=== PATIENT | female | born 1925 | race Caucasian/White ===

== ENCOUNTER 2016-03-27 06:57 | Inpatient (IN) ==
[2016-03-27] MEDS ORDERED: Aspirin 81 MG TAB.CHEW PO ONE (07:12)
[2016-03-27] MEDS ORDERED: 0.9 % Sodium Chloride 500 ML IVC ONE ×2 (07:21→08:27)
[2016-03-27] MEDS ORDERED: Nitroglycerin 0.4 MG TAB.SUBL SL PRN (07:21)
--- NOTE | 2016-03-27 07:23 | Emergency Department Note ---
Disposition Clinical Impression: History of IN (myocardial infarction), Atrial fibrillation with RVR, Acute prerenal azotemia Chest pain Qualifiers: Chest pain type: chest pain due to myocardial ischemia Qualified Code(s): I20.9 - Angina pectoris, unspecified Anemia Qualifiers: Anemia type: unspecified type Qualified Code(s): D64.9 - Anemia, unspecified Disposition: Admitted As Inpatient Condition: Serious Time of Disposition: 08:04 Chest Pain HPI - General Chief Complaint: ED Chest Pain Stated Complaint: chest pain Time Seen by Provider: 03/27/16 07:09 Source: patient Limitations: no limitations Vital Signs Reviewed: Yes Nursing Notes Reviewed: Yes - History of Present Illness HPI Narrative: 89-year-old female complains of chest pain 3 hours ago so an onset. Patient has a history of IN is 1 secondary to blood pressure medications and required one stent. She had previous history of having pain like this sometime last year secondary to an arrhythmia. EMS stated patient was given 0.4 mg of sublingual nitroglycerin and pain was reduced from 8-4. Patient states that her pain is midsternal closer throat and feels like heartburn. Patient is on apixaban (Eliquis) or anticoagulation secondary to A. fib. Patient has a spinal stimulator implanted in her back Past surgical history orthopedic surgery on feet Social history patient is a pack-a-day smoker denies alcohol use and denies illicit drug use Severity scale (1-10): 0 - Related Data Home Medications Medication Instructions Recorded Confirmed Acetaminophen [Tylenol] 975 mg PO BID 10/10/15 02/27/16 Calcium Carbonate [Tums] 500 mg PO BID PRN 10/10/15 02/27/16 Cholecalciferol (D-3) [Vitamin D] 2,000 unit PO DAILY 10/10/15 02/27/16 Ethacrynic Acid [Edecrin] 50 mg PO BID 10/10/15 02/27/16 Gabapentin [Neurontin] 600 mg PO TID 10/10/15 02/27/16 GuaiFENesin Liq [Robitussin Liq] 200 mg PO Q6HR PRN 10/10/15 02/27/16 Ipratropium/Albuterol Neb [Duoneb] 3 ml IH Q4HR PRN 10/10/15 02/27/16 Lidocaine 1 each TP DAILY MDD Remove after 10/10/15 02/27/16 12 hrs. Loperamide HCl [Imodium A-D] 2 mg PO Q6H PRN 10/10/15 02/27/16 Losartan Potassium [Cozaar] 100 mg PO BID 10/10/15 02/27/16 Morphine Sulfate 15 mg PO BID 10/10/15 02/27/16 Mv-Mn/FA/Vit K1/Lycop/Lut/Zeax 1 each PO DAILY 10/10/15 02/27/16 [Ocuvite Eye + Multi Tablet] Naphazoline HCl 1 drop OP DAILY PRN 10/10/15 02/27/16 Omeprazole [PriLOSEC] 40 mg PO QAM 10/10/15 02/27/16 Oxycodone HCl 10 mg PO Q6H 10/10/15 02/27/16 Polyethylene Glycol 3350 [MiraLAX] 17 gm PO DAILY PRN 10/10/15 02/27/16 Polyvinyl Alcohol [Artificial 1 drop OP QID PRN 10/10/15 02/27/16 Tears] Tizanidine HCl 2 mg PO DAILY 10/10/15 02/27/16 Meclizine HCl [Verticalm] 25 mg PO BID PRN 02/27/16 02/27/16 Metoprolol XL (24 HR) Succ [Toprol 75 mg PO BID 02/27/16 02/27/16 XL] Phenylephrine HCl [Brandie-Med] 1 each RC DAILY PRN 02/27/16 02/27/16 Sennosides/Docusate Sodium 1 each PO BID 02/27/16 02/27/16 [Senna-Docusate Sodium Tablet] Apixaban [Eliquis] 2.5 mg PO BID 03/27/16 03/27/16 Aspirin [Lo-Dose Aspirin EC] 81 mg PO DAILY 03/27/16 03/27/16 Propylene Glycol/Peg 400 [Systane 1 drop BOTH EYES QID 03/27/16 03/27/16 0.3-0.4% Eye Drops] Witch Katrina [Preparation H] 1 pad TP QID PRN 03/27/16 03/27/16 Previous Rx's Medication Instructions Recorded Isosorbide MONOnitrate (24 HR) 60 mg PO DAILY #30 tab.er.24h 10/13/15 [Imdur] Simvastatin [Zocor] 40 mg PO HS #30 tablet 10/13/15 Allergies Allergy/AdvReac Type Severity Reaction Status Date / Time bacitracin Allergy Unknown See Verified 03/27/16 09:58 [From Neosporin Comments ([id number])] celecoxib Allergy Unknown See Verified 03/27/16 09:51 Comments codeine Allergy Unknown See Verified 03/27/16 09:51 Comments Donepezil Allergy Unknown See Verified 03/27/16 09:59 Comments fenofibrate [From Tricor] Allergy Unknown See Verified 03/27/16 09:51 Comments Hydralazine Allergy Unknown See Verified 03/27/16 09:51 Comments naproxen Allergy Unknown See Verified 03/27/16 09:51 Comments Neomycin Allergy Unknown See Verified 03/27/16 09:58 [From Neosporin Comments ([id number])] NSAIDS (Non-Steroidal Allergy Unknown See Verified 03/27/16 09:51 Anti-Inflamma Comments Opioids - Morphine Analogues Allergy Unknown See Verified 03/27/16 09:51 Comments polymyxin B Allergy Unknown See Verified 03/27/16 09:58 [From Neosporin Comments ([id number])] rofecoxib Allergy Unknown See Verified 03/27/16 09:51 Comments Sulfa (Sulfonamide Allergy Unknown See Verified 03/27/16 09:51 Antibiotics) Comments Tetanus Vaccines and Toxoid Allergy Unknown See Verified 03/27/16 09:51 [Tetanus Vaccines & Toxoid] Comments lisinopril AdvReac Cough Verified 03/27/16 10:00 nicotine AdvReac Vomiting Verified 03/27/16 10:00 All systems ED: reviewed and negative except as stated. Constitutional: Denies: fever, chills, weakness Eyes: Denies: eye pain, eye discharge ENT ED: Reports: congestion. Denies: ear pain, throat pain Cardiovascular: Reports: chest pain. Denies: palpitations, syncope Respiratory: Denies: cough, dyspnea, wheezes Gastrointestinal: Denies: abdominal pain, nausea, vomiting Genitourinary: Denies: urgency, dysuria Musculoskeletal: Denies: back pain, neck pain Integumentary: Denies: rash, abrasion Neurological: Denies: headache, weakness, numbness Psychiatric: Denies: anxiety, depression Endocrine: Denies: fatigue, heat or cold intolerance Hematological/Lymphatic: Denies: easy bleeding, easy bruising Allergic/Immunologic: Denies: facial swelling, urticaria Chest Pain PMH - Past Medical History Medical history: Reports: arthritis, atrial fibrillation, cancer, COPD, coronary artery disease, diabetes, GERD, hyperlipidemia, hypertension, peripheral artery disease, valvular heart disease, other Surgical history: Reports: other Psychiatric history: Reports: no psych history [employer] history: Reports: no [employer] history - Social History Smoking Status: Current every day smoker Alcohol use: Reports: none Drug use: Reports: none Physical Exam Vital Signs Temperature 98.8 F 03/27/16 06:59 Pulse Rate 97 03/27/16 06:59 Respiratory Rate 18 03/27/16 06:59 Blood Pressure 152/81 03/27/16 06:59 O2 Sat by Pulse Oximetry 93 L 03/27/16 06:59 Temperature 98.8 F 03/27/16 06:59 Pulse Rate 97 03/27/16 06:59 Respiratory Rate 18 03/27/16 06:59 Blood Pressure 152/81 03/27/16 06:59 O2 Sat by Pulse Oximetry 92 L 03/27/16 07:18 Oxygen Delivery Oxygen Delivery Nasal Cannula -General Appearance: Patient is a 89-year-old female who is alert and oriented 3 and in no acute distress. Patient appears comfortable at this time -Neurological exam: Cranial nerves II-12 intact, no focal deficits observed, - Head Head exam: atraumatic, normocephalic, normal inspection - Eye Eye exam: Present: normal appearance, PERRL, EOMI, negative for scleral icterus negative for conjunctival pallor - ENT ENT exam: normal exam, normal oropharynx, mucous membranes moist - Neck Neck exam: Present: normal inspection, full ROM, trachea midline, negative JVD - Chest Chest inspection: Present: Patient has bilateral equal rise and fall of chest wall. Non-tender to palpation. - Respiratory Respiratory exam: Clear to auscultation bilaterally without wheezes rales or rhonchi Cardiovascular Cardiovascular exam: Irregular rate and rhythm upon auscultation. No murmurs rubs or gallops - Abdominal Exam Abdominal exam: Present: soft, nondistended, Non-Tender light and deep palpation in all quadrants. Bowel sounds normoactive throughout all 4 quadrants. Negative for hyper or hyperresonance. - Extremities Exam Extremities exam: Present: normal inspection, full ROM. Pulses equal bilateral in radial and pedal - Back Exam Back exam: Present: normal inspection, full ROM. Absent: tenderness, CVA tenderness (R), CVA tenderness (L) - Psychiatric Psychiatric exam: Present: normal affect, normal mood - Skin Skin exam: Present: warm, dry, intact, normal color - General Limitations: no limitations General appearance: alert, in no apparent distress Course Course Narrative: Patient seen and examined. Chest x-ray, labs, troponin, nitroglycerin and aspirin ordered - Reevaluation(s) Reevaluation #1: Patient is currently resting comfortably. Patient is asleep. Patient currently has 0-10 pain. Patient has not had any nitroglycerin here. The patient begins have pain again will administer nitroglycerin Time: 07:37 Reevaluation #2: Patient recheck, vital signs pulse 82, respirations 14, blood pressure 162/55, O2 sat 99%. 2 L nasal cannula. Patient is sleeping comfortably. Time: 08:13 Reevaluation #3: Patient rechecked evaluate is doing fine. Patient's back in normal sinus rhythm after patient received 500 mL bolus normal saline. She will receive 1 more 500 mL bolus normal saline. I discussed admission with the patient and patient agrees and understands. Patient is been accepted for admission. Time: 08:30 - Consultations Consultation #1: Dr. Vargas has accepted for admission Time: 08:20 Vital Signs Temperature 98.8 F 03/27/16 06:59 Pulse Rate 97 03/27/16 06:59 Respiratory Rate 18 03/27/16 06:59 Blood Pressure 152/81 03/27/16 06:59 O2 Sat by Pulse Oximetry 93 L 03/27/16 06:59 Temperature 98.3 F 03/27/16 15:07 Pulse Rate 90 03/27/16 15:07 Respiratory Rate 16 03/27/16 15:07 Blood Pressure 160/77 03/27/16 15:07 O2 Sat by Pulse Oximetry 92 L 03/27/16 15:07 Oxygen Delivery Oxygen Delivery Nasal Cannula Chest Pain - MDM Narrative Medical decision making narrative: Ms. Barfield is an 89-year-old female with a history of previous IN and A. fib on Apixaban presents with sudden onset of atypical chest pain 3 hours ago with resolution secondary to nitroglycerin 0.4 mg. Patient's condition is concerning for ACS/UA, or possibly aortic dissection, PE, PTX, pneumonia, esophageal perforation, GERD. Chest x-ray is clear abnormalities to include widening mediastinum, pneumonia, pneumothorax. Patient's pulses are equal bilaterally radial and pedal. She has a hard score of 8. Troponin negative at 0.01. Patient has previous echo taken 10/10/2015 which shows an EF of 65-70% and saw Dr. Lyons at that time. Patient has WBC of 14.5, mildly hyponatremic at 133, and presents with a BUN of 29 and a creatinine of 0.99 for Prerenal azotemia. Patient's been administered 325 aspirin, 500 mL bolus of normal saline IV. Patient's pain currently 0 out of 10 secondary to 0.4 mg sublingual nitroglycerin 1. Recommend patient be admitted for further cardiac workup. Dr. Vargas has accepted the patient for admittance. Patient's pain is still 0 out of 10. Patient heart rhythm is back in normal sinus. Patient will receive one more 500 mL bolus of normal saline. - Medical Records Medical records reviewed: Yes I reviewed the patient's medical records. Reviewed patient's records from the [facility] - Lab Data Lab results reviewed: Yes I reviewed the patient's lab results. Lab results narrative: Short CBC 03/27/16 Range/Units 07:33 WBC 14.5 H (4.3-11.1) K/mcL Hgb 10.0 L (11.5-15.4) g/dL Hct 32.0 L (35.3-44.9) % Plt Count 262 (140-400) K/mcL Neutrophils # 9.6 H (1.6-8.9) K/mcL BMP 03/27/16 Range/Units 07:33 Sodium 133 L (136-145) mEq/L Potassium 4.1 (3.5-4.5) mEq/L Chloride 99 (98-109) mEq/L Carbon Dioxide 22 (19-29) mEq/L BUN 29 H (7-20) mg/dL Creatinine 0.99 (0.57-1.11) mg/dL Glucose 147 H (70-99) mg/dL Calcium 9.0 (8.6-10.8) mg/dL Cardiac Enzymes 03/27/16 Range/Units 07:33 Troponin I 0.01 (0-0.03) ng/mL Result diagrams: 03/27/16 07:33 03/27/16 07:33 Lab Results 03/27/16 03/27/16 03/27/16 Range/Units 07:33 07:33 07:33 WBC 14.5 H (4.3-11.1) K/mcL RBC 4.28 (3.82-4.97) M/mcL Hgb 10.0 L (11.5-15.4) g/dL Hct 32.0 L (35.3-44.9) % MCV 74.8 L (83.0-100.0) fL MCH 23.4 L (28.0-33.3) pg MCHC 31.3 L (31.6-35.5) g/dL RDW 17.0 H (11.5-14.5) % Plt Count 262 (140-400) K/mcL MPV 9.4 (9.4-12.4) fL Immature Gran % 0.5 (0-4) % Seg Neutrophils % 66.2 % Lymphocytes % 22.0 % Monocytes % 9.4 % Eosinophils % 1.7 % Basophils % 0.2 % Neutrophils # 9.6 H (1.6-8.9) K/mcL Lymphocytes # 3.2 (0.6-4.6) K/mcL Monocytes # 1.4 H (0.0-1.3) K/mcL Eosinophils # 0.3 (0.0-0.6) K/mcL Basophils # 0.0 (0.0-0.2) K/mcL Immature Plt Fraction 2.5 (1.1-6.1) % PT 15.7 H (9.4-12.1) Seconds INR 1.4 APTT 34.8 (26.0-36.0) Seconds Sodium 133 L (136-145) mEq/L Potassium 4.1 (3.5-4.5) mEq/L Chloride 99 (98-109) mEq/L Carbon Dioxide 22 (19-29) mEq/L BUN 29 H (7-20) mg/dL Creatinine 0.99 (0.57-1.11) mg/dL Est GFR ( Amer) > 60 (> 60) Est GFR (Non-Af Amer) 53 L (> 60) BUN/Creatinine Ratio 29 H (6-26) Glucose 147 H (70-99) mg/dL Calculated Osmolality 285 (280-300) Calcium 9.0 (8.6-10.8) mg/dL Troponin I (0-0.03) ng/mL Urine Color (Yellow) Urine Clarity (Clear) Urine pH (5.0-8.0) pH Units Ur Specific Wilmot (1.010-1.025) Urine Protein (Neg-Trace) mg/dL Urine Glucose (UA) (Normal) mg/dL Urine Ketones (Negative) mg/dL Urine Blood (Negative) Urine Nitrite (Negative) Urine Bilirubin (Negative) Urine Urobilinogen (Normal) mg/dL Ur Leukocyte Esterase (Negative) Urine Microscopic RBC (0-3) per hpf Urine Microscopic WBC (0-3) per hpf Ur Squamous Epith Cells (None-Few) per lpf Urine Bacteria (None-Few) per hpf Hyaline Casts (None-Few) per lpf 03/27/16 03/27/16 03/27/16 Range/Units 07:33 13:00 13:50 WBC (4.3-11.1) K/mcL RBC (3.82-4.97) M/mcL Hgb (11.5-15.4) g/dL Hct (35.3-44.9) % MCV (83.0-100.0) fL MCH (28.0-33.3) pg MCHC (31.6-35.5) g/dL RDW (11.5-14.5) % Plt Count (140-400) K/mcL MPV (9.4-12.4) fL Immature Gran % (0-4) % Seg Neutrophils % % Lymphocytes % % Monocytes % % Eosinophils % % Basophils % % Neutrophils # (1.6-8.9) K/mcL Lymphocytes # (0.6-4.6) K/mcL Monocytes # (0.0-1.3) K/mcL Eosinophils # (0.0-0.6) K/mcL Basophils # (0.0-0.2) K/mcL Immature Plt Fraction (1.1-6.1) % PT (9.4-12.1) Seconds INR APTT (26.0-36.0) Seconds Sodium (136-145) mEq/L Potassium (3.5-4.5) mEq/L Chloride (98-109) mEq/L Carbon Dioxide (19-29) mEq/L BUN (7-20) mg/dL Creatinine (0.57-1.11) mg/dL Est GFR ( Amer) (> 60) Est GFR (Non-Af Amer) (> 60) BUN/Creatinine Ratio (6-26) Glucose (70-99) mg/dL Calculated Osmolality (280-300) Calcium (8.6-10.8) mg/dL Troponin I 0.01 0.11 H* (0-0.03) ng/mL Urine Color Yellow (Yellow) Urine Clarity Clear (Clear) Urine pH 6.5 (5.0-8.0) pH Units Ur Specific Wilmot 1.009 L (1.010-1.025) Urine Protein Negative (Neg-Trace) mg/dL Urine Glucose (UA) Normal (Normal) mg/dL Urine Ketones Negative (Negative) mg/dL Urine Blood Negative (Negative) Urine Nitrite Negative (Negative) Urine Bilirubin Negative (Negative) Urine Urobilinogen Normal (Normal) mg/dL Ur Leukocyte Esterase Small H (Negative) Urine Microscopic RBC 0-3 (0-3) per hpf Urine Microscopic WBC 5-15 H (0-3) per hpf Ur Squamous Epith Cells Moderate H (None-Few) per lpf Urine Bacteria None Seen (None-Few) per hpf Hyaline Casts None Seen (None-Few) per lpf - Radiology Data Radiology results reviewed: Yes I reviewed the patient's radiology results. Chest X-Ray 03/27/16 07:12 IMPRESSION: No acute process. D/ / 03/27/2016 07:34:06 Ar Yeboah MD / Barbra Castaneda Interpreting Provider: Ar Yeboah MD - EKG Data EKG attestation: Yes I reviewed and interpreted this EKG. EKG results narrative: EKG taken at 03/27/2016 at 0707 hrs. EKG shows an irregular regular rhythm with no signs of P waves. Looks like A. fib at a rate of 109. A. fib RVR. Patient has ST depressions in V1 and V2 V3 V4 V5 and V6. Previous EKG shows A. fib at a rate of 86 bpm taken 12/11/2015. EKG taken 1410 2017 and 0728 hours of posterior leads of V6 and 8 and 9, shows no ST abnormalities depressions or elevations. Heart Score - Score History: Highly Suspicious EKG: Significant ST-Depression Age: Greater than 65 Risk Factors: Equal/Greater than 3 risk factor or history of atherosclerotic disease Troponin: Less than normal limit HEART Score Total: 8 Attestation Statement - Attestation Attestation: I examined this patient and my medical decision-making was reviewed with the [employer] OPERATOR/PA/Advanced Practice Nurse/Resident Physician. I agree with the documented findings, disposition and treatment plan as described except to the extent set forth below. Patient presents to the emergency department chest pain. Patient describes it as pressure substernal was radiating up into her neck. Denies radiation to the arms or back. She is not short of breath. Pain improved with nitroglycerin per medics. On exam she is awake and alert. She is mildly tachycardic in the low 100s. Heart irregularly irregular. Lungs clear. Plan. The patient's cardiac workup shows a normal troponin. Her EKG has anterolateral ST depressions. We did do a posterior EKG that does not show any elevations in the posterior leads. Concerning for ischemia. She is admitted to medicine at this time for further workup. She is pain-free after another nitroglycerin. Aspirin given.
[2016-03-27 07:40] LABS: Basophils % 0.2 %; Eosinophils # 0.3 K/mcL (0.0-0.6); Eosinophils % 1.7 %; Immature Granulocytes % 0.5 % (0-4); Immature Platelets 2.5 % (1.1-6.1); Lymphocytes # 3.2 K/mcL (0.6-4.6); Mean Corpuscular HGB Conc 31.3 g/dL (31.6-35.5); Mean Corpuscular Hemoglobin 23.4 pg (28.0-33.3); Mean Corpuscular Volume 74.8 fL (83.0-100.0); Mean Platelet Volume 9.4 fL (9.4-12.4); Monocytes # 1.4 K/mcL (0.0-1.3); Monocytes % 9.4 %; Neutrophils # 9.6 K/mcL (1.6-8.9); Platelet Count 262 K/mcL (140-400); Red Blood Count 4.28 M/mcL (3.82-4.97); Segmented Neutrophils % 66.2 %
[2016-03-27 07:44] LABS: INR 1.4; Prothrombin Time 15.7 Seconds (9.4-12.1)
[2016-03-27 07:46] LABS: Activated Partial Thrombo Time 34.8 Seconds (26.0-36.0)
[2016-03-27 07:52] LABS: BUN/Creatinine Ratio 29 (6-26); Blood Urea Nitrogen 29 mg/dL (7-20); Carbon Dioxide 22 mEq/L (19-29); Chloride 99 mEq/L (98-109); Glucose 147 mg/dL (70-99); Osmolality,Calculated 285 (280-300); Potassium 4.1 mEq/L (3.5-4.5); Sodium 133 mEq/L (136-145); eGFR For African Americans > 60 (> 60); eGFR For Non-African Americans 53 (> 60)
[2016-03-27] MEDS ORDERED: Naloxone 0.4 MG/ML INJ IVP PRN (08:26)
[2016-03-27] MEDS ORDERED: Acetaminophen 325 MG TABLET PO PRN (08:26)
[2016-03-27] MEDS ORDERED: Ondansetron 4 MG/2 ML VIAL IVP PRN (08:26)
[2016-03-27] MEDS ORDERED: D5% in Water 1,000 ML IV PRN (08:30)
[2016-03-27] MEDS ORDERED: *HR* Dextrose 50 % in Water (Syg) 50 ML SYRINGE IVP PRN (08:30)
[2016-03-27] MEDS ORDERED: Dextrose Gel 15 GM PO PRN ×2 (08:30)
[2016-03-27] MEDS: Aspirin Enteric Coated 81 MG Tablet PO SCH (10:11)
[2016-03-27] MEDS ORDERED: Ipratropium/Albuterol Neb 3 ML IH PRN (10:36)
[2016-03-27] MEDS ORDERED: PHENYLEPHRINE HCL RC PRN (10:36)
[2016-03-27] MEDS ORDERED: Artificial Tears SOLN 15 ML BOTTLE OP PRN (10:36)
[2016-03-27] MEDS ORDERED: Sennosides/Docusate Sodium TABLET PO PRN (10:36)
--- NOTE | 2016-03-27 10:56 | Internal Med History&Physical ---
Date of Encounter: 03/27/16 Time of Encounter: 09:25 Assessment and Plan (1) Chest pain Current visit: Yes Status: Acute Atypical chest pain Patient with multiple risk factors as stated in HPI EKG reviewed : Paced, <1mm depression in lateral leads, same as in EKG of 09/2015 CXR unremarkable Initial troponin negative Patient currently CP free, on double antiplatelet agents: ASA and Apixaban Continue ASA, add Lipitor Trend trops Low suspicion for ACS Qualifiers: Chest pain type: unspecified Qualified Code(s): R07.9 - Chest pain, unspecified (2) Acute prerenal azotemia Current visit: Yes Status: Acute s/p IVF boluses Rpt Chem a.m Send UA Encourage liberal fluid intake (3) Anemia Current visit: Yes Status: Chronic Qualifiers: Anemia type: unspecified type Qualified Code(s): D64.9 - Anemia, unspecified (4) Hypertension Current visit: Yes Status: Chronic Qualifiers: Hypertension type: essential hypertension Qualified Code(s): I10 - Essential (primary) hypertension (5) PVD (peripheral vascular disease) Current visit: Yes Status: Chronic (6) Paroxysmal atrial fibrillation Current visit: Yes Status: Chronic Rate controlled Continue home meds (7) Tobacco abuse counseling Current visit: No Status: Acute (8) CAD (coronary artery disease) Current visit: Yes Status: Chronic Resume home nitro, ASA, Statin, BB, ARB Others as in CP above Qualifiers: Coronary Disease-Associated Artery/Lesion type: [place] artery [place] vs. transplanted heart: [place] heart Associated angina: angina presence unspecified Qualified Code(s): I25.10 - Atherosclerotic heart disease of [place] coronary artery without angina pectoris (9) COPD (chronic obstructive pulmonary disease) Current visit: Yes Status: Chronic Qualifiers: COPD type: unspecified COPD Qualified Code(s): J44.9 - Chronic obstructive pulmonary disease, unspecified (10) Chronic diastolic CHF (congestive heart failure) Current visit: Yes Status: Chronic NO congestion/fluid overload, resume home meds (11) GERD (gastroesophageal reflux disease) Current visit: Yes Status: Chronic Resume meds Qualifiers: Esophagitis presence: without esophagitis Qualified Code(s): K21.9 - Gastro -esophageal reflux disease without esophagitis Internal Medicine - H&P: HPI Chief complaint: Chest pain Admitted From: Intrahospital Transfer Plans for Post Hospital Care: Transfer Other (Transfer back to [place]) History of present illness: Ms. Barfield is a 89 year old female Pleasant elderly lady seen at bedside She is a resident of the [place] who presented with chest pain of 3 hrs duration prior to presentation. Patient reported she was in her usual state of health till early hours of the morning when she developed burning like chest pain that radiated to her throat. She states "it feels like indigestion and I did not want to take the tums" Chest pain was relieved by one SL NTG She denies associated nausea, vomiting, diaphoresis, dizziness, palpitations, no preceding history of trauma, no cough, no shortness of breath She has a PMH of Atrial fibrillation with PCM on Apixaban, COPD, CAD , PVD, DM, GERD, HLD, HTN, Daily smoker Due to above multiple risk factors, she will be placed on observation to r/o ACS Past Med Surg Social Fam HX - Past Medical History Medical history: arthritis, atrial fibrillation, cancer, COPD, coronary artery disease, diabetes, GERD, hyperlipidemia, hypertension, myocardial infarction, peripheral artery disease, valvular heart disease Psychiatric history: no psych history - Past Surgical History Surgical History: angioplasty/stent, ureteral stent - Social History Smoking Status: Current every day smoker Smokeless Tobacco Status: No Alcohol use: none Drug use: none - Family History Father Adopted: No Family Member Ethnicity: Non- Twin of Family Member: Yes, Fraternal Living Status: Hx Family Cardiac Disorders: Yes Hx Family Respiratory Disorders: Yes Internal Medicine - H&P: Meds Acetaminophen [Tylenol] 975 mg PO BID PRN 10/10/15 [History] Calcium Carbonate [Tums] 500 mg PO BID PRN 10/10/15 [History] Cholecalciferol (D-3) [Vitamin D] 2,000 unit PO DAILY 10/10/15 [History] Ethacrynic Acid [Edecrin] 50 mg PO BID 10/10/15 [History] Gabapentin [Neurontin] 600 mg PO TID 10/10/15 [History] GuaiFENesin Liq [Robitussin Liq] 200 mg PO Q6HR PRN 10/10/15 [History] Ipratropium/Albuterol Neb [Duoneb] 3 ml IH Q4HR PRN 10/10/15 [History] Lidocaine 1 patch TP Q12H 10/10/15 [History] Loperamide HCl [Imodium A-D] 2 mg PO Q6H PRN 10/10/15 [History] Losartan Potassium [Cozaar] 50 mg PO BID 10/10/15 [History] Morphine Sulfate 15 mg PO BID 10/10/15 [History] Mv-Mn/FA/Vit K1/Lycop/Lut/Zeax [Ocuvite Eye + Multi Tablet] 1 tab PO BID [History] Naphazoline HCl 1 drop OP DAILY PRN 10/10/15 [History] Omeprazole [PriLOSEC] 40 mg PO QAM 10/10/15 [History] Oxycodone HCl 10 mg PO Q6H PRN 10/10/15 [History] Polyethylene Glycol 3350 [MiraLAX] 17 gm PO DAILY PRN 10/10/15 [History] Polyvinyl Alcohol [Artificial Tears] 1 drop OP QID PRN 10/10/15 [History] Tizanidine HCl 2 mg PO DAILY 10/10/15 [History] Isosorbide MONOnitrate (24 HR) [Imdur] 60 mg PO DAILY #30 tab.er.24h 10/13/15 [ Rx] Simvastatin [Zocor] 40 mg PO HS #30 tablet 10/13/15 [Rx] Meclizine HCl [Verticalm] 25 mg PO BID PRN 02/27/16 [History] Metoprolol XL (24 HR) Succ [Toprol XL] 75 mg PO BID 02/27/16 [History] Phenylephrine HCl [Brandie-Med] 1 supp RC DAILY PRN 02/27/16 [History] Sennosides/Docusate Sodium [Senna-Docusate Sodium Tablet] 1 tab PO BID PRN 02/26 [History] Apixaban [Eliquis] 2.5 mg PO BID 03/27/16 [History] Aspirin [Lo-Dose Aspirin EC] 81 mg PO DAILY 03/27/16 [History] Propylene Glycol/Peg 400 [Systane 0.3-0.4% Eye Drops] 1 drop BOTH EYES QID 03/27 [History] Witch Katrina [Preparation H] 1 pad TP QID PRN 03/27/16 [History] Allergies bacitracin [From Neosporin ([id number])] Allergy (Unknown, Verified 03/27/16 09:58) See Comments PATIENT UNSURE- REACTION NOT LISTED ON [facility] celecoxib Allergy (Unknown, Verified 03/27/16 09:51) See Comments pt cannot remember codeine Allergy (Unknown, Verified 03/27/16 09:51) See Comments pt does not remember Donepezil Allergy (Unknown, Verified 03/27/16 09:59) See Comments PATIENT UNSURE- REACTION NOT LISTED ON [facility] fenofibrate [From Tricor] Allergy (Unknown, Verified 03/27/16 09:51) See Comments pt does not remember Hydralazine Allergy (Unknown, Verified 03/27/16 09:51) See Comments PATIENT UNSURE- REACTION NOT LISTED ON [facility] naproxen Allergy (Unknown, Verified 03/27/16 09:51) See Comments PATIENT UNSURE- REACTION NOT LISTED ON [facility] Neomycin [From Neosporin ([id number])] Allergy (Unknown, Verified 03/27/16 09 :58) See Comments PATIENT UNSURE- REACTION NOT LISTED ON [facility] NSAIDS (Non-Steroidal Anti-Inflamma Allergy (Unknown, Verified 03/27/16 09:51) See Comments PATIENT UNSURE- REACTION NOT LISTED ON [facility] Opioids - Morphine Analogues Allergy (Unknown, Verified 03/27/16 09:51) See Comments PATIENT UNSURE- REACTION NOT LISTED ON [facility] polymyxin B [From Neosporin ([id number])] Allergy (Unknown, Verified 09:58) See Comments PATIENT UNSURE- REACTION NOT LISTED ON [facility] rofecoxib Allergy (Unknown, Verified 03/27/16 09:51) See Comments PATIENT UNSURE- REACTION NOT LISTED ON [facility] Sulfa (Sulfonamide Antibiotics) Allergy (Unknown, Verified 03/27/16 09:51) See Comments PATIENT UNSURE- REACTION NOT LISTED ON [facility] Tetanus Vaccines and Toxoid [Tetanus Vaccines & Toxoid] Allergy (Unknown, Verified 03/27/16 09:51) See Comments PATIENT UNSURE- REACTION NOT LISTED ON [facility] lisinopril Adverse Reaction (Verified 03/27/16 10:00) Cough nicotine Adverse Reaction (Verified 03/27/16 10:00) Vomiting All Systems PM: A 10-system review of systems was performed and is negative for pertinent findings except as documented above in the HPI. - Constitutional Constitutional: no chills, no fever(s), no night sweats - EENT Eyes: no change in vision, no discharge, no pain, no photophobia Ears: no ear discharge, no ear pain, no tinnitus Nose, mouth and throat: no dysphagia, no nasal discharge, no neck pain, no sore throat - Cardiovascular Cardiovascular ROS IM: as per HPI - Respiratory Respiratory: as per HPI - Gastrointestinal Gastrointestinal: as per HPI - Genitourinary Genitourinary: no change in urinary stream, no dysuria, no flank pain, no hematuria - Musculoskeletal Musculoskeletal ROS IM: no numbness, no tingling - Integumentary Integumentary IM: no rash, no unusual bruising - Neurological Neurological ROS: no confusion, no convulsions, no focal weakness, no numbness, no tingling, no tremor(s) - Hematologic/Lymphatic Hematologic/Lymphatic: no easy bruising - Constitutional Vitals: Temp Pulse Resp BP Pulse Ox 97.8 F 86 14 175/61 97 03/27/16 10:05 03/27/16 10:05 03/27/16 10:05 03/27/16 10:05 03/27/16 08:34 General appearance: Present: cachectic, A&O X 3, pleasant, no acute distress - Head Head exam: Present: atraumatic, normocephalic - Eye Eye exam: Present: PERRL, conjuntiva pink, sclera anicteric Pupils: Present: PERRL - Neck Neck exam general surgery: Present: supple, trachea midline. Absent: lymphadenopathy - Respiratory Respiratory exam: Present: CTAB. Absent: accessory muscle use, rales, rhonchi, wheezes - Cardiovascular Cardiovascular exam: Present: irregular rhythm, +S1, +S2. Absent: diastolic murmur, gallop, rubs, systolic murmur - GI/Abdominal GI/Abdominal exam: Present: normal bowel sounds, soft, tenderness, no peritoneal signs. Absent: distended Additional comments: Abdomen was distended in suprapubic region with suprapubic tenderness - Extremities Exam Extremities exam: Present: warm. Absent: calf tenderness, cyanotic, pedal edema Additional comments: Signs of chronic venous congestion, no edema Left foot with halus valgus - Neurological Exam Neurological exam: Present: CN II-XII intact, oriented X3, no focal deficits. Absent: pronater drift, facial droop, speech deficit - Skin Skin exam: Present: dry Internal Med - H&P Results - Labs CBC & Chem 7: 03/27/16 07:33 03/27/16 07:33
[2016-03-27] MEDS ORDERED: Isosorbide MONOnitrate (24 HR) 60 MG TAB.ER.24H PO ONE (11:15)
[2016-03-27] MEDS ORDERED: Metoprolol XL (24 HR) Succ 50 MG TAB.ER.24H PO ONE (11:15)
[2016-03-27] MEDS: GuaiFENesin Liq 200 MG/10 ML UDC PO PRN (12:40)
[2016-03-27] MEDS: Multivit/Ca/Min/Fe/FA 1 TAB TABLET PO SCH (12:40)
[2016-03-27] MEDS: Insulin LISPRO 300 UNITS/3 ML VIAL SQ SCH ×5 (12:40→22:10)
[2016-03-27] MEDS: *HR* Morphine 2 MG/ML SYRINGE IVP PRN (12:40)
[2016-03-27] MEDS: Artificial Tears SOLN 15 ML BOTTLE BOTH EYES SCH ×3 (12:48→22:10)
[2016-03-27 14:22] LABS: Bilirubin,Urine Negative (Negative); Blood,Urine Negative (Negative); Clarity,Urine Clear (Clear); Color,Urine Yellow (Yellow); Glucose,Urine (UA) Normal (Normal); Ketones,Urine Negative (Negative); Leukocyte Esterase,Urine Small (Negative); Nitrite,Urine Negative (Negative); PH,Urine 6.5 pH Units (5.0-8.0); Protein,Urine Negative (Neg-Trace); Specific Gravity,Urine 1.009 (1.010-1.025); Urobilinogen,Urine Normal (Normal)
[2016-03-27 14:24] LABS: Bacteria,Urine None Seen per hpf (None-Few); Hyaline Casts,Urine None Seen per lpf (None-Few); RBC,Urine 0-3 per hpf (0-3); Squamous Epithelial Cell,Urine Moderate per lpf (None-Few)
[2016-03-27] MEDS ORDERED: *HR* Heparin 5,000 UNIT/ML VIAL IVP ONE (15:02)
[2016-03-27] MEDS ORDERED: *HR* Heparin 5,000 UNIT/ML VIAL IVP PRN (15:02)
--- NOTE | 2016-03-27 15:17 | Event Note ---
Date of Encounter: 03/27/16 Time of Encounter: 15:16 Patient admitted for chest pain r/o ACS EKG with lateral ST depressions, and rpt EKG with paced rhythm Initial troponin negative Repeat troponin 0.11 Started on heparin drip Cardiology consult placed NPO from [place] for possible cath
[2016-03-27] MEDS: Gabapentin 300 MG CAPSULE PO SCH ×2 (16:48→20:03)
[2016-03-27] MEDS: Heparin 25,000 UNIT/500 ML D5W 25,000 UNIT/500 ML MLS IVC SCH (16:48)
[2016-03-27 16:59] LABS: Hematocrit 29.1 % (35.3-44.9); Hemoglobin 9.1 g/dL (11.5-15.4); Mean Corpuscular HGB Conc 31.3 g/dL (31.6-35.5); Mean Corpuscular Hemoglobin 23.3 pg (28.0-33.3); Mean Corpuscular Volume 74.6 fL (83.0-100.0); Mean Platelet Volume 9.6 fL (9.4-12.4); Platelet Count 265 K/mcL (140-400); Red Cell Distribution Width 16.9 % (11.5-14.5)
[2016-03-27 17:06] LABS: INR 1.3; Prothrombin Time 14.5 Seconds (9.4-12.1)
[2016-03-27 17:09] LABS: Activated Partial Thrombo Time 33.1 Seconds (26.0-36.0)
[2016-03-27] MEDS: Metoprolol XL (24 HR) Succ 50 MG TAB.ER.24H PO SCH (20:03)
[2016-03-27] MEDS ORDERED: APIXABAN 2.5 MG TABLET PO SCH (21:00)
[2016-03-27] MEDS: Insulin DETEMIR 100 UNIT/ML X5UNITS SQ SCH (22:11)
[2016-03-28] MEDS: Insulin LISPRO 300 UNITS/3 ML VIAL SQ SCH ×7 (07:38→22:10)
[2016-03-28 07:41] LABS: Basophils % 0.3 %; Eosinophils # 0.1 K/mcL (0.0-0.6); Hematocrit 30.8 % (35.3-44.9); Hemoglobin 9.7 g/dL (11.5-15.4); Immature Granulocytes % 0.4 % (0-4); Lymphocytes # 2.7 K/mcL (0.6-4.6); Lymphocytes % 22.8 %; Mean Corpuscular HGB Conc 31.5 g/dL (31.6-35.5); Mean Corpuscular Hemoglobin 23.6 pg (28.0-33.3); Mean Corpuscular Volume 74.9 fL (83.0-100.0); Mean Platelet Volume 9.8 fL (9.4-12.4); Monocytes # 1.2 K/mcL (0.0-1.3); Monocytes % 9.7 %; Neutrophils # 7.8 K/mcL (1.6-8.9); Platelet Count 266 K/mcL (140-400); Red Blood Count 4.11 M/mcL (3.82-4.97); Red Cell Distribution Width 17.1 % (11.5-14.5); Segmented Neutrophils % 65.8 %
[2016-03-28 08:04] LABS: BUN/Creatinine Ratio 21 (6-26); Blood Urea Nitrogen 16 mg/dL (7-20); Calcium 9.3 mg/dL (8.6-10.8); Carbon Dioxide 23 mEq/L (19-29); Chloride 102 mEq/L (98-109); Cholesterol 112 mg/dL (< 200); Glucose 147 mg/dL (70-99); HDL Cholesterol 28 mg/dL (40-59); LDL Cholesterol,Calculated 55 mg/dL (0-99); Osmolality,Calculated 286 (280-300); Potassium 4.1 mEq/L (3.5-4.5); Sodium 136 mEq/L (136-145); Triglycerides 147 mg/dL (< 150); eGFR For African Americans > 60 (> 60); eGFR For Non-African Americans > 60 (> 60)
[2016-03-28] MEDS: GuaiFENesin Liq 200 MG/10 ML UDC PO PRN (08:15)
[2016-03-28] MEDS: tiZANidine 4 MG TABLET PO SCH (08:15)
[2016-03-28] MEDS: Multivit/Ca/Min/Fe/FA 1 TAB TABLET PO SCH (08:15)
[2016-03-28] MEDS: Aspirin Enteric Coated 81 MG Tablet PO SCH (08:15)
[2016-03-28] MEDS: Gabapentin 300 MG CAPSULE PO SCH ×3 (08:15→19:56)
[2016-03-28] MEDS: Cholecalciferol (D-3) 1,000 UNIT TABLET PO SCH (08:16)
[2016-03-28] MEDS: Isosorbide MONOnitrate (24 HR) 60 MG TAB.ER.24H PO SCH (08:16)
[2016-03-28] MEDS: Metoprolol XL (24 HR) Succ 50 MG TAB.ER.24H PO SCH ×2 (08:16→19:57)
[2016-03-28] MEDS: *HR* Morphine 2 MG/ML SYRINGE IVP PRN ×2 (08:16→22:04)
[2016-03-28] MEDS: *HR* Heparin 5,000 UNIT/ML VIAL IVP PRN ×2 (08:27→14:43)
[2016-03-28] MEDS: Artificial Tears SOLN 15 ML BOTTLE BOTH EYES SCH ×4 (08:30→19:58)
--- NOTE | 2016-03-28 09:10 | Cardiology Consult Note ---
Date of Encounter: 03/28/16 Time of Encounter: 09:00 Assessment and Plan (1) Elevated troponin Current Visit: Yes Status: Acute Troponin elevated at 0.11, 0.09. Likely demand ischemia in the setting of mild atrial fibrillation with RVR and leukocytosis. Presented with atypical chest pain. Pain with cough. Check TTE to evaluate LV function. Last TTE on 10/10/2015 showed an EF of 65-70%, there was moderate left ventricle hypertrophy, mild to moderate mitral regurgitation, moderate pulmonic regurgitation, mild pulmonary hypertension (2) Chest pain Current Visit: Yes Status: Acute Describes atypical chest pain occurring with cough. Mild troponin elevation seen in the setting of leukocytosis in atrial fibrillation with RVR. Likely demand ischemia. TTE pending. Qualifiers: Chest pain type: unspecified Qualified Code(s): R07.9 - Chest pain, unspecified (3) Atrial fibrillation with RVR Current Visit: Yes Status: Acute Mild atrial fibrillation with RVR. History of atrial fibrillation on eliquis for prison anticoagulation. Currently on heparin gtt for ACS protocal. Eliquis on hold. 24 hour telemetry review shows normal sinus rhythm with average heart rate at 86 bpm. Continue Toprol-XL 75 mg daily. (4) CAD (coronary artery disease) Current Visit: Yes Status: Chronic History of CAD and IA in 2008. Left heart catheter at that time showed [employer]PAR[employer] of the left circumflex artery with collaterals.50% stenosis pLAD, 40%, mLAD. Resume home nitro, ASA, Statin, BB, ARB Currently pain free. Qualifiers: Coronary Disease-Associated Artery/Lesion type: [place] artery [place] vs. transplanted heart: [place] heart Associated angina: angina presence unspecified Qualified Code(s): I25.10 - Atherosclerotic heart disease of [place] coronary artery without angina pectoris (5) COPD (chronic obstructive pulmonary disease) Current Visit: Yes Status: Acute Chronic COPD. Moist cough x1 one week. Hospitalist following. Qualifiers: COPD type: unspecified COPD Qualified Code(s): J44.9 - Chronic obstructive pulmonary disease, unspecified (6) Hypertension Current Visit: Yes Status: Chronic Blood pressures up to 189/99 this morning. Increase Cozaar 100 mg daily. Qualifiers: Hypertension type: essential hypertension Qualified Code(s): I10 - Essential (primary) hypertension Discussion w patient/family: The assessment and plan as outlined above was discussed with the patient and/or family members who expressed understanding and agreement. All questions were answered. Thank you for involving us in the care of your patient. Please call with any questions. History of Present Illness Consult date: 03/28/16 Requesting physician: Lamine Vargas Consult reason: ELevated troponin Chief complaint: Left chest pain with cough for one week. History of present illness: Ms. Barfield is a 89 year old female with a history of CAD status post IA in 2008 , atrial fibrillation on eliquis, COPD, hypertension, hyperlipidemia, and diabetes type 2 who presented from the [facility] with chest pain and cough for one week. She describes pain under her left breast that is sharp and occurs only with cough. She admits to occasional shortness of breath. Denies edema, weight gain, orthopnea or PND. Denies palpitations. Her troponin was found to be mildly elevated up to 0.11 EKG showed atrial fibrillation with mild RVR and borderline ST changes. White blood cell elevated to 14.5. Cardiology was consulted for elevated troponin. Past Med Surg Social Fam HX - Past Medical History Medical history: arthritis, atrial fibrillation, cancer, COPD, coronary artery disease, diabetes, GERD, hyperlipidemia, hypertension, peripheral artery disease , valvular heart disease, other Psychiatric history: no psych history - Past Surgical History Surgical History: other - Social History Smoking Status: Current every day smoker Smokeless Tobacco Status: No Alcohol use: none Drug use: none - Family History Father Adopted: No Family Member Ethnicity: Non- Twin of Family Member: Yes, Fraternal Living Status: Hx Family Cardiac Disorders: Yes Hx Family Respiratory Disorders: Yes Medications and Allergies Acetaminophen [Tylenol] 975 mg PO BID PRN 10/10/15 [History] Calcium Carbonate [Tums] 500 mg PO BID PRN 10/10/15 [History] Cholecalciferol (D-3) [Vitamin D] 2,000 unit PO DAILY 10/10/15 [History] Ethacrynic Acid [Edecrin] 50 mg PO BID 10/10/15 [History] Gabapentin [Neurontin] 600 mg PO TID 10/10/15 [History] GuaiFENesin Liq [Robitussin Liq] 200 mg PO Q6HR PRN 10/10/15 [History] Ipratropium/Albuterol Neb [Duoneb] 3 ml IH Q4HR PRN 10/10/15 [History] Lidocaine 1 patch TP Q12H 10/10/15 [History] Loperamide HCl [Imodium A-D] 2 mg PO Q6H PRN 10/10/15 [History] Losartan Potassium [Cozaar] 50 mg PO BID 10/10/15 [History] Morphine Sulfate 15 mg PO BID 10/10/15 [History] Mv-Mn/FA/Vit K1/Lycop/Lut/Zeax [Ocuvite Eye + Multi Tablet] 1 tab PO BID [History] Naphazoline HCl 1 drop OP DAILY PRN 10/10/15 [History] Omeprazole [PriLOSEC] 40 mg PO QAM 10/10/15 [History] Oxycodone HCl 10 mg PO Q6H PRN 10/10/15 [History] Polyethylene Glycol 3350 [MiraLAX] 17 gm PO DAILY PRN 10/10/15 [History] Polyvinyl Alcohol [Artificial Tears] 1 drop OP QID PRN 10/10/15 [History] Tizanidine HCl 2 mg PO DAILY 10/10/15 [History] Isosorbide MONOnitrate (24 HR) [Imdur] 60 mg PO DAILY #30 tab.er.24h 10/13/15 [ Rx] Simvastatin [Zocor] 40 mg PO HS #30 tablet 10/13/15 [Rx] Meclizine HCl [Verticalm] 25 mg PO BID PRN 02/27/16 [History] Metoprolol XL (24 HR) Succ [Toprol XL] 75 mg PO BID 02/27/16 [History] Phenylephrine HCl [Brandie-Med] 1 supp RC DAILY PRN 02/27/16 [History] Sennosides/Docusate Sodium [Senna-Docusate Sodium Tablet] 1 tab PO BID PRN 02/26 [History] Apixaban [Eliquis] 2.5 mg PO BID 03/27/16 [History] Aspirin [Lo-Dose Aspirin EC] 81 mg PO DAILY 03/27/16 [History] Propylene Glycol/Peg 400 [Systane 0.3-0.4% Eye Drops] 1 drop BOTH EYES QID 03/27 [History] Witch Katrina [Preparation H] 1 pad TP QID PRN 03/27/16 [History] Allergies bacitracin [From Neosporin ([id number])] Allergy (Unknown, Verified 03/27/16 09:58) See Comments PATIENT UNSURE- REACTION NOT LISTED [facility] celecoxib Allergy (Unknown, Verified 03/27/16 09:51) See Comments pt cannot remember codeine Allergy (Unknown, Verified 03/27/16 09:51) See Comments pt does not remember Donepezil Allergy (Unknown, Verified 03/27/16 09:59) See Comments PATIENT UNSURE- REACTION NOT LISTED ON [facility] fenofibrate [From Tricor] Allergy (Unknown, Verified 03/27/16 09:51) See Comments pt does not remember Hydralazine Allergy (Unknown, Verified 03/27/16 09:51) See Comments PATIENT UNSURE- REACTION NOT LISTED ON [facility] naproxen Allergy (Unknown, Verified 03/27/16 09:51) See Comments PATIENT UNSURE- REACTION NOT LISTED ON [facility] Neomycin [From Neosporin ([id number])] Allergy (Unknown, Verified 03/27/16 09 :58) See Comments PATIENT UNSURE- REACTION NOT LISTED ON [facility] NSAIDS (Non-Steroidal Anti-Inflamma Allergy (Unknown, Verified 03/27/16 09:51) See Comments PATIENT UNSURE- REACTION NOT LISTED ON [facility] Opioids - Morphine Analogues Allergy (Unknown, Verified 03/27/16 09:51) See Comments PATIENT UNSURE- REACTION NOT LISTED ON [facility] polymyxin B [From Neosporin ([id number])] Allergy (Unknown, Verified 09:58) See Comments PATIENT UNSURE- REACTION NOT LISTED ON [facility] rofecoxib Allergy (Unknown, Verified 03/27/16 09:51) See Comments PATIENT UNSURE- REACTION NOT LISTED ON [facility] Sulfa (Sulfonamide Antibiotics) Allergy (Unknown, Verified 03/27/16 09:51) See Comments PATIENT UNSURE- REACTION NOT LISTED ON [facility] Tetanus Vaccines and Toxoid [Tetanus Vaccines & Toxoid] Allergy (Unknown, Verified 03/27/16 09:51) See Comments PATIENT UNSURE- REACTION NOT LISTED ON [facility] lisinopril Adverse Reaction (Verified 03/27/16 10:00) Cough nicotine Adverse Reaction (Verified 03/27/16 10:00) Vomiting All Systems Review: A 10-system review of systems was performed and is negative for pertinent findings except as documented above in the HPI. Physical Examination Vital Signs, Last 4 Hours Temp Pulse Resp BP Pulse Ox 03/28/16 06:40 98.1 F 91 16 199/89 91 L General: Conversant, No Apparent Distress HEENT: Atraumatic, Normocephaly, Mucus Membranes Moist Neck: No JVD, Normal carotid pulses Cardiac: Other (Irregularly irregular) Lungs: Normal Breath Sounds, No Wheeze, Rales, Rhonchi, Other (Moist cough with rhonchi during cough noted.) Neuro: Alert and responsive, No focal deficits noted Abdomen: Soft, Non-Tender Skin: No rashes noted on visualized skin Musculoskeletal: No Chest Wall Tenderness Extremities: No Clubbing, No Cyanosis, No Edema, Normal Pulses Results 03/28/16 06:53 03/28/16 06:53 Lab Results 03/27/16 03/27/16 03/27/16 13:50 16:29 16:29 WBC 12.3 H Hgb 9.1 L Hct 29.1 L Plt Count 265 INR 1.3 APTT 33.1 Sodium Potassium Chloride Carbon Dioxide BUN Creatinine Glucose Calcium Troponin I 0.11 H* 03/27/16 03/27/16 03/28/16 21:37 23:14 06:53 WBC 11.8 H Hgb 9.7 L Hct 30.8 L Plt Count 266 INR APTT 39.0 H Sodium Potassium Chloride Carbon Dioxide BUN Creatinine Glucose Calcium Troponin I 0.09 H* 03/28/16 03/28/16 06:53 06:53 WBC Hgb Hct Plt Count INR APTT 54.8 H Sodium 136 Potassium 4.1 Chloride 102 Carbon Dioxide 23 BUN 16 D Creatinine 0.77 Glucose 147 H Calcium 9.3 Troponin I - Imaging and Cardiology Echo: report reviewed (10/10/2015 EF 65-70%, moderate left ventricle hypertrophy , moderate mitral regurgitation, hypertension, moderate pulmonic regurgitation, moderately enlarged left atrium.) Cardiac cath: report reviewed ( percent mid LAD stenosis, 50% proximal LAD stenosis. [employer]PAR[employer] of the left circumflex artery with right to left collaterals. The RCA was not described except for collaterals.) - EKG Interpretation EKG results cardiology: personally reviewed (Atrial fibrillation, heart rate 98 bpm, ST changes in the anterior lateral leads with borderline ST depression.) Consult Discharge Plan - Plan [facility]errals: [facility] Care Provider[facility] -
[2016-03-28 09:20] LABS: Hemoglobin A1C 6.6 %
--- NOTE | 2016-03-28 14:47 | Electrocardiograph Report ---
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
--- NOTE | 2016-03-28 14:48 | Electrocardiograph Report ---
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
[2016-03-28] MEDS: Heparin 25,000 UNIT/500 ML D5W 25,000 UNIT/500 ML MLS IVC SCH (16:45)
[2016-03-28] MEDS ORDERED: PrednisoLONE Oral Soln 15 MG/5 ML UDC PO ONE (16:45)
[2016-03-28] MEDS ORDERED: levoFLOXacin 500 MG TABLET PO ONE (16:45)
[2016-03-28] MEDS ORDERED: predniSONE 20 MG TABLET PO ONE (17:03)
--- NOTE | 2016-03-28 17:15 | Internal Med Progress Note ---
Date of Encounter: 03/28/16 Time of Encounter: 17:14 - Assessment and plan (1) COPD (chronic obstructive pulmonary disease) Current Visit: Yes Status: Acute Assessment and plan: Treat with levofloxacin and low dose prednisone and bronchodilators Qualifiers: COPD type: COPD with acute exacerbation Qualified Code(s): J44.1 - Chronic obstructive pulmonary disease with (acute) exacerbation (2) Chest pain Current Visit: Yes Status: Acute Assessment and plan: Peak troponin of 0.11. Patient was seen by picker machine operator Dr Dyson and recommended echocardiogram. Echocardiogram is pending at the time my evaluation. I discussed with Dr Dyson and he has not access to the echo report. Per cardiology consult, if the echo report is normal, can be discharged with cardiology f/u in 2-3 weeks. Qualifiers: Chest pain type: unspecified Qualified Code(s): R07.9 - Chest pain, unspecified (3) Elevated troponin Current Visit: Yes Status: Acute Assessment and plan: No chest pain ghassan. Peak troponin of 0.11. Patient was seen by picker machine operator Dr Dyson and recommended echocardiogram. Echocardiogram is pending at the time my evaluation. I discussed with Dr Dyson and he has not access to the echo report. Per cardiology consult, if the echo report is normal, can be discharged with cardiology f/u in 2-3 weeks (4) CAD (coronary artery disease) Current Visit: Yes Status: Chronic Assessment and plan: COntinue aspirin, metoprolol, statin. Qualifiers: Coronary Disease-Associated Artery/Lesion type: [place] artery [place] vs. transplanted heart: [place] heart Associated angina: angina presence unspecified Qualified Code(s): I25.10 - Atherosclerotic heart disease of [place] coronary artery without angina pectoris (5) Chronic diastolic CHF (congestive heart failure) Current Visit: Yes Status: Chronic Assessment and plan: Continue home medications (6) Anemia Current Visit: Yes Status: Chronic Assessment and plan: Microcytic anemia. Will check iron studies, vitamin B12, folate and fecal occult blood Qualifiers: Anemia type: unspecified type Qualified Code(s): D64.9 - Anemia, unspecified - Subjective Interval history: Pt is seen and examined at the bedside and chart reviewed. Pt reports cough with gandara sputum. No hemoptysis. Denies chest pain. Reports shortness of breath on exertion and sometimes lying down, mainly related to cough. Denies nausea, vomiting, fever, chills. - Constitutional Vitals: Temp Pulse Resp BP Pulse Ox 98.1 F 75 16 173/75 90 L 03/28/16 15:27 03/28/16 15:27 03/28/16 15:27 03/28/16 15:27 03/28/16 15:27 Exam: General: Not in acute distress at the time of my evaluation Lungs: Occasional wheeze Cardiac: Regular rate and rhythm. No significant murmurs Abdomen: Soft, non tender. Bowel sounds present Neurological: Alert and oriented. No gross localizing deficits Psych: Not aggressive or agitated Extremities: mild leg edema Skin: No generalized rash Internal Medicine: Result - Labs CBC & Chem 7: 03/28/16 06:53 03/28/16 06:53 Labs: Short CBC 03/28/16 Range/Units 06:53 WBC 11.8 H (4.3-11.1) K/mcL Hgb 9.7 L (11.5-15.4) g/dL Hct 30.8 L (35.3-44.9) % Plt Count 266 (140-400) K/mcL Neutrophils # 7.8 (1.6-8.9) K/mcL BMP 03/28/16 06:53 Sodium 136 Potassium 4.1 Chloride 102 Carbon Dioxide 23 BUN 16 D Creatinine 0.77 Glucose 147 H Calcium 9.3 Cardiac Enzymes 03/27/16 Range/Units 21:37 Troponin I 0.09 H* (0-0.03) ng/mL - ABG Interpretation ABG results: PT/INR, D-dimer PT 14.5 Seconds (9.4-12.1) H 03/27/16 16:29 Consult Discharge Plan - Plan [facility] [[facility] Care Provider[facility] -
--- NOTE | 2016-03-28 17:31 | ECHO - Doppler Report ---
Limited Echocardiogram Name: Catie Barfield Date of Study: 03/28/2016 Date: 1925 Ht: 63.0 in Medical Record#: [id number] Age: 89 Wt: 109.0 lb Gender: Female BSA: 1.49 Order #: [id number] Location: [facility] Room #: [facility] Reading Physician: Blaine Lyons MD, [facility] Clinical Audiologist: Kamala Cedeño RDCS Ordering Physician: Demetrio Adamson CNP Primary Physician: [facility] Indications: Elevated troponin Impressions: LVEF 65-70%. Normal right ventricular structure and function. Left Ventricular Wall Motion: Rest Echo Findings The apex, apical inferior, mid inferior, basal inferior, apical anterior, mid anterior, basal anterior, apical septal, mid inferior septal, basal inferior septal, apical lateral, mid anterior lateral, basal anterior lateral, mid anterior septal, mid inferior lateral, basal anterior septal and basal inferior lateral fitzpatrick were hyperkinetic. Findings: ECG Findings * Normal sinus rhythm. Study Quality * Technically adequate exam. Left Ventricle * Mild concentric left ventricular hypertrophy. * LVEF 65-70%. Mitral Valve * Mild mitral annular calcification Right Ventricle * Normal right ventricular structure and function. Left Atrium * Mildly dilated left atrium. IVC * Normal IVC dimensions and inspiratory collapse. History Hypertension Diabetes Hypercholesteremia History of Smoking Years 73 Packs 0.5 7-29-16 a Previous Echo was performed. Measurements: BP: 123/ 53 2D Normal Values RVIDd: 2.70 cm <2.7 cm IVSd: 1.50 cm 0.6 - 1.0 cm LVIDd: 3.50 cm 3.7 - 5.6 cm LVPWd: 1.20 cm 0.6 - 1.1 cm LVIDs: 2.10 cm 1.5 - 3.6 cm AO: 2.40 cm < 4.0 cm LA: 4.30 cm 2.0 - 4.0cm %FS: 40.00 cm >25 % LVOT Diam: 1.90 cm LA volume: 23 Updated by Blaine Lyons MD, [facility] on 03/28/2016 5:21:00 PM electronically signed on 03/28/2016 5:27:24 PM with status of Final Wall Motion Tamez: 1=Normal, 2=Hypokinesis, 3=Akinesis, 4=Dyskinesis, 5=Aneurysmal, 6=Hyperkinetic, X=Not Visualized (Blank)=Missing
[2016-03-28] MEDS: *HR* OxyCODONE Immed Rel 5 MG TABLET PO PRN (19:56)
[2016-03-28 20:43] LABS: Activated Partial Thrombo Time 114.3 Seconds (26.0-36.0)
[2016-03-28 21:02] LABS: Heparin anti-factor XA UFH 0.81 IU/mL (0.30-0.70)
[2016-03-28] MEDS: Insulin DETEMIR 100 UNIT/ML X5UNITS SQ SCH (22:08)
[2016-03-29] MEDS: Heparin 25,000 UNIT/500 ML D5W 25,000 UNIT/500 ML MLS IVC SCH (01:03)
[2016-03-29] MEDS: GuaiFENesin Liq 200 MG/10 ML UDC PO PRN ×4 (01:03→21:47)
[2016-03-29 04:37] LABS: Hematocrit 28.9 % (35.3-44.9); Hemoglobin 9.1 g/dL (11.5-15.4); Mean Corpuscular HGB Conc 31.5 g/dL (31.6-35.5); Mean Corpuscular Hemoglobin 23.5 pg (28.0-33.3); Mean Corpuscular Volume 74.7 fL (83.0-100.0); Mean Platelet Volume 9.7 fL (9.4-12.4); Platelet Count 255 K/mcL (140-400); Red Blood Count 3.87 M/mcL (3.82-4.97); Red Cell Distribution Width 16.9 % (11.5-14.5)
[2016-03-29 04:52] LABS: % Iron Saturation 7 % (15-50); BUN/Creatinine Ratio 19 (6-26); Blood Urea Nitrogen 16 mg/dL (7-20); Calcium 9.1 mg/dL (8.6-10.8); Carbon Dioxide 24 mEq/L (19-29); Chloride 100 mEq/L (98-109); Glucose 137 mg/dL (70-99); Iron 22 mcg/dL (50-170); Osmolality,Calculated 283 (280-300); Potassium 4.5 mEq/L (3.5-4.5); Sodium 135 mEq/L (136-145); Transferrin 241 mg/dL (180-382); eGFR For African Americans > 60 (> 60); eGFR For Non-African Americans > 60 (> 60)
[2016-03-29 05:38] LABS: Folate 14.2 ng/mL (7.0-31.4)
[2016-03-29] MEDS: Insulin LISPRO 300 UNITS/3 ML VIAL SQ SCH ×7 (07:42→21:52)
[2016-03-29] MEDS: Aspirin Enteric Coated 81 MG Tablet PO SCH (08:29)
[2016-03-29] MEDS: levoFLOXacin 500 MG TABLET PO SCH (08:30)
[2016-03-29] MEDS: Metoprolol XL (24 HR) Succ 50 MG TAB.ER.24H PO SCH ×2 (08:30→21:36)
[2016-03-29] MEDS: Cholecalciferol (D-3) 1,000 UNIT TABLET PO SCH (08:30)
[2016-03-29] MEDS: Gabapentin 300 MG CAPSULE PO SCH ×3 (08:30→21:36)
[2016-03-29] MEDS: Multivit/Ca/Min/Fe/FA 1 TAB TABLET PO SCH (08:30)
[2016-03-29] MEDS: Isosorbide MONOnitrate (24 HR) 60 MG TAB.ER.24H PO SCH (08:31)
[2016-03-29] MEDS: Artificial Tears SOLN 15 ML BOTTLE BOTH EYES SCH ×4 (08:31→21:37)
[2016-03-29] MEDS: *HR* Morphine 2 MG/ML SYRINGE IVP PRN ×2 (08:36→21:46)
[2016-03-29] MEDS: tiZANidine 4 MG TABLET PO SCH (08:37)
[2016-03-29] MEDS ORDERED: predniSONE 20 MG TABLET PO SCH (09:00)
--- NOTE | 2016-03-29 09:49 | Cardiology Progress Note ---
Date of Encounter: 03/29/16 Time of Encounter: 09:46 Assessment and Plan (1) Elevated troponin Current Visit: Yes Status: Acute Troponin elevated at 0.11, 0.09. Likely demand ischemia in the setting of mild atrial fibrillation with RVR. Presented with atypical chest pain. Pain with cough. Now chest pain free. Echo resulted shows EF unchanged from prior--65-70%. Continue ASA, Statin, BB. Cardiology is signing off. Reconsult PRN. (2) Atrial fibrillation with RVR Current Visit: Yes Status: Acute Mild atrial fibrillation with RVR noted on presentation. History of atrial fibrillation on eliquis for jail anticoagulation. 24 hour telemetry review shows normal sinus rhythm with average heart rate at 75 bpm. Continue Toprol-XL 75 mg BID. (3) CAD (coronary artery disease) Current Visit: Yes Status: Chronic History of CAD and [place] in 2008. Left heart catheterization at that time showed BAIT PACKER of the left circumflex artery with collaterals.50% stenosis pLAD, 40%, mLAD. Continue home nitro, ASA, Statin, BB, ARB Currently pain free. Qualifiers: Coronary Disease-Associated Artery/Lesion type: [place] artery [place] vs. transplanted heart: [place] heart Associated angina: angina presence unspecified Qualified Code(s): I25.10 - Atherosclerotic heart disease of [place] coronary artery without angina pectoris (4) Hypertension Current Visit: Yes Status: Chronic Cozaar was increased yesterday to 50mg BID. Hypertensive this AM prior to medication administration. Adjust antihypertensives as necessary. Qualifiers: Hypertension type: essential hypertension Qualified Code(s): I10 - Essential (primary) hypertension Discussion w patient/family: The assessment and plan as outlined above was discussed with the patient and/or family members who expressed understanding and agreement. All questions were answered. Thank you for involving us in the care of your patient. Please call with any questions. I will discuss all the above with Dr. Lee and make changes as necessary. Subjective Principal diagnosis: Elevated troponin Interval history: Pt denies any chest pain overnight. Denies dyspnea, only complaint is a cough. Echo resulted--EF 65-70%. 12 horu tele AVG HR 75, SR. Objective Vital Signs, Last 4 Hours Temp Pulse Resp BP Pulse Ox 03/29/16 07:11 98.2 F 80 16 179/80 86 L Vital Signs Temp Pulse Resp BP Pulse Ox 03/29/16 07:11 98.2 F 80 16 179/80 86 L 03/29/16 03:38 97.9 F 74 17 136/65 93 L 03/29/16 00:30 98.2 F 76 16 101/32 91 L 03/28/16 20:30 91 L 03/28/16 19:27 98.3 F 86 18 182/76 93 L 03/28/16 15:27 98.1 F 75 16 173/75 90 L 03/28/16 11:08 98.0 F 76 15 123/53 92 L Intake and Output 03/28/16 03/29/16 03/29/16 23:59 07:59 15:59 Intake Total 118 / 118 68 / 68 380 / 380 Balance 118 / 118 68 / 68 380 / 380 Intake: IV Fluids 118 / 118 68 / 68 Heparin 25,000 UNIT/500 118 / 118 68 / 68 ML D5W 25,000 unit In 500 ml @ 12 UNIT/KG/HR 12. 584 mls/hr IVC .Q24H MISAEL Rx#:[id number] Oral 380 / 380 Other: Meal Lunch Percent of Meal Consumed 85% Blood Glucose* 172 114 General: Conversant, No Apparent Distress HEENT: Atraumatic, Normocephaly, Mucus Membranes Moist Neck: No JVD, Normal carotid pulses Cardiac: Reg Rate and Rhythm, Normal S1 and S2, No Murmur Lungs: Other (mild wheezes noted) Neuro: Alert and responsive, No focal deficits noted Abdomen: Soft, Non-Tender Skin: No rashes noted on visualized skin Musculoskeletal: No Chest Wall Tenderness Extremities: No Clubbing, No Cyanosis, No Edema, Normal Pulses Results 03/29/16 04:13 03/29/16 04:13 Lab Results 03/28/16 03/28/16 03/29/16 14:10 20:12 04:13 WBC 11.5 H Hgb 9.1 L Hct 28.9 L Plt Count 255 APTT 47.8 H 114.3 H* D Sodium Potassium Chloride Carbon Dioxide BUN Creatinine Glucose Calcium 03/29/16 03/29/16 04:13 04:13 WBC Hgb Hct Plt Count APTT 85.9 H Sodium 135 L Potassium 4.5 Chloride 100 Carbon Dioxide 24 BUN 16 Creatinine 0.83 Glucose 137 H Calcium 9.1 Short CBC 03/29/16 Range/Units 04:13 WBC 11.5 H (4.3-11.1) K/mcL Hgb 9.1 L (11.5-15.4) g/dL Hct 28.9 L (35.3-44.9) % Plt Count 255 (140-400) K/mcL BMP 03/29/16 Range/Units 04:13 Sodium 135 L (136-145) mEq/L Potassium 4.5 (3.5-4.5) mEq/L Chloride 100 (98-109) mEq/L Carbon Dioxide 24 (19-29) mEq/L BUN 16 (7-20) mg/dL Creatinine 0.83 (0.57-1.11) mg/dL Glucose 137 H (70-99) mg/dL Calcium 9.1 (8.6-10.8) mg/dL Active Medications Acetaminophen (Tylenol) 650 mg PO Q6HR PRN PRN Reason: Mild Pain (1-3) Stop: 09/26/16 08:27 Albuterol/Ipratropium (Duoneb) 3 ml IH Q4HR PRN; Protocol PRN Reason: Wheezing Stop: 09/26/16 10:37 Artificial Tears (Akwa Tears) 1 drop BOTH EYES QID MISAEL Stop: 09/26/16 13:01 Last Admin: 03/29/16 08:31 Dose: Not Given Artificial Tears (Akwa Tears) 1 drop OP QID PRN; Protocol PRN Reason: Dry Eyes Stop: 09/26/16 10:37 Aspirin (Aspirin Ec) 81 mg PO DAILY MISAEL Stop: 09/26/16 09:01 Last Admin: 03/29/16 08:29 Dose: 81 mg Atorvastatin Calcium (Lipitor) 40 mg PO HS MISAEL Stop: 09/26/16 21:01 Last Admin: 03/28/16 19:56 Dose: 40 mg Calcium Carbonate (Tums) 500 mg PO BID PRN; Protocol PRN Reason: Indigestion Stop: 09/26/16 10:37 Dextrose/Water (Dextrose 50% (Syg)) 25 ml IVP AD PRN PRN Reason: Hypoglycemia Stop: 09/26/16 08:31 Gabapentin (Neurontin) 600 mg PO TID MISAEL Stop: 09/26/16 15:01 Last Admin: 03/29/16 08:30 Dose: 600 mg Glucagon (Glucagen) 1 mg IM ONCE PRN PRN Reason: Hypoglycemia Stop: 09/26/16 08:31 Glucose (Gluctose) 15 gm PO ONCE PRN PRN Reason: Hypoglycemia Stop: 09/26/16 08:31 Glucose (Gluctose) 30 gm PO ONCE PRN PRN Reason: Hypoglycemia Stop: 09/26/16 08:31 Guaifenesin (Robitussin Liq) 200 mg PO Q6HR PRN PRN Reason: Cough Stop: 09/26/16 10:37 Last Admin: 03/29/16 08:31 Dose: 200 mg Guaifenesin (Mucinex) 600 mg PO BID PRN PRN Reason: Congestion Stop: 09/27/16 16:48 Dextrose (Dextrose 5%) 1,000 mls @ 100 mls/hr IV CONT PRN PRN Reason: HYPOGLYCEMIA Stop: 09/26/16 08:31 Insulin Detemir (Levemir) 8 unit 0.15 unit/kg (8 unit) SQ [facility] Stop: 09/26/16 21:01 Last Admin: 03/28/16 22:08 Dose: 8 unit Insulin Human Lispro (Humalog) 2 units 0.05 units/kg (2 units) SQ TIDWM [facility] Stop: 09/26/16 12:01 Last Admin: 03/29/16 08:31 Dose: Not Given Insulin Human Lispro (Humalog) 0 units SQ HS [facility] PRN Reason: Protocol Stop: 09/26/16 21:01 Last Admin: 03/28/16 22:10 Dose: Not Given Insulin Human Lispro (Humalog) 0 units SQ TIDAC [facility] PRN Reason: Protocol Stop: 09/26/16 11:31 Last Admin: 03/29/16 07:42 Dose: Not Given Isosorbide Mononitrate (Imdur) 60 mg PO DAILY [facility] Stop: 09/27/16 09:01 Last Admin: 03/29/16 08:31 Dose: 60 mg Levofloxacin (Levaquin) 500 mg PO Q24H MISAEL PRN Reason: Protocol Stop: 09/28/16 09:01 Last Admin: 03/29/16 08:30 Dose: 500 mg Losartan Potassium (Cozaar) 50 mg PO BID [facility] Stop: 09/26/16 21:01 Last Admin: 03/29/16 08:30 Dose: 50 mg Metoprolol Succinate (Toprol Xl) 75 mg PO BID [facility] Stop: 09/26/16 21:01 Last Admin: 03/29/16 08:30 Dose: 75 mg Morphine Sulfate (Morphine Sulfate) 2 mg IVP Q4HR PRN PRN Reason: Severe Pain (7-10) Stop: 09/26/16 08:27 Last Admin: 03/29/16 08:36 Dose: 2 mg Multivitamins/Calcium (Thera M Plus) 1 tab PO DAILY [facility] Stop: 09/26/16 11:01 Last Admin: 03/29/16 08:30 Dose: 1 tab Naloxone HCl (Narcan) 0.4 mg IVP Q2MIN PRN PRN Reason: Opioid Reversal Stop: 09/26/16 08:27 Nitroglycerin (Nitroglycerin) 0.4 mg SL Q5MIN PRN PRN Reason: Chest Pain Stop: 09/26/16 07:22 Omeprazole (Prilosec) 40 mg PO QAM MISAEL PRN Reason: Protocol Stop: 09/27/16 09:01 Last Admin: 03/29/16 08:30 Dose: 40 mg Ondansetron HCl (Zofran) 4 mg IVP Q8HR PRN PRN Reason: Nausea And Vomiting Stop: 09/26/16 08:27 Last Admin: 03/28/16 08:27 Dose: 4 mg Oxycodone HCl (Roxicodone) 10 mg PO Q6H PRN PRN Reason: Breakthrough Pain Last Admin: 03/28/16 19:56 Dose: 10 mg Pharmacy Profile Note (Patient Taking Own Medication) 1 each PO BID [facility] Stop: 09/26/16 21:01 Last Admin: 03/29/16 08:31 Dose: Not Given Pharmacy Profile Note (Patient Taking Own Medication) 1 each RC DAILY PRN PRN Reason: Hemorrhoids Polyethylene Glycol (Miralax) 17 gm PO DAILY PRN PRN Reason: Constipation Stop: 09/26/16 10:37 Prednisone (Prednisone) 20 mg PO DAILY [facility] Stop: 09/28/16 09:01 Last Admin: 03/29/16 08:31 Dose: 20 mg Senna/Docusate Sodium (Senna Plus) 1 each PO BID PRN; Protocol PRN Reason: Constipation Stop: 09/26/16 10:37 Tizanidine HCl (Zanaflex) 2 mg PO DAILY MISAEL Stop: 09/27/16 09:01 Last Admin: 03/29/16 08:37 Dose: 2 mg Vitamin D (Vitamin D) 2,000 unit PO DAILY MISAEL Stop: 09/27/16 09:01 Last Admin: 03/29/16 08:30 Dose: 2,000 unit - Imaging and Cardiology Echo: report reviewed (EF 65-70%.) - EKG Interpretation EKG results cardiology: other (12 hour tele AVG HR 75, SR no significant pauses or arrhythmias.) Consult Discharge Plan - Plan [facility]errals: [facility] [Primary Care Provider] -
[2016-03-29] MEDS: APIXABAN 5 MG TABLET PO SCH ×2 (12:38→21:37)
[2016-03-29] MEDS: *HR* OxyCODONE Immed Rel 5 MG TABLET PO PRN ×2 (15:50→23:27)
--- NOTE | 2016-03-29 15:52 | Internal Med Progress Note ---
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 - Simple chronic bronchitis (2) Afib Current Visit: Yes Status: Chronic Assessment and plan: rate better control on eliquis for AC Qualifiers: Atrial fibrillation type: chronic Qualified Code(s): I48.2 - Chronic atrial fibrillation (3) Sciatica Current Visit: Yes Status: Acute Assessment and plan: start IV steroids , toradol for pain control Qualifiers: Qualified Code(s): M54.30 - Sciatica, unspecified side (4) Debility Current Visit: Yes Status: Chronic Assessment and plan: schedule to go to the [facility] for rehab - Time Spent With Patient Greater than 35 minutes - Subjective Interval history: pt still feels SOB on minimal exertion, denies fever . also c/o pain in right buttocks that radiates to lower leg - Constitutional Vitals: Temp Pulse Resp BP Pulse Ox 97.1 F L 72 16 150/65 92 L 03/29/16 11:10 03/29/16 11:10 03/29/16 11:10 03/29/16 11:10 03/29/16 11:10 General appearance: Present: cachectic, A&O X 3, pleasant, no acute distress - Respiratory Respiratory exam: Present: wheezes - Cardiovascular Cardiovascular exam: Present: irregular rhythm - GI/Abdominal GI/Abdominal exam: Present: soft, no peritoneal signs - Extremities Exam Extremities exam: Present: warm Additional comments: + right straight leg test - Neurological Exam Neurological exam: Present: CN II-XII intact Internal Medicine: Result - Labs CBC & Chem 7: 03/29/16 04:13 03/29/16 04:13 Labs: Short CBC 03/29/16 Range/Units 04:13 WBC 11.5 H (4.3-11.1) K/mcL Hgb 9.1 L (11.5-15.4) g/dL Hct 28.9 L (35.3-44.9) % Plt Count 255 (140-400) K/mcL BMP 03/29/16 04:13 Sodium 135 L Potassium 4.5 Chloride 100 Carbon Dioxide 24 BUN 16 Creatinine 0.83 Glucose 137 H Calcium 9.1 - ABG Interpretation ABG results: PT/INR, D-dimer PT 14.5 Seconds (9.4-12.1) H 03/27/16 16:29 Consult Discharge Plan - Plan [facility]errals: [facility] [Primary Care Provider] -
[2016-03-29] MEDS: MethylPREDNISolone 40 MG/ML VIAL IVP SCH ×2 (16:45→23:27)
[2016-03-29] MEDS: Fluticasone Propionate Nasal 50 MCG/SPRAY BOTTLE NS SCH (21:40)
[2016-03-29] MEDS: Insulin DETEMIR 100 UNIT/ML X5UNITS SQ SCH (21:47)
[2016-03-30] MEDS: Insulin LISPRO 300 UNITS/3 ML VIAL SQ SCH ×7 (09:00→20:53)
[2016-03-30] MEDS: levoFLOXacin 500 MG TABLET PO SCH (09:01)
[2016-03-30] MEDS: Metoprolol XL (24 HR) Succ 50 MG TAB.ER.24H PO SCH ×2 (09:01→20:48)
[2016-03-30] MEDS: MethylPREDNISolone 40 MG/ML VIAL IVP SCH ×3 (09:01→23:59)
[2016-03-30] MEDS: Multivit/Ca/Min/Fe/FA 1 TAB TABLET PO SCH (09:01)
[2016-03-30] MEDS: GuaiFENesin Liq 200 MG/10 ML UDC PO PRN ×2 (09:01→19:00)
[2016-03-30] MEDS: APIXABAN 5 MG TABLET PO SCH ×2 (09:02→20:46)
[2016-03-30] MEDS: *HR* OxyCODONE Immed Rel 5 MG TABLET PO PRN ×3 (09:02→20:46)
[2016-03-30] MEDS: tiZANidine 4 MG TABLET PO SCH (09:02)
[2016-03-30] MEDS: Gabapentin 300 MG CAPSULE PO SCH ×3 (09:02→20:47)
[2016-03-30] MEDS: Cholecalciferol (D-3) 1,000 UNIT TABLET PO SCH (09:02)
[2016-03-30] MEDS: Isosorbide MONOnitrate (24 HR) 60 MG TAB.ER.24H PO SCH (09:02)
[2016-03-30] MEDS: Loratadine 10 MG TABLET PO SCH (09:02)
[2016-03-30] MEDS: Fluticasone Propionate Nasal 50 MCG/SPRAY BOTTLE NS SCH ×2 (09:03→20:48)
[2016-03-30] MEDS: Aspirin Enteric Coated 81 MG Tablet PO SCH (09:03)
[2016-03-30] MEDS: Artificial Tears SOLN 15 ML BOTTLE BOTH EYES SCH ×4 (09:03→20:48)
--- NOTE | 2016-03-30 10:31 | Discharge Summary ---
<Patrice Magallanes - Last Filed: 03/30/16 12:36> Date of Encounter: 03/30/16 Time of Encounter: 10:27 - Discharge Diagnosis (1) Chest pain Priority: Primary Status: Acute Qualifiers: Chest pain type: unspecified Qualified Code(s): R07.9 - Chest pain, unspecified (2) COPD (chronic obstructive pulmonary disease) Priority: Secondary Status: Acute Qualifiers: COPD type: COPD with acute exacerbation Qualified Code(s): J44.1 - Chronic obstructive pulmonary disease with (acute) exacerbation (3) Elevated troponin Priority: Secondary Status: Acute (4) Afib Priority: Secondary Status: Chronic Qualifiers: Atrial fibrillation type: chronic Qualified Code(s): I48.2 - Chronic atrial fibrillation (5) Chronic dissection of thoracic aorta Priority: Secondary Status: Acute (6) GERD (gastroesophageal reflux disease) Priority: Secondary Status: Chronic Qualifiers: Esophagitis presence: without esophagitis Qualified Code(s): K21.9 - Gastro -esophageal reflux disease without esophagitis (7) Hypertension Priority: Secondary Status: Chronic Qualifiers: Hypertension type: essential hypertension Qualified Code(s): I10 - Essential (primary) hypertension (8) DM type 2 (diabetes mellitus, type 2) Priority: Secondary Status: Acute - Discharge Medications Prescriptions: Amlodipine [Norvasc] 5 mg PO DAILY 5 Days Metformin [Glucophage] 500 mg PO BIDWM 5 Days Oxycodone HCl 10 mg PO Q6H PRN 5 Days PRN Reason: Breakthrough Pain Home Medications: Acetaminophen [Tylenol] 975 mg PO BID PRN 10/10/15 [History] Calcium Carbonate [Tums] 500 mg PO BID PRN 10/10/15 [History] Cholecalciferol (D-3) [Vitamin D] 2,000 unit PO DAILY 10/10/15 [History] Ethacrynic Acid [Edecrin] 50 mg PO BID 10/10/15 [History] Gabapentin [Neurontin] 600 mg PO TID 10/10/15 [History] GuaiFENesin Liq [Robitussin Liq] 200 mg PO Q6HR PRN 10/10/15 [History] Ipratropium/Albuterol Neb [Duoneb] 3 ml IH Q4HR PRN 10/10/15 [History] Lidocaine 1 patch TP Q12H 10/10/15 [History] Loperamide HCl [Imodium A-D] 2 mg PO Q6H PRN 10/10/15 [History] Losartan Potassium [Cozaar] 50 mg PO BID 10/10/15 [History] Mv-Mn/FA/Vit K1/Lycop/Lut/Zeax [Ocuvite Eye + Multi Tablet] 1 tab PO BID [History] Naphazoline HCl 1 drop OP DAILY PRN 10/10/15 [History] Omeprazole [PriLOSEC] 40 mg PO QAM 10/10/15 [History] Polyethylene Glycol 3350 [MiraLAX] 17 gm PO DAILY PRN 10/10/15 [History] Polyvinyl Alcohol [Artificial Tears] 1 drop OP QID PRN 10/10/15 [History] Tizanidine HCl 2 mg PO DAILY 10/10/15 [History] Isosorbide MONOnitrate (24 HR) [Imdur] 60 mg PO DAILY #30 tab.er.24h 10/13/15 [ Rx] Simvastatin [Zocor] 40 mg PO HS #30 tablet 10/13/15 [Rx] Meclizine HCl [Verticalm] 25 mg PO BID PRN 02/27/16 [History] Metoprolol XL (24 HR) Succ [Toprol Xl] 75 mg PO BID 02/27/16 [History] Phenylephrine HCl [Brandie-Med] 1 supp RC DAILY PRN 02/27/16 [History] Sennosides/Docusate Sodium [Senna-Docusate Sodium Tablet] 1 tab PO BID PRN 02/26 [History] Apixaban [Eliquis] 2.5 mg PO BID 03/27/16 [History] Aspirin [Lo-Dose Aspirin EC] 81 mg PO DAILY 03/27/16 [History] Propylene Glycol/Peg 400 [Systane 0.3-0.4% Eye Drops] 1 drop BOTH EYES QID 03/27 [History] Witch Katrina [Preparation H] 1 pad TP QID PRN 03/27/16 [History] Amlodipine [Norvasc] 5 mg PO DAILY 5 Days 03/30/16 [Rx] Metformin [Glucophage] 500 mg PO BIDWM 5 Days 03/30/16 [Rx] Oxycodone HCl 10 mg PO Q6H PRN 5 Days 03/30/16 [Rx] Allergies/Adverse Reactions: Allergies bacitracin [From Neosporin ([id number])] Allergy (Unknown, Verified 03/27/16 09:58) See Comments PATIENT UNSURE- REACTION NOT LISTED ON [facility] celecoxib Allergy (Unknown, Verified 03/27/16 09:51) See Comments pt cannot remember codeine Allergy (Unknown, Verified 03/27/16 09:51) See Comments pt does not remember Donepezil Allergy (Unknown, Verified 03/27/16 09:59) See Comments PATIENT UNSURE- REACTION NOT LISTED ON [facility] fenofibrate [From Tricor] Allergy (Unknown, Verified 03/27/16 09:51) See Comments pt does not remember Hydralazine Allergy (Unknown, Verified 03/27/16 09:51) See Comments PATIENT UNSURE- REACTION NOT LISTED ON [facility] naproxen Allergy (Unknown, Verified 03/27/16 09:51) See Comments PATIENT UNSURE- REACTION NOT LISTED ON [facility] Neomycin [From Neosporin ([id number])] Allergy (Unknown, Verified 03/27/16 09 :58) See Comments PATIENT UNSURE- REACTION NOT LISTED ON [facility] NSAIDS (Non-Steroidal Anti-Inflamma Allergy (Unknown, Verified 03/27/16 09:51) See Comments PATIENT UNSURE- REACTION NOT LISTED ON [facility] Opioids - Morphine Analogues Allergy (Unknown, Verified 03/27/16 09:51) See Comments PATIENT UNSURE- REACTION NOT LISTED ON [facility] polymyxin B [From Neosporin ([id number])] Allergy (Unknown, Verified 09:58) See Comments PATIENT UNSURE- REACTION NOT LISTED ON [facility] rofecoxib Allergy (Unknown, Verified 03/27/16 09:51) See Comments PATIENT UNSURE- REACTION NOT LISTED ON [facility] Sulfa (Sulfonamide Antibiotics) Allergy (Unknown, Verified 03/27/16 09:51) See Comments PATIENT UNSURE- REACTION NOT LISTED ON [facility] Tetanus Vaccines and Toxoid [Tetanus Vaccines & Toxoid] Allergy (Unknown, Verified 03/27/16 09:51) See Comments PATIENT UNSURE- REACTION NOT LISTED ON [facility] lisinopril Adverse Reaction (Verified 03/27/16 10:00) Cough nicotine Adverse Reaction (Verified 03/27/16 10:00) Vomiting Procedures/tests Complete & Pending: Procedures Performed prior 72 hours Category Date Time Status CT chest wo con [CT] Routine Cat Scan 03/29/16 15:47 Completed EV limited echocardiogram Routine Y 03/28/16 09:33 Completed Date of admission: 03/27/16 08:57 Primary care physician: PCP [place] Consults: 03/27/16 15:03 Consult to Cardiology [CONS] Routine Comment: Consulting Provider: Cardiology Becca Reason for Consult: NSTEMI Call Completed: No 03/29/16 11:43 Consult to Light Rail Train Operator [CONS] Routine Reason for SW Consult: d/c back to [facility] assisted [facility] Discharging clinician: Patrice Magallanes Anticipated date of discharge: 03/30/16 - Patient Status Disposition: Transfer LTC Condition: Fair Functional capacity at discharge: uses cane/walker (fall precaution) Overall status at discharge: patient is progressing back to baseline - Discharge Instructions Instructions: Oxycodone, Rapid Release (By mouth), Amlodipine (By mouth), Metformin (By mouth) Follow [facility] With: [facility] [[facility] Provider[facility] - (F/u with pt's PCP in [place] for hypertension, medication has been adjusted while inpatient, recheck BP in [place], abnormal CT chest finding of right upper pulm micronodule, chronic dissection of aorta) - Diet and Activity Activity: resume usual activities as tolerated Diet: diabetic diet Hospital course: Ms. Barfield is a 89 year old female - Time Spent with Patient Total time spent providing and/or coordinating discharge services: - Constitutional Vitals: Temp Pulse Resp BP Pulse Ox 97.9 F 76 15 183/85 93 L 03/30/16 07:25 03/30/16 07:25 03/30/16 07:25 03/30/16 07:25 03/30/16 07:25 General appearance: Present: cachectic, A&O X 3, pleasant, no acute distress - Head Head exam: Present: atraumatic, normocephalic - Eye Eye exam: Present: PERRL, conjuntiva pink, sclera anicteric Pupils: Present: PERRL - Neck Neck exam general surgery: Present: supple, trachea midline. Absent: lymphadenopathy - Respiratory Respiratory exam: Present: CTAB. Absent: accessory muscle use, rales, rhonchi, wheezes - Cardiovascular Cardiovascular exam: Present: irregular rhythm, RRR, +S1, +S2. Absent: diastolic murmur, gallop, rubs, systolic murmur - GI/Abdominal GI/Abdominal exam: Present: normal bowel sounds, soft, no peritoneal signs. Absent: distended, tenderness - Extremities Exam Extremities exam: Present: warm, radial pulses palpable and symetrical. Absent : calf tenderness, cyanotic, pedal edema - Neurological Exam Neurological exam: Present: CN II-XII intact, oriented X3, no focal deficits. Absent: pronater drift, facial droop, speech deficit - Skin Skin exam: Present: dry, intact <GarciaRaghu A - Last Filed: 03/30/16 12:56> Date of Encounter: 03/30/16 - Discharge Diagnosis (1) COPD (chronic obstructive pulmonary disease) Priority: Primary Status: Acute Qualifiers: COPD type: COPD with acute exacerbation Qualified Code(s): J44.1 - Chronic obstructive pulmonary disease with (acute) exacerbation (2) Chest pain Status: Acute Qualifiers: Chest pain type: precordial chest pain Qualified Code(s): R07.2 - Precordial pain (3) Chronic dissection of thoracic aorta Status: Chronic (4) DM type 2 (diabetes mellitus, type 2) Status: Chronic Qualifiers: Diabetes mellitus complication status: with circulatory complication Diabetes mellitus complication detail: with other circulatory complications Diabetes mellitus terminologist insulin use: with terminologist use Qualified Code(s) : E11.59 - Type 2 diabetes mellitus with other circulatory complications; Z79.4 - residential (current) use of insulin (5) Afib Status: Chronic Qualifiers: Atrial fibrillation type: chronic Qualified Code(s): I48.2 - Chronic atrial fibrillation Procedures/tests Complete & Pending: Procedures Performed prior 72 hours Category Date Time Status CT chest wo con [CT] Routine Cat Scan 03/29/16 15:47 Completed EV limited echocardiogram Routine Y 03/28/16 09:33 Completed Date of admission: 03/27/16 08:57 Primary care physician: PCP [place] Consults: 03/27/16 15:03 Consult to Cardiology [CONS] Routine Comment: Consulting Provider: Cardiology Becca Reason for Consult: NSTEMI Call Completed: No 03/29/16 11:43 Consult to Light Rail Train Operator [CONS] Routine Reason for SW Consult: d/c back to [facility] assisted [facility] Hospital course: Ms. Barfield is a 89 year old female - Time Spent with Patient Total time spent providing and/or coordinating discharge services: 38min - Constitutional Vitals: Temp Pulse Resp BP Pulse Ox 97.8 F 69 15 180/74 95 03/30/16 12:07 03/30/16 12:07 03/30/16 12:07 03/30/16 12:07 03/30/16 12:07 - Attending Attestation /I examined this patient and my medical decision-making was reviewed with the Resident Physician on 03/30/16. I agree with the documented findings, disposition and/ treatment plan as described except to the extent set forth below. Ms Barfield feels good at this time. Her breathing is at baseline. No chest pain currently. Exam Alert. Comfortable Heart irreg Lungs diminished No edema Plan D/C today.
--- NOTE | 2016-03-30 12:59 | Physician Discharge Referral ---
[facility]Care Referral Info Provider in Charge after Transfer: PCP Institutional Level of Care: Intermediate - MR - Diagnosis (1) COPD (chronic obstructive pulmonary disease) Status: Acute (2) Chest pain Status: Acute (3) Chronic dissection of thoracic aorta Status: Chronic (4) DM type 2 (diabetes mellitus, type 2) Status: Chronic (5) Afib Status: Chronic - Transfer Medications Prescriptions: Amlodipine [Norvasc] 5 mg PO DAILY 5 Days Metformin [Glucophage] 500 mg PO BIDWM 5 Days Oxycodone HCl 10 mg PO Q6H PRN 5 Days PRN Reason: Breakthrough Pain Home Medications: Acetaminophen [Tylenol] 975 mg PO BID PRN 10/10/15 [History] Calcium Carbonate [Tums] 500 mg PO BID PRN 10/10/15 [History] Cholecalciferol (D-3) [Vitamin D] 2,000 unit PO DAILY 10/10/15 [History] Ethacrynic Acid [Edecrin] 50 mg PO BID 10/10/15 [History] Gabapentin [Neurontin] 600 mg PO TID 10/10/15 [History] GuaiFENesin Liq [Robitussin Liq] 200 mg PO Q6HR PRN 10/10/15 [History] Ipratropium/Albuterol Neb [Duoneb] 3 ml IH Q4HR PRN 10/10/15 [History] Lidocaine 1 patch TP Q12H 10/10/15 [History] Loperamide HCl [Imodium A-D] 2 mg PO Q6H PRN 10/10/15 [History] Losartan Potassium [Cozaar] 50 mg PO BID 10/10/15 [History] Mv-Mn/FA/Vit K1/Lycop/Lut/Zeax [Ocuvite Eye + Multi Tablet] 1 tab PO BID [History] Naphazoline HCl 1 drop OP DAILY PRN 10/10/15 [History] Omeprazole [PriLOSEC] 40 mg PO QAM 10/10/15 [History] Polyethylene Glycol 3350 [MiraLAX] 17 gm PO DAILY PRN 10/10/15 [History] Polyvinyl Alcohol [Artificial Tears] 1 drop OP QID PRN 10/10/15 [History] Tizanidine HCl 2 mg PO DAILY 10/10/15 [History] Isosorbide MONOnitrate (24 HR) [Imdur] 60 mg PO DAILY #30 tab.er.24h 10/13/15 [ Rx] Simvastatin [Zocor] 40 mg PO HS #30 tablet 10/13/15 [Rx] Meclizine HCl [Verticalm] 25 mg PO BID PRN 02/27/16 [History] Metoprolol XL (24 HR) Succ [Toprol Xl] 75 mg PO BID 02/27/16 [History] Phenylephrine HCl [Brandie-Med] 1 supp RC DAILY PRN 02/27/16 [History] Sennosides/Docusate Sodium [Senna-Docusate Sodium Tablet] 1 tab PO BID PRN 02/26 [History] Apixaban [Eliquis] 2.5 mg PO BID 03/27/16 [History] Aspirin [Lo-Dose Aspirin EC] 81 mg PO DAILY 03/27/16 [History] Propylene Glycol/Peg 400 [Systane 0.3-0.4% Eye Drops] 1 drop BOTH EYES QID 03/27 [History] Kia Abrahamel [Preparation H] 1 pad TP QID PRN 03/27/16 [History] Amlodipine [Norvasc] 5 mg PO DAILY 5 Days 03/30/16 [Rx] Metformin [Glucophage] 500 mg PO BIDWM 5 Days 03/30/16 [Rx] Oxycodone HCl 10 mg PO Q6H PRN 5 Days 03/30/16 [Rx] Allergies/Adverse Reactions: Allergies bacitracin [From Neosporin ([id number])] Allergy (Unknown, Verified 03/27/16 09:58) See Comments PATIENT UNSURE- REACTION NOT LISTED ON [facility] celecoxib Allergy (Unknown, Verified 03/27/16 09:51) See Comments pt cannot remember codeine Allergy (Unknown, Verified 03/27/16 09:51) See Comments pt does not remember Donepezil Allergy (Unknown, Verified 03/27/16 09:59) See Comments PATIENT UNSURE- REACTION NOT LISTED ON [facility] fenofibrate [From Tricor] Allergy (Unknown, Verified 03/27/16 09:51) See Comments pt does not remember Hydralazine Allergy (Unknown, Verified 03/27/16 09:51) See Comments PATIENT UNSURE- REACTION NOT LISTED ON [facility] naproxen Allergy (Unknown, Verified 03/27/16 09:51) See Comments PATIENT UNSURE- REACTION NOT LISTED ON [facility] Neomycin [From Neosporin ([id number])] Allergy (Unknown, Verified 03/27/16 09 :58) See Comments PATIENT UNSURE- REACTION NOT LISTED ON [facility] NSAIDS (Non-Steroidal Anti-Inflamma Allergy (Unknown, Verified 03/27/16 09:51) See Comments PATIENT UNSURE- REACTION NOT LISTED ON [facility] L[facility] Opioids - Morphine Analogues Allergy (Unknown, Verified 03/27/16 09:51) See Comments PATIENT UNSURE- REACTION NOT LISTED ON [facility] polymyxin B [From Neosporin ([id number])] Allergy (Unknown, Verified 09:58) See Comments PATIENT UNSURE- REACTION NOT LISTED ON [facility] rofecoxib Allergy (Unknown, Verified 03/27/16 09:51) See Comments PATIENT UNSURE- REACTION NOT LISTED ON [facility] Sulfa (Sulfonamide Antibiotics) Allergy (Unknown, Verified 03/27/16 09:51) See Comments PATIENT UNSURE- REACTION NOT LISTED ON [facility] Tetanus Vaccines and Toxoid [Tetanus Vaccines & Toxoid] Allergy (Unknown, Verified 03/27/16 09:51) See Comments PATIENT UNSURE- REACTION NOT LISTED ON [facility] lisinopril Adverse Reaction (Verified 03/27/16 10:00) Cough nicotine Adverse Reaction (Verified 03/27/16 10:00) Vomiting - Respiratory Orders Oxygen / L per min (Maintain saturation greater than 90%) Smoking Cessation: Smoking cessation has been advised. For more information, call the [place] Tobacco Quit Line at 1-484-XPEI-NOW. - Ancillary Orders May use pressure relief devices daily prn, May go on FLORES w/family/respon green party w /meds at nurse discretion PRN, May consult with Dentist, Mail List Librarian, Stuffed Casing Tier PRN - Advance Directives Code Status: Full Code - History and Physical History/Physical reviewed & approved w/add comments: Updated - less respiratory distress - Mobility Orders Ambulate - Rehabiliation Orders Rehab Potential: Good - Treatments Skin tear care topically daily PRN per policy, May check for fecal impaction rectally daily PRN, Fleet enema rectally every other day PRN cleansing purposes - Diet Orders No Concentrated Sweets CERTIFICATION: I certify that the transfer of the above named patient to an Extended Care Facility is necessary for the continuing treatment of the diagnosis listed. The above information is true and accurate reflection of patient's current condition. Confidential - Redisclosure prohibited without a patient's written consent.
[2016-03-30] MEDS ORDERED: amLODIPine 5 MG TABLET PO SCH (14:45)
[2016-03-30] MEDS: Insulin DETEMIR 100 UNIT/ML X5UNITS SQ SCH (20:57)
[2016-03-31] MEDS ORDERED: amLODIPine 5 MG TABLET PO STA (04:48)
--- NOTE | 2016-03-31 08:31 | Internal Med Progress Note ---
<Patrice Magallanes - Last Filed: 03/31/16 11:19> Date of Encounter: 03/31/16 Time of Encounter: 08:31 - Assessment and plan (1) Chest pain Status: Acute Assessment and plan: Likely 2/2 GERD, slightly elevated trop but plateaued, echo was normal, cardio signed off, no chest pain this AM, con't PPI. Plan [facility]. Qualifiers: Chest pain type: unspecified Qualified Code(s): R07.9 - Chest pain, unspecified; R07.8 - Other chest pain (2) Afib Status: Chronic Assessment and plan: HR controlled, con't BB and eliquis. Qualifiers: Atrial fibrillation type: chronic Qualified Code(s): I48.2 - Chronic atrial fibrillation (3) Chronic dissection of thoracic aorta Status: Chronic Assessment and plan: Incidental finding from CT chest, con't to manage her HTN. (4) GERD (gastroesophageal reflux disease) Status: Chronic Assessment and plan: Con't PPI. Qualifiers: Esophagitis presence: without esophagitis Qualified Code(s): K21.9 - Gastro -esophageal reflux disease without esophagitis (5) Hypertension Status: Chronic Assessment and plan: Chronic issue for her, now on BB and cozaar, added norvasc yesterday, closely f/ u in [facility], check BP daily, adjust med accordingly by her PCP in [place]. Qualifiers: Hypertension type: essential hypertension Qualified Code(s): I10 - Essential (primary) hypertension (6) DM type 2 (diabetes mellitus, type 2) Status: Chronic Assessment and plan: Con't basal and SSI. Qualifiers: Diabetes mellitus complication status: with circulatory complication Diabetes mellitus complication detail: with other circulatory complications Diabetes mellitus assisted insulin use: with terminal manager use Qualified Code(s) : E11.59 - Type 2 diabetes mellitus with other circulatory complications; Z79.4 - halfway (current) use of insulin - Subjective Interval history: Pt seen and examined, no chest pain or complaints this AM. - Constitutional Vitals: Temp Pulse Resp BP Pulse Ox 98.3 F 70 16 187/75 94 L 03/31/16 07:47 03/31/16 07:47 03/31/16 07:47 03/31/16 07:47 03/31/16 07:47 General appearance: Present: cachectic, A&O X 3, pleasant, no acute distress - Head Head exam: Present: atraumatic, normocephalic - Eye Eye exam: Present: PERRL, conjuntiva pink, sclera anicteric Pupils: Present: PERRL - Neck Neck exam general surgery: Present: supple, trachea midline. Absent: lymphadenopathy - Respiratory Respiratory exam: Present: CTAB. Absent: accessory muscle use, rales, rhonchi, wheezes - Cardiovascular Cardiovascular exam: Present: RRR, +S1, +S2. Absent: diastolic murmur, gallop, rubs, systolic murmur - GI/Abdominal GI/Abdominal exam: Present: normal bowel sounds, soft, no peritoneal signs. Absent: distended, tenderness - Extremities Exam Extremities exam: Present: warm, radial pulses palpable and symetrical. Absent : calf tenderness, cyanotic, pedal edema - Neurological Exam Neurological exam: Present: CN II-XII intact, oriented X3, no focal deficits. Absent: pronater drift, facial droop, speech deficit - Skin Skin exam: Present: dry, intact Internal Medicine: Result - Labs CBC & Chem 7: 03/29/16 04:13 03/29/16 04:13 - ABG Interpretation ABG results: PT/INR, D-dimer PT 14.5 Seconds (9.4-12.1) H 03/27/16 16:29 Consult Discharge Plan - Plan Instructions: Oxycodone, Rapid Release (By mouth), Amlodipine (By mouth), Metformin (By mouth), Heart Failure (DC), Chest Pain (DC), Chronic Obstructive Pulmonary Disease (DC) [facility]errals: [facility] [Primary Care Provider] - (F/u with pt's PCP in [place] for hypertension, medication has been adjusted while inpatient, recheck BP in [place], abnormal CT chest finding of right upper pulm micronodule, chronic dissection of aorta) Prescriptions: Amlodipine [Norvasc] 5 mg PO DAILY 5 Days Metformin [Glucophage] 500 mg PO BIDWM 5 Days Oxycodone HCl 10 mg PO Q6H PRN 5 Days PRN Reason: Breakthrough Pain <Raghu Zelaya - Last Filed: 03/31/16 14:19> Date of Encounter: 03/31/16 - Assessment and plan (1) COPD (chronic obstructive pulmonary disease) Status: Acute Qualifiers: COPD type: COPD with acute exacerbation Qualified Code(s): J44.1 - Chronic obstructive pulmonary disease with (acute) exacerbation (2) Chest pain Status: Acute Qualifiers: Chest pain type: other chest pain Qualified Code(s): R07.89 - Other chest pain; R07.8 - Other chest pain (3) Chronic dissection of thoracic aorta Status: Chronic (4) DM type 2 (diabetes mellitus, type 2) Status: Chronic Qualifiers: Diabetes mellitus complication status: with circulatory complication Diabetes mellitus complication detail: with other circulatory complications Diabetes mellitus assisted insulin use: with assisted use Qualified Code(s) : E11.59 - Type 2 diabetes mellitus with other circulatory complications; Z79.4 - terminal gauger supervisor (current) use of insulin (5) Afib Status: Chronic Qualifiers: Atrial fibrillation type: chronic Qualified Code(s): I48.2 - Chronic atrial fibrillation (6) CKD (chronic kidney disease), stage III Status: Acute - Constitutional Vitals: Temp Pulse Resp BP Pulse Ox 97.5 F L 64 15 117/63 94 L 03/31/16 11:40 03/31/16 11:40 03/31/16 11:40 03/31/16 11:40 03/31/16 11:40 Internal Medicine: Result - Labs CBC & Chem 7: 03/29/16 04:13 03/29/16 04:13 - ABG Interpretation ABG results: PT/INR, D-dimer PT 14.5 Seconds (9.4-12.1) H 03/27/16 16:29 - Attending Attestation I examined this patient and my medical decision-making was reviewed with the Resident Physician on 03/31/16. I agree with the documented findings, disposition and treatment plan as described except to the extent set forth below. Ms. Barfield's [facility]. Plan for d/c today. Exam Alert. Comfortable Lungs clear Abd soft Plan D/C to [facility] today.
[2016-03-31] MEDS ORDERED: amLODIPine 5 MG TABLET PO SCH ×2 (09:00→21:00)
[2016-03-31] MEDS: tiZANidine 4 MG TABLET PO SCH (09:07)
[2016-03-31] MEDS: Loratadine 10 MG TABLET PO SCH (09:08)
[2016-03-31] MEDS: Isosorbide MONOnitrate (24 HR) 60 MG TAB.ER.24H PO SCH (09:08)
[2016-03-31] MEDS: *HR* OxyCODONE Immed Rel 5 MG TABLET PO PRN (09:08)
[2016-03-31] MEDS: levoFLOXacin 500 MG TABLET PO SCH (09:09)
[2016-03-31] MEDS: Cholecalciferol (D-3) 1,000 UNIT TABLET PO SCH (09:09)
[2016-03-31] MEDS: Gabapentin 300 MG CAPSULE PO SCH (09:09)
[2016-03-31] MEDS: Metoprolol XL (24 HR) Succ 50 MG TAB.ER.24H PO SCH (09:09)
[2016-03-31] MEDS: Aspirin Enteric Coated 81 MG Tablet PO SCH (09:09)
[2016-03-31] MEDS: Multivit/Ca/Min/Fe/FA 1 TAB TABLET PO SCH (09:10)
[2016-03-31] MEDS: Fluticasone Propionate Nasal 50 MCG/SPRAY BOTTLE NS SCH (09:10)
[2016-03-31] MEDS: GuaiFENesin Liq 200 MG/10 ML UDC PO PRN (09:10)
[2016-03-31] MEDS: Artificial Tears SOLN 15 ML BOTTLE BOTH EYES SCH (09:11)
[2016-03-31] MEDS: Insulin LISPRO 300 UNITS/3 ML VIAL SQ SCH ×2 (09:11)
[2016-03-31] MEDS: APIXABAN 5 MG TABLET PO SCH (09:14)
[2016-03-31 11:44] VITALS: BP 117/63
== END 2016-03-31 11:56 | DRG 190 ==
LOC: EMEROO 06:57 → 3BNU 08:57 → SUATTDRO 08:57 → 3BNU 09:36
PROVIDERS: ADMIT Internal Medicine; ATTEND Internal Medicine

== ENCOUNTER 2016-04-04 05:47 | Inpatient (IN) ==
[2016-04-04 06:10] LABS: INR 1.7; Prothrombin Time 18.4 Seconds (9.4-12.1)
[2016-04-04 06:13] LABS: Activated Partial Thrombo Time 34.1 Seconds (26.0-36.0)
[2016-04-04 06:15] LABS: Potassium 3.9 mEq/L (3.5-4.5)
[2016-04-04] MEDS ORDERED: 0.9 % Sodium Chloride 1,000 ML ONE (06:21)
[2016-04-04 06:22] LABS: Basophils % 0.2 %; Eosinophils # 0.2 K/mcL (0.0-0.6); Eosinophils % 1.1 %; Hematocrit 31.7 % (35.3-44.9); Hemoglobin 10.2 g/dL (11.5-15.4); Immature Granulocytes % 1.4 % (0-4); Lymphocytes # 4.7 K/mcL (0.6-4.6); Lymphocytes % 27.5 %; Mean Corpuscular HGB Conc 32.2 g/dL (31.6-35.5); Mean Corpuscular Hemoglobin 23.7 pg (28.0-33.3); Mean Corpuscular Volume 73.5 fL (83.0-100.0); Mean Platelet Volume 9.5 fL (9.4-12.4); Monocytes # 1.5 K/mcL (0.0-1.3); Neutrophils # 10.3 K/mcL (1.6-8.9); Platelet Count 287 K/mcL (140-400); Red Blood Count 4.31 M/mcL (3.82-4.97); Red Cell Distribution Width 17.3 % (11.5-14.5); Segmented Neutrophils % 60.8 %
[2016-04-04] MEDS ORDERED: 0.9 % Sodium Chloride 250 ML IVC ONE (06:31)
--- NOTE | 2016-04-04 06:39 | Emergency Department Note ---
Disposition Clinical Impression: Atrial fibrillation with RVR Chest pain Qualifiers: Chest pain type: precordial pain Qualified Code(s): R07.2 - Precordial pain Disposition: Admitted As Inpatient Condition: Serious [facility]: [facility]Primary Care Provider[facility] - Forms: ED Satisfaction Letter Chest Pain HPI - General Chief Complaint: ED Chest Pain Stated Complaint: CP Time Seen by Provider: 04/04/16 05:47 Source: EMS Limitations: no limitations Vital Signs Reviewed: Yes Nursing Notes Reviewed: Yes - History of Present Illness HPI Narrative: Patient is an 89-year-old female who was transferred from the local [facility] for chest pain. Patient relates that she awoke from sleep about 4:30 AM this morning with severe mid substernal chest pain. Some shortness of breath. EKG at the [facility] showed atrial fibrillation with RVR. Patient has a history of atrial fibrillation and is on Eliquis. She was just in the hospital here recently for the atrial fibrillation. Patient received nitroglycerin at the [facility] but it dropped her blood pressure. She was given fluid and blood pressure improved. Here the patient continues to complain of chest pain however by the time we got her settled and she states the pain is all in the right lateral chest and is much improved. She rates her pain a 2 out of 10 at present. She denies shortness of breath. Pt complaint: chest pain Onset (ago): hour(s) (1) Duration: constant Onset: during rest Pain Location: substernal Severity: severe Severity scale (1-10): 2 Quality: tightness, heaviness Pain Radiation: none Improves with: nothing Worsens with: nothing Associated symptoms: Reports: nausea, diaphoresis, dyspnea, palpitations, cough. Denies: vomiting, syncope, fever, leg swelling Treatments prior to arrival chest pain: aspirin, nitroglycerin, oxygen - Related Data Home Medications Medication Instructions Recorded Confirmed Acetaminophen [Tylenol] 975 mg PO BID PRN 10/10/15 03/27/16 Calcium Carbonate [Tums] 500 mg PO BID PRN 10/10/15 03/27/16 Cholecalciferol (D-3) [Vitamin D] 2,000 unit PO DAILY 10/10/15 03/27/16 Ethacrynic Acid [Edecrin] 50 mg PO BID 10/10/15 03/27/16 Gabapentin [Neurontin] 600 mg PO TID 10/10/15 03/27/16 GuaiFENesin Liq [Robitussin Liq] 200 mg PO Q6HR PRN 10/10/15 03/27/16 Ipratropium/Albuterol Neb [Duoneb] 3 ml IH Q4HR PRN 10/10/15 03/27/16 Lidocaine 1 patch TP Q12H 10/10/15 03/27/16 Loperamide HCl [Imodium A-D] 2 mg PO Q6H PRN 10/10/15 03/27/16 Losartan Potassium [Cozaar] 50 mg PO BID 10/10/15 03/27/16 Mv-Mn/FA/Vit K1/Lycop/Lut/Zeax 1 tab PO BID 10/10/15 03/27/16 [Ocuvite Eye + Multi Tablet] Naphazoline HCl 1 drop OP DAILY PRN 10/10/15 03/27/16 Omeprazole [PriLOSEC] 40 mg PO QAM 10/10/15 03/27/16 Polyethylene Glycol 3350 [MiraLAX] 17 gm PO DAILY PRN 10/10/15 03/27/16 Polyvinyl Alcohol [Artificial 1 drop OP QID PRN 10/10/15 03/27/16 Tears] Tizanidine HCl 2 mg PO DAILY 10/10/15 03/27/16 Meclizine HCl [Verticalm] 25 mg PO BID PRN 02/27/16 03/27/16 Metoprolol XL (24 HR) Succ [Toprol 75 mg PO BID 02/27/16 03/27/16 Xl] Phenylephrine HCl [Brandie-Med] 1 supp RC DAILY PRN 02/27/16 03/27/16 Sennosides/Docusate Sodium 1 tab PO BID PRN 02/27/16 03/27/16 [Senna-Docusate Sodium Tablet] Apixaban [Eliquis] 2.5 mg PO BID 03/27/16 03/27/16 Aspirin [Lo-Dose Aspirin EC] 81 mg PO DAILY 03/27/16 03/27/16 Propylene Glycol/Peg 400 [Systane 1 drop BOTH EYES QID 03/27/16 03/27/16 0.3-0.4% Eye Drops] Kia [place]don [Preparation H] 1 pad TP QID PRN 03/27/16 03/27/16 Previous Rx's Medication Instructions Recorded Isosorbide MONOnitrate (24 HR) 60 mg PO DAILY #30 tab.er.24h 10/13/15 [Imdur] Simvastatin [Zocor] 40 mg PO HS #30 tablet 10/13/15 Amlodipine [Norvasc] 5 mg PO DAILY 5 Days 03/30/16 Metformin [Glucophage] 500 mg PO BIDWM 5 Days 03/30/16 Oxycodone HCl 10 mg PO Q6H PRN 5 Days 03/30/16 Allergies Allergy/AdvReac Type Severity Reaction Status Date / Time bacitracin Allergy Unknown See Verified 03/27/16 09:58 [From Neosporin Comments ([id number])] celecoxib Allergy Unknown See Verified 03/27/16 09:51 Comments codeine Allergy Unknown See Verified 03/27/16 09:51 Comments Donepezil Allergy Unknown See Verified 04/04/16 05:54 Comments fenofibrate [From Tricor] Allergy Unknown See Verified 04/04/16 05:54 Comments Hydralazine Allergy Unknown See Verified 04/04/16 05:54 Comments naproxen Allergy Unknown See Verified 04/04/16 05:54 Comments Neomycin Allergy Unknown See Verified 04/04/16 05:54 [From Neosporin Comments ([id number])] NSAIDS (Non-Steroidal Allergy Unknown See Verified 04/04/16 05:54 Anti-Inflamma Comments Opioids - Morphine Analogues Allergy Unknown See Verified 04/04/16 05:54 Comments polymyxin B Allergy Unknown See Verified 04/04/16 05:54 [From Neosporin Comments ([id number])] rofecoxib Allergy Unknown See Verified 04/04/16 05:54 Comments Sulfa (Sulfonamide Allergy Unknown See Verified 04/04/16 05:54 Antibiotics) Comments Tetanus Vaccines and Toxoid Allergy Unknown See Verified 03/27/16 09:51 [Tetanus Vaccines & Toxoid] Comments lisinopril AdvReac Cough Verified 03/27/16 10:00 nicotine AdvReac Vomiting Verified 03/27/16 10:00 All systems ED: reviewed and negative except as stated. Constitutional: Denies: fever Cardiovascular: Reports: chest pain, palpitations Respiratory: Reports: cough, dyspnea Gastrointestinal: Reports: nausea. 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 Absent: tenderness - Chest Chest inspection: Present: normal inspection, symmetric chest wall rise. Absent : tenderness - Respiratory Respiratory exam: Present: wheezes. Absent: normal lung sounds bilaterally ( Patient has some dry bibasilar crackles. A few faint scattered expiratory wheezes.) - Cardiovascular Cardiovascular exam: Present: tachycardia, irregular rhythm - Abdominal Exam Abdominal exam: Present: soft, Non-Tender, normal bowel sounds - Extremities Exam Extremities exam: Present: normal inspection. Absent: tenderness, pedal edema - Back Exam Back exam: Present: normal inspection. Absent: CVA tenderness (R), CVA tenderness (L) - Neurological Exam Neurological exam: Present: alert, oriented X3. Absent: motor sensory deficit - Psychiatric Psychiatric exam: Present: anxious - Skin Skin exam: Present: warm, dry, intact. Absent: cyanosis, diaphoresis Course Course Narrative: 89-year-old female transferred from the [facility] with atrial fibrillation RVR and chest pain. Atrial flutter with RVR and on anticoagulants. - Consultations Consultation #1: Discussed case with the [employer] department supervisor, Dr. Lee. He recommended exam as well as patient's blood pressure was stable. Time: 06:30 Consultation #2: Discussed with the hospitalist, Dr. Goncalves, and he accepted admission of the patient. Time: 07:30 Vital Signs Temperature 98.1 F 04/04/16 05:49 Pulse Rate 124 01/22/17 05:49 Respiratory Rate 20 04/04/16 05:49 Blood Pressure 120/63 04/04/16 05:49 O2 Sat by Pulse Oximetry 96 04/04/16 05:49 Temperature 98.1 F 04/04/16 05:49 Pulse Rate 112 04/04/16 07:04 Respiratory Rate 18 04/04/16 07:04 Blood Pressure 105/83 04/04/16 07:04 O2 Sat by Pulse Oximetry 96 04/04/16 07:04 Oxygen Delivery Oxygen Delivery Nasal Cannula Chest Pain - MDM Narrative Medical decision making narrative: 89-year-old female transferred from the [facility] with atrial fibrillation RVR and chest pain. Atrial flutter with RVR and on anticoagulants. - Medical Records Medical records reviewed: Yes I reviewed the patient's medical records. - Lab Data Lab results reviewed: Yes I reviewed the patient's lab results. Result diagrams: 04/04/16 05:55 04/04/16 05:55 Lab Results 04/04/16 04/04/16 04/04/16 Range/Units 05:55 05:55 05:55 WBC 16.9 H (4.3-11.1) K/mcL RBC 4.31 (3.82-4.97) M/mcL Hgb 10.2 L (11.5-15.4) g/dL Hct 31.7 L (35.3-44.9) % MCV 73.5 L (83.0-100.0) fL MCH 23.7 L (28.0-33.3) pg MCHC 32.2 (31.6-35.5) g/dL RDW 17.3 H (11.5-14.5) % Plt Count 287 (140-400) K/mcL MPV 9.5 (9.4-12.4) fL Immature Gran % 1.4 (0-4) % Seg Neutrophils % 60.8 % Lymphocytes % 27.5 % Monocytes % 9.0 % Eosinophils % 1.1 % Basophils % 0.2 % Neutrophils # 10.3 H (1.6-8.9) K/mcL Lymphocytes # 4.7 H (0.6-4.6) K/mcL Monocytes # 1.5 H (0.0-1.3) K/mcL Eosinophils # 0.2 (0.0-0.6) K/mcL Basophils # 0.0 (0.0-0.2) K/mcL PT 18.4 H (9.4-12.1) Seconds INR 1.7 APTT 34.1 (26.0-36.0) Seconds Sodium 131 L (136-145) mEq/L Potassium 3.9 (3.5-4.5) mEq/L Chloride 93 L (98-109) mEq/L Carbon Dioxide 25 (19-29) mEq/L BUN 46 H (7-20) mg/dL Creatinine 1.13 H (0.57-1.11) mg/dL Est GFR ( Amer) 55 L (> 60) Est GFR (Non-Af Amer) 45 L (> 60) BUN/Creatinine Ratio 41 H (6-26) Glucose 144 H (70-99) mg/dL Calculated Osmolality 286 (280-300) Calcium 9.0 (8.6-10.8) mg/dL Troponin I (0-0.03) ng/mL 04/04/16 Range/Units 05:55 WBC (4.3-11.1) K/mcL RBC (3.82-4.97) M/mcL Hgb (11.5-15.4) g/dL Hct (35.3-44.9) % MCV (83.0-100.0) fL MCH (28.0-33.3) pg MCHC (31.6-35.5) g/dL RDW (11.5-14.5) % Plt Count (140-400) K/mcL MPV (9.4-12.4) fL Immature Gran % (0-4) % Seg Neutrophils % % Lymphocytes % % Monocytes % % Eosinophils % % Basophils % % Neutrophils # (1.6-8.9) K/mcL Lymphocytes # (0.6-4.6) K/mcL Monocytes # (0.0-1.3) K/mcL Eosinophils # (0.0-0.6) K/mcL Basophils # (0.0-0.2) K/mcL PT (9.4-12.1) Seconds INR APTT (26.0-36.0) Seconds Sodium (136-145) mEq/L Potassium (3.5-4.5) mEq/L Chloride (98-109) mEq/L Carbon Dioxide (19-29) mEq/L BUN (7-20) mg/dL Creatinine (0.57-1.11) mg/dL Est GFR ( Amer) (> 60) Est GFR (Non-Af Amer) (> 60) BUN/Creatinine Ratio (6-26) Glucose (70-99) mg/dL Calculated Osmolality (280-300) Calcium (8.6-10.8) mg/dL Troponin I 0.03 (0-0.03) ng/mL - Radiology Data Radiology results reviewed: Yes I reviewed the patient's radiology results. Chest X-Ray 04/04/16 05:55 IMPRESSION: Mild pulmonary edema. D/ / Jackson Saldaña MD / Jackson Saldaña MD Interpreting Provider: Jackson Saldaña MD - EKG Data EKG results narrative: Atrial fibrillation with RVR, heart rate 128. There is moderate anterior lateral ST segment depression which may be rate related. Critical Care Time Critical Care Time: Yes Total Critical Care Time: 45 Attestation: Critical care performed: Time is exclusive of separately billable procedures. Time includes: direct patient care, patient reassessment, coordination of patient care, interpretation of data (laboratory data, radiology data, and respiratory data), review of patient's medical records, medical consultation and documentation of patient care. Procedures included in critical care time: Procedures excluded from critical care time:
[2016-04-04] MEDS ORDERED: 0.9 % Sodium Chloride 500 ML IVC ONE (10:15)
--- NOTE | 2016-04-04 12:28 | Internal Med History&Physical ---
<Patrice Magallanes - Last Filed: 04/04/16 13:39> Date of Encounter: 04/04/16 Time of Encounter: 12:24 Assessment and Plan (1) Atrial fibrillation with RVR Current visit: Yes Status: Acute Low BP with cardizem drip, HR is now bet 110 to 120, even after given NS IV bolus, BP remains low, will switch to IV digoxin low dose due to renal function , if still tachycardiac, might have to transfer pt to step down unit for amio drip, echo from one week ago reviewed, EF of 65 to 70%, normal right ventricular structure and function, will check tsh in AM. She is on eliquis for anticoagulation therapy. (2) Chest pain Current visit: Yes Status: Acute Likely 2/2 to chronic aortic dissection that was found in the previous CT, CTA of abd/chest obtained today, spoke to radiologist, did not think there is an acute dissection but chronic one, now pain is gone, con't to closely monitor BP and control it well. Qualifiers: Chest pain type: precordial pain Qualified Code(s): R07.2 - Precordial pain (3) Chronic dissection of thoracic aorta Current visit: No Status: Chronic Compare to CT of chest a week ago to CTA of abd/chest today, other than chronic aortic dissection, there was no acute dissection, will con't control her BP well , pt is not a surgical candidate to do any procedures. (4) CAD (coronary artery disease) Current visit: No Status: Chronic Con't ASA, statin, hold BB, ARB, and Norvasc for low BP. Qualifiers: Coronary Disease-Associated Artery/Lesion type: [place] artery [place] vs. transplanted heart: [place] heart Associated angina: angina presence unspecified Qualified Code(s): I25.10 - Atherosclerotic heart disease of [place] coronary artery without angina pectoris (5) DM type 2 (diabetes mellitus, type 2) Current visit: No Status: Chronic Hold PO home med and place her on SSI. 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 Internal Medicine - H&P: HPI Chief complaint: Chest pain Admitted From: Emergency Dept Plans for Post Hospital Care: Transfer Program Director/Air Personality Care History of present illness: Ms. Barfield is a 89 year old female with hx of CAD, a-fib, COPD, HTN, HLD and DM II who lives in [facility] care unit for many years, this AM she woke up with acute sudden chest pain in the middle of chest, nothing like this pain in the past, in the ER she received IV morphine and it made her pain away. She was discharged from this hospital a week ago but this time she was admitted for a- fib rvr, initially started on cardizem IV drip but her BP has been low since admission. In the previous admission, she was found to have chronic aortic dissection and this time, CTA of abd/chest was done and it showed the same chronic dissection. When I saw in the room, chest pain was gone. Past Med Surg Social Fam HX - Past Medical History Medical history: arthritis, atrial fibrillation, cancer, COPD, coronary artery disease, diabetes, GERD, hyperlipidemia, hypertension, peripheral artery disease , valvular heart disease, other Psychiatric history: no psych history - Past Surgical History Surgical History: other - Social History Smoking Status: Current every day smoker Packs per day: 1/2 Smokeless Tobacco Status: No Alcohol use: none Drug use: none - Family History Father Adopted: No Family Member Ethnicity: Non- Twin of Family Member: Yes, Fraternal Living Status: Hx Family Cardiac Disorders: Yes Hx Family Respiratory Disorders: Yes Internal Medicine - H&P: Meds Acetaminophen [Tylenol] 975 mg PO BID PRN 10/10/15 [History] Calcium Carbonate [Tums] 500 mg PO BID PRN 10/10/15 [History] Cholecalciferol (D-3) [Vitamin D] 2,000 unit PO DAILY 10/10/15 [History] Ethacrynic Acid [Edecrin] 50 mg PO BID 10/10/15 [History] Gabapentin [Neurontin] 600 mg PO TID 10/10/15 [History] GuaiFENesin Liq [Robitussin Liq] 200 mg PO Q6HR PRN 10/10/15 [History] Ipratropium/Albuterol Neb [Duoneb] 3 ml IH Q4HR PRN 10/10/15 [History] Lidocaine 2 patch TP Q12H 10/10/15 [History] Loperamide HCl [Imodium A-D] 2 mg PO Q6H PRN 10/10/15 [History] Losartan Potassium [Cozaar] 50 mg PO BID 10/10/15 [History] Mv-Mn/FA/Vit K1/Lycop/Lut/Zeax [Ocuvite Eye + Multi Tablet] 1 tab PO BID [History] Naphazoline HCl 1 drop OP DAILY PRN 10/10/15 [History] Omeprazole [PriLOSEC] 40 mg PO QAM 10/10/15 [History] Polyethylene Glycol 3350 [MiraLAX] 17 gm PO DAILY PRN 10/10/15 [History] Polyvinyl Alcohol [Artificial Tears] 1 drop OP QID PRN 10/10/15 [History] Tizanidine HCl 2 mg PO DAILY 10/10/15 [History] Isosorbide MONOnitrate (24 HR) [Imdur] 60 mg PO DAILY #30 tab.er.24h 10/13/15 [ Rx] Simvastatin [Zocor] 40 mg PO HS #30 tablet 10/13/15 [Rx] Meclizine HCl [Verticalm] 25 mg PO BID PRN 02/27/16 [History] Metoprolol XL (24 HR) Succ [Toprol Xl] 75 mg PO BID 02/27/16 [History] Sennosides/Docusate Sodium [Senna-Docusate Sodium Tablet] 1 tab PO BID PRN 02/26 [History] Apixaban [Eliquis] 2.5 mg PO BID 03/27/16 [History] Aspirin [Lo-Dose Aspirin EC] 81 mg PO DAILY 03/27/16 [History] Propylene Glycol/Peg 400 [Systane 0.3-0.4% Eye Drops] 1 drop BOTH EYES QID 03/27 [History] Witch [place]rina [Preparation H] 1 pad TP QID PRN 03/27/16 [History] Metformin [Glucophage] 500 mg PO BIDWM 5 Days 03/30/16 [Rx] Oxycodone HCl 10 mg PO Q6H PRN 5 Days 03/30/16 [Rx] Morphine Immed Rel [Morphine Sulfate] 15 mg PO BID 04/04/16 [History] Allergies bacitracin [From Neosporin ([id number])] Allergy (Unknown, Verified 03/27/16 09:58) See Comments PATIENT UNSURE- REACTION NOT LISTED ON [facility] LIST celecoxib Allergy (Unknown, Verified 03/27/16 09:51) See Comments pt cannot remember codeine Allergy (Unknown, Verified 03/27/16 09:51) See Comments pt does not remember Donepezil Allergy (Unknown, Verified 04/04/16 05:54) See Comments PATIENT UNSURE- REACTION NOT LISTED ON [facility] MED LIST fenofibrate [From Tricor] Allergy (Unknown, Verified 04/04/16 05:54) See Comments pt does not remember Hydralazine Allergy (Unknown, Verified 04/04/16 05:54) See Comments PATIENT UNSURE- REACTION NOT LISTED ON [facility] MED LIST naproxen Allergy (Unknown, Verified 04/04/16 05:54) See Comments PATIENT UNSURE- REACTION NOT LISTED ON [facility] MED LIST Neomycin [From Neosporin ([id number])] Allergy (Unknown, Verified 04/04/16 05 :54) See Comments PATIENT UNSURE- REACTION NOT LISTED ON [facility] MED LIST NSAIDS (Non-Steroidal Anti-Inflamma Allergy (Unknown, Verified 04/04/16 05:54) See Comments PATIENT UNSURE- REACTION NOT LISTED ON [facility] MED LIST Opioids - Morphine Analogues Allergy (Unknown, Verified 04/04/16 05:54) See Comments PATIENT UNSURE- REACTION NOT LISTED ON [facility] MED LIST polymyxin B [From Neosporin ([id number])] Allergy (Unknown, Verified 05:54) See Comments PATIENT UNSURE- REACTION NOT LISTED ON [facility] MED LIST rofecoxib Allergy (Unknown, Verified 04/04/16 05:54) See Comments PATIENT UNSURE- REACTION NOT LISTED ON [facility] MED LIST Sulfa (Sulfonamide Antibiotics) Allergy (Unknown, Verified 04/04/16 05:54) See Comments PATIENT UNSURE- REACTION NOT LISTED ON [facility] MED LIST Tetanus Vaccines and Toxoid [Tetanus Vaccines & Toxoid] Allergy (Unknown, Verified 03/27/16 09:51) See Comments PATIENT UNSURE- REACTION NOT LISTED ON [facility] MED LIST lisinopril Adverse Reaction (Verified 03/27/16 10:00) Cough nicotine Adverse Reaction (Verified 03/27/16 10:00) Vomiting All Systems PM: A 10-system review of systems was performed and is negative for pertinent findings except as documented above in the HPI. Review of systems: Pt admits chest pain but denies العلي, fever/chill, SOB, productive cough, nausea/ emesis, abd pain, diarrhea or dysuria. - Constitutional Vitals: Temp Pulse Resp BP Pulse Ox 97.9 F 120 15 124/69 97 04/04/16 11:32 04/04/16 11:32 04/04/16 11:32 04/04/16 11:32 04/04/16 11:32 General appearance: Present: cooperative, A&O X 3, no acute distress, answers questions appropriately - Head Head exam: Present: atraumatic, normocephalic - Eye Eye exam: Present: PERRL, conjuntiva pink, sclera anicteric Pupils: Present: PERRL - Neck Neck exam general surgery: Present: supple, trachea midline. Absent: lymphadenopathy - Respiratory Respiratory exam: Present: CTAB. Absent: accessory muscle use, rales, rhonchi, wheezes - Cardiovascular Cardiovascular exam: Present: irregular rhythm, +S1, +S2, tachycardia. Absent: diastolic murmur, gallop, rubs, systolic murmur - GI/Abdominal GI/Abdominal exam: Present: normal bowel sounds, soft, no peritoneal signs. Absent: distended, tenderness - Extremities Exam Extremities exam: Present: warm, radial pulses palpable and symetrical. Absent : calf tenderness, cyanotic, pedal edema - Neurological Exam Neurological exam: Present: CN II-XII intact, oriented X3, no focal deficits. Absent: pronater drift, facial droop, speech deficit - Skin Skin exam: Present: dry, intact Internal Med - H&P Results - Labs CBC & Chem 7: 04/04/16 05:55 04/04/16 05:55 <Raghu Zelaya A - Last Filed: 04/04/16 18:44> Date of Encounter: 04/04/16 Assessment and Plan (1) Chest pain Current visit: Yes Status: Acute Qualifiers: Chest pain type: precordial pain Qualified Code(s): R07.2 - Precordial pain (2) Afib Current visit: Yes Status: Chronic Qualifiers: Atrial fibrillation type: paroxysmal Qualified Code(s): I48.0 - Paroxysmal atrial fibrillation (3) CKD (chronic kidney disease), stage III Current visit: No Status: Chronic (4) CAD (coronary artery disease) Current visit: No Status: Chronic Qualifiers: Coronary Disease-Associated Artery/Lesion type: [place] artery [place] vs. transplanted heart: [place] heart Associated angina: angina presence unspecified Qualified Code(s): I25.10 - Atherosclerotic heart disease of [place] coronary artery without angina pectoris (5) Chronic diastolic CHF (congestive heart failure) Current visit: Yes Status: Chronic (6) COPD (chronic obstructive pulmonary disease) Current visit: No Status: Acute Qualifiers: COPD type: emphysema Emphysema type: centrilobular Qualified Code(s): J43.2 - Centrilobular emphysema Internal Medicine - H&P: HPI History of present illness: Ms. Barfield is a 89 year old female All Systems PM: A 10-system review of systems was performed and is negative for pertinent findings except as documented above in the HPI. - Constitutional Vitals: Temp Pulse Resp BP Pulse Ox 97.7 F 92 18 166/66 94 L 04/04/16 16:29 04/04/16 16:29 04/04/16 16:29 04/04/16 16:29 04/04/16 16:29 Internal Med - H&P Results - Labs CBC & Chem 7: 04/04/16 05:55 04/04/16 05:55 - Attending Attestation I examined this patient and my medical decision-making was reviewed with the Resident Physician on 04/04/16. I agree with the documented findings, disposition and treatment plan as described except to the extent set forth below. Ms. Barfield is 89 y/o female just discharged from [place]. She had been admitted with parox a fib and converted to NSR. She awoke abruptly during the night with chest pain and was found in rapid a fib again. She stated her BP meds have been held due to low BP. Currently she is without pain and is resting comfortably. H&P reviewed above Exam Alert. Comfortable Heart irreg and tachycardic Lungs diminished with scattered posterior wheeze Abd soft and nontender No edema I/P 1. Chest pain - most likely related to a fib. CTA done to r/o acute worsening of chronic thoracic aneurysm and was stable. 2. Parox a fib - most likely related to holding of rate control meds. Card eval 3. HTN 4. Hypotension - responding to IV fluids Further diagnoses and plan as above.
[2016-04-04] MEDS ORDERED: *HR* Digoxin 0.5 MG/2 ML AMPUL IVP ONE (13:18)
[2016-04-04] MEDS ORDERED: Ondansetron 4 MG/2 ML VIAL IVP PRN (13:21)
[2016-04-04] MEDS ORDERED: Naloxone 0.4 MG/ML INJ IVP PRN (13:21)
[2016-04-04] MEDS ORDERED: Artificial Tears SOLN 15 ML BOTTLE OP PRN (13:28)
[2016-04-04] MEDS: 0.9 % Sodium Chloride 1,000 ML IVC SCH (13:51)
[2016-04-04] MEDS ORDERED: *HR* Dextrose 50 % in Water (Syg) 50 ML SYRINGE IVP PRN (14:03)
[2016-04-04] MEDS ORDERED: Dextrose Gel 15 GM PO PRN ×2 (14:03)
[2016-04-04] MEDS ORDERED: D5% in Water 1,000 ML IV PRN (14:03)
[2016-04-04] MEDS ORDERED: Amiodarone Premix 360 MG/200 ML BAG IVC ONE (15:10)
[2016-04-04] MEDS ORDERED: Amiodarone Premix 150 MG/100 ML BAG IVPB ONE (15:10)
[2016-04-04] MEDS ORDERED: Amiodarone Premix 360 MG/200 ML BAG IVC SCH (15:15)
[2016-04-04] MEDS: Gabapentin 300 MG CAPSULE PO SCH ×2 (15:40→20:58)
[2016-04-04] MEDS: *HR* OxyCODONE Immed Rel 5 MG TABLET PO PRN ×2 (15:40→21:45)
[2016-04-04] MEDS: Insulin LISPRO 300 UNITS/3 ML VIAL SQ SCH (17:12)
[2016-04-04] MEDS ORDERED: Insulin LISPRO 300 UNITS/3 ML VIAL SQ SCH (21:00)
[2016-04-04] MEDS: APIXABAN 2.5 MG TABLET PO SCH (21:45)
[2016-04-05] MEDS: 0.9 % Sodium Chloride 1,000 ML IVC SCH ×2 (01:40→11:47)
[2016-04-05 05:13] LABS: Basophils % 0.3 %; Eosinophils # 0.3 K/mcL (0.0-0.6); Eosinophils % 2.5 %; Hematocrit 28.4 % (35.3-44.9); Hemoglobin 8.9 g/dL (11.5-15.4); Lymphocytes # 3.8 K/mcL (0.6-4.6); Lymphocytes % 34.8 %; Mean Corpuscular HGB Conc 31.3 g/dL (31.6-35.5); Mean Corpuscular Hemoglobin 23.4 pg (28.0-33.3); Mean Corpuscular Volume 74.7 fL (83.0-100.0); Mean Platelet Volume 9.3 fL (9.4-12.4); Monocytes # 1.1 K/mcL (0.0-1.3); Monocytes % 10.4 %; Neutrophils # 5.5 K/mcL (1.6-8.9); Platelet Count 233 K/mcL (140-400); Red Cell Distribution Width 17.2 % (11.5-14.5)
[2016-04-05 05:31] LABS: BUN/Creatinine Ratio 29 (6-26); Calcium 8.3 mg/dL (8.6-10.8); Carbon Dioxide 25 mEq/L (19-29); Chloride 103 mEq/L (98-109); Glucose 115 mg/dL (70-99); Osmolality,Calculated 288 (280-300); Potassium 3.9 mEq/L (3.5-4.5); Sodium 137 mEq/L (136-145); eGFR For African Americans > 60 (> 60); eGFR For Non-African Americans > 60 (> 60)
[2016-04-05 05:32] LABS: Blood Urea Nitrogen 22 mg/dL (7-20)
--- NOTE | 2016-04-05 06:31 | Electrocardiograph Report ---
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
[2016-04-05] MEDS: Gabapentin 300 MG CAPSULE PO SCH (08:07)
[2016-04-05] MEDS: APIXABAN 2.5 MG TABLET PO SCH (08:07)
[2016-04-05] MEDS: Insulin LISPRO 300 UNITS/3 ML VIAL SQ SCH ×2 (08:07→11:46)
[2016-04-05] MEDS: *HR* OxyCODONE Immed Rel 5 MG TABLET PO PRN (08:22)
[2016-04-05] MEDS ORDERED: Aspirin Enteric Coated 81 MG Tablet PO SCH (09:00)
[2016-04-05] MEDS ORDERED: Metoprolol XL (24 HR) Succ 50 MG TAB.ER.24H PO SCH (09:00)
[2016-04-05] MEDS ORDERED: Isosorbide MONOnitrate (24 HR) 60 MG TAB.ER.24H PO SCH (09:00)
--- NOTE | 2016-04-05 10:27 | Discharge Summary ---
Date of Encounter: 04/05/16 Time of Encounter: 10:24 - Discharge Diagnosis (1) Atrial fibrillation with RVR Priority: Primary Status: Resolved (2) Chest pain Priority: Secondary Status: Acute Qualifiers: Chest pain type: precordial pain Qualified Code(s): R07.2 - Precordial pain (3) CAD (coronary artery disease) Priority: Secondary Status: Chronic Qualifiers: Coronary Disease-Associated Artery/Lesion type: [place] artery [place] vs. transplanted heart: [place] heart Associated angina: angina presence unspecified Qualified Code(s): I25.10 - Atherosclerotic heart disease of [place] coronary artery without angina pectoris (4) CKD (chronic kidney disease), stage III Priority: Secondary Status: Chronic (5) Chronic dissection of thoracic aorta Priority: Secondary Status: Chronic (6) DM type 2 (diabetes mellitus, type 2) Priority: Secondary Status: Chronic Qualifiers: Diabetes mellitus complication status: with circulatory complication Diabetes mellitus complication detail: with other circulatory complications 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 Qualified Code(s) : E11.59 - Type 2 diabetes mellitus with other circulatory complications; 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 (7) Paroxysmal atrial fibrillation Priority: Secondary Status: Chronic - Discharge Medications Prescriptions: Losartan [Cozaar] 25 mg PO DAILY #30 tablet Morphine Immed Rel [Morphine Sulfate] 15 mg PO BID #14 tablet Home Medications: Acetaminophen [Tylenol] 975 mg PO BID PRN 10/10/15 [History] Calcium Carbonate [Tums] 500 mg PO BID PRN 10/10/15 [History] Cholecalciferol (D-3) [Vitamin D] 2,000 unit PO DAILY 10/10/15 [History] Ethacrynic Acid [Edecrin] 50 mg PO BID 10/10/15 [History] Gabapentin [Neurontin] 600 mg PO TID 10/10/15 [History] GuaiFENesin Liq [Robitussin Liq] 200 mg PO Q6HR PRN 10/10/15 [History] Ipratropium/Albuterol Neb [Duoneb] 3 ml IH Q4HR PRN 10/10/15 [History] Lidocaine 2 patch TP Q12H 10/10/15 [History] Loperamide HCl [Imodium A-D] 2 mg PO Q6H PRN 10/10/15 [History] Mv-Mn/FA/Vit K1/Lycop/Lut/Zeax [Ocuvite Eye + Multi Tablet] 1 tab PO BID [History] Naphazoline HCl 1 drop OP DAILY PRN 10/10/15 [History] Omeprazole [PriLOSEC] 40 mg PO QAM 10/10/15 [History] Polyethylene Glycol 3350 [MiraLAX] 17 gm PO DAILY PRN 10/10/15 [History] Polyvinyl Alcohol [Artificial Tears] 1 drop OP QID PRN 10/10/15 [History] Tizanidine HCl 2 mg PO DAILY 10/10/15 [History] Isosorbide MONOnitrate (24 HR) [Imdur] 60 mg PO DAILY #30 tab.er.24h 10/13/15 [ Rx] Simvastatin [Zocor] 40 mg PO HS #30 tablet 10/13/15 [Rx] Meclizine HCl [Verticalm] 25 mg PO BID PRN 02/27/16 [History] Metoprolol XL (24 HR) Succ [Toprol Xl] 75 mg PO BID 02/27/16 [History] Sennosides/Docusate Sodium [Senna-Docusate Sodium Tablet] 1 tab PO BID PRN 02/26 [History] Apixaban [Eliquis] 2.5 mg PO BID 03/27/16 [History] Aspirin [Lo-Dose Aspirin EC] 81 mg PO DAILY 03/27/16 [History] Propylene Glycol/Peg 400 [Systane 0.3-0.4% Eye Drops] 1 drop BOTH EYES QID 03/27 [History] Witch Katrina [Preparation H] 1 pad TP QID PRN 03/27/16 [History] Metformin [Glucophage] 500 mg PO BIDWM 5 Days 03/30/16 [Rx] Losartan [Cozaar] 25 mg PO DAILY #30 tablet 04/05/16 [Rx] Morphine Immed Rel [Morphine Sulfate] 15 mg PO BID #14 tablet 04/05/16 [Rx] Allergies/Adverse Reactions: Allergies bacitracin [From Neosporin ([id number])] Allergy (Unknown, Verified 03/27/16 09:58) See Comments PATIENT UNSURE- REACTION NOT LISTED ON [facility] celecoxib Allergy (Unknown, Verified 03/27/16 09:51) See Comments pt cannot remember codeine Allergy (Unknown, Verified 03/27/16 09:51) See Comments pt does not remember Donepezil Allergy (Unknown, Verified 04/04/16 05:54) See Comments PATIENT UNSURE- REACTION NOT LISTED ON [facility] fenofibrate [From Tricor] Allergy (Unknown, Verified 04/04/16 05:54) See Comments pt does not remember Hydralazine Allergy (Unknown, Verified 04/04/16 05:54) See Comments PATIENT UNSURE- REACTION NOT LISTED ON [facility] naproxen Allergy (Unknown, Verified 04/04/16 05:54) See Comments PATIENT UNSURE- REACTION NOT LISTED ON [facility] Neomycin [From Neosporin ([id number])] Allergy (Unknown, Verified 04/04/16 05 :54) See Comments PATIENT UNSURE- REACTION NOT LISTED ON [facility] NSAIDS (Non-Steroidal Anti-Inflamma Allergy (Unknown, Verified 04/04/16 05:54) See Comments PATIENT UNSURE- REACTION NOT LISTED ON [facility] Opioids - Morphine Analogues Allergy (Unknown, Verified 04/04/16 05:54) See Comments PATIENT UNSURE- REACTION NOT LISTED ON [facility] polymyxin B [From Neosporin ([id number])] Allergy (Unknown, Verified 05:54) See Comments PATIENT UNSURE- REACTION NOT LISTED ON [facility] rofecoxib Allergy (Unknown, Verified 04/04/16 05:54) See Comments PATIENT UNSURE- REACTION NOT LISTED ON [facility] Sulfa (Sulfonamide Antibiotics) Allergy (Unknown, Verified 04/04/16 05:54) See Comments PATIENT UNSURE- REACTION NOT LISTED ON [facility] Tetanus Vaccines and Toxoid [Tetanus Vaccines & Toxoid] Allergy (Unknown, Verified 03/27/16 09:51) See Comments PATIENT UNSURE- REACTION NOT LISTED ON [facility] lisinopril Adverse Reaction (Verified 03/27/16 10:00) Cough nicotine Adverse Reaction (Verified 03/27/16 10:00) Vomiting Date of admission: 04/04/16 11:12 Primary care physician: [facility] Discharging clinician: Manuel Woody Anticipated date of discharge: 04/05/16 - Patient Status Disposition: Transfer Other Condition: Good Functional capacity at discharge: uses cane/walker Overall status at discharge: patient is back to baseline - Discharge Instructions Instructions: Atrial Fibrillation (DC), Chest Pain (DC) [facility] - (in 1-2 weeks) - Diet and Activity Activity: as per physical therapy Diet: diabetic diet, low fat, low cholesterol, low salt diet Hospital course: Ms. Barfield is a 89 year old female with a history of atrial fibrillation, coronary artery disease, chronic dissection of thoracic aorta was admitted here with atrial fibrillation with rapid ventricular response and low blood pressure. Initially, the patient had a heart rate between 110 and 120/m. This did not respond to IV fluids. Patient received 1 dose of digoxin 0.125 mg IV. And she was about to be started on amiodarone drip intravenously but she converted to sinus rhythm and her heart rate improved. Since then she has been doing well. Her heart rate is now well controlled and is in sinus rhythm. Her blood pressure has also normalized. She had not been receiving her rate controlling medications at home because of low blood pressure. At this time, I have decreased her losartan dose but recommend that she continue to take Toprol at her current dose. If the patient continues to have low blood pressure at the facility, her metoprolol dosage can be decreased but would recommend not stopping it. As her symptoms have resolved and her heart rate has now been well controlled, she is stable to be discharged back to long-term care at [facility]. Patient is on anticoagulation with Eliquis. - Time Spent with Patient Total time spent providing and/or coordinating discharge services: - Constitutional Vitals: Temp Pulse Resp BP Pulse Ox 98.5 F 73 18 155/68 97 04/05/16 07:14 04/05/16 07:14 04/05/16 07:14 04/05/16 07:14 04/05/16 07:14 General appearance: Present: cooperative, A&O X 3, no acute distress, answers questions appropriately - Respiratory Respiratory exam: Present: CTAB. Absent: accessory muscle use, rales, rhonchi, wheezes - Cardiovascular Cardiovascular exam: Present: RRR, +S1, +S2. Absent: diastolic murmur, gallop, rubs, systolic murmur - GI/Abdominal GI/Abdominal exam: Present: normal bowel sounds, soft, no peritoneal signs. Absent: distended, tenderness - Extremities Exam Extremities exam: Present: warm, radial pulses palpable and symetrical. Absent : calf tenderness, cyanotic, pedal edema - Attending Attestation This document has been at least partially created by [employer] recognition technology by Dr. Woody. Errors in grammar, wording or other phrases may exist. If errors are found after the documentation is signed, they will be addressed individually in the addendum section of this document when appropriate.
--- NOTE | 2016-04-05 10:42 | Physician Discharge Referral ---
ExtendedCare Referral Info Transfer To: nursing [facility] care at [facility] Provider in Charge after Transfer: PCP Institutional Level of Care: Skilled - Diagnosis (1) Atrial fibrillation with RVR Priority: Primary Status: Resolved (2) Chest pain Priority: Secondary Status: Acute (3) CAD (coronary artery disease) Priority: Secondary Status: Chronic (4) CKD (chronic kidney disease), stage III Priority: Secondary Status: Chronic (5) Chronic dissection of thoracic aorta Status: Chronic (6) DM type 2 (diabetes mellitus, type 2) Priority: Secondary Status: Chronic (7) Paroxysmal atrial fibrillation Priority: Secondary Status: Chronic - Transfer Medications Prescriptions: Losartan [Cozaar] 25 mg PO DAILY #30 tablet Morphine Immed Rel [Morphine Sulfate] 15 mg PO BID #14 tablet Home Medications: Acetaminophen [Tylenol] 975 mg PO BID PRN 10/10/15 [History] Calcium Carbonate [Tums] 500 mg PO BID PRN 10/10/15 [History] Cholecalciferol (D-3) [Vitamin D] 2,000 unit PO DAILY 10/10/15 [History] Ethacrynic Acid [Edecrin] 50 mg PO BID 10/10/15 [History] Gabapentin [Neurontin] 600 mg PO TID 10/10/15 [History] GuaiFENesin Liq [Robitussin Liq] 200 mg PO Q6HR PRN 10/10/15 [History] Ipratropium/Albuterol Neb [Duoneb] 3 ml IH Q4HR PRN 10/10/15 [History] Lidocaine 2 patch TP Q12H 10/10/15 [History] Loperamide HCl [Imodium A-D] 2 mg PO Q6H PRN 10/10/15 [History] Mv-Mn/FA/Vit K1/Lycop/Lut/Zeax [Ocuvite Eye + Multi Tablet] 1 tab PO BID [History] Naphazoline HCl 1 drop OP DAILY PRN 10/10/15 [History] Omeprazole [PriLOSEC] 40 mg PO QAM 10/10/15 [History] Polyethylene Glycol 3350 [MiraLAX] 17 gm PO DAILY PRN 10/10/15 [History] Polyvinyl Alcohol [Artificial Tears] 1 drop OP QID PRN 10/10/15 [History] Tizanidine HCl 2 mg PO DAILY 10/10/15 [History] Isosorbide MONOnitrate (24 HR) [Imdur] 60 mg PO DAILY #30 tab.er.24h 10/13/15 [ Rx] Simvastatin [Zocor] 40 mg PO HS #30 tablet 10/13/15 [Rx] Meclizine HCl [Verticalm] 25 mg PO BID PRN 02/27/16 [History] Metoprolol XL (24 HR) Succ [Toprol Xl] 75 mg PO BID 02/27/16 [History] Sennosides/Docusate Sodium [Senna-Docusate Sodium Tablet] 1 tab PO BID PRN 02/26 [History] Apixaban [Eliquis] 2.5 mg PO BID 03/27/16 [History] Aspirin [Lo-Dose Aspirin EC] 81 mg PO DAILY 03/27/16 [History] Propylene Glycol/Peg 400 [Systane 0.3-0.4% Eye Drops] 1 drop BOTH EYES QID 03/27 [History] Witch Katrina [Preparation H] 1 pad TP QID PRN 03/27/16 [History] Metformin [Glucophage] 500 mg PO BIDWM 5 Days 03/30/16 [Rx] Losartan [Cozaar] 25 mg PO DAILY #30 tablet 04/05/16 [Rx] Morphine Immed Rel [Morphine Sulfate] 15 mg PO BID #14 tablet 04/05/16 [Rx] Allergies/Adverse Reactions: Allergies bacitracin [From Neosporin ([id number])] Allergy (Unknown, Verified 03/27/16 09:58) See Comments PATIENT UNSURE- REACTION NOT LISTED ON [facility] celecoxib Allergy (Unknown, Verified 03/27/16 09:51) See Comments pt cannot remember codeine Allergy (Unknown, Verified 03/27/16 09:51) See Comments pt does not remember Donepezil Allergy (Unknown, Verified 04/04/16 05:54) See Comments PATIENT UNSURE- REACTION NOT LISTED ON [facility] fenofibrate [From Tricor] Allergy (Unknown, Verified 04/04/16 05:54) See Comments pt does not remember Hydralazine Allergy (Unknown, Verified 04/04/16 05:54) See Comments PATIENT UNSURE- REACTION NOT LISTED ON [facility] naproxen Allergy (Unknown, Verified 04/04/16 05:54) See Comments PATIENT UNSURE- REACTION NOT LISTED ON [facility] Neomycin [From Neosporin ([id number])] Allergy (Unknown, Verified 04/04/16 05 :54) See Comments PATIENT UNSURE- REACTION NOT LISTED ON [facility] NSAIDS (Non-Steroidal Anti-Inflamma Allergy (Unknown, Verified 04/04/16 05:54) See Comments PATIENT UNSURE- REACTION NOT LISTED ON [facility] Opioids - Morphine Analogues Allergy (Unknown, Verified 04/04/16 05:54) See Comments PATIENT UNSURE- REACTION NOT LISTED ON [facility] polymyxin B [From Neosporin ([id number])] Allergy (Unknown, Verified 05:54) See Comments PATIENT UNSURE- REACTION NOT LISTED ON [facility] rofecoxib Allergy (Unknown, Verified 04/04/16 05:54) See Comments PATIENT UNSURE- REACTION NOT LISTED ON [facility] Sulfa (Sulfonamide Antibiotics) Allergy (Unknown, Verified 04/04/16 05:54) See Comments PATIENT UNSURE- REACTION NOT LISTED ON [facility] Tetanus Vaccines and Toxoid [Tetanus Vaccines & Toxoid] Allergy (Unknown, Verified 03/27/16 09:51) See Comments PATIENT UNSURE- REACTION NOT LISTED ON [facility] lisinopril Adverse Reaction (Verified 03/27/16 10:00) Cough nicotine Adverse Reaction (Verified 03/27/16 10:00) Vomiting - Respiratory Orders Smoking Cessation: Smoking cessation has been advised. For more information, call the [place] Tobacco Quit Line at 2-246-CWEI-NOW. - Ancillary Orders May use pressure relief devices daily prn - Advance Directives Code Status: DNR-Arrest (DNR CC Arrest DNI) - Mobility Orders Ambulate - Rehabiliation Orders Rehab Potential: Fair Rehab Orders: Evaluation for Physical Therapy, Evaluation for Occupational Therapy - Diet Orders No Concentrated Sweets, Cardiac (and CCD) CERTIFICATION: I certify that the transfer of the above named patient to an Extended Care Facility is necessary for the continuing treatment of the diagnosis listed. The above information is true and accurate reflection of patient's current condition. Confidential - Redisclosure prohibited without a patient's written consent.
[2016-04-05 11:30] VITALS: BP 137/59
--- NOTE | 2016-04-05 17:39 | Electrocardiograph Report ---
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
== END 2016-04-05 14:44 | DRG 308 ==
LOC: EMEROO 05:47 → 2NENU 05:47 → SUATTDRO 11:12 → 2NNU 16:22
PROVIDERS: ADMIT Internal Medicine; ATTEND Internal Medicine

== ENCOUNTER 2016-07-08 07:03 | Inpatient (IN) ==
--- NOTE | 2016-07-08 07:09 | Emergency Department Note ---
Disposition Clinical Impression: Facial droop, Dysarthria Anemia Qualifiers: Anemia type: unspecified type Qualified Code(s): D64.9 - Anemia, unspecified Disposition: Admitted As Inpatient Condition: Fair [facility] - Forms: ED Satisfaction Letter Neuro HPI - General Chief Complaint: ED Neuro Symptoms/Deficit Stated Complaint: poss stroke Time Seen by Provider: 07/08/16 07:05 Source: patient, EMS Mode of arrival: EMS Limitations: no limitations Nursing Notes Reviewed: Yes Vital Signs Reviewed: Yes - History of Present Illness HPI Narrative: Patient is an 89-year-old female with past medical history of hyperlipidemia, hypertension, CAD, COPD, A. fib. She presents today via EMS from [place] due to left -sided facial droop, left upper extremity weakness, slurring of speech. Patient 's last known well was around midnight last night. Patient was woken up around 6 AM to be given medicines. At this time, the patient had left sided facial droop, could not move her left arm, and had slurred speech. She states that her symptoms are slowly improving, her left upper extremity weakness has completely resolved. However, she still complains of slurred speech and left- sided facial droop. She denies any other chest pain, shortness breath, numbness , tingling, nausea, vomiting, fevers, abdominal pain. - Related Data Home Medications: Home Medications Medication Instructions Recorded Confirmed Acetaminophen [Tylenol] 975 mg PO BID PRN 10/10/15 04/04/16 Calcium Carbonate [Tums] 500 mg PO BID PRN 10/10/15 04/04/16 Cholecalciferol (D-3) [Vitamin D] 2,000 unit PO DAILY 10/10/15 04/04/16 Ethacrynic Acid [Edecrin] 50 mg PO BID 10/10/15 04/04/16 Gabapentin [Neurontin] 600 mg PO TID 10/10/15 04/04/16 GuaiFENesin Liq [Robitussin Liq] 200 mg PO Q6HR PRN 10/10/15 04/04/16 Ipratropium/Albuterol Neb [Duoneb] 3 ml IH Q4HR PRN 10/10/15 04/04/16 Lidocaine 2 patch TP Q12H 10/10/15 04/04/16 Loperamide HCl [Imodium A-D] 2 mg PO Q6H PRN 10/10/15 04/04/16 Mv-Mn/FA/Vit K1/Lycop/Lut/Zeax 1 tab PO BID 10/10/15 04/04/16 [Ocuvite Eye + Multi Tablet] Naphazoline HCl 1 drop OP DAILY PRN 10/10/15 04/04/16 Omeprazole [PriLOSEC] 40 mg PO QAM 10/10/15 04/04/16 Polyethylene Glycol 3350 [MiraLAX] 17 gm PO DAILY PRN 10/10/15 04/04/16 Polyvinyl Alcohol [Artificial 1 drop OP QID PRN 10/10/15 04/04/16 Tears] Tizanidine HCl 2 mg PO DAILY 10/10/15 04/04/16 Meclizine HCl [Verticalm] 25 mg PO BID PRN 02/27/16 04/04/16 Metoprolol XL (24 HR) Succ [Toprol 75 mg PO BID 02/27/16 04/04/16 Xl] Sennosides/Docusate Sodium 1 tab PO BID PRN 02/27/16 04/04/16 [Senna-Docusate Sodium Tablet] Apixaban [Eliquis] 2.5 mg PO BID 03/27/16 04/04/16 Aspirin [Lo-Dose Aspirin EC] 81 mg PO DAILY 03/27/16 04/04/16 Propylene Glycol/Peg 400 [Systane 1 drop BOTH EYES QID 03/27/16 04/04/16 0.3-0.4% Eye Drops] Kia Herndon [Preparation H] 1 pad TP QID PRN 03/27/16 04/04/16 Previous Rx's Medication Instructions Recorded Isosorbide MONOnitrate (24 HR) 60 mg PO DAILY #30 tab.er.24h 10/13/15 [Imdur] Simvastatin [Zocor] 40 mg PO HS #30 tablet 10/13/15 Metformin [Glucophage] 500 mg PO BIDWM 5 Days 03/30/16 Losartan [Cozaar] 25 mg PO DAILY #30 tablet 04/05/16 Morphine Immed Rel [Morphine 15 mg PO BID #14 tablet 04/05/16 Sulfate] Allergies/Adverse Reactions: Allergies Allergy/AdvReac Type Severity Reaction Status Date / Time bacitracin Allergy Unknown See Verified 03/27/16 09:58 [From Neosporin Comments ([id number])] celecoxib Allergy Unknown See Verified 03/27/16 09:51 Comments codeine Allergy Unknown See Verified 03/27/16 09:51 Comments Donepezil Allergy Unknown See Verified 04/04/16 05:54 Comments fenofibrate [From Tricor] Allergy Unknown See Verified 04/04/16 05:54 Comments Hydralazine Allergy Unknown See Verified 04/04/16 05:54 Comments naproxen Allergy Unknown See Verified 04/04/16 05:54 Comments Neomycin Allergy Unknown See Verified 04/04/16 05:54 [From Neosporin Comments ([id number])] NSAIDS (Non-Steroidal Allergy Unknown See Verified 04/04/16 05:54 Anti-Inflamma Comments Opioids - Morphine Analogues Allergy Unknown See Verified 04/04/16 05:54 Comments polymyxin B Allergy Unknown See Verified 04/04/16 05:54 [From Neosporin Comments ([id number])] rofecoxib Allergy Unknown See Verified 04/04/16 05:54 Comments Sulfa (Sulfonamide Allergy Unknown See Verified 04/04/16 05:54 Antibiotics) Comments Tetanus Vaccines and Toxoid Allergy Unknown See Verified 03/27/16 09:51 [Tetanus Vaccines & Toxoid] Comments lisinopril AdvReac Cough Verified 03/27/16 10:00 nicotine AdvReac Vomiting Verified 03/27/16 10:00 All systems ED: reviewed and negative except as stated. Constitutional: Denies: fever Cardiovascular: Denies: chest pain, palpitations Respiratory: Denies: cough, dyspnea Gastrointestinal: Denies: abdominal pain, nausea, vomiting, diarrhea Musculoskeletal: Denies: back pain Integumentary: Denies: rash Neurological: Reports: weakness. Denies: headache, numbness, paresthesias Psychiatric: Denies: anxiety Past Medical History - Past Medical History Attestation: Yes The following information was validated with the patient. Source: patient Medical history: Reports: arthritis, atrial fibrillation, cancer, COPD, coronary artery disease, diabetes, GERD, hyperlipidemia, hypertension, peripheral artery disease, valvular heart disease, other Surgical history: Reports: other Psychiatric history: Reports: no psych history MAILROOM PERSONNEL history: Reports: no MAILROOM PERSONNEL history - Social History Smoking Status: Current every day smoker Smokeless Tobacco Status: No Alcohol use: Reports: none Drug use: Reports: none Physical Exam - General Limitations: no limitations General appearance: alert, in no apparent distress - Head Head exam: atraumatic, normocephalic, normal inspection - Eye Eye exam: Present: PERRL, EOMI, other (Cannot close left eye tightly) - ENT ENT exam: mucous membranes moist, other (left lip droop) - Neck Neck exam: Present: normal inspection, full ROM, trachea midline - Chest Chest inspection: Present: normal inspection, symmetric chest wall rise - Respiratory Respiratory exam: Present: normal lung sounds bilaterally - Cardiovascular Cardiovascular exam: Present: regular rate, normal rhythm, normal heart sounds - Abdominal Exam Abdominal exam: Present: soft, Non-Tender. Absent: tenderness, distention, guarding, rebound, rigidity - Extremities Exam Extremities exam: Present: normal inspection, full ROM. Absent: tenderness, pedal edema - Neurological Exam Neurological exam: Present: alert, oriented X3, other (left sided faicial droop , dysarthria;). Absent: motor sensory deficit - Psychiatric Psychiatric exam: Present: normal affect, normal mood - Skin Skin exam: Present: warm, dry, intact, normal color Course Course Narrative: Patient hypertensive on presentation. Otherwise, the rest of her vitals were within normal limits. On physical exam, patient had partial left-sided facial droop of the eye and upper lip. She also had slurring of speech. Otherwise, the rest of her NIH scale was normal. NIH score 3. Rest of the physical exam was benign. Stroke alert was called, acute nuero labs ordered. 07:23 Dr. Napoles suggested no TPA due to age, improving symptoms and outside of window. She did recommend CTA of neck, if she has large vessel occlusion she could be transferred to [facility] for thrombectomy study. Otherwise, admit to our facility if no large vessel occlusion. 07:30 CT head shows no acute intracranial abnormality. Stroke alert canceled. CTA of neck ordered. Vital Signs Temperature 98.5 F 07/08/16 07:05 Pulse Rate 71 07/08/16 07:05 Respiratory Rate 16 07/08/16 07:05 Blood Pressure 183/92 07/08/16 07:05 O2 Sat by Pulse Oximetry 90 07/08/16 07:05 Temperature 98.5 F 04/27/17 07:05 Pulse Rate 61 07/08/16 07:54 Respiratory Rate 16 07/08/16 07:54 Blood Pressure 185/82 07/08/16 07:54 O2 Sat by Pulse Oximetry 97 07/08/16 07:54 Oxygen Delivery Oxygen Delivery Room Air Neuro Symptoms/Deficit - Medical Records Medical records reviewed: Yes I reviewed the patient's medical records. - Lab Data Lab results reviewed: Yes I reviewed the patient's lab results. Result diagrams: 07/08/16 07:39 Lab Results 07/08/16 07/08/16 Range/Units 07:39 07:39 WBC 10.5 (4.3-11.1) K/mcL RBC 3.82 (3.82-4.97) M/mcL Hgb 8.0 L (11.5-15.4) g/dL Hct 26.7 L (35.3-44.9) % MCV 69.9 L (83.0-100.0) fL MCH 20.9 L (28.0-33.3) pg MCHC 30.0 L (31.6-35.5) g/dL RDW 17.4 H (11.5-14.5) % Plt Count 367 (140-400) K/mcL MPV 8.6 L (9.4-12.4) fL Immature Plt Fraction 2.2 (1.1-6.1) % PT 13.5 H (9.4-12.1) Seconds INR 1.2 APTT 29.3 (26.0-36.0) Seconds - Radiology Data Radiology results reviewed: Yes I reviewed the patient's radiology results. - EKG Data EKG attestation: Yes I reviewed and interpreted this EKG. EKG results narrative: Physical 2016 and 07:17. Normal sinus rhythm. Rate 69. OR 235. QRS 86. QTC 412. Normal axis. No acute ST elevation or depression. No previous EKG for comparison NIH Stroke Scale - Level of Consciousness LOC: Alert - LOC Questions LOC Questions: Answers both correctly - LOC Commands LOC Commands: Performs both correctly - Best Gaze Best Gaze: Normal - Visual Visual: No visual loss - Facial Palsy Facial Palsy: Partial, total, or near-total paralysis of lower face - Motor Arms Motor Arm-Left: No drift for 10 seconds Motor Arm-Right: No drift for 10 seconds - Motor Legs Motor Leg-Left: No drift for 5 seconds Motor Leg-Right: No drift for 5 seconds - Limb Ataxia Limb Ataxia: Absent of affected limb too weak to perform exam - Sensory Sensory: Normal - Best Language Best Language: No aphasia - Dysarthria Dysarthria: Mild, slurs some words - Extinction and Inattention Extinction and Inattention: Normal - NIHSS Total Score NIHSS Total Score: 3 TPA Checklist - LKW: 3-4.5 hrs Add. Contraindications Patient/family understanding: The patient/family members have been counseled and understood the risk, benefit , and alternatives of treatment. Attestation Statement - Attestation Attestation: I examined this patient and my medical decision-making was reviewed with the ANTHROPOLOGIST PHYSICAL/PA/Advanced Practice Nurse/Resident Physician. I agree with the documented findings, disposition and treatment plan as described except to the extent set forth below. Face to face time [facility]. Last known well was 7 hours prior to arrival. Symptoms improving but not back to baseline. NIH 3. Patient seen and evaluated in conjunction with the resident physician
[2016-07-08 07:47] LABS: Hematocrit 26.7 % (35.3-44.9); Immature Granulocytes % 0.5 % (0-4); Immature Platelets 2.2 % (1.1-6.1); Mean Corpuscular Hemoglobin 20.9 pg (28.0-33.3); Mean Corpuscular Volume 69.9 fL (83.0-100.0); Mean Platelet Volume 8.6 fL (9.4-12.4); Red Blood Count 3.82 M/mcL (3.82-4.97); Red Cell Distribution Width 17.4 % (11.5-14.5)
[2016-07-08 07:48] LABS: Basophils % 0.4 %; Eosinophils # 0.3 K/mcL (0.0-0.6); Eosinophils % 2.7 %; Lymphocytes # 3.8 K/mcL (0.6-4.6); Monocytes % 9.4 %; Neutrophils # 5.4 K/mcL (1.6-8.9)
[2016-07-08 07:51] LABS: INR 1.2
[2016-07-08 07:54] LABS: Activated Partial Thrombo Time 29.3 Seconds (26.0-36.0); Platelet Count 367 K/mcL (140-400)
[2016-07-08 07:55] LABS: Prothrombin Time 13.5 Seconds (9.4-12.1)
[2016-07-08 08:01] LABS: Calcium 9.3 mg/dL (8.6-10.8); Potassium 4.5 mEq/L (3.5-4.5)
[2016-07-08 08:09] LABS: Anisocytosis 1+ (Not Present); Microcytosis Present (Not Present); Platelet Estimate Normal (Normal)
[2016-07-08 08:35] LABS: Bilirubin,Urine Negative (Negative); Blood,Urine Negative (Negative); Clarity,Urine Clear (Clear); Color,Urine Yellow (Yellow); Glucose,Urine (UA) Normal (Normal); Ketones,Urine Negative (Negative); Leukocyte Esterase,Urine Negative (Negative); Nitrite,Urine Negative (Negative); PH,Urine 7.5 pH Units (5.0-8.0); Protein,Urine Negative (Neg-Trace); Specific Gravity,Urine 1.011 (1.010-1.025); Urobilinogen,Urine Normal (Normal)
[2016-07-08] MEDS ORDERED: Naloxone 0.4 MG/ML INJ IVP PRN (10:24)
--- NOTE | 2016-07-08 10:38 | Internal Med History&Physical ---
<Brooks,Sophia J - Last Filed: 07/08/16 11:44> Date of Encounter: 07/08/16 Time of Encounter: 10:36 Assessment and Plan (1) Facial droop Current visit: Yes Status: Acute presented with left facial droop, dysarthria and left upper, lower extremity weakness that started on day of admission. Evaluated by [facility] tele stroke who did not recommend Tpa due to advanced age and improving sx's. Head CT non-acute, Head CTA without large vessel occlusion. Sx's present but improving in the ED. Has implanted pain pump- will need clearance before MRI can be obtained. Hgb A1c , lipids, TSH, echo pending. Cont home eliquis, ASA, statin. Neurology consulted (2) Migraine Current visit: Yes Status: Acute patient reports being dx with complex migraines in the past with similar neurological presentation. Patient also reports associated right scalp pain burning sensation. Denies migraine on exam. Neurology consulted Qualifiers: Qualified Code(s): G43.809 - Other migraine, not intractable, without status migrainosus (3) JAZZ (acute kidney injury) Current visit: Yes Status: Acute Cr 1.15 (baseline appears normal). Suspect pre-renal. IV fluids, hold home ARB. Monitor repeat chemistry (4) Hypertension Current visit: No Status: Chronic per hx and recently uncontrolled. Cont home BP medications except ARB due to JAZZ (avoiding permissive HTN with chronic dissection thoracic aorta). Monitor BP Qualifiers: Hypertension type: essential hypertension Qualified Code(s): I10 - Essential (primary) hypertension (5) Paroxysmal atrial fibrillation Current visit: No Status: Chronic per hx. Rate controlled. NSR on tele. Cont home BB, eliquis (6) COPD (chronic obstructive pulmonary disease) Current visit: No Status: Acute per hx. With mild wheezing on exam. Afebrile, no cough, no elevated WBC. No indication for ATB. Add nebs. Monitor Qualifiers: COPD type: emphysema Emphysema type: centrilobular Qualified Code(s): J43.2 - Centrilobular emphysema (7) DM type 2 (diabetes mellitus, type 2) Current visit: No Status: Chronic per hx in chart review but patient denies. Monitor blood sugars. Hgb A1c pending Qualifiers: Diabetes mellitus complication status: with circulatory complication Diabetes mellitus complication detail: with other circulatory complications Diabetes mellitus group home insulin use: with cigar maker use Qualified Code(s) : E11.59 - Type 2 diabetes mellitus with other circulatory complications; Z79.4 - charge aide (current) use of insulin (8) Chronic dissection of thoracic aorta Current visit: No Status: Chronic incidental finding on 03/2016 admission. Can follow up outpatient for surveillance. BP control (9) DVT prophylaxis Current visit: Yes Status: [facility] Internal Medicine - H&P: HPI Chief complaint: left facial droop. slurred speech Admitted From: Long-term Nursing Facility Plans for Post Hospital Care: Transfer [facility] History of present illness: Ms. Barfield is a 89 year old female with PMH atrial fibrillation, uncontrolled hypertension, diabetes and CKD who presented to [facility] 07/08/2016 with complaints of left facial droop and slurred speech. She was admitted for CVA rule out. Information obtained from chart review and patient report. Patient says she [facility] because they thought she had a stroke. She tells me that she had left sided facial droop, left arm weakness and slurred speech this morning. Slurred speech is now resolved. Says she was "normal self: when she went to bed last night and sx's were present when she woke around 0600 this morning. Nothing makes better or worse. She tells me she thinks this is a migraine and has had these spells before. No blurred or double vision, no headache at this time. She does report numbness to bilateral toes. She does have some SOB and wheezing, no cough or chest pain. Past Med Surg Social Fam HX - Past Medical History Medical history: arthritis, atrial fibrillation, cancer, COPD, coronary artery disease, diabetes, GERD, hyperlipidemia, hypertension, peripheral artery disease , valvular heart disease, other Psychiatric history: no psych history - Past Surgical History Surgical History: other (pain pump) - Social History Smoking Status: Current every day smoker Smokeless Tobacco Status: No Alcohol use: none Drug use: none - Family History Father Adopted: No Family Member Ethnicity: Non- Twin of Family Member: Yes, Fraternal Living Status: Hx Family Cardiac Disorders: Yes Hx Family Respiratory Disorders: Yes - Additional Family History Additional family history: reviewed and non-contributory per patient Internal Medicine - H&P: Meds Acetaminophen [Tylenol] 650 mg PO TID PRN 10/10/15 [History] Calcium Carbonate [Tums] 500 mg PO BID PRN 10/10/15 [History] Cholecalciferol (D-3) [Vitamin D] 2,000 unit PO DAILY 10/10/15 [History] Ethacrynic Acid [Edecrin] 50 mg PO BID 10/10/15 [History] Gabapentin [Neurontin] 600 mg PO TID 10/10/15 [History] GuaiFENesin Liq [Robitussin Liq] 200 mg PO Q6HR PRN 10/10/15 [History] Ipratropium/Albuterol Neb [Duoneb] 3 ml IH Q4HR PRN 10/10/15 [History] Lidocaine 2 patch TP Q12H 10/10/15 [History] Mv-Mn/FA/Vit K1/Lycop/Lut/Zeax [Ocuvite Eye + Multi Tablet] 1 tab PO BID [History] Naphazoline HCl 1 drop OP DAILY PRN 10/10/15 [History] Omeprazole [PriLOSEC] 20 mg PO QAM 10/10/15 [History] Polyethylene Glycol 3350 [MiraLAX] 17 gm PO DAILY PRN 10/10/15 [History] Polyvinyl Alcohol [Artificial Tears] 1 drop OP QID PRN 10/10/15 [History] Tizanidine HCl 2 mg PO DAILY 10/10/15 [History] Isosorbide MONOnitrate (24 HR) [Imdur] 60 mg PO DAILY #30 tab.er.24h 10/13/15 [ Rx] Simvastatin [Zocor] 40 mg PO HS #30 tablet 10/13/15 [Rx] Meclizine HCl [Verticalm] 25 mg PO BID PRN 02/27/16 [History] Metoprolol XL (24 HR) Succ [Toprol Xl] 100 mg PO BID 02/27/16 [History] Sennosides/Docusate Sodium [Senna-Docusate Sodium Tablet] 1 tab PO BID PRN 02/26 [History] Apixaban [Eliquis] 2.5 mg PO BID 03/27/16 [History] Aspirin [Lo-Dose Aspirin EC] 81 mg PO DAILY 03/27/16 [History] Propylene Glycol/Peg 400 [Systane 0.3-0.4% Eye Drops] 1 drop BOTH EYES QID 03/27 [History] Witch Katrina [Preparation H] 1 pad TP QID PRN 03/27/16 [History] Losartan [Cozaar] 25 mg PO DAILY #30 tablet 04/05/16 [Rx] Morphine Immed Rel [Morphine Sulfate] 15 mg PO BID #14 tablet 04/05/16 [Rx] Cyanocobalamin (B-12) [Vitamin B12] 1,000 mcg PO BID 07/08/16 [History] HydrALAZINE 25 mg PO BID 07/08/16 [History] Nitroglycerin [Nitrostat] 0.4 mg SL AD PRN 07/08/16 [History] Oxycodone HCl/Acetaminophen [Percocet 5-325 mg Tablet] 1 tab PO Q6H PRN [History] Potassium Chloride [K-Tab ER] 20 meq PO MOWEFR 07/08/16 [History] Selenium Sulfide [Anti-Dandruff] 1 appl TP AD PRN 07/08/16 [History] Allergies bacitracin [From Neosporin ([id number])] Allergy (Unknown, Verified 07/08/16 08:01) See Comments PATIENT UNSURE- REACTION NOT LISTED [facility] celecoxib Allergy (Unknown, Verified 07/08/16 08:01) See Comments pt cannot remember codeine Allergy (Unknown, Verified 07/08/16 08:01) See Comments pt does not remember Donepezil Allergy (Unknown, Verified 07/08/16 08:01) See Comments PATIENT UNSURE- REACTION NOT LISTED ON [facility] fenofibrate [From Tricor] Allergy (Unknown, Verified 07/08/16 08:01) See Comments pt does not remember Hydralazine Allergy (Unknown, Verified 07/08/16 08:01) See Comments PATIENT UNSURE- REACTION NOT LISTED ON [facility] naproxen Allergy (Unknown, Verified 07/08/16 08:01) See Comments PATIENT UNSURE- REACTION NOT LISTED ON [facility] Neomycin [From Neosporin ([id number])] Allergy (Unknown, Verified 07/08/16 08 :01) See Comments PATIENT UNSURE- REACTION NOT LISTED ON [facility] Opioids - Morphine Analogues Allergy (Unknown, Verified 07/08/16 08:01) See Comments PATIENT UNSURE- REACTION NOT LISTED ON [facility] polymyxin B [From Neosporin ([id number])] Allergy (Unknown, Verified 08:01) See Comments PATIENT UNSURE- REACTION NOT LISTED ON [facility] rofecoxib Allergy (Unknown, Verified 07/08/16 08:01) See Comments PATIENT UNSURE- REACTION NOT LISTED ON [facility] Sulfa (Sulfonamide Antibiotics) Allergy (Unknown, Verified 07/08/16 08:01) See Comments PATIENT UNSURE- REACTION NOT LISTED ON [facility] Tetanus Vaccines and Toxoid [Tetanus Vaccines & Toxoid] Allergy (Unknown, Verified 07/08/16 08:01) See Comments PATIENT UNSURE- REACTION NOT LISTED ON [facility] lisinopril Adverse Reaction (Verified 07/08/16 08:01) Cough nicotine Adverse Reaction (Verified 07/08/16 08:01) Vomiting All Systems PM: A 10-system review of systems was performed and is negative for pertinent findings except as documented above in the HPI. - Constitutional Constitutional: weakness, no chills, no fever(s), no night sweats - EENT Eyes: no blurry vision, no change in vision, no diplopia, no discharge, no pain , no photophobia Ears: no ear discharge, no ear pain, no tinnitus Nose, mouth and throat: no dysphagia, no nasal discharge, no neck pain, no sore throat - Cardiovascular Cardiovascular ROS IM: dyspnea, no chest pain, no diaphoresis, no lightheadedness, no palpitations, no syncope - Respiratory Respiratory: dyspnea, no cough, no wheezing, no excessive phlegm production - Gastrointestinal Gastrointestinal: no abdominal pain, no diarrhea, no hematemesis, no hematochezia, no melena, no nausea, no vomiting - Genitourinary Genitourinary: no change in urinary stream, no dysuria, no flank pain, no hematuria - Musculoskeletal Musculoskeletal ROS IM: numbness, tingling, other Additional comments: left arm and leg weakness - Integumentary Integumentary IM: no rash, no unusual bruising - Neurological Neurological ROS: numbness, paresthesias, weakness, no confusion, no convulsions , no focal weakness, no tingling, no tremor(s) - Psychiatric Psychiatric: no confusion - Endocrine Endocrine IM: no cold intolerance, no heat intolerance - Hematologic/Lymphatic Hematologic/Lymphatic: no easy bruising - Constitutional Vitals: Temp Pulse Resp BP Pulse Ox 98.5 F 63 16 146/58 97 07/08/16 07:05 07/08/16 10:00 07/08/16 10:00 07/08/16 10:00 07/08/16 10:00 General appearance: Present: A&O X 3, answers questions appropriately - Head Head exam: Present: atraumatic, normocephalic - Eye Eye exam: Present: PERRL, conjuntiva pink, sclera anicteric Pupils: Present: PERRL - Neck Neck exam general surgery: Present: supple, trachea midline. Absent: lymphadenopathy - Respiratory Respiratory exam: Present: wheezes. Absent: accessory muscle use, rales, respiratory distress, rhonchi - Cardiovascular Cardiovascular exam: Present: RRR. Absent: diastolic murmur, gallop, rubs, systolic murmur - GI/Abdominal GI/Abdominal exam: Present: normal bowel sounds, soft, no peritoneal signs. Absent: distended, tenderness - Rectal Rectal exam: Present: deferred - Extremities Exam Extremities exam: Present: warm, radial pulses palpable and symetrical. Absent : calf tenderness, cyanotic, pedal edema - Neurological Exam Neurological exam: Present: alert, CN II-XII intact, oriented X3. Absent: pronater drift, facial droop, speech deficit Additional comments: gait not assessed. + left arm and leg weakness strength 4/5 for LUE and LLE - Skin Skin exam: Present: dry, intact Internal Med - H&P Results - Labs CBC & Chem 7: 07/08/16 07:39 07/08/16 07:39 Labs: Short CBC 07/08/16 Range/Units 07:39 WBC 10.5 (4.3-11.1) K/mcL Hgb 8.0 L (11.5-15.4) g/dL Hct 26.7 L (35.3-44.9) % Plt Count 367 (140-400) K/mcL Neutrophils # 5.4 (1.6-8.9) K/mcL BMP 07/08/16 07:39 Sodium 138 Potassium 4.5 Chloride 99 Carbon Dioxide 29 BUN 36 H Creatinine 1.15 H Glucose 143 H Calcium 9.3 Cardiac Enzymes 07/08/16 Range/Units 07:39 Troponin I 0.00 (0-0.03) ng/mL Urine 07/08/16 Range/Units 08:15 Urine Color Yellow (Yellow) Urine Clarity Clear (Clear) Urine pH 7.5 (5.0-8.0) pH Units Ur Specific [place] 1.011 (1.010-1.025) Urine Protein Negative (Neg-Trace) mg/dL Urine Glucose (UA) Normal (Normal) mg/dL - Impressions ITS Impressions Chest X-Ray 07/08/16 07:07 IMPRESSION: 1. Thoracic spinal stimulator again noted. 2. Prominence of the interstitial markings bilaterally, which may be related to chronic interstitial disease. D/ / Noam Turner MD / Noam Turner MD Interpreting Provider: Noam Turner MD Head CT 07/08/16 07:07 IMPRESSION: 1. No definite acute intracranial abnormality. 2. Global parenchymal volume loss with chronic microvascular ischemic change. 3. Atherosclerosis. Findings were discussed with Dr. Mello on 07/08/2016 at 7:23 am. D/ / Noam Turner MD / Noam Turner MD Interpreting Provider: Noam Turner MD Neck CTA 07/08/16 07:26 IMPRESSION: 1. Mild, less than 50%, stenosis of the internal carotid arteries by NASCET criteria. 2. Moderate narrowing of the right vertebral artery origin. Left vertebral artery is dominant without evidence of flow-limiting stenosis. D/ / 07/08/2016 10:27:53 Shirley Breaux MD / pablo Interpreting Provider: Shirley Breaux MD <Sr Bongualessia - Last Filed: 07/08/16 13:12> Date of Encounter: 07/08/16 Time of Encounter: 11:00 Internal Medicine - H&P: HPI History of present illness: Ms. Barfield is a 89 year old female All Systems PM: A 10-system review of systems was performed and is negative for pertinent findings except as documented above in the HPI. - Constitutional Vitals: Temp Pulse Resp BP Pulse Ox 98.5 F 67 16 174/77 95 07/08/16 07:05 07/08/16 11:31 07/08/16 11:31 07/08/16 11:31 07/08/16 11:00 Internal Med - H&P Results - Labs CBC & Chem 7: 07/08/16 07:39 07/08/16 07:39 - Attending Attestation I examined this patient and my medical decision-making was reviewed with the nurse practitioner. I agree with the documented history of present illness, review of systems, past medical, surgical social and family histories and examination findings, disposition and treatment plan as described above except to any changes set forth below. 89-year-old female patient presented to the ER with complaints of left-sided facial droop and left-sided weakness. She had been having headache last night and woke up this morning with her symptoms of weakness. She has had a prior episode of similar weakness several years back and she was diagnosed with complicated migraine. Her symptoms are currently improving. No bowel or bladder incontinence. No seizure-like activity. No chest pain or palpitations. No fever or chills or night sweats. She has a history of diabetes mellitus type 2, essential hypertension, chronic dissection of the thoracic aorta. On presentation to the ER her blood pressure has been elevated. On examination , she has left-sided facial droop, left upper extremity weakness 4/5 strength and numbness while the strength in her left lower extremity seems to be improving. Respiratory and cardiac examinations are within normal limits. We will place the patient in the hospital for TIA/stroke workup. [facility] stroke team evaluated the patient and recommended CT angiogram of the head and neck in addition to head CT and stroke workup. We will also consult neurology here.CTA head and neck did not show any acute occlusion. And patient is not a candidate for TPA due to her age. PT, OT speech therapy and social work consults. Possible acute ischemic stroke with facial droop and left-sided weakness: Consult neurology. Continue Eliquis, aspirin and statin. Check TSH, A1c and lipid profile. 2-D echocardiogram. Patient has a pain pump with morphine and may not be a candidate for MRI. We will discuss further with the radiology team. High risk for complications. Atrial fibrillation: Rate controlled. Continue anticoagulation with Eliquis. Diabetes mellitus type 2: Sliding scale insulin. Diabetic diet. Essential hypertension: Currently blood pressure is elevated. We will allow for permissive hypertension. Continue to monitor blood pressure. Acute on chronic anemia: Will check stool for occult blood. Patient is on Eliquis at risk for GI bleed. We will also check iron, folic acid and B12 levels. Acute kidney injury: Patient has slight renal insufficiency. We will gently hydration and follow renal function closely. Hold ARB for now. DVT prophylaxis: Patient is on Eliquis
[2016-07-08] MEDS: 0.9 % Sodium Chloride 1,000 ML IVC SCH (10:43)
[2016-07-08] MEDS ORDERED: D5% in Water 1,000 ML IVC PRN (11:04)
[2016-07-08] MEDS ORDERED: *HR* Dextrose 50 % in Water (Syg) 50 ML SYRINGE IVP PRN (11:04)
[2016-07-08] MEDS ORDERED: Dextrose Gel 15 GM PO PRN ×2 (11:04)
[2016-07-08 11:12] LABS: Thyroid Stimulating Hormone 3.066 mcIU/mL (0.350-4.840)
[2016-07-08] MEDS ORDERED: Ipratropium/Albuterol Neb 3 ML IH PRN (11:22)
--- NOTE | 2016-07-08 11:37 | Neurology - Consult Note ---
<Patrice Magallanes - Last Filed: 07/08/16 13:38> Date of Encounter: 07/08/16 Time of Encounter: 11:37 Assessment and Plan (1) Left-sided weakness Current Visit: Yes Status: Acute CT scan of the head without contrast showed no acute intracranial abnormality, CTA of the neck showed mild, less than 50%, stenosis of the internal carotid arteries and moderate narrowing of the right vertebral artery origin, limited echo from 3 months ago showed left ventricle ejection fraction of 65-70%, normal right ventricular structure and function, patient takes aspirin, Eliquis and statin daily for history of coronary artery disease and atrial fibrillation , patient does have a history of complex migraine with similar symptoms of slurred speech/left-sided weakness/numbness however this time she did not have zigzag line visual changes or headache, will make further recommendations after reviewing the brain MRI. History of Present Illness Chief complaint: Left-sided weakness HPI: Ms. Barfield is a 89 year old female with history of atrial fibrillation, hypertension, diabete type 2 and chronic kidney disease stage III who presented to the ER with chief complaint of slurred speech, left-sided numbness/weakness of upper/lower extremities, the symptoms started this morning when she woke up, patient has a history of complex migraine, usually she sees zigzag lights prior to the migraine episode however this time she did not see any zigzag line and she did not have a headache however the symptoms were similar to the previous complex migraine with slurred speech, numbness on the left side with weakness. Patient states that her slurred speech has improved slightly when I saw her in the room, but she still has numbness/weakness on the left side. Past Med Surg Social Fam HX - Past Medical History Medical history: arthritis, atrial fibrillation, cancer, COPD, coronary artery disease, diabetes, GERD, hyperlipidemia, hypertension, peripheral artery disease , valvular heart disease, other Psychiatric history: no psych history - Past Surgical History Surgical History: other (pain pump) - Social History Smoking Status: Current every day smoker Smokeless Tobacco Status: No Alcohol use: none Drug use: none - Family History Father Adopted: No Family Member Ethnicity: Non- Twin of Family Member: Yes, Fraternal Living Status: Hx Family Cardiac Disorders: Yes Hx Family Respiratory Disorders: Yes Medications and Allergies Acetaminophen [Tylenol] 650 mg PO TID PRN 10/10/15 [History] Calcium Carbonate [Tums] 500 mg PO BID PRN 10/10/15 [History] Cholecalciferol (D-3) [Vitamin D] 2,000 unit PO DAILY 10/10/15 [History] Ethacrynic Acid [Edecrin] 50 mg PO BID 10/10/15 [History] Gabapentin [Neurontin] 600 mg PO TID 10/10/15 [History] GuaiFENesin Liq [Robitussin Liq] 200 mg PO Q6HR PRN 10/10/15 [History] Ipratropium/Albuterol Neb [Duoneb] 3 ml IH Q4HR PRN 10/10/15 [History] Lidocaine 2 patch TP Q12H 10/10/15 [History] Mv-Mn/FA/Vit K1/Lycop/Lut/Zeax [Ocuvite Eye + Multi Tablet] 1 tab PO BID [History] Naphazoline HCl 1 drop OP DAILY PRN 10/10/15 [History] Omeprazole [PriLOSEC] 20 mg PO QAM 10/10/15 [History] Polyethylene Glycol 3350 [MiraLAX] 17 gm PO DAILY PRN 10/10/15 [History] Polyvinyl Alcohol [Artificial Tears] 1 drop OP QID PRN 10/10/15 [History] Tizanidine HCl 2 mg PO DAILY 10/10/15 [History] Isosorbide MONOnitrate (24 HR) [Imdur] 60 mg PO DAILY #30 tab.er.24h 10/13/15 [ Rx] Simvastatin [Zocor] 40 mg PO HS #30 tablet 10/13/15 [Rx] Meclizine HCl [Verticalm] 25 mg PO BID PRN 02/27/16 [History] Metoprolol XL (24 HR) Succ [Toprol Xl] 100 mg PO BID 02/27/16 [History] Sennosides/Docusate Sodium [Senna-Docusate Sodium Tablet] 1 tab PO BID PRN 02/26 [History] Apixaban [Eliquis] 2.5 mg PO BID 03/27/16 [History] Aspirin [Lo-Dose Aspirin EC] 81 mg PO DAILY 03/27/16 [History] Propylene Glycol/Peg 400 [Systane 0.3-0.4% Eye Drops] 1 drop BOTH EYES QID 03/27 [History] Witch Katrina [Preparation H] 1 pad TP QID PRN 03/27/16 [History] Losartan [Cozaar] 25 mg PO DAILY #30 tablet 04/05/16 [Rx] Morphine Immed Rel [Morphine Sulfate] 15 mg PO BID #14 tablet 04/05/16 [Rx] Cyanocobalamin (B-12) [Vitamin B12] 1,000 mcg PO BID 07/08/16 [History] HydrALAZINE 25 mg PO BID 07/08/16 [History] Nitroglycerin [Nitrostat] 0.4 mg SL AD PRN 07/08/16 [History] Oxycodone HCl/Acetaminophen [Percocet 5-325 mg Tablet] 1 tab PO Q6H PRN [History] Potassium Chloride [K-Tab ER] 20 meq PO MOWEFR 07/08/16 [History] Selenium Sulfide [Anti-Dandruff] 1 appl TP AD PRN 07/08/16 [History] Allergies bacitracin [From Neosporin ([id number])] Allergy (Unknown, Verified 07/08/16 08:01) See Comments PATIENT UNSURE- REACTION NOT LISTED ON [facility] celecoxib Allergy (Unknown, Verified 07/08/16 08:01) See Comments pt cannot remember codeine Allergy (Unknown, Verified 07/08/16 08:01) See Comments pt does not remember Donepezil Allergy (Unknown, Verified 07/08/16 08:01) See Comments PATIENT UNSURE- REACTION NOT LISTED ON [facility] fenofibrate [From Tricor] Allergy (Unknown, Verified 07/08/16 08:01) See Comments pt does not remember Hydralazine Allergy (Unknown, Verified 07/08/16 08:01) See Comments PATIENT UNSURE- REACTION NOT LISTED ON [facility] naproxen Allergy (Unknown, Verified 07/08/16 08:01) See Comments PATIENT UNSURE- REACTION NOT LISTED ON [facility] Neomycin [From Neosporin ([id number])] Allergy (Unknown, Verified 07/08/16 08 :01) See Comments PATIENT UNSURE- REACTION NOT LISTED ON [facility] Opioids - Morphine Analogues Allergy (Unknown, Verified 07/08/16 08:01) See Comments PATIENT UNSURE- REACTION NOT LISTED ON [facility] polymyxin B [From Neosporin ([id number])] Allergy (Unknown, Verified 08:01) See Comments PATIENT UNSURE- REACTION NOT LISTED ON [facility] rofecoxib Allergy (Unknown, Verified 07/08/16 08:01) See Comments PATIENT UNSURE- REACTION NOT LISTED ON [facility] Sulfa (Sulfonamide Antibiotics) Allergy (Unknown, Verified 07/08/16 08:01) See Comments PATIENT UNSURE- REACTION NOT LISTED ON [facility] Tetanus Vaccines and Toxoid [Tetanus Vaccines & Toxoid] Allergy (Unknown, Verified 07/08/16 08:01) See Comments PATIENT UNSURE- REACTION NOT LISTED ON [facility] lisinopril Adverse Reaction (Verified 07/08/16 08:01) Cough nicotine Adverse Reaction (Verified 07/08/16 08:01) Vomiting All Systems: A 10-system review of systems was performed and is negative for pertinent findings except as documented above in the HPI. Review of Systems: Patient admits slurred speech, weakness/numbness on the left upper/lower extremities, denies change in vision, headache, neck pain, or urinary/bowel incontinence. Physical Examination - Vital Signs Vital Signs: Initial Vital Signs Temp Pulse Resp BP Pulse Ox 98.5 F 71 16 183/92 90 07/08/16 07:05 07/08/16 07:05 07/08/16 07:05 07/08/16 07:05 07/08/16 07:05 - Constitutional General appearance: comfortable - Neurologic Sensorimotor examination: other (Numbness/weakness on the left upper/lower extremities with slight slurred speech) Motor examination - right side: 5/5: deltoids, biceps, triceps, wrist flexion, wrist extension, door glass installer, hip flexors, quadriceps, plantarflexion Motor examination - left side: 5/5: deltoids, biceps, triceps, wrist flexion, wrist extension, hip flexors, door glass installer, quadriceps, plantarflexion Detailed sensory examination: intact Reflexes: Biceps: 2+, Triceps: 2+, Brachioradialis: 2+, Patella: 2+ (2+ on the right side but could not elicit on the left side) Mental Status Examination: awake, alert, oriented to person, oriented to place, oriented to time, follows commands appropriately, answers questions appropriately, no agnosia, no aphasia, no aproxia Cranial nerve examination: PERRL, EOMI, visual simeon intact, sensory to face intact, mastication intact, no facial asymmetry is present, hearing is intact symmetrically, soft palate elevates bilaterally upon phonation, tongue protrudes midline Cerebellar examination: no dysmetria (Patient did have a difficulty with rapid alternating movements but [id number] was normal) Results - Laboratory Findings CBC and BMP: 07/08/16 07:39 07/08/16 07:39 Abnormal lab findings: Abnormal lab results Hgb 8.0 g/dL (11.5-15.4) L 07/08/16 07:39 Hct 26.7 % (35.3-44.9) L 07/08/16 07:39 MCV 69.9 fL (83.0-100.0) L 07/08/16 07:39 MCH 20.9 pg (28.0-33.3) L 07/08/16 07:39 MCHC 30.0 g/dL (31.6-35.5) L 07/08/16 07:39 RDW 17.4 % (11.5-14.5) H 07/08/16 07:39 MPV 8.6 fL (9.4-12.4) L 07/08/16 07:39 Anisocytosis 1+ (Not Present) A 07/08/16 07:39 Microcytosis Present (Not Present) A 07/08/16 07:39 PT 13.5 Seconds (9.4-12.1) H 07/08/16 07:39 BUN 36 mg/dL (7-20) H 07/08/16 07:39 Creatinine 1.15 mg/dL (0.57-1.11) H 07/08/16 07:39 Est GFR ( Amer) 54 (> 60) L 07/08/16 07:39 Est GFR (Non-Af Amer) 45 (> 60) L 07/08/16 07:39 BUN/Creatinine Ratio 31 (6-26) H 07/08/16 07:39 Glucose 143 mg/dL (70-99) H 07/08/16 07:39 Consult Discharge Plan - Plan [facility]errals: [facility] Care Provider[facility] - <Ari Harvey - Last Filed: 07/08/16 14:44> Date of Encounter: 07/08/16 Time of Encounter: 14:35 Assessment and Plan (1) Left-sided weakness Current Visit: Yes Status: Acute I will likely we are 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 Her deficits seem to be pure motor without sensory involvement. Her blood pressure time of admission was extremely elevated. She does have other stroke risk factors. A CTA of the neck does not reveal evidence of any clinically significant stenosis. She is currently only on Eliquis, aspirin as well as statin therapy. At this juncture I would simply recommend aggressive management of her hypertension, and ongoing management of her other stroke risk factors. Further recommendations will be made pending the MRI scan of the head. History of Present Illness HPI: Ms. Barfield is a 89 year old female seen for neurologic consultation due to c/o left facial droop and left sided weakness. Symptoms were present upon awakening from sleep this morning. This patient was seen and examined independently. The case was discussed with the resident. I agree with his history is taken above. Blood pressure was [address] scan of the head did not reveal any evidence of acute changes, no edema or mass effect are present. Ventricular ischemic white matter changes present. She does have a spinal stimulator in cannot have an MRI today. All Systems: A 10-system review of systems was performed and is negative for pertinent findings except as documented above in the HPI. Review of Systems: 10 point review of systems consistent with history of present illness and otherwise negative. Physical Examination - Vital Signs Vital Signs: Initial Vital Signs Temp Pulse Resp BP Pulse Ox 98.5 F 71 16 183/92 90 07/08/16 07:05 07/08/16 07:05 07/08/16 07:05 07/08/16 07:05 07/08/16 07:05 - Neurologic Motor examination - left side: 4/5: deltoids, biceps, triceps, wrist flexion, wrist extension, door glass installer, quadriceps, tibialis Anterior Results - Laboratory Findings CBC and BMP: 07/08/16 07:39 07/08/16 07:39 Abnormal lab findings: Abnormal lab results Hgb 8.0 g/dL (11.5-15.4) L 07/08/16 07:39 Hct 26.7 % (35.3-44.9) L 07/08/16 07:39 MCV 69.9 fL (83.0-100.0) L 07/08/16 07:39 MCH 20.9 pg (28.0-33.3) L 07/08/16 07:39 MCHC 30.0 g/dL (31.6-35.5) L 07/08/16 07:39 RDW 17.4 % (11.5-14.5) H 07/08/16 07:39 MPV 8.6 fL (9.4-12.4) L 07/08/16 07:39 Anisocytosis 1+ (Not Present) A 07/08/16 07:39 Microcytosis Present (Not Present) A 07/08/16 07:39 PT 13.5 Seconds (9.4-12.1) H 07/08/16 07:39 BUN 36 mg/dL (7-20) H 07/08/16 07:39 Creatinine 1.15 mg/dL (0.57-1.11) H 07/08/16 07:39 Est GFR ( Amer) 54 (> 60) L 07/08/16 07:39 Est GFR (Non-Af Amer) 45 (> 60) L 07/08/16 07:39 BUN/Creatinine Ratio 31 (6-26) H 07/08/16 07:39 Glucose 143 mg/dL (70-99) H 07/08/16 07:39 Hemoglobin A1c 7.4 % (-5.6) H 07/08/16 07:39
[2016-07-08 11:40] LABS: Hemoglobin A1C 7.4 %
[2016-07-08] MEDS ORDERED: *HR* FentaNYL (PF) 100 MCG/2 ML VIAL IVP ONE (12:00)
[2016-07-08] MEDS: Gabapentin 300 MG CAPSULE PO SCH ×2 (14:04→21:11)
[2016-07-08] MEDS: Insulin LISPRO 300 UNITS/3 ML VIAL SQ SCH ×3 (14:06→21:07)
[2016-07-08] MEDS ORDERED: hydrALAZINE 25 MG TABLET PO ONE (16:22)
--- NOTE | 2016-07-08 19:44 | Electrocardiograph Report ---
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
[2016-07-08] MEDS: APIXABAN 2.5 MG TABLET PO SCH (21:09)
[2016-07-08] MEDS: *HR* Morphine Immed Rel 30 MG TABLET PO SCH (21:09)
[2016-07-08] MEDS: Metoprolol XL (24 HR) Succ 50 MG TAB.ER.24H PO SCH (21:10)
[2016-07-08] MEDS: hydrALAZINE 25 MG TABLET PO SCH (21:32)
[2016-07-09] MEDS: 0.9 % Sodium Chloride 1,000 ML IVC SCH (06:09)
[2016-07-09 06:29] LABS: Basophils % 0.2 %; Eosinophils # 0.2 K/mcL (0.0-0.6); Eosinophils % 1.6 %; Hemoglobin 7.5 g/dL (11.5-15.4); Immature Granulocytes % 0.4 % (0-4); Lymphocytes # 2.5 K/mcL (0.6-4.6); Lymphocytes % 24.9 %; Mean Corpuscular Hemoglobin 20.9 pg (28.0-33.3); Mean Corpuscular Volume 69.8 fL (83.0-100.0); Mean Platelet Volume 9.2 fL (9.4-12.4); Monocytes % 9.4 %; Neutrophils # 6.5 K/mcL (1.6-8.9); Platelet Count 281 K/mcL (140-400); Red Blood Count 3.58 M/mcL (3.82-4.97); Red Cell Distribution Width 17.2 % (11.5-14.5); Segmented Neutrophils % 63.5 %
[2016-07-09 06:46] LABS: % Iron Saturation 5 % (15-50); BUN/Creatinine Ratio 25 (6-26); Calcium 8.5 mg/dL (8.6-10.8); Carbon Dioxide 27 mEq/L (19-29); Chloride 104 mEq/L (98-109); Chol/HDL Ratio 5.6 (0-4.9); Cholesterol 151 mg/dL (< 200); Glucose 118 mg/dL (70-99); HDL Cholesterol 27 mg/dL (40-59); Iron 19 mcg/dL (50-170); LDL Cholesterol,Calculated 89 mg/dL (0-99); Osmolality,Calculated 290 (280-300); Potassium 4.4 mEq/L (3.5-4.5); Sodium 138 mEq/L (136-145); Transferrin 290 mg/dL (180-382); Triglycerides 177 mg/dL (< 150); eGFR For African Americans > 60 (> 60); eGFR For Non-African Americans 60 (> 60)
[2016-07-09 06:47] LABS: Blood Urea Nitrogen 22 mg/dL (7-20)
[2016-07-09 07:07] LABS: Ferritin 14 ng/ml (5-204)
[2016-07-09 07:22] LABS: Folate 15.5 ng/mL (7.0-31.4)
[2016-07-09 07:28] LABS: Anisocytosis 1+ (Not Present); Polychromasia 1+ (Not Present)
[2016-07-09 07:29] LABS: Platelet Estimate Normal (Normal)
--- NOTE | 2016-07-09 07:58 | Neurology Progress Note ---
<Patrice Magallanes - Last Filed: 07/09/16 09:46> Date of Encounter: 07/09/16 Time of Encounter: 07:58 Assessment and Plan (1) Left-sided weakness Current Visit: Yes Status: Acute Her speech has improved compare to yesterday but she still has weakness of left upper/lower extremities, CT scan of the head without contrast showed no acute intracranial abnormality, CTA of the neck showed mild, less than 50%, stenosis of the internal carotid arteries and moderate narrowing of the right vertebral artery origin, limited echo from 3 months ago showed left ventricle ejection fraction of 65-70%, normal right ventricular structure and function, patient takes aspirin, Eliquis and statin daily for history of coronary artery disease and atrial fibrillation, brain MRI is still pending at this time, suspecting right internal capsule lacunar infarct, recommend management of her uncontrolled hypertension and other risk factor modifications, will make further recommendations after reviewing the brain MRI. Subjective Principal diagnosis: Left-sided weakness Interval history: Patient seen and examined. Patient states that her speech has improved compare to yesterday but still she has a weakness of left upper/lower extremities, sensation intact. Objective - Constitutional Vitals: Temp Pulse Resp BP Pulse Ox 97.6 F 73 18 159/63 98 07/09/16 04:48 07/09/16 04:48 07/09/16 04:48 07/09/16 04:48 07/09/16 04:48 General appearance: Present: cooperative, A&O X 3, pleasant, no acute distress, answers questions appropriately - Head Head exam: Present: atraumatic, normal inspection, normocephalic - Eye Eye exam: Present: EOMI, normal appearance, PERRL - Extremities Exam Extremities exam: Absent: calf tenderness, pedal edema, tenderness - Neurological Exam Sensorimotor examination: Present: other (Weakness on the left upper/lower extremities but improved slurred speech) Motor examination - right side: 5/5: deltoids, biceps, triceps, wrist flexion, wrist extension, optical sales associate, hip flexors, quadriceps, plantarflexion Motor examination - left side: 4/5: deltoids, biceps, triceps, wrist flexion, wrist extension, hip flexors, optical sales associate, quadriceps, plantarflexion Sensation intact: Present: intact Reflexes: Biceps: 2+, Triceps: 2+, Brachioradialis: 2+ Mental Status Examination: Present: awake, alert, oriented to person, oriented to place, oriented to time, follows commands appropriately, answers questions appropriately, no agnosia, no aphasia, no aproxia Cranial nerve examination: Present: PERRL, EOMI, visual simeon intact, sensory to face intact, no facial asymmetry is present, hearing is intact symmetrically , soft palate elevates bilaterally upon phonation, tongue protrudes midline, no atrophy or facial fasiculations present Cerebellar examination: Present: no dysmetria - VTE Documentation of Mechanical Device: Venous foot pump, device Results - Laboratory Findings CBC and BMP: 07/09/16 06:05 07/09/16 06:05 Abnormal lab findings: Abnormal lab results RBC 3.58 M/mcL (3.82-4.97) L 07/09/16 06:05 Hgb 7.5 g/dL (11.5-15.4) L 07/09/16 06:05 Hct 25.0 % (35.3-44.9) L 07/09/16 06:05 MCV 69.8 fL (83.0-100.0) L 07/09/16 06:05 MCH 20.9 pg (28.0-33.3) L 07/09/16 06:05 MCHC 30.0 g/dL (31.6-35.5) L 07/09/16 06:05 RDW 17.2 % (11.5-14.5) H 07/09/16 06:05 MPV 9.2 fL (9.4-12.4) L 07/09/16 06:05 Polychromasia 1+ (Not Present) A 07/09/16 06:05 Anisocytosis 1+ (Not Present) A 07/09/16 06:05 Microcytosis Present (Not Present) A 07/08/16 07:39 PT 13.5 Seconds (9.4-12.1) H 07/08/16 07:39 BUN 22 mg/dL (7-20) H D 07/09/16 06:05 Glucose 118 mg/dL (70-99) H 07/09/16 06:05 POC Glucose 187 (58-89) H 07/08/16 20:04 Hemoglobin A1c 7.4 % (-5.6) H 07/08/16 07:39 Calcium 8.5 mg/dL (8.6-10.8) L 07/09/16 06:05 Iron 19 mcg/dL (50-170) L 07/09/16 06:05 % Saturation 5 % (15-50) L 07/09/16 06:05 Triglycerides 177 mg/dL (< 150) H 07/09/16 06:05 VLDL Cholesterol, Calc 35 mg/dL (< 31) H 07/09/16 06:05 HDL Cholesterol 27 mg/dL (40-59) L 07/09/16 06:05 Cholesterol/HDL Ratio 5.6 (0-4.9) H 07/09/16 06:05 Vitamin B12 1987 pg/mL (213-816) H 07/09/16 06:05 Consult Discharge Plan - Plan [facility]errals: [facility] Care Provider[facility] - <Ari Harvey - Last Filed: 07/09/16 15:57> Date of Encounter: 07/09/16 Time of Encounter: 15:47 Assessment and Plan (1) Left-sided weakness Current Visit: Yes Status: Acute It is my primary suspicion that the infarct in the right centrum semiovale is result of controlled hypertension leading to small vessel vasospasm and the subsequent infarct. Her systolic blood pressure has been as high as 207 since this admission. However now it is running in the 150s. She also has a history of atrial fibrillation and is on Eliquis. She also has hyperlipidemia and is on a statin for this. Certainly aggressive management of her risk factors will be paramount. She will also benefit from PT and OT. And perhaps even speech therapy as her speech is dysarthric. Her cognition is good and therefore so that she is a good candidate for physical therapy. She also has complaints of a sharp shooting type of pain in the right occipital region. This seems to be more consistent with a neuritic type pain perhaps occipital neuritis. I would like to evaluate her in my office after discharge perhaps for a right greater occipital nerve block. I will reevaluate her at your request. Subjective Interval history: As above. MRI scan of the brain with diffusion imaging shows an acute infarct in the right pagan radiata. Objective - Constitutional Vitals: Temp Pulse Resp BP Pulse Ox 97.6 F 70 18 170/68 96 07/09/16 04:48 07/09/16 07:56 07/09/16 07:56 07/09/16 07:56 07/09/16 09:03 - Neurological Exam Motor examination - left side: 35: deltoids, biceps, triceps, wrist flexion, wrist extension, 4/5: hip flexors, optical sales associate, quadriceps, tibialis Anterior, plantarflexion Results - Laboratory Findings CBC and BMP: 07/09/16 06:05 07/09/16 06:05 Abnormal lab findings: Abnormal lab results RBC 3.58 M/mcL (3.82-4.97) L 07/09/16 06:05 Hgb 7.5 g/dL (11.5-15.4) L 07/09/16 06:05 Hct 25.0 % (35.3-44.9) L 07/09/16 06:05 MCV 69.8 fL (83.0-100.0) L 07/09/16 06:05 MCH 20.9 pg (28.0-33.3) L 07/09/16 06:05 MCHC 30.0 g/dL (31.6-35.5) L 07/09/16 06:05 RDW 17.2 % (11.5-14.5) H 07/09/16 06:05 MPV 9.2 fL (9.4-12.4) L 07/09/16 06:05 Polychromasia 1+ (Not Present) A 07/09/16 06:05 Anisocytosis 1+ (Not Present) A 07/09/16 06:05 Microcytosis Present (Not Present) A 07/08/16 07:39 PT 13.5 Seconds (9.4-12.1) H 07/08/16 07:39 BUN 22 mg/dL (7-20) H D 07/09/16 06:05 Glucose 118 mg/dL (70-99) H 07/09/16 06:05 POC Glucose 187 (58-89) H 07/08/16 20:04 Hemoglobin A1c 7.4 % (-5.6) H 07/08/16 07:39 Calcium 8.5 mg/dL (8.6-10.8) L 07/09/16 06:05 Iron 19 mcg/dL (50-170) L 07/09/16 06:05 % Saturation 5 % (15-50) L 07/09/16 06:05 Triglycerides 177 mg/dL (< 150) H 07/09/16 06:05 VLDL Cholesterol, Calc 35 mg/dL (< 31) H 07/09/16 06:05 HDL Cholesterol 27 mg/dL (40-59) L 07/09/16 06:05 Cholesterol/HDL Ratio 5.6 (0-4.9) H 07/09/16 06:05 Vitamin B12 1987 pg/mL (213-816) H 07/09/16 06:05
[2016-07-09] MEDS: Isosorbide MONOnitrate (24 HR) 60 MG TAB.ER.24H PO SCH (09:03)
[2016-07-09] MEDS: Metoprolol XL (24 HR) Succ 50 MG TAB.ER.24H PO SCH ×2 (09:03→21:15)
[2016-07-09] MEDS: hydrALAZINE 25 MG TABLET PO SCH ×2 (09:03→21:12)
[2016-07-09] MEDS: Gabapentin 300 MG CAPSULE PO SCH ×3 (09:04→21:14)
[2016-07-09] MEDS: Aspirin Enteric Coated 81 MG Tablet PO SCH (09:04)
[2016-07-09] MEDS: *HR* Morphine Immed Rel 30 MG TABLET PO SCH ×2 (09:05→21:13)
[2016-07-09] MEDS: APIXABAN 2.5 MG TABLET PO SCH ×2 (09:05→21:12)
[2016-07-09] MEDS: Insulin LISPRO 300 UNITS/3 ML VIAL SQ SCH ×4 (09:14→21:19)
--- NOTE | 2016-07-09 11:00 | ECHO - Doppler Report ---
Echo with Saline Contrast Name: Catie Barfield Date of Study: 07/08/2016 Date: 1925 Ht: 63.0 in Medical Record#: [id number] Age: 89 Wt: 115.0 lb Gender: Female BSA: 1.53 Order #: [id number] Location: [facility] Room #: [id number] Reading Physician: Jose Lee DO, JASPREET PITTMAN Otter Trawler Boatswain: Jeanna Cole Ordering Physician: Sophia Brooks CNP Primary Physician: [facility] Indications: Transient Ischemic Attack Impressions: LVEF 65%. Normal LV chamber size and function. Mild concentric left ventricular hypertrophy. Moderate left ventricular diastolic dysfunction. Normal right ventricular structure and function. Moderately dilated left atrium. No evidence of PFO with agitated saline contrast. Mild mitral regurgitation. No significant mitral stenosis. Mean gradient 4 mmHg. Mild-moderate tricuspid regurgitation. Mild pulmonic regurgitation. Severe pulmonary hypertension. Estimated RVSP is 65 mmHg. Left Ventricular Wall Motion: Rest Echo Findings All wall segments showed normal motion. Findings: Study Quality * Technically adequate exam. ECG Findings * Normal sinus rhythm. Left Ventricle * LVEF 65%. * Normal LV chamber size and function. * Mild concentric left ventricular hypertrophy. * Moderate left ventricular diastolic dysfunction. Right Ventricle * Normal right ventricular structure and function. Left Atrium * Moderately dilated left atrium. Right Atrium * Mildly dilated right atrium. Interatrial Septum * No evidence of PFO with agitated saline contrast. Aortic Valve * Trileaflet aortic valve. * Mildly sclerotic aortic valve leaflets. * No aortic regurgitation. * No aortic stenosis. Mitral Valve * Moderate mitral annular calcification * Mildly thickened mitral valve leaflets. * Mild mitral regurgitation. * No significant mitral stenosis. Mean gradient 4 mmHg. Tricuspid Valve * Normal tricuspid valve structure. * Mild-moderate tricuspid regurgitation. * Severe pulmonary hypertension. * Estimated RVSP is 65 mmHg. * Estimated RA pressure is 5 mmHg. Pulmonic Valve * Normal pulmonic valve structure. * Mild pulmonic regurgitation. Aorta * Normally sized aortic root. Pericardium * The pericardium appears normal. IVC * Normal IVC dimensions and inspiratory collapse. Pulmonary Artery * Normal visualized portions of the main pulmonary artery. History Hypertension Diabetes Hypercholesteremia History of Smoking Years 70 Packs 0.5 Family History of CAD History of CAD/PTCA Myocardial Infarction Valvular Disease 12/27/2012 a Previous Echo was performed. Contrast: Agitated saline 20 ml. Measurements: BP: 191/ 81 2D Normal Values RVIDd: 2.00 cm <2.7 cm IVSd: 1.20 cm 0.6 - 1.0 cm LVIDd: 5.00 cm 3.7 - 5.6 cm LVPWd: 1.20 cm 0.6 - 1.1 cm LVIDs: 2.80 cm 1.5 - 3.6 cm AO: 2.60 cm < 4.0 cm LA: 4.10 cm 2.0 - 4.0cm %FS: 44.00 cm >25 % LA volume: 49 Mitral Valve Peak Velocity 2.05 m/sec Mean Velocity:.91 m/sec Peak Grad:17.00 mmHg Mean Grad:4.00 mmHg Pressure Time:54.00 msec Valve Area:4.07 cm2 Peak E:1.67 m/sec Peak A:.77 m/sec E/A Ratio:2.2 Tricuspid Valve TV Regurg Peak Grad: 60.00mmHg TV Regurg Peak Rishi: 3.88m/sec Updated by Jose Lee DO, FACMorris, JASPREET, DIVINA on 07/09/2016 10:52:33 AM electronically signed on 07/09/2016 10:53:22 AM with status of Final Wall Motion Tamez: 1=Normal, 2=Hypokinesis, 3=Akinesis, 4=Dyskinesis, 5=Aneurysmal, 6=Hyperkinetic, X=Not Visualized (Blank)=Missing
[2016-07-09] MEDS ORDERED: Sennosides/Docusate Sodium TABLET PO PRN (13:38)
--- NOTE | 2016-07-09 17:45 | Electrocardiograph Report ---
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
--- NOTE | 2016-07-09 19:16 | Internal Med Progress Note ---
Date of Encounter: 07/10/16 Time of Encounter: 19:15 - Assessment and plan (1) Left-sided weakness Current Visit: Yes Status: Acute Assessment and plan: Impression presented with a left-sided weakness. She was evaluated by the [facility] tele stroke department. Did not recommend TPA. Head CT: Nonacute Head CT: No large vessel occlusion MRI brain: Multiple acute infarcts. Neurology on the board. We will follow recommendations from neurology. (2) Facial droop Current Visit: Yes Status: Acute Assessment and plan: Please see above (3) JAZZ (acute kidney injury) Current Visit: Yes Status: Acute Assessment and plan: Patient's acute kidney injury is completely improved. - Subjective Interval history: Patient seen and examined. Chart reviewed. Patient is lying comfortably in the bed. - Constitutional Vitals: Temp Pulse Resp BP Pulse Ox 98.5 F 91 18 157/94 92 07/09/16 16:22 07/09/16 16:22 07/09/16 16:22 07/09/16 16:22 07/09/16 16:22 General appearance: Present: A&O X 3, answers questions appropriately - Head Head exam: Present: atraumatic, normocephalic - Eye Eye exam: Present: PERRL, conjuntiva pink, sclera anicteric Pupils: Present: PERRL - Neck Neck exam general surgery: Present: supple, trachea midline. Absent: lymphadenopathy - Respiratory Respiratory exam: Present: CTAB. Absent: accessory muscle use, rales, rhonchi, wheezes - Cardiovascular Cardiovascular exam: Present: RRR, +S1, +S2. Absent: diastolic murmur, gallop, rubs, systolic murmur - GI/Abdominal GI/Abdominal exam: Present: normal bowel sounds, soft, no peritoneal signs. Absent: distended, tenderness - Extremities Exam Extremities exam: Present: warm, radial pulses palpable and symetrical. Absent : calf tenderness, cyanotic, pedal edema - Neurological Exam Neurological exam: Present: CN II-XII intact, oriented X3, no focal deficits. Absent: pronater drift, facial droop, speech deficit - Skin Skin exam: Present: dry, intact Internal Medicine: Result - Labs CBC & Chem 7: 07/09/16 06:05 07/09/16 06:05 Labs: Short CBC 07/09/16 Range/Units 06:05 WBC 10.2 (4.3-11.1) K/mcL Hgb 7.5 L (11.5-15.4) g/dL Hct 25.0 L (35.3-44.9) % Plt Count 281 (140-400) K/mcL Neutrophils # 6.5 (1.6-8.9) K/mcL BMP 07/09/16 06:05 Sodium 138 Potassium 4.4 Chloride 104 Carbon Dioxide 27 BUN 22 H D Creatinine 0.89 Glucose 118 H Calcium 8.5 L - ABG Interpretation ABG results: PT/INR, D-dimer PT 13.5 Seconds (9.4-12.1) H 07/08/16 07:39 - Impressions Impressions Brain MRI 07/09/16 00:01 IMPRESSION: 1. There are acute infarcts noted in the right pagan radiata, as well as the pre and postcentral gyri which may be resulting in left-sided neurologic deficits. 2. Moderate chronic microvascular white matter ischemic disease is noted supratentorially. 3. Bilateral mastoid effusions. 4. Acute right sphenoid sinusitis. 5. Soft tissue thickening noted along the dens, near the transverse ligament, resulting in mass effect on the ventral margin of the cervicomedullary junction. D/ / 07/09/2016 13:02:15 Terry Morel MD / alex Interpreting Provider: Terry Morel MD - VTE Documentation of Mechanical Device: Venous foot pump, device Consult Discharge Plan - Plan [facility]: [facility] [Primary Care Provider] -
[2016-07-10] MEDS: Insulin LISPRO 300 UNITS/3 ML VIAL SQ SCH ×4 (08:29→21:13)
[2016-07-10] MEDS: hydrALAZINE 25 MG TABLET PO SCH ×2 (10:37→21:07)
[2016-07-10] MEDS: APIXABAN 2.5 MG TABLET PO SCH ×2 (10:37→21:07)
[2016-07-10] MEDS: *HR* Morphine Immed Rel 30 MG TABLET PO SCH ×2 (10:37→21:09)
[2016-07-10] MEDS: Gabapentin 300 MG CAPSULE PO SCH ×3 (10:38→21:08)
[2016-07-10] MEDS: Metoprolol XL (24 HR) Succ 50 MG TAB.ER.24H PO SCH ×2 (10:38→21:08)
[2016-07-10] MEDS: Isosorbide MONOnitrate (24 HR) 60 MG TAB.ER.24H PO SCH (10:38)
[2016-07-10] MEDS: Aspirin Enteric Coated 81 MG Tablet PO SCH (10:38)
--- NOTE | 2016-07-10 16:24 | Internal Med Progress Note ---
Date of Encounter: 07/10/16 Time of Encounter: 16:22 - Assessment and plan (1) Left-sided weakness Current Visit: Yes Status: Acute Assessment and plan: Impression presented with a left-sided weakness. She was evaluated by the [facility] tele stroke department. Did not recommend TPA. Head CT: Nonacute Head CT: No large vessel occlusion MRI brain: Multiple acute infarcts. Neurology on the board. We will follow recommendations from neurology. 07/10/2016 We will await for PT/OT evaluation. [facility]. Close monitoring. (2) Facial droop Current Visit: Yes Status: Acute Assessment and plan: Please see above (3) JAZZ (acute kidney injury) Current Visit: Yes Status: Acute Assessment and plan: Patient's acute kidney injury is completely improved. - Subjective Interval history: Patient seen and examined. Chart reviewed. Patient is lying comfortably in the bed. 07/10/2016 Patient seen and examined. Chart reviewed. Patient is able to move all 4 extremities. Patient denies chest pain, shortness of breath, abdominal pain and nausea or vomiting. - Constitutional Vitals: Temp Pulse Resp BP Pulse Ox 98.1 F 64 16 152/72 100 07/10/16 15:29 07/10/16 15:29 07/10/16 15:29 07/10/16 15:29 07/10/16 15:29 General appearance: Present: A&O X 3, answers questions appropriately - Head Head exam: Present: atraumatic, normocephalic - Eye Eye exam: Present: PERRL, conjuntiva pink, sclera anicteric Pupils: Present: PERRL - Neck Neck exam general surgery: Present: supple, trachea midline. Absent: lymphadenopathy - Respiratory Respiratory exam: Present: CTAB. Absent: accessory muscle use, rales, rhonchi, wheezes - Cardiovascular Cardiovascular exam: Present: RRR, +S1, +S2. Absent: diastolic murmur, gallop, rubs, systolic murmur - GI/Abdominal GI/Abdominal exam: Present: normal bowel sounds, soft, no peritoneal signs. Absent: distended, tenderness - Extremities Exam Extremities exam: Present: warm, radial pulses palpable and symetrical. Absent : calf tenderness, cyanotic, pedal edema - Neurological Exam Neurological exam: Present: CN II-XII intact, oriented X3, no focal deficits. Absent: pronater drift, facial droop, speech deficit - Skin Skin exam: Present: dry, intact Internal Medicine: Result - Labs CBC & Chem 7: 07/09/16 06:05 07/09/16 06:05 - ABG Interpretation ABG results: PT/INR, D-dimer PT 13.5 Seconds (9.4-12.1) H 07/08/16 07:39 - VTE Documentation of Mechanical Device: Venous foot pump, device Consult Discharge Plan - Plan [facility]errals: [facility] [Primary Care Provider] -
--- NOTE | 2016-07-10 17:50 | Neurology Progress Note ---
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 The cause likely embolic or thrombo-embolic involving the right MCA territory, due to some cortical involvement, or this could be secondary to a lacunar infarct. CTA of neck is unremarkable. Theoretically she can have M1 stenting if applicable but considering her age and comorbidities, will at this time recommend only conservative therapies. She is already on Eliquis and Aspirin and will keep her on the regimen and pursue PT and risk factor modification. Please continue medical and supportive care Qualifiers: Precerebral and cerebral artery: middle cerebral artery Laterality of affected vessel: right Qualified Code(s): I63.511 - Cerebral infarction due to unspecified occlusion or stenosis of right middle cerebral artery Subjective Principal diagnosis: Left-sided weakness Interval history: Patient seen and examined. Patient is wide awake and eating with right hand comfortably. Mental status is normal. Still has left hemiparesis, with muscle strength about 3/5 arm and 4+/5 leg. Able to walk few steps. MRI of brain without contrast reviewed and it is my opinion that the stroke could be embolic or thromboembolic involving the right MCA branch, there is some small cortical involvement which may suggest embolic phenomenon. Patient is already on Eliquis for anticoagulation therapy and she is also taking aspirin 81mg daily. Objective - Constitutional Vitals: Temp Pulse Resp BP Pulse Ox 98.1 F 64 16 152/72 100 07/10/16 15:29 07/10/16 15:29 07/10/16 15:29 07/10/16 15:29 07/10/16 15:29 General appearance: Present: cooperative, A&O X 3, pleasant, no acute distress, answers questions appropriately - Neurological Exam Sensorimotor examination: Present: intact, other (Weakness on the left upper/ lower extremities but improved slurred speech) Motor examination - right side: 5/5: deltoids, biceps, triceps, wrist flexion, wrist extension, recruiter specialist, hip flexors, tibialis Anterior, quadriceps, toe extension (EHL), plantarflexion Motor examination - left side: 3/5: deltoids, biceps, triceps, wrist flexion, wrist extension, 4/5: hip flexors, recruiter specialist, quadriceps, tibialis Anterior, plantarflexion Sensation intact: Present: intact Posture: Present: other (None) Reflexes: Biceps: 1+, Triceps: 1+, Brachioradialis: 1+, Patella: 1+, Achilles: 1 + Mental Status Examination: Present: awake, alert, oriented to person, oriented to place, oriented to time, follows commands appropriately, answers questions appropriately, no agnosia, no aphasia, no aproxia Cranial nerve examination: Present: PERRL, EOMI, visual simeon intact, sensory to face intact, no facial asymmetry is present, hearing is intact symmetrically , soft palate elevates bilaterally upon phonation, tongue protrudes midline, no atrophy or facial fasiculations present Cerebellar examination: Present: no dysmetria - VTE Documentation of Mechanical Device: Venous foot pump, device Results - Laboratory Findings CBC and BMP: 07/09/16 06:05 07/09/16 06:05 Abnormal lab findings: Abnormal lab results RBC 3.58 M/mcL (3.82-4.97) L 07/09/16 06:05 Hgb 7.5 g/dL (11.5-15.4) L 07/09/16 06:05 Hct 25.0 % (35.3-44.9) L 07/09/16 06:05 MCV 69.8 fL (83.0-100.0) L 07/09/16 06:05 MCH 20.9 pg (28.0-33.3) L 07/09/16 06:05 MCHC 30.0 g/dL (31.6-35.5) L 07/09/16 06:05 RDW 17.2 % (11.5-14.5) H 07/09/16 06:05 MPV 9.2 fL (9.4-12.4) L 07/09/16 06:05 Polychromasia 1+ (Not Present) A 07/09/16 06:05 Anisocytosis 1+ (Not Present) A 07/09/16 06:05 Microcytosis Present (Not Present) A 07/08/16 07:39 PT 13.5 Seconds (9.4-12.1) H 07/08/16 07:39 BUN 22 mg/dL (7-20) H D 07/09/16 06:05 Glucose 118 mg/dL (70-99) H 07/09/16 06:05 POC Glucose 228 (58-89) H 07/09/16 19:57 Hemoglobin A1c 7.4 % (-5.6) H 07/08/16 07:39 Calcium 8.5 mg/dL (8.6-10.8) L 07/09/16 06:05 Iron 19 mcg/dL (50-170) L 07/09/16 06:05 % Saturation 5 % (15-50) L 07/09/16 06:05 Triglycerides 177 mg/dL (< 150) H 07/09/16 06:05 VLDL Cholesterol, Calc 35 mg/dL (< 31) H 07/09/16 06:05 HDL Cholesterol 27 mg/dL (40-59) L 07/09/16 06:05 Cholesterol/HDL Ratio 5.6 (0-4.9) H 07/09/16 06:05 Vitamin B12 1987 pg/mL (213-816) H 07/09/16 06:05 Consult Discharge Plan - Plan [facility]errals: [facility] [Primary Care Provider] -
[2016-07-11] MEDS ORDERED: Acetaminophen 325 MG TABLET PO PRN (00:03)
[2016-07-11] MEDS: Insulin LISPRO 300 UNITS/3 ML VIAL SQ SCH ×4 (11:03→23:41)
[2016-07-11] MEDS: Isosorbide MONOnitrate (24 HR) 60 MG TAB.ER.24H PO SCH (12:27)
[2016-07-11] MEDS: APIXABAN 2.5 MG TABLET PO SCH ×2 (12:27→20:39)
[2016-07-11] MEDS: hydrALAZINE 25 MG TABLET PO SCH ×2 (12:27→20:39)
[2016-07-11] MEDS: Gabapentin 300 MG CAPSULE PO SCH ×3 (12:27→20:39)
[2016-07-11] MEDS: Metoprolol XL (24 HR) Succ 50 MG TAB.ER.24H PO SCH ×2 (12:27→20:39)
[2016-07-11] MEDS: Aspirin Enteric Coated 81 MG Tablet PO SCH (12:27)
[2016-07-11] MEDS: *HR* Morphine Immed Rel 30 MG TABLET PO SCH ×2 (12:28→20:38)
--- NOTE | 2016-07-11 17:47 | Internal Med Progress Note ---
Date of Encounter: 07/11/16 Time of Encounter: 17:45 - Assessment and plan (1) Left-sided weakness Current Visit: Yes Status: Acute Assessment and plan: Impression presented with a left-sided weakness. She was evaluated by the [facility] tele stroke department. Did not recommend TPA. Head CT: Nonacute Head CT: No large vessel occlusion MRI brain: Multiple acute infarcts. Neurology on the board. We will follow recommendations from neurology. 07/10/2016 We will await for PT/OT evaluation. Possible back to [facility] on Tuesday. Close monitoring. 07/11/2016 Patient is improved a lot as compared to the day of admission. She is able to move all 4 extremity. Patient needs a ASA/statin upon discharge Likely transfer to ID tomorrow Patient has persistent wheeze and we will get the x-ray (2) Facial droop Current Visit: Yes Status: Acute Assessment and plan: Please see above (3) JAZZ (acute kidney injury) Current Visit: Yes Status: Acute Assessment and plan: Patient's acute kidney injury is completely improved. - Subjective Interval history: Patient seen and examined. Chart reviewed. Patient is lying comfortably in the bed. 07/10/2016 Patient seen and examined. Chart reviewed. Patient is able to move all 4 extremities. Patient denies chest pain, shortness of breath, abdominal pain and nausea or vomiting. 07/11/2016 Patient seen and examined. Chart reviewed. Patient is able to move all 4 extrude his. Patient has occasional wheezing. Patient denies chest pain, shortness of breath, abdominal pain - Constitutional Vitals: Temp Pulse Resp BP Pulse Ox 97.8 F 60 18 137/74 92 07/11/16 07:48 07/11/16 07:48 07/11/16 07:48 07/11/16 07:48 07/11/16 07:48 General appearance: Present: A&O X 3, answers questions appropriately - Head Head exam: Present: atraumatic, normocephalic - Eye Eye exam: Present: PERRL, conjuntiva pink, sclera anicteric Pupils: Present: PERRL - Neck Neck exam general surgery: Present: supple, trachea midline. Absent: lymphadenopathy - Respiratory Respiratory exam: Present: CTAB. Absent: accessory muscle use, rales, rhonchi, wheezes - Cardiovascular Cardiovascular exam: Present: RRR, +S1, +S2. Absent: diastolic murmur, gallop, rubs, systolic murmur - GI/Abdominal GI/Abdominal exam: Present: normal bowel sounds, soft, no peritoneal signs. Absent: distended, tenderness - Extremities Exam Extremities exam: Present: warm, radial pulses palpable and symetrical. Absent : calf tenderness, cyanotic, pedal edema - Neurological Exam Neurological exam: Present: CN II-XII intact, oriented X3, no focal deficits. Absent: pronater drift, facial droop, speech deficit - Skin Skin exam: Present: dry, intact Internal Medicine: Result - Labs CBC & Chem 7: 07/09/16 06:05 07/09/16 06:05 - ABG Interpretation ABG results: PT/INR, D-dimer PT 13.5 Seconds (9.4-12.1) H 07/08/16 07:39 - VTE Documentation of Mechanical Device: Intermittent pneumatic compression device Consult Discharge Plan - Plan [facility]errals: [facility] [Primary Care Provider] -
[2016-07-11] MEDS: *HR* OxyCODONE/APAP 5/325 TABLET PO PRN (21:53)
[2016-07-12] MEDS: Insulin LISPRO 300 UNITS/3 ML VIAL SQ SCH ×4 (09:11→21:07)
[2016-07-12] MEDS: Isosorbide MONOnitrate (24 HR) 60 MG TAB.ER.24H PO SCH (09:22)
[2016-07-12] MEDS: hydrALAZINE 25 MG TABLET PO SCH ×2 (09:22→21:17)
[2016-07-12] MEDS: Metoprolol XL (24 HR) Succ 50 MG TAB.ER.24H PO SCH ×2 (09:22→21:17)
[2016-07-12] MEDS: APIXABAN 2.5 MG TABLET PO SCH ×2 (09:22→21:17)
[2016-07-12] MEDS: Aspirin Enteric Coated 81 MG Tablet PO SCH (09:22)
[2016-07-12] MEDS: *HR* Morphine Immed Rel 30 MG TABLET PO SCH ×2 (09:22→21:16)
[2016-07-12] MEDS: Gabapentin 300 MG CAPSULE PO SCH ×3 (09:22→21:16)
[2016-07-12] MEDS: *HR* OxyCODONE/APAP 5/325 TABLET PO PRN (09:28)
--- NOTE | 2016-07-12 09:34 | Discharge Summary ---
Date of Encounter: 07/12/16 Time of Encounter: 09:30 - Discharge Diagnosis (1) CVA (cerebral vascular accident) Priority: Primary Status: Acute Qualifiers: CVA mechanism: embolism Precerebral and cerebral artery: middle cerebral artery Laterality of affected vessel: right Qualified Code(s): I63.411 - Cerebral infarction due to embolism of right middle cerebral artery (2) Left-sided weakness Priority: Primary Status: Acute (3) Facial droop Priority: Primary Status: Acute (4) JAZZ (acute kidney injury) Priority: Secondary Status: Resolved - Discharge Medications Home Medications: Acetaminophen [Tylenol] 650 mg PO TID PRN 10/10/15 [History] Calcium Carbonate [Tums] 500 mg PO BID PRN 10/10/15 [History] Cholecalciferol (D-3) [Vitamin D] 2,000 unit PO DAILY 10/10/15 [History] Ethacrynic Acid [Edecrin] 50 mg PO BID 10/10/15 [History] Gabapentin [Neurontin] 600 mg PO TID 10/10/15 [History] GuaiFENesin Liq [Robitussin Liq] 200 mg PO Q6HR PRN 10/10/15 [History] Ipratropium/Albuterol Neb [Duoneb] 3 ml IH Q4HR PRN 10/10/15 [History] Lidocaine 2 patch TP Q12H 10/10/15 [History] Mv-Mn/FA/Vit K1/Lycop/Lut/Zeax [Ocuvite Eye + Multi Tablet] 1 tab PO BID [History] Naphazoline HCl 1 drop OP DAILY PRN 10/10/15 [History] Omeprazole [PriLOSEC] 20 mg PO QAM 10/10/15 [History] Polyethylene Glycol 3350 [MiraLAX] 17 gm PO DAILY PRN 10/10/15 [History] Polyvinyl Alcohol [Artificial Tears] 1 drop OP QID PRN 10/10/15 [History] Tizanidine HCl 2 mg PO DAILY 10/10/15 [History] Isosorbide MONOnitrate (24 HR) [Imdur] 60 mg PO DAILY #30 tab.er.24h 10/13/15 [ Rx] Simvastatin [Zocor] 40 mg PO HS #30 tablet 10/13/15 [Rx] Meclizine HCl [Verticalm] 25 mg PO BID PRN 02/27/16 [History] Metoprolol XL (24 HR) Succ [Toprol Xl] 100 mg PO BID 02/27/16 [History] Sennosides/Docusate Sodium [Senna-Docusate Sodium Tablet] 1 tab PO BID PRN 02/26 [History] Apixaban [Eliquis] 2.5 mg PO BID 03/27/16 [History] Aspirin [Lo-Dose Aspirin EC] 81 mg PO DAILY 03/27/16 [History] Propylene Glycol/Peg 400 [Systane 0.3-0.4% Eye Drops] 1 drop BOTH EYES QID 03/27 [History] Witch Katrina [Preparation H] 1 pad TP QID PRN 03/27/16 [History] Losartan [Cozaar] 25 mg PO DAILY #30 tablet 04/05/16 [Rx] Morphine Immed Rel [Morphine Sulfate] 15 mg PO BID #14 tablet 04/05/16 [Rx] Cyanocobalamin (B-12) [Vitamin B12] 1,000 mcg PO BID 07/08/16 [History] HydrALAZINE 25 mg PO BID 07/08/16 [History] Nitroglycerin [Nitrostat] 0.4 mg SL AD PRN 07/08/16 [History] Oxycodone HCl/Acetaminophen [Percocet 5-325 mg Tablet] 1 tab PO Q6H PRN [History] Potassium Chloride [K-Tab ER] 20 meq PO MOWEFR 07/08/16 [History] Selenium Sulfide [Anti-Dandruff] 1 appl TP AD PRN 07/08/16 [History] Allergies/Adverse Reactions: Allergies bacitracin [From Neosporin ([id number])] Allergy (Unknown, Verified 07/08/16 08:01) See Comments PATIENT UNSURE- REACTION NOT LISTED [facility] celecoxib Allergy (Unknown, Verified 07/08/16 08:01) See Comments pt cannot remember codeine Allergy (Unknown, Verified 07/08/16 08:01) See Comments pt does not remember Donepezil Allergy (Unknown, Verified 07/08/16 08:01) See Comments PATIENT UNSURE- REACTION NOT LISTED ON [facility] fenofibrate [From Tricor] Allergy (Unknown, Verified 07/08/16 08:01) See Comments pt does not remember Hydralazine Allergy (Unknown, Verified 07/08/16 08:01) See Comments PATIENT UNSURE- REACTION NOT LISTED ON [facility] naproxen Allergy (Unknown, Verified 07/08/16 08:01) See Comments PATIENT UNSURE- REACTION NOT LISTED ON [facility] Neomycin [From Neosporin ([id number])] Allergy (Unknown, Verified 07/08/16 08 :01) See Comments PATIENT UNSURE- REACTION NOT LISTED ON [facility] Opioids - Morphine Analogues Allergy (Unknown, Verified 07/08/16 08:01) See Comments PATIENT UNSURE- REACTION NOT LISTED ON [facility] polymyxin B [From Neosporin ([id number])] Allergy (Unknown, Verified 08:01) See Comments PATIENT UNSURE- REACTION NOT LISTED ON [facility] rofecoxib Allergy (Unknown, Verified 07/08/16 08:01) See Comments PATIENT UNSURE- REACTION NOT LISTED ON [facility] Sulfa (Sulfonamide Antibiotics) Allergy (Unknown, Verified 07/08/16 08:01) See Comments PATIENT UNSURE- REACTION NOT LISTED ON [facility] Tetanus Vaccines and Toxoid [Tetanus Vaccines & Toxoid] Allergy (Unknown, Verified 07/08/16 08:01) See Comments PATIENT UNSURE- REACTION NOT LISTED ON [facility] lisinopril Adverse Reaction (Verified 07/08/16 08:01) Cough nicotine Adverse Reaction (Verified 07/08/16 08:01) Vomiting Date of admission: 07/08/16 11:10 Primary care physician: [facility] [place] Consults: 07/08/16 11:30 Consult to Neurology [CONS] Routine Consulting Provider: Neurology [facility] Reason for Consult: TIA, possible CVA Time Notified: 11:30 Call Completed: Yes 07/08/16 11:54 Consult to Family Resource Management Professor [CONS] Routine Reason for SW Consult: return to [facility] Discharging clinician: Naomi Theodore Anticipated date of discharge: 07/12/16 - Patient Status Disposition: Transfer Inpatient Rehab Fac Condition: Fair Overall status at discharge: patient is progressing back to baseline - Discharge Instructions [facility] With: [facility] [[facility] Care Provider] - - Diet and Activity Activity: as per physical therapy Diet: diabetic diet Interval History: Patient seen and examined. Right facial droop present. Moving all extremities. Agreeable to discharge to rehab at the [facility]. Hospital course: Ms. Barfield is a 89 year old female who presented to the ER from the [facility] with suspicion of stroke due to slurred speech and left facial droop. She has a past of complex migraines and states that she has had similar spells before. Her last known well was when she went to bed last night and she awoke at 6 AM with symptoms. [facility] tele-stroke department (seen in ER) did not recommend TPA. Head CT was negative. MRI showed multiple acute infarcts. Neurology recommends medical and supportive care. Patient is already on Eliquis and aspirin due to A. fib. She is being discharged to inpatient rehabilitation at the [facility]. Patient is agreeable to the plan. - Time Spent with Patient Total time spent providing and/or coordinating discharge services: - Constitutional Vitals: Temp Pulse Resp BP Pulse Ox 98.1 F 63 15 155/70 91 07/12/16 05:01 07/12/16 07:55 07/12/16 07:55 07/12/16 07:55 07/12/16 07:55 General appearance: Present: A&O X 3, answers questions appropriately - Head Head exam: Present: atraumatic, normocephalic - Eye Eye exam: Present: PERRL, conjuntiva pink, sclera anicteric Pupils: Present: PERRL - ENT ENT exam: Present: mucous membranes moist - Neck Neck exam general surgery: Present: supple - Respiratory Respiratory exam: Present: CTAB - Cardiovascular Cardiovascular exam: Present: RRR, +S1, +S2 - Extremities Exam Extremities exam: Present: warm. Absent: pedal edema Additional comments: chronic venous stasis skin discoloration of bilateral lower extremities - Neurological Exam Neurological exam: Present: alert, CN II-XII intact, oriented X3. Absent: pronater drift, facial droop, speech deficit - Skin Skin exam: Present: dry, intact, warm - VTE Documentation of Mechanical Device: Intermittent pneumatic compression device
--- NOTE | 2016-07-12 09:51 | Physician Discharge Referral ---
ExtendedCare Referral Info Transfer To: inpatient rehab [place] Provider in Charge after Transfer: Other Institutional Level of Care: Skilled - Diagnosis (1) CVA (cerebral vascular accident) Priority: Primary Status: Acute (2) Left-sided weakness Priority: Primary Status: Acute (3) Facial droop Priority: Primary Status: Acute (4) JAZZ (acute kidney injury) Priority: Secondary Status: Resolved - Transfer Medications Home Medications: Acetaminophen [Tylenol] 650 mg PO TID PRN 10/10/15 [History] Calcium Carbonate [Tums] 500 mg PO BID PRN 10/10/15 [History] Cholecalciferol (D-3) [Vitamin D] 2,000 unit PO DAILY 10/10/15 [History] Ethacrynic Acid [Edecrin] 50 mg PO BID 10/10/15 [History] Gabapentin [Neurontin] 600 mg PO TID 10/10/15 [History] GuaiFENesin Liq [Robitussin Liq] 200 mg PO Q6HR PRN 10/10/15 [History] Ipratropium/Albuterol Neb [Duoneb] 3 ml IH Q4HR PRN 10/10/15 [History] Lidocaine 2 patch TP Q12H 10/10/15 [History] Mv-Mn/FA/Vit K1/Lycop/Lut/Zeax [Ocuvite Eye + Multi Tablet] 1 tab PO BID [History] Naphazoline HCl 1 drop OP DAILY PRN 10/10/15 [History] Omeprazole [PriLOSEC] 20 mg PO QAM 10/10/15 [History] Polyethylene Glycol 3350 [MiraLAX] 17 gm PO DAILY PRN 10/10/15 [History] Polyvinyl Alcohol [Artificial Tears] 1 drop OP QID PRN 10/10/15 [History] Tizanidine HCl 2 mg PO DAILY 10/10/15 [History] Isosorbide MONOnitrate (24 HR) [Imdur] 60 mg PO DAILY #30 tab.er.24h 10/13/15 [ Rx] Simvastatin [Zocor] 40 mg PO HS #30 tablet 10/13/15 [Rx] Meclizine HCl [Verticalm] 25 mg PO BID PRN 02/27/16 [History] Metoprolol XL (24 HR) Succ [Toprol Xl] 100 mg PO BID 02/27/16 [History] Sennosides/Docusate Sodium [Senna-Docusate Sodium Tablet] 1 tab PO BID PRN 02/26 [History] Apixaban [Eliquis] 2.5 mg PO BID 03/27/16 [History] Aspirin [Lo-Dose Aspirin EC] 81 mg PO DAILY 03/27/16 [History] Propylene Glycol/Peg 400 [Systane 0.3-0.4% Eye Drops] 1 drop BOTH EYES QID 03/27 [History] Kia Herndon [Preparation H] 1 pad TP QID PRN 03/27/16 [History] Losartan [Cozaar] 25 mg PO DAILY #30 tablet 04/05/16 [Rx] Morphine Immed Rel [Morphine Sulfate] 15 mg PO BID #14 tablet 04/05/16 [Rx] Cyanocobalamin (B-12) [Vitamin B12] 1,000 mcg PO BID 07/08/16 [History] HydrALAZINE 25 mg PO BID 07/08/16 [History] Nitroglycerin [Nitrostat] 0.4 mg SL AD PRN 07/08/16 [History] Oxycodone HCl/Acetaminophen [Percocet 5-325 mg Tablet] 1 tab PO Q6H PRN [History] Potassium Chloride [K-Tab ER] 20 meq PO MOWEFR 07/08/16 [History] Selenium Sulfide [Anti-Dandruff] 1 appl TP AD PRN 07/08/16 [History] Allergies/Adverse Reactions: Allergies bacitracin [From Neosporin ([id number])] Allergy (Unknown, Verified 07/08/16 08:01) See Comments PATIENT UNSURE- REACTION NOT LISTED ON [facility] celecoxib Allergy (Unknown, Verified 07/08/16 08:01) See Comments pt cannot remember codeine Allergy (Unknown, Verified 07/08/16 08:01) See Comments pt does not remember Donepezil Allergy (Unknown, Verified 07/08/16 08:01) See Comments PATIENT UNSURE- REACTION NOT LISTED ON [facility] fenofibrate [From Tricor] Allergy (Unknown, Verified 07/08/16 08:01) See Comments pt does not remember Hydralazine Allergy (Unknown, Verified 07/08/16 08:01) See Comments PATIENT UNSURE- REACTION NOT LISTED ON [facility] naproxen Allergy (Unknown, Verified 07/08/16 08:01) See Comments PATIENT UNSURE- REACTION NOT LISTED ON [facility] Neomycin [From Neosporin ([id number])] Allergy (Unknown, Verified 07/08/16 08 :01) See Comments PATIENT UNSURE- REACTION NOT LISTED ON [facility] Opioids - Morphine Analogues Allergy (Unknown, Verified 07/08/16 08:01) See Comments PATIENT UNSURE- REACTION NOT LISTED ON [facility] polymyxin B [From Neosporin ([id number])] Allergy (Unknown, Verified 08:01) See Comments PATIENT UNSURE- REACTION NOT LISTED ON [facility] rofecoxib Allergy (Unknown, Verified 07/08/16 08:01) See Comments PATIENT UNSURE- REACTION NOT LISTED ON [facility] Sulfa (Sulfonamide Antibiotics) Allergy (Unknown, Verified 07/08/16 08:01) See Comments PATIENT UNSURE- REACTION NOT LISTED ON [facility] Tetanus Vaccines and Toxoid [Tetanus Vaccines & Toxoid] Allergy (Unknown, Verified 07/08/16 08:01) See Comments PATIENT UNSURE- REACTION NOT LISTED ON [facility] lisinopril Adverse Reaction (Verified 07/08/16 08:01) Cough nicotine Adverse Reaction (Verified 07/08/16 08:01) Vomiting - Respiratory Orders Smoking Cessation: Smoking cessation has been advised. For more information, call the [place] Tobacco Quit Line at 5-729-PUOC-NOW. - Advance Directives Code Status: Full Code - Rehabiliation Orders Rehab Potential: Good Rehab Orders: Evaluation for Physical Therapy, Evaluation for Occupational Therapy - Diet Orders No Concentrated Sweets CERTIFICATION: I certify that the transfer of the above named patient to an Extended Care Facility is necessary for the continuing treatment of the diagnosis listed. The above information is true and accurate reflection of patient's current condition. Confidential - Redisclosure prohibited without a patient's written consent.
[2016-07-12 12:31] LABS: Basophils % 0.3 %; Eosinophils # 0.2 K/mcL (0.0-0.6); Eosinophils % 2.1 %; Hematocrit 25.4 % (35.3-44.9); Hemoglobin 7.6 g/dL (11.5-15.4); Immature Granulocytes % 0.5 % (0-4); Lymphocytes # 3.1 K/mcL (0.6-4.6); Lymphocytes % 28.7 %; Mean Corpuscular HGB Conc 29.9 g/dL (31.6-35.5); Mean Corpuscular Hemoglobin 20.7 pg (28.0-33.3); Mean Platelet Volume 9.5 fL (9.4-12.4); Neutrophils # 6.4 K/mcL (1.6-8.9); Nucleated Red Blood Cells 0.2 /100 WBC (0); Platelet Count 257 K/mcL (140-400); Red Blood Count 3.68 M/mcL (3.82-4.97); Red Cell Distribution Width 18.2 % (11.5-14.5); Segmented Neutrophils % 59.4 %
[2016-07-12 13:03] LABS: Platelet Estimate Normal (Normal)
[2016-07-12 13:04] LABS: Anisocytosis 1+ (Not Present); Polychromasia 1+ (Not Present)
--- NOTE | 2016-07-12 14:29 | Event Note ---
Addendum entered and electronically signed by Shahram Fischer DO 07/12/16 17:04: Discussed with Dr. Simental. Resume diet at this time, plan for bowel prep tomorrow, with anticipated EGD/C-scope on Tuesday. Original Note: <Shahram Fischer - Last Filed: 07/12/16 14:27> Date of Encounter: 07/12/16 Time of Encounter: 14:27 Pt seen/eval, interval events reviewed. She has iron deficiency anemia, baseline Hgb 10, with steady decrease since admission. No signs active bleed. Has been on ASA and Eliquis since CVA of MCA. Consult placed to GI, appreciate recs. Will start NPO at this time. Transfuse 1 U PRBC. <Raphael Soto - Last Filed: 07/12/16 18:41> Date of Encounter: 07/12/16 I examined this patient and my medical decision-making was reviewed with the SCADA TECHNICIAN/PA/Advanced Practice Nurse/Resident Physician. I agree with the documented findings, disposition and treatment plan as described except to the extent set forth below.
--- NOTE | 2016-07-12 17:39 | Internal Med Progress Note ---
<Naomi Theodore - Last Filed: 07/12/16 17:37> Date of Encounter: 07/12/16 Time of Encounter: 17:37 - Assessment and plan (1) CVA (cerebral vascular accident) Current Visit: Yes Status: Acute Assessment and plan: Per neurology, cause is likely embolic or thromboembolic Continue medical and supportive care -Eliquis and aspirin -PT -risk factor modification Qualifiers: CVA mechanism: embolism Precerebral and cerebral artery: middle cerebral artery Laterality of affected vessel: right Qualified Code(s): I63.411 - Cerebral infarction due to embolism of right middle cerebral artery (2) Left-sided weakness Current Visit: Yes Status: Acute (3) Facial droop Current Visit: Yes Status: Acute (4) JAZZ (acute kidney injury) Current Visit: Yes Status: Resolved Assessment and plan: resolved (5) Anemia Current Visit: Yes Status: Acute Assessment and plan: Iron deficiency GI consulted, appreciate recommendations Plan for bowel prep tomorrow with scopes the following day Qualifiers: Anemia type: iron deficiency Iron deficiency anemia type: unspecified iron deficiency Qualified Code(s): D50.9 - Iron deficiency anemia, unspecified - Subjective Interval history: Patient seen and examined. Moving all extremities. Being worked up for GI bleed due to low hemoglobin on repeat CBC. - Constitutional Vitals: Temp Pulse Resp BP Pulse Ox 98.0 F 67 20 131/67 96 07/12/16 15:45 07/12/16 15:45 07/12/16 15:45 07/12/16 15:45 07/12/16 15:45 General appearance: Present: A&O X 3, answers questions appropriately - Head Head exam: Present: atraumatic, normocephalic - Eye Eye exam: Present: PERRL, conjuntiva pink, sclera anicteric Pupils: Present: PERRL - ENT ENT exam: Present: mucous membranes moist - Neck Neck exam general surgery: Present: supple - Respiratory Respiratory exam: Present: CTAB - Cardiovascular Cardiovascular exam: Present: RRR, +S1, +S2 - GI/Abdominal GI/Abdominal exam: Present: normal bowel sounds, soft. Absent: tenderness - Extremities Exam Extremities exam: Present: warm. Absent: pedal edema, tenderness Additional comments: Chronic venous stasis skin color changes to bilateral lower extremities - Neurological Exam Neurological exam: Present: alert, CN II-XII intact, oriented X3. Absent: pronater drift, facial droop, speech deficit - Skin Skin exam: Present: dry, intact, warm Internal Medicine: Result - Labs CBC & Chem 7: 07/12/16 12:15 07/09/16 06:05 Labs: Short CBC 07/12/16 Range/Units 12:15 WBC 10.7 (4.3-11.1) K/mcL Hgb 7.6 L (11.5-15.4) g/dL Hct 25.4 L (35.3-44.9) % Plt Count 257 (140-400) K/mcL Neutrophils # 6.4 (1.6-8.9) K/mcL - ABG Interpretation ABG results: PT/INR, D-dimer PT 13.5 Seconds (9.4-12.1) H 07/08/16 07:39 - Impressions Impressions Chest X-Ray 07/11/16 17:44 IMPRESSION: No acute process. D/ / 07/12/2016 09:39:18 Sha Knutson MD / earnold Interpreting Provider: Sha Knutson MD - VTE Documentation of Mechanical Device: Intermittent pneumatic compression device Consult Discharge Plan - Plan [facility]errals: [facility]Primary Care Provider[facility] - <Raphael Soto P - Last Filed: 07/12/16 18:42> Date of Encounter: 07/12/16 - Assessment and plan (1) Left-sided weakness Current Visit: Yes Status: Acute (2) Facial droop Current Visit: Yes Status: Acute (3) JAZZ (acute kidney injury) Current Visit: Yes Status: Resolved - Constitutional Vitals: Temp Pulse Resp BP Pulse Ox 98.0 F 67 20 131/67 96 07/12/16 15:45 07/12/16 15:45 07/12/16 15:45 07/12/16 15:45 07/12/16 15:45 Internal Medicine: Result - Labs CBC & Chem 7: 07/12/16 12:15 07/09/16 06:05 Labs: Short CBC 07/12/16 Range/Units 12:15 WBC 10.7 (4.3-11.1) K/mcL Hgb 7.6 L (11.5-15.4) g/dL Hct 25.4 L (35.3-44.9) % Plt Count 257 (140-400) K/mcL Neutrophils # 6.4 (1.6-8.9) K/mcL - ABG Interpretation ABG results: PT/INR, D-dimer PT 13.5 Seconds (9.4-12.1) H 07/08/16 07:39 - Impressions Impressions Chest X-Ray 07/11/16 17:44 IMPRESSION: No acute process. D/ / 07/12/2016 09:39:18 Sha Knutson MD / delmis Interpreting Provider: Sha Knutson MD - Attending Attestation I examined this patient and my medical decision-making was reviewed with the GROUP HOME WORKER/PA/Advanced Practice Nurse/Resident Physician. I agree with the documented findings, disposition and treatment plan as described except to the extent set forth below.
[2016-07-12] MEDS ORDERED: 0.9 % Sodium Chloride 250 ML ONE (23:04)
[2016-07-13] MEDS: *HR* OxyCODONE/APAP 5/325 TABLET PO PRN (02:17)
[2016-07-13 04:26] LABS: Basophils % 0.2 %; Eosinophils # 0.3 K/mcL (0.0-0.6); Eosinophils % 3.2 %; Hematocrit 27.4 % (35.3-44.9); Hemoglobin 8.3 g/dL (11.5-15.4); Immature Granulocytes % 0.4 % (0-4); Lymphocytes # 4.3 K/mcL (0.6-4.6); Lymphocytes % 41.2 %; Mean Corpuscular HGB Conc 30.3 g/dL (31.6-35.5); Mean Corpuscular Volume 72.5 fL (83.0-100.0); Mean Platelet Volume 9.6 fL (9.4-12.4); Monocytes % 9.8 %; Neutrophils # 4.7 K/mcL (1.6-8.9); Nucleated Red Blood Cells 0.2 /100 WBC (0); Platelet Count 243 K/mcL (140-400); Red Blood Count 3.78 M/mcL (3.82-4.97); Segmented Neutrophils % 45.2 %
[2016-07-13 04:45] LABS: Calcium 8.7 mg/dL (8.6-10.8); Magnesium 1.9 mg/dL (1.6-2.6); Potassium 4.4 mEq/L (3.5-4.5)
[2016-07-13] MEDS: Insulin LISPRO 300 UNITS/3 ML VIAL SQ SCH ×4 (10:25→21:45)
[2016-07-13] MEDS: Metoprolol XL (24 HR) Succ 50 MG TAB.ER.24H PO SCH ×2 (10:29→21:53)
[2016-07-13] MEDS: Gabapentin 300 MG CAPSULE PO SCH ×3 (10:29→21:53)
[2016-07-13] MEDS: hydrALAZINE 25 MG TABLET PO SCH ×2 (10:29→21:54)
[2016-07-13] MEDS: Aspirin Enteric Coated 81 MG Tablet PO SCH (10:29)
[2016-07-13] MEDS: APIXABAN 2.5 MG TABLET PO SCH ×2 (10:30→21:54)
[2016-07-13] MEDS: Isosorbide MONOnitrate (24 HR) 60 MG TAB.ER.24H PO SCH (10:30)
[2016-07-13] MEDS: *HR* Morphine Immed Rel 30 MG TABLET PO SCH ×2 (10:30→21:54)
--- NOTE | 2016-07-13 10:34 | Internal Med Progress Note ---
<Naomi Theodore - Last Filed: 07/13/16 10:31> Date of Encounter: 07/13/16 Time of Encounter: 10:31 - Assessment and plan (1) CVA (cerebral vascular accident) Current Visit: Yes Status: Acute Assessment and plan: Per neurology, cause is likely embolic or thromboembolic Continue medical and supportive care -Eliquis and aspirin -Physical therapy -risk factor modification Qualifiers: CVA mechanism: embolism Precerebral and cerebral artery: middle cerebral artery Laterality of affected vessel: right Qualified Code(s): I63.411 - Cerebral infarction due to embolism of right middle cerebral artery (2) Left-sided weakness Current Visit: Yes Status: Acute Assessment and plan: improving (3) Facial droop Current Visit: Yes Status: Resolved Assessment and plan: resolved (4) JAZZ (acute kidney injury) Current Visit: Yes Status: Resolved Assessment and plan: resolved (5) Anemia Current Visit: Yes Status: Acute Assessment and plan: Iron deficiency GI consulted, appreciate recommendations bowel prep scopes tomorrow Qualifiers: Anemia type: iron deficiency Iron deficiency anemia type: unspecified iron deficiency Qualified Code(s): D50.9 - Iron deficiency anemia, unspecified - Subjective Interval history: Patient seen and examined. Questions answered about colonoscopy and bowel prep. Denies concerns at this time. - Constitutional Vitals: Temp Pulse Resp BP Pulse Ox 97.6 F 57 20 150/75 96 07/13/16 08:00 07/13/16 08:00 07/13/16 08:00 07/13/16 08:00 07/13/16 08:00 General appearance: Present: A&O X 3, answers questions appropriately - Head Head exam: Present: atraumatic, normocephalic - Eye Eye exam: Present: PERRL, conjuntiva pink, sclera anicteric Pupils: Present: PERRL - Neck Neck exam general surgery: Present: supple - Respiratory Respiratory exam: Present: CTAB - Cardiovascular Cardiovascular exam: Present: RRR, +S1, +S2 - GI/Abdominal GI/Abdominal exam: Present: normal bowel sounds, soft. Absent: tenderness - Extremities Exam Extremities exam: Present: warm. Absent: pedal edema, tenderness Additional comments: chronic venous stasis changes to bilateral lower extremities - Neurological Exam Neurological exam: Present: CN II-XII intact, oriented X3, no focal deficits. Absent: pronater drift, facial droop, speech deficit - Skin Skin exam: Present: dry, intact Internal Medicine: Result - Labs CBC & Chem 7: 07/13/16 03:55 07/13/16 03:55 Labs: Short CBC 07/12/16 07/13/16 Range/Units 12:15 03:55 WBC 10.7 10.5 (4.3-11.1) K/mcL Hgb 7.6 L 8.3 L (11.5-15.4) g/dL Hct 25.4 L 27.4 L (35.3-44.9) % Plt Count 257 243 (140-400) K/mcL Neutrophils # 6.4 4.7 (1.6-8.9) K/mcL BMP 07/13/16 03:55 Sodium 135 L Potassium 4.4 Chloride 104 Carbon Dioxide 24 BUN 33 H Creatinine 1.12 H Glucose 113 H Calcium 8.7 - ABG Interpretation ABG results: PT/INR, D-dimer PT 13.5 Seconds (9.4-12.1) H 07/08/16 07:39 - Impressions Impressions Chest X-Ray 07/11/16 17:44 IMPRESSION: No acute process. D/ / 07/12/2016 09:39:18 Sha Knutson MD / earnold Interpreting Provider: Sha Knutson MD - VTE Documentation of Mechanical Device: Intermittent pneumatic compression device Consult Discharge Plan - Plan [facility]errals: [facility] [Primary Care Provider] - <Raphael Soto P - Last Filed: 07/13/16 19:03> Date of Encounter: 07/13/16 - Assessment and plan (1) Left-sided weakness Current Visit: Yes Status: Acute (2) Facial droop Current Visit: Yes Status: Resolved (3) JAZZ (acute kidney injury) Current Visit: Yes Status: Resolved - Constitutional Vitals: Temp Pulse Resp BP Pulse Ox 97.8 F 59 16 144/70 96 07/13/16 16:09 07/13/16 16:09 07/13/16 16:09 07/13/16 16:09 07/13/16 16:09 Internal Medicine: Result - Labs CBC & Chem 7: 07/13/16 03:55 07/13/16 03:55 Labs: Short CBC 07/13/16 Range/Units 03:55 WBC 10.5 (4.3-11.1) K/mcL Hgb 8.3 L (11.5-15.4) g/dL Hct 27.4 L (35.3-44.9) % Plt Count 243 (140-400) K/mcL Neutrophils # 4.7 (1.6-8.9) K/mcL BMP 07/13/16 03:55 Sodium 135 L Potassium 4.4 Chloride 104 Carbon Dioxide 24 BUN 33 H Creatinine 1.12 H Glucose 113 H Calcium 8.7 - ABG Interpretation ABG results: PT/INR, D-dimer PT 13.5 Seconds (9.4-12.1) H 07/08/16 07:39 - Attending Attestation I examined this patient and my medical decision-making was reviewed with the TIE MAN/PA/Advanced Practice Nurse/Resident Physician. I agree with the documented findings, disposition and treatment plan as described except to the extent set forth below.
--- NOTE | 2016-07-13 12:00 | Gastroenterology Consult Note ---
<Ari Hanna - Last Filed: 07/13/16 11:58> Date of Encounter: 07/13/16 Time of Encounter: 10:30 - Assessment and plan (1) Microcytic anemia Current Visit: Yes Status: Acute Assessment and plan: Hgb 8.3, MCV 72.5, iron 19, and ferritin 14. Likely secondary to chronic blood loss. Continue to monitor CBC and transfuse PRBC as needed. Plan for EGD and colonoscopy tomorrow to rule out GI pathology. Clear liquid diet today, no red or purple. NPO at midnight. If unable tolerate NuLytely please use MiraLAX prep. If not clear by 6 AM, give 2 tap water enemas. (2) COPD (chronic obstructive pulmonary disease) Current Visit: No Status: Acute Assessment and plan: Management per primary team. 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 Qualifiers: CVA mechanism: embolism Precerebral and cerebral artery: middle cerebral artery Laterality of affected vessel: right Qualified Code(s): I63.411 - Cerebral infarction due to embolism of right middle cerebral artery - Time Spent With Patient Total time spent is greater than 50% in coordination of care (as documented) at patient's floor/unit and/or counseling patient: GI History of Present Illness - Data of Consult Patient: new to practice Consult date: 07/13/16 Requesting Physician: Raphael Soto MD - Consult Narrative Reason for consult: GI Bleed History of present illness: Ms. Barfield is a 89 year old female with PMHx of arthritis, Afib, COPD, CAD, DM , GERD, HLD, HTN, and CKD who [facility] due to slurred speech and left facial droop. Head CT was negative. MRI showed multiple acute infarcts. Neurology recommended medical and supportive care. Patient is already on Eliquis and aspirin due to A. fib. She has iron deficiency anemia, baseline Hgb 10, with steady decrease since admission. No signs active bleed. Procedures: EGD 03/08/2008 Dr. Barker: reflux esophagitis. Colonoscopy 10/01/2004 Dr. Barker: Nonspecific inflammation NSAIDs: ASA Anticoagulation: Eliquis Past Med Surg Social Fam HX - Past Medical History Medical history: arthritis, atrial fibrillation, cancer, COPD, coronary artery disease, diabetes, GERD, hyperlipidemia, hypertension, peripheral artery disease , valvular heart disease, other Psychiatric history: no psych history - Past Surgical History Surgical History: other (pain pump) - Social History Smoking Status: Current every day smoker Smokeless Tobacco Status: No Alcohol use: none Drug use: none - Family History Father Adopted: No Family Member Ethnicity: Non- Twin of Family Member: Yes, Fraternal Living Status: Hx Family Cardiac Disorders: Yes Hx Family Respiratory Disorders: Yes - Gastrointestinal Gastrointestinal: Present: as per HPI - Constitutional Constitutional: as per HPI - EENT Eyes: as per HPI Ears: Present: as per HPI Nose, mouth and throat: Present: as per HPI - Cardiovascular Cardiovascular ROS: Present: as per HPI - Respiratory Respiratory IM: Present: as per HPI - Genitourinary Genitourinary: Absent: change in color, Urinary frequency - Neurological ROS Neurological GI: Present: as per HPI - Hematologic/Lymphatic Hematologic/Lymphatic pediatric: Present: as per HPI - Musculoskeletal Musculoskeletal ROS GI: Present: as per HPI - Integumentary Integumentary GI: Present: as per HPI - Psychiatric ROS Psychiatric GI: Present: as per HPI - Endocrine Endocrine IM: Present: as per HPI - Constitutional Vitals: Temp Pulse Resp BP Pulse Ox 97.6 F 57 20 150/75 96 07/13/16 08:00 07/13/16 08:00 07/13/16 08:00 07/13/16 08:00 07/13/16 08:00 General appearance: Present: cooperative, A&O X 3, pleasant, no acute distress, answers questions appropriately - Head Head exam: Present: atraumatic, normocephalic - Eye Eye exam: Present: normal appearance, sclera anicteric - ENT ENT exam: Present: mucous membranes moist - Neck Neck exam general surgery: Present: normal inspection, trachea midline - Respiratory Respiratory exam: Present: decreased breath sounds, CTAB - Cardiovascular Cardiovascular exam: Present: RRR, +S1, +S2 - GI/Abdominal GI/Abdominal exam: Present: soft, no peritoneal signs. Absent: distended, firm , guarding, tenderness - Rectal Rectal exam: Present: deferred - Extremities Exam Extremities exam: Present: warm - Neurological Exam Neurological exam: Present: facial droop. Absent: strengths equal and symetr throughout (Left sided weakness) - Psychiatric Psychiatric exam: Present: normal affect, normal mood - Skin Skin exam: Present: dry, intact, normal color, warm Results - Labs CBC & Chem 7: 07/13/16 03:55 07/13/16 03:55 Labs: Last Result Calcium 8.7 mg/dL (8.6-10.8) 07/13/16 03:55 Iron 19 mcg/dL (50-170) L 07/09/16 06:05 % Saturation 5 % (15-50) L 07/09/16 06:05 Transferrin 290 mg/dL (180-382) 07/09/16 06:05 Ferritin 14 ng/ml (5-204) 07/09/16 06:05 Troponin I 0.00 ng/mL (0-0.03) 07/08/16 16:27 Triglycerides 177 mg/dL (< 150) H 07/09/16 06:05 Vitamin B12 1987 pg/mL (213-816) H 07/09/16 06:05 Folate 15.5 ng/mL (7.0-31.4) 07/09/16 06:05 Entire Visit Hgb 8.3 g/dL (11.5-15.4) L 07/13/16 03:55 Hct 27.4 % (35.3-44.9) L 07/13/16 03:55 PT 13.5 Seconds (9.4-12.1) H 07/08/16 07:39 Ferritin 14 ng/ml (5-204) 07/09/16 06:05 Folate 15.5 ng/mL (7.0-31.4) 07/09/16 06:05 - ABG ABG results: PT/INR, D-dimer PT 13.5 Seconds (9.4-12.1) H 07/08/16 07:39 - Impressions Impressions Chest X-Ray 07/11/16 17:44 IMPRESSION: No acute process. D/ / 07/12/2016 09:39:18 Sha Knutson MD / eardelia Interpreting Provider: Sha Knutson MD Consult Discharge Plan - Plan [facility]errals[facility]Primary Care Provider[facility] - <HolaRichKali - Last Filed: 07/13/16 14:29> Date of Encounter: 07/13/16 Time of Encounter: 13:00 - Time Spent With Patient Total time spent is greater than 50% in coordination of care (as documented) at patient's floor/unit and/or counseling patient: GI History of Present Illness - Data of Consult Requesting Physician: Raphael Soto MD - Consult Narrative History of present illness: Ms. Barfield is a 89 year old female - Constitutional Vitals: Temp Pulse Resp BP Pulse Ox 97.6 F 57 20 150/75 96 07/13/16 08:00 07/13/16 08:00 07/13/16 08:00 07/13/16 08:00 07/13/16 08:00 Results - Labs CBC & Chem 7: 07/13/16 03:55 07/13/16 03:55 Labs: Last Result Calcium 8.7 mg/dL (8.6-10.8) 07/13/16 03:55 Iron 19 mcg/dL (50-170) L 07/09/16 06:05 % Saturation 5 % (15-50) L 07/09/16 06:05 Transferrin 290 mg/dL (180-382) 07/09/16 06:05 Ferritin 14 ng/ml (5-204) 07/09/16 06:05 Troponin I 0.00 ng/mL (0-0.03) 07/08/16 16:27 Triglycerides 177 mg/dL (< 150) H 07/09/16 06:05 Vitamin B12 1987 pg/mL (213-816) H 07/09/16 06:05 Folate 15.5 ng/mL (7.0-31.4) 07/09/16 06:05 Entire Visit Hgb 8.3 g/dL (11.5-15.4) L 07/13/16 03:55 Hct 27.4 % (35.3-44.9) L 07/13/16 03:55 PT 13.5 Seconds (9.4-12.1) H 07/08/16 07:39 Ferritin 14 ng/ml (5-204) 07/09/16 06:05 Folate 15.5 ng/mL (7.0-31.4) 07/09/16 06:05 - ABG ABG results: PT/INR, D-dimer PT 13.5 Seconds (9.4-12.1) H 07/08/16 07:39 - Attending Attestation I examined this patient and my medical decision-making was reviewed with the RELATIONSHIP BANKER/PA/Advanced Practice Nurse/Resident Physician. I agree with the documented findings, disposition and treatment plan as described except to the extent set forth below.
[2016-07-13] MEDS ORDERED: SODIUM CHLORIDE/NAHCO3/KCL/PEG 4,000 ML SOLN.RECON PO ONE (17:00)
--- NOTE | 2016-07-13 19:03 | Internal Med Progress Note ---
Date of Encounter: 07/13/16 Time of Encounter: 19:01 - Assessment and plan (1) Left-sided weakness Current Visit: Yes Status: Acute Assessment and plan: improving (2) Facial droop Current Visit: Yes Status: Resolved Assessment and plan: resolved (3) JAZZ (acute kidney injury) Current Visit: Yes Status: Resolved Assessment and plan: resolved - Subjective Interval history: Patient seen and examined. Chart reviewed. Patient is lying comfortably in the bed. 07/10/2016 Patient seen and examined. Chart reviewed. Patient is able to move all 4 extremities. Patient denies chest pain, shortness of breath, abdominal pain and nausea or vomiting. 07/11/2016 Patient seen and examined. Chart reviewed. Patient is able to move all 4 extrude his. Patient has occasional wheezing. Patient denies chest pain, shortness of breath, abdominal pain 07/13/2016 Seen and examined. Chart reviewed. Patient is awaiting for endoscopy. - Constitutional Vitals: Temp Pulse Resp BP Pulse Ox 97.8 F 59 16 144/70 96 07/13/16 16:09 07/13/16 16:09 07/13/16 16:09 07/13/16 16:09 07/13/16 16:09 General appearance: Present: A&O X 3, answers questions appropriately - Head Head exam: Present: atraumatic, normocephalic - Eye Eye exam: Present: PERRL, conjuntiva pink, sclera anicteric Pupils: Present: PERRL - Neck Neck exam general surgery: Present: supple, trachea midline. Absent: lymphadenopathy - Respiratory Respiratory exam: Present: CTAB. Absent: accessory muscle use, rales, rhonchi, wheezes - Cardiovascular Cardiovascular exam: Present: RRR, +S1, +S2. Absent: diastolic murmur, gallop, rubs, systolic murmur - GI/Abdominal GI/Abdominal exam: Present: normal bowel sounds, soft, no peritoneal signs. Absent: distended, tenderness - Extremities Exam Extremities exam: Present: warm, radial pulses palpable and symetrical. Absent : calf tenderness, cyanotic, pedal edema - Neurological Exam Neurological exam: Present: CN II-XII intact, oriented X3, no focal deficits. Absent: pronater drift, facial droop, speech deficit - Skin Skin exam: Present: dry, intact Internal Medicine: Result - Labs CBC & Chem 7: 07/13/16 03:55 07/13/16 03:55 Labs: Short CBC 07/13/16 Range/Units 03:55 WBC 10.5 (4.3-11.1) K/mcL Hgb 8.3 L (11.5-15.4) g/dL Hct 27.4 L (35.3-44.9) % Plt Count 243 (140-400) K/mcL Neutrophils # 4.7 (1.6-8.9) K/mcL BMP 07/13/16 03:55 Sodium 135 L Potassium 4.4 Chloride 104 Carbon Dioxide 24 BUN 33 H Creatinine 1.12 H Glucose 113 H Calcium 8.7 - ABG Interpretation ABG results: PT/INR, D-dimer PT 13.5 Seconds (9.4-12.1) H 07/08/16 07:39 - VTE Documentation of Mechanical Device: Intermittent pneumatic compression device Consult Discharge Plan - Plan [facility]errals: [facility] [[facility] Care Provider[facility] -
[2016-07-14 05:32] LABS: Basophils # 0.1 K/mcL (0.0-0.2); Basophils % 0.4 %; Eosinophils # 0.3 K/mcL (0.0-0.6); Eosinophils % 2.9 %; Hemoglobin 9.4 g/dL (11.5-15.4); Immature Granulocytes % 0.6 % (0-4); Lymphocytes # 4.1 K/mcL (0.6-4.6); Lymphocytes % 34.9 %; Mean Corpuscular HGB Conc 30.3 g/dL (31.6-35.5); Mean Corpuscular Hemoglobin 22.1 pg (28.0-33.3); Mean Corpuscular Volume 72.8 fL (83.0-100.0); Mean Platelet Volume 9.6 fL (9.4-12.4); Monocytes # 1.1 K/mcL (0.0-1.3); Monocytes % 9.6 %; Platelet Count 253 K/mcL (140-400); Red Blood Count 4.26 M/mcL (3.82-4.97); Segmented Neutrophils % 51.6 %
[2016-07-14 05:43] LABS: BUN/Creatinine Ratio 31 (6-26); Blood Urea Nitrogen 27 mg/dL (7-20); Carbon Dioxide 23 mEq/L (19-29); Chloride 103 mEq/L (98-109); Glucose 96 mg/dL (70-99); Osmolality,Calculated 287 (280-300); Potassium 4.2 mEq/L (3.5-4.5); Sodium 136 mEq/L (136-145); eGFR For African Americans > 60 (> 60); eGFR For Non-African Americans > 60 (> 60)
--- NOTE | 2016-07-14 08:37 | Internal Med Progress Note ---
<Naomi Theodore - Last Filed: 07/14/16 08:34> Date of Encounter: 07/14/16 Time of Encounter: 08:34 - Assessment and plan (1) CVA (cerebral vascular accident) Current Visit: Yes Status: Acute Assessment and plan: Per neurology, cause is likely embolic or thromboembolic Continue medical and supportive care -Eliquis and aspirin -Physical therapy -risk factor modification Qualifiers: CVA mechanism: embolism Precerebral and cerebral artery: middle cerebral artery Laterality of affected vessel: right Qualified Code(s): I63.411 - Cerebral infarction due to embolism of right middle cerebral artery (2) Left-sided weakness Current Visit: Yes Status: Acute (3) Facial droop Current Visit: Yes Status: Resolved (4) JAZZ (acute kidney injury) Current Visit: Yes Status: Resolved Assessment and plan: resolved (5) Anemia Current Visit: Yes Status: Acute Assessment and plan: Iron deficiency transfused 1 united pRBC 07/12 improved today 8.3>9.4 GI consulted, appreciate recommendations bowel prep EGD/colonoscopy today Qualifiers: Anemia type: iron deficiency Iron deficiency anemia type: unspecified iron deficiency Qualified Code(s): D50.9 - Iron deficiency anemia, unspecified - Subjective Interval history: Patient seen and examined. Plan for EGD/colonoscopy this afternoon. Denies concerns at this time. - Constitutional Vitals: Temp Pulse Resp BP Pulse Ox 98 F 56 16 185/79 95 07/14/16 07:36 07/14/16 07:36 07/14/16 07:36 07/14/16 07:36 07/14/16 07:36 General appearance: Present: A&O X 3, answers questions appropriately - Head Head exam: Present: atraumatic, normocephalic - Eye Eye exam: Present: PERRL, conjuntiva pink, sclera anicteric Pupils: Present: PERRL - ENT ENT exam: Present: mucous membranes moist - Neck Neck exam general surgery: Present: supple - Respiratory Respiratory exam: Present: CTAB - Cardiovascular Cardiovascular exam: Present: RRR, +S1, +S2 - GI/Abdominal GI/Abdominal exam: Present: hyperactive bowel sounds, soft. Absent: tenderness - Extremities Exam Extremities exam: Present: warm. Absent: pedal edema, tenderness Additional comments: chronic venous stasis skin changes to bilateral lower extremities - Neurological Exam Neurological exam: Present: CN II-XII intact, oriented X3, no focal deficits. Absent: pronater drift, facial droop, speech deficit - Skin Skin exam: Present: dry, intact Internal Medicine: Result - Labs CBC & Chem 7: 07/14/16 04:54 07/14/16 04:54 Labs: Short CBC 07/14/16 Range/Units 04:54 WBC 11.6 H (4.3-11.1) K/mcL Hgb 9.4 L (11.5-15.4) g/dL Hct 31.0 L (35.3-44.9) % Plt Count 253 (140-400) K/mcL Neutrophils # 6.0 (1.6-8.9) K/mcL BMP 07/14/16 04:54 Sodium 136 Potassium 4.2 Chloride 103 Carbon Dioxide 23 BUN 27 H Creatinine 0.87 Glucose 96 Calcium 9.0 - ABG Interpretation ABG results: PT/INR, D-dimer PT 13.5 Seconds (9.4-12.1) H 07/08/16 07:39 - VTE Documentation of Mechanical Device: Intermittent pneumatic compression device Consult Discharge Plan - Plan [facility]errals: [facility] [Primary Care Provider] - <Raphael Soto P - Last Filed: 07/14/16 17:40> Date of Encounter: 07/14/16 - Assessment and plan (1) Left-sided weakness Current Visit: Yes Status: Acute (2) Facial droop Current Visit: Yes Status: Resolved (3) JAZZ (acute kidney injury) Current Visit: Yes Status: Resolved - Constitutional Vitals: Temp Pulse Resp BP Pulse Ox 97.8 F 56 16 192/104 97 07/14/16 17:04 07/14/16 17:04 07/14/16 17:04 07/14/16 17:04 07/14/16 17:04 Internal Medicine: Result - Labs CBC & Chem 7: 07/14/16 04:54 07/14/16 04:54 Labs: Short CBC 07/14/16 Range/Units 04:54 WBC 11.6 H (4.3-11.1) K/mcL Hgb 9.4 L (11.5-15.4) g/dL Hct 31.0 L (35.3-44.9) % Plt Count 253 (140-400) K/mcL Neutrophils # 6.0 (1.6-8.9) K/mcL BMP 07/14/16 04:54 Sodium 136 Potassium 4.2 Chloride 103 Carbon Dioxide 23 BUN 27 H Creatinine 0.87 Glucose 96 Calcium 9.0 - ABG Interpretation ABG results: PT/INR, D-dimer PT 13.5 Seconds (9.4-12.1) H 07/08/16 07:39 - Attending Attestation I examined this patient and my medical decision-making was reviewed with the NETWOR[employer] SOFTWARE CONSULTANT/PA/Advanced Practice Nurse/Resident Physician. I agree with the documented findings, disposition and treatment plan as described except to the extent set forth below. Gastroenterology input appreciated. We will discontinue anticoagulation. EPCD
[2016-07-14] MEDS: Insulin LISPRO 300 UNITS/3 ML VIAL SQ SCH ×4 (09:27→22:51)
[2016-07-14] MEDS: hydrALAZINE 25 MG TABLET PO SCH ×2 (09:33→21:57)
[2016-07-14] MEDS: Isosorbide MONOnitrate (24 HR) 60 MG TAB.ER.24H PO SCH (09:33)
[2016-07-14] MEDS: *HR* Morphine Immed Rel 30 MG TABLET PO SCH ×2 (09:33→21:57)
[2016-07-14] MEDS: Metoprolol XL (24 HR) Succ 50 MG TAB.ER.24H PO SCH ×2 (09:33→21:57)
[2016-07-14] MEDS ORDERED: Lidocaine -MPF 2% 5 ML VIAL INFILT ONE (12:17)
[2016-07-14] MEDS ORDERED: *HR* Propofol 200 MG/20 ML VIAL IVP ONE (12:17)
--- NOTE | 2016-07-14 13:15 | Anesthesia Evaluation PreOp ---
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: CVA (left sided weakness and left facial droop new onset 1 week ago ) Other Medical History: Renal (Resoved JAZZ), Diabetes Type II, GERD Anesthesia History: No Prior Anesthetic Complications, Past Anesthesia (pain pump) : No Alcohol Use: none Drug use: none Medications and Allergies Acetaminophen [Tylenol] 650 mg PO TID PRN 10/10/15 [History] Calcium Carbonate [Tums] 500 mg PO BID PRN 10/10/15 [History] Cholecalciferol (D-3) [Vitamin D] 2,000 unit PO DAILY 10/10/15 [History] Ethacrynic Acid [Edecrin] 50 mg PO BID 10/10/15 [History] Gabapentin [Neurontin] 600 mg PO TID 10/10/15 [History] GuaiFENesin Liq [Robitussin Liq] 200 mg PO Q6HR PRN 10/10/15 [History] Ipratropium/Albuterol Neb [Duoneb] 3 ml IH Q4HR PRN 10/10/15 [History] Lidocaine 2 patch TP Q12H 10/10/15 [History] Mv-Mn/FA/Vit K1/Lycop/Lut/Zeax [Ocuvite Eye + Multi Tablet] 1 tab PO BID [History] Naphazoline HCl 1 drop OP DAILY PRN 10/10/15 [History] Omeprazole [PriLOSEC] 20 mg PO QAM 10/10/15 [History] Polyethylene Glycol 3350 [MiraLAX] 17 gm PO DAILY PRN 10/10/15 [History] Polyvinyl Alcohol [Artificial Tears] 1 drop OP QID PRN 10/10/15 [History] Tizanidine HCl 2 mg PO DAILY 10/10/15 [History] Isosorbide MONOnitrate (24 HR) [Imdur] 60 mg PO DAILY #30 tab.er.24h 10/13/15 [ Rx] Simvastatin [Zocor] 40 mg PO HS #30 tablet 10/13/15 [Rx] Meclizine HCl [Verticalm] 25 mg PO BID PRN 02/27/16 [History] Metoprolol XL (24 HR) Succ [Toprol Xl] 100 mg PO BID 02/27/16 [History] Sennosides/Docusate Sodium [Senna-Docusate Sodium Tablet] 1 tab PO BID PRN 02/26 [History] Apixaban [Eliquis] 2.5 mg PO BID 03/27/16 [History] Aspirin [Lo-Dose Aspirin EC] 81 mg PO DAILY 03/27/16 [History] Propylene Glycol/Peg 400 [Systane 0.3-0.4% Eye Drops] 1 drop BOTH EYES QID 03/27 [History] Kia Herndon [Preparation H] 1 pad TP QID PRN 03/27/16 [History] Losartan [Cozaar] 25 mg PO DAILY #30 tablet 04/05/16 [Rx] Morphine Immed Rel [Morphine Sulfate] 15 mg PO BID #14 tablet 04/05/16 [Rx] Cyanocobalamin (B-12) [Vitamin B12] 1,000 mcg PO BID 07/08/16 [History] HydrALAZINE 25 mg PO BID 07/08/16 [History] Nitroglycerin [Nitrostat] 0.4 mg SL AD PRN 07/08/16 [History] Oxycodone HCl/Acetaminophen [Percocet 5-325 mg Tablet] 1 tab PO Q6H PRN [History] Potassium Chloride [K-Tab ER] 20 meq PO MOWEFR 07/08/16 [History] Selenium Sulfide [Anti-Dandruff] 1 appl TP AD PRN 07/08/16 [History] Allergies bacitracin [From Neosporin ([id number])] Allergy (Unknown, Verified 07/08/16 08:01) See Comments PATIENT UNSURE- REACTION NOT LISTED ON [facility] celecoxib Allergy (Unknown, Verified 07/08/16 08:01) See Comments pt cannot remember codeine Allergy (Unknown, Verified 07/08/16 08:01) See Comments pt does not remember Donepezil Allergy (Unknown, Verified 07/08/16 08:01) See Comments PATIENT UNSURE- REACTION NOT LISTED ON [facility] fenofibrate [From Tricor] Allergy (Unknown, Verified 07/08/16 08:01) See Comments pt does not remember Hydralazine Allergy (Unknown, Verified 07/08/16 08:01) See Comments PATIENT UNSURE- REACTION NOT LISTED ON [facility] naproxen Allergy (Unknown, Verified 07/08/16 08:01) See Comments PATIENT UNSURE- REACTION NOT LISTED ON [facility] Neomycin [From Neosporin ([id number])] Allergy (Unknown, Verified 07/08/16 08 :01) See Comments PATIENT UNSURE- REACTION NOT LISTED ON [facility] Opioids - Morphine Analogues Allergy (Unknown, Verified 07/08/16 08:01) See Comments PATIENT UNSURE- REACTION NOT LISTED ON [facility] polymyxin B [From Neosporin ([id number])] Allergy (Unknown, Verified 08:01) See Comments PATIENT UNSURE- REACTION NOT LISTED ON [facility] rofecoxib Allergy (Unknown, Verified 07/08/16 08:01) See Comments PATIENT UNSURE- REACTION NOT LISTED ON [facility] Sulfa (Sulfonamide Antibiotics) Allergy (Unknown, Verified 07/08/16 08:01) See Comments PATIENT UNSURE- REACTION NOT LISTED ON [facility] Tetanus Vaccines and Toxoid [Tetanus Vaccines & Toxoid] Allergy (Unknown, Verified 07/08/16 08:01) See Comments PATIENT UNSURE- REACTION NOT LISTED ON [facility] lisinopril Adverse Reaction (Verified 07/08/16 08:01) Cough nicotine Adverse Reaction (Verified 07/08/16 08:01) Vomiting - Meds/Allergy Pre-op Review Medications Reviewed: Yes Allergies Reviewed: Yes Beta Blockers on Current Med List: Yes If Beta Blockers taken, Date/Time (Last Dose taken): Toprol at 0933 today Anesthesia Results - Labs 07/14/16 04:54 07/14/16 04:54 Had 1PRBC on 07/12/16 Anesthesia Exam Selected Entries 07/14/16 07:36 Temperature 98 F Pulse Rate 56 Respiratory Rate 16 Blood Pressure 185/79 O2 Sat by Pulse Oximetry 95 Weight: 52kg NPO (# of Hours): >6 Pain Scale: 0 Pain Scale Used: Numeric (1 - 10) - HEENT Pupil (Motor): EOMI Mallampati: II Teeth: Missing Oral Opening: Greater than 3 - UPHOLSTERY BUNDLER LOC: Oriented UPHOLSTERY BUNDLER Motor: Normal RUE, Normal RLE, Deficit LUE, Deficit LLE, Deficit Face UPHOLSTERY BUNDLER Sensory: Normal: RUE, LUE, RLE, LLE, Face - Cardiac Rhythm: Regular Murmur: None - Pulmonary Breath Sounds: bilateral Clear Respiratory Effort: Symmetrical Anesthesia Assess/Plan ASA Score: 3 Modified Jose Scale for Level of Consciousness: Cooperative, oriented, and tranquil Anesthetic Plan: MAC Recovery Plan: PACU (Discussed MAC anesthesia with patient, questions answered and agrees to proceed.)
[2016-07-14] MEDS: APIXABAN 2.5 MG TABLET PO SCH (16:02)
[2016-07-14] MEDS: Aspirin Enteric Coated 81 MG Tablet PO SCH (16:02)
[2016-07-14] MEDS: Gabapentin 300 MG CAPSULE PO SCH ×3 (16:02→21:57)
[2016-07-14] MEDS ORDERED: *HR* LORazepam 2 MG/ML VIAL IVP ONE (17:19)
[2016-07-14] MEDS: *HR* OxyCODONE/APAP 5/325 TABLET PO PRN (17:42)
[2016-07-15 05:04] LABS: INR 1.3; Prothrombin Time 14.4 Seconds (9.4-12.1)
[2016-07-15 05:12] LABS: Basophils % 0.3 %; Eosinophils # 0.3 K/mcL (0.0-0.6); Eosinophils % 2.4 %; Hematocrit 28.3 % (35.3-44.9); Hemoglobin 8.6 g/dL (11.5-15.4); Immature Granulocytes % 0.4 % (0-4); Lymphocytes % 29.2 %; Mean Corpuscular HGB Conc 30.4 g/dL (31.6-35.5); Mean Corpuscular Hemoglobin 21.7 pg (28.0-33.3); Mean Corpuscular Volume 71.3 fL (83.0-100.0); Mean Platelet Volume 9.3 fL (9.4-12.4); Monocytes # 0.8 K/mcL (0.0-1.3); Monocytes % 8.2 %; Neutrophils # 6.1 K/mcL (1.6-8.9); Nucleated Red Blood Cells 0.2 /100 WBC (0); Platelet Count 221 K/mcL (140-400); Red Blood Count 3.97 M/mcL (3.82-4.97); Red Cell Distribution Width 19.1 % (11.5-14.5); Segmented Neutrophils % 59.5 %
[2016-07-15 05:19] LABS: BUN/Creatinine Ratio 24 (6-26); Blood Urea Nitrogen 19 mg/dL (7-20); Calcium 8.7 mg/dL (8.6-10.8); Carbon Dioxide 25 mEq/L (19-29); Chloride 103 mEq/L (98-109); Glucose 96 mg/dL (70-99); Magnesium 1.8 mg/dL (1.6-2.6); Osmolality,Calculated 284 (280-300); Sodium 136 mEq/L (136-145); eGFR For African Americans > 60 (> 60); eGFR For Non-African Americans > 60 (> 60)
--- NOTE | 2016-07-15 07:23 | General Surgery Consult Note ---
Date of Encounter: 07/16/16 Time of Encounter: 12:04 Assessment and Plan (1) Cecum mass Current Visit: Yes Status: Acute I explained to the patient and family member that I personally reviewed the CT scan images and was present at the time of the colonoscopy. She does have an apple core lesion which has been identified at the level of the cecum. Biopsies have been performed but I explained to the patient that nothing else gives this appearance other than a colon cancer. Because of the near obstructing colon cancer or mass and the eventuality of an obstruction I do think it will be necessary to perform a resection of the segment of the colon. The risks are considerable given her comorbidities and acute CVA. I explained to the patient that I would talk with neurology and they agreed that she does have considerable risk but with the near obstructing mass the surgical procedure is a necessity. I will hold her dosage of Elliquis today so that we can proceed with a laparoscopic right colectomy tomorrow. Risks and benefits have been discussed at length with the patient and family member in the agreed to the above plan. History of Present Illness Consult date: 07/15/16 Requesting physician: Kali Simental History of present illness: The patient is an 89 year old female with a past medical history significant for diabetes, atrial fibrillation, aortic stenosis, coronary artery disease and peripheral arterial disease who presented to [facility] from the [place] [facility] due to left-sided facial droop and upper extremity weakness with slurred speech. She experienced these symptoms on 07/07/2016 and had noted improving symptoms overall since the onset. Neurology was consulted and radiological studies demonstrated evidence of acute infarcts on the right pagan radiata as well as the pre-and postcentral gyri. She also had evidence of chronic microvascular white matter ischemia. Additional laboratory studies were performed demonstrating an anemia and she underwent a colonoscopy On Jul 14 2016 which demonstrated a a standing colonic mass. Biopsies have been obtained however the mass was circumferential and infiltrative consistent with a colon cancer. CT scan is demonstrated evidence of this apple core lesion at the level of the cecum. Because a near obstructing nature of this mass I been asked to evaluate the patient with regards to the colonic mass. Past Med Surg Social Fam HX - Past Medical History Medical history: arthritis, atrial fibrillation, cancer, COPD, coronary artery disease, diabetes, GERD, hyperlipidemia, hypertension, peripheral artery disease , valvular heart disease, other Psychiatric history: no psych history - Past Surgical History Surgical History: other (pain pump) - Social History Smoking Status: Current every day smoker Smokeless Tobacco Status: No Alcohol use: none Drug use: none - Family History Father Adopted: No Family Member Ethnicity: Non- Twin of Family Member: Yes, Fraternal Living Status: Hx Family Cardiac Disorders: Yes Hx Family Respiratory Disorders: Yes Medications and Allergies Acetaminophen [Tylenol] 650 mg PO TID PRN 10/10/15 [History] Calcium Carbonate [Tums] 500 mg PO BID PRN 10/10/15 [History] Cholecalciferol (D-3) [Vitamin D] 2,000 unit PO DAILY 10/10/15 [History] Ethacrynic Acid [Edecrin] 50 mg PO BID 10/10/15 [History] Gabapentin [Neurontin] 600 mg PO TID 10/10/15 [History] GuaiFENesin Liq [Robitussin Liq] 200 mg PO Q6HR PRN 10/10/15 [History] Ipratropium/Albuterol Neb [Duoneb] 3 ml IH Q4HR PRN 10/10/15 [History] Lidocaine 2 patch TP Q12H 10/10/15 [History] Mv-Mn/FA/Vit K1/Lycop/Lut/Zeax [Ocuvite Eye + Multi Tablet] 1 tab PO BID [History] Naphazoline HCl 1 drop OP DAILY PRN 10/10/15 [History] Omeprazole [PriLOSEC] 20 mg PO QAM 10/10/15 [History] Polyethylene Glycol 3350 [MiraLAX] 17 gm PO DAILY PRN 10/10/15 [History] Polyvinyl Alcohol [Artificial Tears] 1 drop OP QID PRN 10/10/15 [History] Tizanidine HCl 2 mg PO DAILY 10/10/15 [History] Isosorbide MONOnitrate (24 HR) [Imdur] 60 mg PO DAILY #30 tab.er.24h 10/13/15 [ Rx] Simvastatin [Zocor] 40 mg PO HS #30 tablet 10/13/15 [Rx] Meclizine HCl [Verticalm] 25 mg PO BID PRN 02/27/16 [History] Metoprolol XL (24 HR) Succ [Toprol Xl] 100 mg PO BID 02/27/16 [History] Sennosides/Docusate Sodium [Senna-Docusate Sodium Tablet] 1 tab PO BID PRN 02/26 [History] Apixaban [Eliquis] 2.5 mg PO BID 03/27/16 [History] Aspirin [Lo-Dose Aspirin EC] 81 mg PO DAILY 03/27/16 [History] Propylene Glycol/Peg 400 [Systane 0.3-0.4% Eye Drops] 1 drop BOTH EYES QID 03/27 [History] Kia Katrina [Preparation H] 1 pad TP QID PRN 03/27/16 [History] Losartan [Cozaar] 25 mg PO DAILY #30 tablet 04/05/16 [Rx] Morphine Immed Rel [Morphine Sulfate] 15 mg PO BID #14 tablet 04/05/16 [Rx] Cyanocobalamin (B-12) [Vitamin B12] 1,000 mcg PO BID 07/08/16 [History] HydrALAZINE 25 mg PO BID 07/08/16 [History] Nitroglycerin [Nitrostat] 0.4 mg SL AD PRN 07/08/16 [History] Oxycodone HCl/Acetaminophen [Percocet 5-325 mg Tablet] 1 tab PO Q6H PRN [History] Potassium Chloride [K-Tab ER] 20 meq PO MOWEFR 07/08/16 [History] Selenium Sulfide [Anti-Dandruff] 1 appl TP AD PRN 07/08/16 [History] Allergies bacitracin [From Neosporin ([id number])] Allergy (Unknown, Verified 07/08/16 08:01) See Comments PATIENT UNSURE- REACTION NOT LISTED ON [facility] celecoxib Allergy (Unknown, Verified 07/08/16 08:01) See Comments pt cannot remember codeine Allergy (Unknown, Verified 07/08/16 08:01) See Comments pt does not remember Donepezil Allergy (Unknown, Verified 07/08/16 08:01) See Comments PATIENT UNSURE- REACTION NOT LISTED ON [facility] fenofibrate [From Tricor] Allergy (Unknown, Verified 07/08/16 08:01) See Comments pt does not remember Hydralazine Allergy (Unknown, Verified 07/08/16 08:01) See Comments PATIENT UNSURE- REACTION NOT LISTED ON [facility] naproxen Allergy (Unknown, Verified 07/08/16 08:01) See Comments PATIENT UNSURE- REACTION NOT LISTED ON [facility] Neomycin [From Neosporin ([id number])] Allergy (Unknown, Verified 07/08/16 08 :01) See Comments PATIENT UNSURE- REACTION NOT LISTED ON [facility] Opioids - Morphine Analogues Allergy (Unknown, Verified 07/08/16 08:01) See Comments PATIENT UNSURE- REACTION NOT LISTED ON [facility] polymyxin B [From Neosporin ([id number])] Allergy (Unknown, Verified 08:01) See Comments PATIENT UNSURE- REACTION NOT LISTED ON [facility] LIST rofecoxib Allergy (Unknown, Verified 07/08/16 08:01) See Comments PATIENT UNSURE- REACTION NOT LISTED ON [facility] LIST Sulfa (Sulfonamide Antibiotics) Allergy (Unknown, Verified 07/08/16 08:01) See Comments PATIENT UNSURE- REACTION NOT LISTED ON [facility] LIST Tetanus Vaccines and Toxoid [Tetanus Vaccines & Toxoid] Allergy (Unknown, Verified 07/08/16 08:01) See Comments PATIENT UNSURE- REACTION NOT LISTED ON [facility]IST lisinopril Adverse Reaction (Verified 07/08/16 08:01) Cough nicotine Adverse Reaction (Verified 07/08/16 08:01) Vomiting Review of Systems All systems PM: reviewed and no additional remarkable complaints except as stated All systems PM: A 10-system review of systems was performed and is negative for pertinent findings except as documented above in the HPI. General Surgery Exam Initial Vital Signs Temp Pulse Resp BP Pulse Ox 98.5 F 71 16 183/92 90 07/08/16 07:05 07/08/16 07:05 07/08/16 07:05 07/08/16 07:05 07/08/16 07:05 - General physical appearance no distress, other (Noted left sided facial droop.) - Eyes PERRL, normal ocular movement - Neck no masses, trachea midline, no lymphadectomy - Respiratory normal expansion, normal respiratory effort (Decreased breath sounds at the bases) - Cardiovascular Cardiovascular exam: Present: RRR, no murmurs/rubs/gallops - Abdomen Abdomen general surgery: Present: bowel sounds present, soft, tender (Mild RLQ pain. No noted masses on palpation.) - Integumentary Integumentary general surgery: Present: warm and dry - Neurologic Present: other (Evidence of left sided facial droop with left upper extremity weakness. Almost normal movement in the left lower extremity (compared to the right).) - Musculoskeletal Present: other (No clubbing or edema. Noted chronic venous stasis changes of the lower extremities. Noted weakness in the left upper extremity) - Psychiatric Psychiatric general surgery: Present: A&Ox3, oriented to person, oriented to place, oriented to time Exam Initial Vital Signs Temp Pulse Resp BP Pulse Ox 98.5 F 71 16 183/92 90 07/08/16 07:05 07/08/16 07:05 07/08/16 07:05 07/08/16 07:05 07/08/16 07:05 Results - Labs 07/16/16 04:00 07/16/16 04:00 Abnormal lab results Hgb 8.6 g/dL (11.5-15.4) L 07/15/16 04:45 Hct 28.3 % (35.3-44.9) L 07/15/16 04:45 MCV 71.3 fL (83.0-100.0) L 07/15/16 04:45 MCH 21.7 pg (28.0-33.3) L 07/15/16 04:45 MCHC 30.4 g/dL (31.6-35.5) L 07/15/16 04:45 RDW 19.1 % (11.5-14.5) H 07/15/16 04:45 MPV 9.3 fL (9.4-12.4) L 07/15/16 04:45 Nucleated RBCs/100 WBC 0.2 /100 WBC (0) H 07/15/16 04:45 Polychromasia 1+ (Not Present) A 07/12/16 12:15 Anisocytosis 1+ (Not Present) A 07/12/16 12:15 Microcytosis Present (Not Present) A 07/08/16 07:39 PT 14.4 Seconds (9.4-12.1) H 07/15/16 04:45 POC Glucose 99 (58-89) H 07/14/16 16:48 Hemoglobin A1c 7.4 % (-5.6) H 07/08/16 07:39 Iron 19 mcg/dL (50-170) L 07/09/16 06:05 % Saturation 5 % (15-50) L 07/09/16 06:05 Triglycerides 177 mg/dL (< 150) H 07/09/16 06:05 VLDL Cholesterol, Calc 35 mg/dL (< 31) H 07/09/16 06:05 HDL Cholesterol 27 mg/dL (40-59) L 07/09/16 06:05 Cholesterol/HDL Ratio 5.6 (0-4.9) H 07/09/16 06:05 Vitamin B12 1987 pg/mL (213-816) H 07/09/16 06:05 Antibody Screen POSITIVE A 07/12/16 14:47 Diabetes panel 07/15/16 Range/Units 04:45 Sodium 136 (136-145) mEq/L Potassium 4.0 (3.5-4.5) mEq/L Chloride 103 (98-109) mEq/L Carbon Dioxide 25 (19-29) mEq/L BUN 19 (7-20) mg/dL Creatinine 0.80 (0.57-1.11) mg/dL Glucose 96 (70-99) mg/dL Calcium 8.7 (8.6-10.8) mg/dL Calcium panel 07/15/16 Range/Units 04:45 Calcium 8.7 (8.6-10.8) mg/dL Pituitary panel 07/15/16 Range/Units 04:45 Sodium 136 (136-145) mEq/L Potassium 4.0 (3.5-4.5) mEq/L Chloride 103 (98-109) mEq/L Carbon Dioxide 25 (19-29) mEq/L BUN 19 (7-20) mg/dL Creatinine 0.80 (0.57-1.11) mg/dL Glucose 96 (70-99) mg/dL Calcium 8.7 (8.6-10.8) mg/dL Adrenal panel 07/15/16 Range/Units 04:45 Sodium 136 (136-145) mEq/L Potassium 4.0 (3.5-4.5) mEq/L Chloride 103 (98-109) mEq/L Carbon Dioxide 25 (19-29) mEq/L BUN 19 (7-20) mg/dL Creatinine 0.80 (0.57-1.11) mg/dL Glucose 96 (70-99) mg/dL Calcium 8.7 (8.6-10.8) mg/dL All other labs normal. - Imaging CT scan - abdomen: report reviewed, image reviewed (Noted apple core lesion at the cecum with clip placement. No free fluid or free air.) Consult Discharge Plan - Plan [facility]errals: [facility] [Primary Care Provider[facility] -
[2016-07-15 07:24] LABS: Carcinoembryonic Antigen 2.1 ng/mL (0-5.0)
[2016-07-15] MEDS: *HR* Morphine Immed Rel 30 MG TABLET PO SCH ×2 (09:32→20:20)
[2016-07-15] MEDS: Isosorbide MONOnitrate (24 HR) 60 MG TAB.ER.24H PO SCH (09:33)
[2016-07-15] MEDS: Gabapentin 300 MG CAPSULE PO SCH ×3 (09:33→20:21)
[2016-07-15] MEDS: hydrALAZINE 25 MG TABLET PO SCH ×2 (09:33→20:21)
[2016-07-15] MEDS: Metoprolol XL (24 HR) Succ 50 MG TAB.ER.24H PO SCH ×2 (09:33→20:20)
[2016-07-15] MEDS: Aspirin Enteric Coated 81 MG Tablet PO SCH (09:33)
[2016-07-15] MEDS: Insulin LISPRO 300 UNITS/3 ML VIAL SQ SCH ×4 (09:34→20:21)
[2016-07-15] MEDS ORDERED: Polyethylene Glycol 3350 255 GM POWDER PO ONE (12:03)
--- NOTE | 2016-07-15 13:41 | Internal Med Progress Note ---
<Naomi Theodore - Last Filed: 07/15/16 13:38> Date of Encounter: 07/15/16 Time of Encounter: 13:38 - Assessment and plan (1) CVA (cerebral vascular accident) Current Visit: Yes Status: Acute Assessment and plan: Per neurology, cause is likely embolic or thromboembolic Continue medical and supportive care -Eliquis and aspirin -Physical therapy -risk factor modification 07/15 Eliquis being held due to surgery tomorrow Qualifiers: CVA mechanism: embolism Precerebral and cerebral artery: middle cerebral artery Laterality of affected vessel: right Qualified Code(s): I63.411 - Cerebral infarction due to embolism of right middle cerebral artery (2) Left-sided weakness Current Visit: Yes Status: Acute (3) Facial droop Current Visit: Yes Status: Resolved (4) JAZZ (acute kidney injury) Current Visit: Yes Status: Resolved (5) Anemia Current Visit: Yes Status: Acute Assessment and plan: Iron deficiency transfused 1 united pRBC 07/12 Apple core lesion found in the cecum during colonoscopy Hg 8.6 this AM Qualifiers: Anemia type: iron deficiency Iron deficiency anemia type: unspecified iron deficiency Qualified Code(s): D50.9 - Iron deficiency anemia, unspecified (6) Cecum mass Current Visit: Yes Status: Acute Assessment and plan: Plan for surgery tomorrow for removal of cecal mass - Subjective Interval history: Patient seen and examined. Sitting up in chair. Denies concerns at this time. - Constitutional Vitals: Temp Pulse Resp BP Pulse Ox 98.6 F 64 16 170/67 95 07/15/16 08:01 07/15/16 08:01 07/15/16 08:01 07/15/16 08:01 07/15/16 08:01 General appearance: Present: A&O X 3, answers questions appropriately - Head Head exam: Present: atraumatic, normocephalic - Eye Eye exam: Present: PERRL, conjuntiva pink, sclera anicteric Pupils: Present: PERRL - ENT ENT exam: Present: mucous membranes moist - Neck Neck exam general surgery: Present: supple - Respiratory Respiratory exam: Present: CTAB. Absent: accessory muscle use, rales, rhonchi, wheezes - Cardiovascular Cardiovascular exam: Present: RRR, +S1, +S2 - GI/Abdominal GI/Abdominal exam: Present: normal bowel sounds, soft, tenderness (RLQ) - Extremities Exam Extremities exam: Present: warm. Absent: calf tenderness, cyanotic, pedal edema - Neurological Exam Neurological exam: Present: CN II-XII intact, oriented X3, no focal deficits. Absent: pronater drift, facial droop, speech deficit - Skin Skin exam: Present: dry, intact Internal Medicine: Result - Labs CBC & Chem 7: 07/15/16 04:45 07/15/16 04:45 Labs: Short CBC 07/15/16 Range/Units 04:45 WBC 10.3 (4.3-11.1) K/mcL Hgb 8.6 L (11.5-15.4) g/dL Hct 28.3 L (35.3-44.9) % Plt Count 221 (140-400) K/mcL Neutrophils # 6.1 (1.6-8.9) K/mcL BMP 07/15/16 04:45 Sodium 136 Potassium 4.0 Chloride 103 Carbon Dioxide 25 BUN 19 Creatinine 0.80 Glucose 96 Calcium 8.7 - ABG Interpretation ABG results: PT/INR, D-dimer PT 14.4 Seconds (9.4-12.1) H 07/15/16 04:45 - Impressions Impressions Abdomen/Pelvis CT 07/14/16 18:00 IMPRESSION: 1. 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 There is no evidence of extraluminal extension. However, there are a few small pericecal nodular implants noted, the largest measuring approximately 7 mm, likely locoregional spread of disease. 2. No definite CT evidence of metastatic disease within the abdomen or pelvis. 3. 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 4. Bibasilar interstitial pulmonary edema with mild bibasilar atelectasis noted. There is an 11 mm nodular focus of opacity within the left lower lobe, unchanged from 04/04/2016, most likely a small focus of atelectasis or scar. However, given the patient's malignant cecal mass, a metastatic pulmonary nodule cannot be excluded, and suggest continued chest CT surveillance to ensure stability or resolution of this finding, with the next chest CT recommended at the patient's earliest convenience to stage disease. RECOMMENDATIONS: Managing Abdominal Aortic Aneurysms 3.0-3.4 cm: 3 year follow up Reference: Kyleigh et al. The care of patients with an abdominal aortic aneurysm: The Society of Vascular Surgery practice guidelines. Journal of Vascular Surgery. Vol 50, Number 85. Swati et al. Managing Incidental Findings on Abdominal and Pelvic CT and MRI, Part 2: White Paper of the ACR Incidental Findings Committee II on Vascular Findings. J Am Clarice Radiol 2013;10:789-794 D/ / Mikal Duarte MD / Mikal Duarte MD Interpreting Provider: Mikal Duarte MD - VTE Documentation of Mechanical Device: Intermittent pneumatic compression device Consult Discharge Plan - Plan [facility]errals: [facility] [Primary Care Provider[facility] - <Raphael Soto P - Last Filed: 07/15/16 18:10> Date of Encounter: 07/15/16 - Assessment and plan (1) Left-sided weakness Current Visit: Yes Status: Acute (2) Facial droop Current Visit: Yes Status: Resolved (3) JAZZ (acute kidney injury) Current Visit: Yes Status: Resolved - Constitutional Vitals: Temp Pulse Resp BP Pulse Ox 98.3 F 64 14 159/65 95 07/15/16 15:20 07/15/16 15:20 07/15/16 15:20 07/15/16 15:20 07/15/16 15:20 Internal Medicine: Result - Labs CBC & Chem 7: 07/15/16 04:45 07/15/16 04:45 Labs: Short CBC 07/15/16 Range/Units 04:45 WBC 10.3 (4.3-11.1) K/mcL Hgb 8.6 L (11.5-15.4) g/dL Hct 28.3 L (35.3-44.9) % Plt Count 221 (140-400) K/mcL Neutrophils # 6.1 (1.6-8.9) K/mcL BMP 07/15/16 04:45 Sodium 136 Potassium 4.0 Chloride 103 Carbon Dioxide 25 BUN 19 Creatinine 0.80 Glucose 96 Calcium 8.7 - ABG Interpretation ABG results: PT/INR, D-dimer PT 14.4 Seconds (9.4-12.1) H 07/15/16 04:45 - Impressions Impressions Abdomen/Pelvis CT 07/14/16 18:00 IMPRESSION: 1. 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 There is no evidence of extraluminal extension. However, there are a few small pericecal nodular implants noted, the largest measuring approximately 7 mm, likely locoregional spread of disease. 2. No definite CT evidence of metastatic disease within the abdomen or pelvis. 3. 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 4. Bibasilar interstitial pulmonary edema with mild bibasilar atelectasis noted. There is an 11 mm nodular focus of opacity within the left lower lobe, unchanged from 04/04/2016, most likely a small focus of atelectasis or scar. However, given the patient's malignant cecal mass, a metastatic pulmonary nodule cannot be excluded, and suggest continued chest CT surveillance to ensure stability or resolution of this finding, with the next chest CT recommended at the patient's earliest convenience to stage disease. RECOMMENDATIONS: Managing Abdominal Aortic Aneurysms 3.0-3.4 cm: 3 year follow up Reference: Kyleigh et al. The care of patients with an abdominal aortic aneurysm: The Society of Vascular Surgery practice guidelines. Journal of Vascular Surgery. Vol 50, Number 85. Swati et al. Managing Incidental Findings on Abdominal and Pelvic CT and MRI, Part 2: White Paper of the ACR Incidental Findings Committee II on Vascular Findings. J Am Clarice Radiol 2013;10:789-794 D/ / Mikal Duarte MD / Mikal Duarte MD Interpreting Provider: Mikal Duarte MD - Attending Attestation I examined this patient and my medical decision-making was reviewed with the QUILL PICKING MACHINE OPERATOR/PA/Advanced Practice Nurse/Resident Physician. I agree with the documented findings, disposition and treatment plan as described except to the extent set forth below. Surgery input appreciated.
[2016-07-16 04:08] LABS: Basophils % 0.2 %; Eosinophils # 0.3 K/mcL (0.0-0.6); Eosinophils % 2.4 %; Hematocrit 27.3 % (35.3-44.9); Hemoglobin 8.3 g/dL (11.5-15.4); Immature Granulocytes % 0.4 % (0-4); Lymphocytes # 2.9 K/mcL (0.6-4.6); Lymphocytes % 25.3 %; Mean Corpuscular HGB Conc 30.4 g/dL (31.6-35.5); Mean Corpuscular Hemoglobin 22.1 pg (28.0-33.3); Mean Corpuscular Volume 72.6 fL (83.0-100.0); Mean Platelet Volume 9.2 fL (9.4-12.4); Monocytes # 1.3 K/mcL (0.0-1.3); Neutrophils # 7.1 K/mcL (1.6-8.9); Platelet Count 193 K/mcL (140-400); Red Blood Count 3.76 M/mcL (3.82-4.97); Red Cell Distribution Width 19.7 % (11.5-14.5); Segmented Neutrophils % 60.7 %
[2016-07-16 04:16] LABS: BUN/Creatinine Ratio 21 (6-26); Blood Urea Nitrogen 16 mg/dL (7-20); Calcium 8.6 mg/dL (8.6-10.8); Carbon Dioxide 25 mEq/L (19-29); Chloride 102 mEq/L (98-109); Glucose 105 mg/dL (70-99); Osmolality,Calculated 282 (280-300); Potassium 3.8 mEq/L (3.5-4.5); Sodium 135 mEq/L (136-145); eGFR For African Americans > 60 (> 60); eGFR For Non-African Americans > 60 (> 60)
[2016-07-16] MEDS: Insulin LISPRO 300 UNITS/3 ML VIAL SQ SCH ×2 (08:00→20:05)
--- NOTE | 2016-07-16 09:06 | Anesthesia Evaluation PreOp ---
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: CVA (S/P CVA 1 week ago with left sided weakness and left facial droop) Other Medical History: Diabetes Type II, Thyroid, GERD, Other (PVD) Anesthesia History: No Prior Anesthetic Complications, Past Anesthesia Alcohol Use: none Drug use: none Medications and Allergies Acetaminophen [Tylenol] 650 mg PO TID PRN 10/10/15 [History] Calcium Carbonate [Tums] 500 mg PO BID PRN 10/10/15 [History] Cholecalciferol (D-3) [Vitamin D] 2,000 unit PO DAILY 10/10/15 [History] Ethacrynic Acid [Edecrin] 50 mg PO BID 10/10/15 [History] Gabapentin [Neurontin] 600 mg PO TID 10/10/15 [History] GuaiFENesin Liq [Robitussin Liq] 200 mg PO Q6HR PRN 10/10/15 [History] Ipratropium/Albuterol Neb [Duoneb] 3 ml IH Q4HR PRN 10/10/15 [History] Lidocaine 2 patch TP Q12H 10/10/15 [History] Mv-Mn/FA/Vit K1/Lycop/Lut/Zeax [Ocuvite Eye + Multi Tablet] 1 tab PO BID [History] Naphazoline HCl 1 drop OP DAILY PRN 10/10/15 [History] Omeprazole [PriLOSEC] 20 mg PO QAM 10/10/15 [History] Polyethylene Glycol 3350 [MiraLAX] 17 gm PO DAILY PRN 10/10/15 [History] Polyvinyl Alcohol [Artificial Tears] 1 drop OP QID PRN 10/10/15 [History] Tizanidine HCl 2 mg PO DAILY 10/10/15 [History] Isosorbide MONOnitrate (24 HR) [Imdur] 60 mg PO DAILY #30 tab.er.24h 10/13/15 [ Rx] Simvastatin [Zocor] 40 mg PO HS #30 tablet 08/01/16 [Rx] Meclizine HCl [Verticalm] 25 mg PO BID PRN 02/27/16 [History] Metoprolol XL (24 HR) Succ [Toprol Xl] 100 mg PO BID 02/27/16 [History] Sennosides/Docusate Sodium [Senna-Docusate Sodium Tablet] 1 tab PO BID PRN 02/26 [History] Apixaban [Eliquis] 2.5 mg PO BID 03/27/16 [History] Aspirin [Lo-Dose Aspirin EC] 81 mg PO DAILY 03/27/16 [History] Propylene Glycol/Peg 400 [Systane 0.3-0.4% Eye Drops] 1 drop BOTH EYES QID 03/27 [History] Witch Katrina [Preparation H] 1 pad TP QID PRN 03/27/16 [History] Losartan [Cozaar] 25 mg PO DAILY #30 tablet 04/05/16 [Rx] Morphine Immed Rel [Morphine Sulfate] 15 mg PO BID #14 tablet 04/05/16 [Rx] Cyanocobalamin (B-12) [Vitamin B12] 1,000 mcg PO BID 07/08/16 [History] HydrALAZINE 25 mg PO BID 07/08/16 [History] Nitroglycerin [Nitrostat] 0.4 mg SL AD PRN 07/08/16 [History] Oxycodone HCl/Acetaminophen [Percocet 5-325 mg Tablet] 1 tab PO Q6H PRN [History] Potassium Chloride [K-Tab ER] 20 meq PO MOWEFR 07/08/16 [History] Selenium Sulfide [Anti-Dandruff] 1 appl TP AD PRN 07/08/16 [History] Allergies bacitracin [From Neosporin ([id number])] Allergy (Unknown, Verified 07/08/16 08:01) See Comments PATIENT UNSURE- REACTION NOT LISTED ON [facility] celecoxib Allergy (Unknown, Verified 07/08/16 08:01) See Comments pt cannot remember codeine Allergy (Unknown, Verified 07/08/16 08:01) See Comments pt does not remember Donepezil Allergy (Unknown, Verified 07/08/16 08:01) See Comments PATIENT UNSURE- REACTION NOT LISTED ON [facility] fenofibrate [From Tricor] Allergy (Unknown, Verified 07/08/16 08:01) See Comments pt does not remember Hydralazine Allergy (Unknown, Verified 07/08/16 08:01) See Comments PATIENT UNSURE- REACTION NOT LISTED ON [facility] naproxen Allergy (Unknown, Verified 07/08/16 08:01) See Comments PATIENT UNSURE- REACTION NOT LISTED ON [facility] Neomycin [From Neosporin ([id number])] Allergy (Unknown, Verified 07/08/16 08 :01) See Comments PATIENT UNSURE- REACTION NOT LISTED ON [facility] Opioids - Morphine Analogues Allergy (Unknown, Verified 07/08/16 08:01) See Comments PATIENT UNSURE- REACTION NOT LISTED ON [facility] polymyxin B [From Neosporin ([id number])] Allergy (Unknown, Verified 08:01) See Comments PATIENT UNSURE- REACTION NOT LISTED ON [facility] rofecoxib Allergy (Unknown, Verified 07/08/16 08:01) See Comments PATIENT UNSURE- REACTION NOT LISTED ON [facility] Sulfa (Sulfonamide Antibiotics) Allergy (Unknown, Verified 07/08/16 08:01) See Comments PATIENT UNSURE- REACTION NOT LISTED ON [facility] Tetanus Vaccines and Toxoid [Tetanus Vaccines & Toxoid] Allergy (Unknown, Verified 07/08/16 08:01) See Comments PATIENT UNSURE- REACTION NOT LISTED ON [facility] lisinopril Adverse Reaction (Verified 07/08/16 08:01) Cough nicotine Adverse Reaction (Verified 07/08/16 08:01) Vomiting - Meds/Allergy Pre-op Review Medications Reviewed: Yes Allergies Reviewed: Yes Beta Blockers on Current Med List: Yes If Beta Blockers taken, Date/Time (Last Dose taken): 07/16/2016 at 1143 Anesthesia Results - Labs 07/16/16 04:00 07/16/16 04:00 - Imaging EKG: report reviewed (04/04/2016 electronic atrial pacemaker, NSST abnormality) Additional studies: 07/08/2016 Echo LVEF 65% mild concentric LVH moderate LV diastolic dysfuction moderately dilated LA mild MR and [facility] mild-moderate TR nom significant mitral stenosis, mean gradient 4 mmHg severe pulmonary HTN, estimated RVSP 65 mmHg 7/Impression: * Perfusion imaging was negative for ischemia or infarct. * Pharmacologic ECG was negative for ischemia at the level of heart rate achieved. * Patient had no chest pain with stress. * Normal hemodynamic response. * No arrhythmias noted with stress. * Gated EF = >75%. * The LV is not dilated. * There is no evidence of TID. 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 Patient wishes to proceed.) Monitoring Plan: Standard Monitors, A-Line, CVC Recovery Plan: PACU
[2016-07-16] MEDS: *HR* Morphine Immed Rel 30 MG TABLET PO SCH (11:42)
[2016-07-16] MEDS: Metoprolol XL (24 HR) Succ 50 MG TAB.ER.24H PO SCH (11:43)
--- NOTE | 2016-07-16 13:32 | Internal Med Progress Note ---
<Naomi Theodore - Last Filed: 07/16/16 13:30> Date of Encounter: 07/16/16 Time of Encounter: 13:30 - Assessment and plan (1) CVA (cerebral vascular accident) Current Visit: Yes Status: Acute Assessment and plan: Per neurology, cause is likely embolic or thromboembolic Continue medical and supportive care -Eliquis and aspirin -Physical therapy -risk factor modification Eliquis being held due to surgery today Qualifiers: CVA mechanism: embolism Precerebral and cerebral artery: middle cerebral artery Laterality of affected vessel: right Qualified Code(s): I63.411 - Cerebral infarction due to embolism of right middle cerebral artery (2) Left-sided weakness Current Visit: Yes Status: Acute (3) Facial droop Current Visit: Yes Status: Resolved Assessment and plan: Resolved (4) JAZZ (acute kidney injury) Current Visit: Yes Status: Resolved Assessment and plan: resolved (5) Anemia Current Visit: Yes Status: Acute Assessment and plan: Iron deficiency transfused 1 united pRBC 5/ Apple core lesion found in the cecum during colonoscopy Hg 8.3 this AM Qualifiers: Anemia type: iron deficiency Iron deficiency anemia type: unspecified iron deficiency Qualified Code(s): D50.9 - Iron deficiency anemia, unspecified (6) Cecum mass Current Visit: Yes Status: Acute Assessment and plan: Plan for surgery today for removal of cecal mass - Subjective Interval history: Patient seen and examined. Sitting up. Denies concerns at this time. - Constitutional Vitals: Temp Pulse Resp BP Pulse Ox 98 F 70 16 223/89 97 07/16/16 12:02 07/16/16 12:02 07/16/16 12:02 07/16/16 12:02 07/16/16 12:02 General appearance: Present: A&O X 3, answers questions appropriately - Head Head exam: Present: atraumatic, normocephalic - Eye Eye exam: Present: PERRL, conjuntiva pink, sclera anicteric Pupils: Present: PERRL - ENT ENT exam: Present: mucous membranes moist - Neck Neck exam general surgery: Present: supple - Respiratory Respiratory exam: Present: CTAB - Cardiovascular Cardiovascular exam: Present: RRR, +S1, +S2 - GI/Abdominal GI/Abdominal exam: Present: soft, tenderness (RLQ) - Extremities Exam Extremities exam: Present: warm. Absent: calf tenderness, cyanotic, pedal edema Additional comments: Chronic venous stasis skin changes to bilateral lower extremities - Neurological Exam Neurological exam: Present: CN II-XII intact, oriented X3, no focal deficits. Absent: pronater drift, facial droop, speech deficit - Skin Skin exam: Present: dry, intact Internal Medicine: Result - Labs CBC & Chem 7: 07/16/16 04:00 07/16/16 04:00 Labs: Short CBC 07/16/16 Range/Units 04:00 WBC 11.6 H (4.3-11.1) K/mcL Hgb 8.3 L (11.5-15.4) g/dL Hct 27.3 L (35.3-44.9) % Plt Count 193 (140-400) K/mcL Neutrophils # 7.1 (1.6-8.9) K/mcL BMP 07/16/16 04:00 Sodium 135 L Potassium 3.8 Chloride 102 Carbon Dioxide 25 BUN 16 Creatinine 0.76 Glucose 105 H Calcium 8.6 - ABG Interpretation ABG results: PT/INR, D-dimer PT 14.4 Seconds (9.4-12.1) H 07/15/16 04:45 - VTE Documentation of Mechanical Device: Intermittent pneumatic compression device Consult Discharge Plan - Plan [facility]errals: [facility] [Primary Care Provider] - <Raphael Soto P - Last Filed: 07/16/16 17:26> Date of Encounter: 07/16/16 - Assessment and plan (1) Left-sided weakness Current Visit: Yes Status: Acute (2) Facial droop Current Visit: Yes Status: Resolved (3) JAZZ (acute kidney injury) Current Visit: Yes Status: Resolved - Constitutional Vitals: Temp Pulse Resp BP Pulse Ox 98 F 70 16 223/89 97 07/16/16 12:02 07/16/16 12:02 07/16/16 12:02 07/16/16 12:02 07/16/16 12:02 Internal Medicine: Result - Labs CBC & Chem 7: 07/16/16 04:00 07/16/16 04:00 Labs: Short CBC 07/16/16 Range/Units 04:00 WBC 11.6 H (4.3-11.1) K/mcL Hgb 8.3 L (11.5-15.4) g/dL Hct 27.3 L (35.3-44.9) % Plt Count 193 (140-400) K/mcL Neutrophils # 7.1 (1.6-8.9) K/mcL BMP 07/16/16 04:00 Sodium 135 L Potassium 3.8 Chloride 102 Carbon Dioxide 25 BUN 16 Creatinine 0.76 Glucose 105 H Calcium 8.6 - ABG Interpretation ABG results: PT/INR, D-dimer PT 14.4 Seconds (9.4-12.1) H 07/15/16 04:45 - Attending Attestation I examined this patient and my medical decision-making was reviewed with the METAL CASKET ASSEMBLER/PA/Advanced Practice Nurse/Resident Physician. I agree with the documented findings, disposition and treatment plan as described except to the extent set forth below.
[2016-07-16] MEDS ORDERED: *HR* Remifentanil 2 MG VIAL IVP ONE (13:52)
[2016-07-16] MEDS ORDERED: Lidocaine -MPF 2% 2 ML VIAL ONE ×2 (13:52→14:20)
[2016-07-16] MEDS ORDERED: *HR* Midazolam HCl 2 MG/2 ML VIAL ONE (13:52)
[2016-07-16] MEDS ORDERED: *HR* FentaNYL (PF) 100 MCG/2 ML VIAL ONE ×3 (13:52→15:24)
[2016-07-16] MEDS ORDERED: *HR* Etomidate 40 MG/20 ML VIAL IVP ONE (13:52)
[2016-07-16] MEDS ORDERED: *HR* Phenylephrine 10 MG/ML VIAL ONE (13:53)
[2016-07-16] MEDS ORDERED: *HR* Rocuronium Bromide 50 MG/5 ML VIAL ONE (13:59)
[2016-07-16] MEDS ORDERED: *HR* Succinylcholine 200 MG/10 ML VIAL IVP ONE (13:59)
--- NOTE | 2016-07-16 15:44 | Anesthesia Procedures ---
Date of Encounter: 07/16/16 Time of Encounter: 14:50 Procedures: Anesthesia - Arterial Line Consent obtained: written consent Time out performed: Yes Local Anesthetic: Lidocaine 1% Amount of Anesthetic used (mls): 1 Size (Gauge): 20 Length (inches): 1 3/4 Technique Used: sterile prep, guide wire technique, direct puncture technique Post-Procedure: line taped into place, dry sterile dressing placed Patient tolerated procedure: well, no complications Complications: none Site: Radial R (attempt x 1, easy) - Central Line Placement Right SC Consent obtained: written consent Time out performed: Yes Patient placed on monitor/pulse ox: Yes Sedation: Versed (mg): 1 Sedation: Fentanyl (mcg): 50 Supplemental Oxygen via Nasal Cannula (L/min): 2 MD prep: mask, gown, gloves Central line prep: Chlorhexidine scrub, sterile drapes applied Local Anesthetic Used: Lidocaine 1% Amount of Anesthetics Used (mls): 4 Ultrasound used for placement: Yes (used for IJ attempts) Technique: Seldinger Lumen Inserted: triple Size / Length: 7 Fr / 16 cm Post procedure: sutured in place, good blood return, all ports aspirated, flushed, capped, sterile dressing applied Patient tolerated procedure: well, no complications Complications: none (Indication is no peripheral access. Attempted right IJ x 3 , able to enter vein with great aspiration but unable to advance guidewire. Attempt right subclavian x1, accessed, guide wire advanced without arrythmia, catheter placed. All ports aspirated easily and flushed with NS. Sutured in place.)
[2016-07-16] MEDS ORDERED: EPHEDrine 50 MG/ML VIAL ONE (15:45)
[2016-07-16] MEDS ORDERED: CefOXitin 2,000 MG VIAL IVPB ONE (15:48)
[2016-07-16] MEDS ORDERED: *HR* Promethazine 25 MG/ML VIAL IVP PRN (16:20)
[2016-07-16] MEDS ORDERED: *HR* Labetalol 100 MG/20 ML MDV IVP PRN (16:20)
[2016-07-16] MEDS ORDERED: *HR* HYDROmorphone (PF) 1 MG/ML SYRINGE IVP PRN (16:20)
[2016-07-16] MEDS ORDERED: Ringers Solution, Lactated 1,000 ML IVC SCH (16:30)
[2016-07-16] MEDS ORDERED: Neostigmine Methylsulfate 3 MG/3 ML SYRINGE ONE (17:06)
[2016-07-16] MEDS ORDERED: Ondansetron 4 MG/2 ML VIAL ONE (17:07)
[2016-07-16] MEDS ORDERED: Dexamethasone 4 MG/ML VIAL ONE (17:07)
[2016-07-16] MEDS ORDERED: *HR* HYDROmorphone 2 MG/ML SYRINGE ONE (17:11)
--- NOTE | 2016-07-16 17:28 | Operative Note ---
Date of procedure: 07/16/16 Pre-op diagnosis: Right colonic mass Post-op diagnosis: same Procedure: Laparoscopic right colectomy Anesthesia: GETA Surgeon: Marvin Faulkner Securities Lending Trader: Karishma Benitez Estimated blood loss (cc): 50 Specimen: Right colon Condition: stable Disposition: PACU Procedure in Detail: Date of surgery: 07/16/16 After properly identifying the patient, the patient was brought to the operating room and placed in the supine position. After proper IV sedation was achieved followed by general endotracheal intubation, the patient's abdomen was prepped and draped in a normal sterile fashion. A timeout was performed noting the patient's name and type of procedure to be performed. A subumbilical incision with a 15 blade scalpel was made down to the level of the rectus fascia. The fascia was incised and the abdomen was entered and a 12 mm port was placed through the incision which showed no intra-abdominal organs were injured. The abdomen was insufflated with carbon dioxide and a 5 mm suprapubic and a left lower quadrant 5 mm port was then placed under direct camera visualization. A right upper quadrant 5 mm port was also placed under direct camera visualization. The patient was placed in a Trendelenburg position with a slight tilt towards the left side and the right lower quadrant was examined. Patient had blue dye noted in the cecum consistent with the location of the near obstructing cecal mass. The right lateral side attachments were taken down with Bovie cauterization and the cecum was retracted medially. Additional attachments were taken down with Bovie cauterization to allow for medial rotation. The terminal ileum was examined and the mesentery was dissected away from this portion of the bowel followed by transection of the terminal ileum with a laparoscopic MATILDE stapler. The hepatic flexure was then examined and retracted inferiorly while the adhesions to the flexure were dissected free with Bovie cauterization and laparoscopic LigaSure. This allow for inferior and medial rotation of the hepatic flexure and transverse colon. The decision was then made to go ahead and clear away the mesentery from the hepatic flexure/ proximal transverse colon and this portion of the colon was transected with a laparoscopic MATILDE stapler. The intervening mesentery was transected with the laparoscopic LigaSure. Once this was performed the decision was then made to go ahead and convert this to the open procedure. The 12 mm port was then removed and a 15 blade scalpel was used to extend this incision for total length of approximately 2.5-3 cm. A small size Benjamín was brought onto the operative field as a wound protection device. The transected right colon was then removed from the abdomen and from the operative field. The terminal ileum stump and the transverse colonic stump were extruded through this opening and a [id number] anastomosis was created with a laparoscopic 60 mm MATILDE stapler. A TA stapler was then used to close the enterotomy and the staple line was imbricated with 3-0 silk sutures. No evidence of bleeding was identified and the decision was then made to conclude the surgical procedure by closing the abdominal wall fascia with a running 0 Vicryl suture. The subcutaneous tissue was closed with interrupted 3-0 Vicryl sutures and the epidermal and dermal layers for the remaining incisions were closed with 4-0 Monocryl sutures. Needle, sponge, and instrument counts were correct 2 and the incisions were covered with Steri-Strips and 4 x 4 as well as Band-Aids. The patient was aroused from IV sedation, extubated in the operating room without complication, and transported to the recovery room in stable condition.
--- NOTE | 2016-07-16 18:14 | Anesthesia Evaluation Post Op ---
Date of Encounter: 07/16/16 Time of Encounter: 18:14 - Vital Signs Vital Signs: Vital Signs/O2 Sat, Most Current Temp Pulse Resp BP Pulse Ox 98.2 F 65 14 189/74 93 07/16/16 18:02 07/16/16 18:02 07/16/16 18:02 07/16/16 18:02 07/16/16 18:02 - Lungs Lungs: Clear Ascult./Percussion - Airway Airway: Non-obstructed - Cardiovascular Regular Rate - Mental Status Mental Status: Asleep with brisk response to light stimulation - Pain Pain Scale: 4 Pain Scale used: Numeric (1 - 10) - Nausea Vomiting Nausea Vomiting: Not Present - Hydration Hydration: NPO, Has not voided - Discharge PostOp Status: Transfer Patient to floor
[2016-07-16] MEDS ORDERED: *HR* Dextrose 50 % in Water (Syg) 50 ML SYRINGE IVP PRN (19:08)
[2016-07-16] MEDS ORDERED: Ipratropium/Albuterol Neb 3 ML IH PRN (19:08)
[2016-07-16] MEDS ORDERED: D5% in Water 1,000 ML IVC PRN (19:08)
[2016-07-16] MEDS ORDERED: Dextrose Gel 15 GM PO PRN ×2 (19:08)
[2016-07-16] MEDS: *HR* Metoprolol 5 MG/5 ML VIAL IVP SCH (20:05)
[2016-07-16] MEDS: *HR* Morphine 2 MG/ML SYRINGE IVP PRN (20:05)
[2016-07-17] MEDS: *HR* Metoprolol 5 MG/5 ML VIAL IVP SCH ×5 (00:49→23:27)
[2016-07-17] MEDS: 0.9 % Sodium Chloride 1,000 ML IVC SCH ×2 (01:03→14:14)
[2016-07-17] MEDS: cefOXitin 1,000 MG in D5% in Water (Mini-Bag+) 100 ML IVPB SCH ×3 (01:07→16:33)
[2016-07-17] MEDS: *HR* HYDROmorphone (PF) 1 MG/ML SYRINGE IVP PRN ×6 (01:48→22:42)
[2016-07-17 06:19] LABS: Basophils % 0.1 %; Eosinophils % 0.1 %; Hematocrit 28.4 % (35.3-44.9); Hemoglobin 8.5 g/dL (11.5-15.4); Immature Granulocytes % 0.8 % (0-4); Lymphocytes # 1.9 K/mcL (0.6-4.6); Lymphocytes % 17.3 %; Mean Corpuscular HGB Conc 29.9 g/dL (31.6-35.5); Mean Corpuscular Hemoglobin 21.4 pg (28.0-33.3); Mean Corpuscular Volume 71.5 fL (83.0-100.0); Monocytes % 8.8 %; Neutrophils # 8.2 K/mcL (1.6-8.9); Platelet Count 213 K/mcL (140-400); Red Blood Count 3.97 M/mcL (3.82-4.97); Red Cell Distribution Width 19.6 % (11.5-14.5); Segmented Neutrophils % 72.9 %
[2016-07-17 06:34] LABS: BUN/Creatinine Ratio 18 (6-26); Blood Urea Nitrogen 12 mg/dL (7-20); Calcium 7.7 mg/dL (8.6-10.8); Carbon Dioxide 24 mEq/L (19-29); Chloride 109 mEq/L (98-109); Glucose 137 mg/dL (70-99); Osmolality,Calculated 290 (280-300); Potassium 3.6 mEq/L (3.5-4.5); Sodium 139 mEq/L (136-145); eGFR For African Americans > 60 (> 60); eGFR For Non-African Americans > 60 (> 60)
--- NOTE | 2016-07-17 08:08 | General Surgery Progress Note ---
Date of Encounter: 07/17/16 Time of Encounter: 07:10 - Assessment and Plan (1) Anemia Current Visit: No Status: Chronic The patient has chronic anemia postoperative hematocrit is 28.4% consistent with acute blood loss anemia. Serial observation with no transfusion at this time. Qualifiers: Anemia type: other cause Other causes of anemia: acute posthemorrhagic Qualified Code(s): D62 - Acute posthemorrhagic anemia (2) Cecum mass Current Visit: Yes Status: Acute The patient underwent right hemicolectomy. She is doing well postoperatively but does not have bowel sounds yet. We will maintain current therapy. Subjective Narrative: The patient is postoperative day 1 from laparoscopic right hemicolectomy. She is doing quite well. She has no bowel sounds on physical examination her abdomen is soft and nontender. All the incisions are clean and dry. Her hematocrit is 28.5% consistent with blood loss anemia. We will follow serial CBCs. Continue current therapy. Objective Vital Signs - Last 8 Hours Temp Pulse Resp BP Pulse Ox 07/17/16 06:29 97.8 F 62 16 152/65 95 07/17/16 05:15 97.7 F 77 20 189/83 96 Intake and Output 07/16/16 07/17/16 07/17/16 23:59 07:59 15:59 Intake Total 0 / 0 0 / 0 Output Total 205 / 205 200 / 200 Balance -205 / -205 -200 / -200 Intake: Oral 0 / 0 0 / 0 Output: Urine 200 / 200 200 / 200 Estimated Blood Loss 5 / 5 Other: Weight 51.2 kg Blood Glucose* 157 149 Patient Weight 07/17/16 23:59 Weight 51.2 kg - General physical appearance well developed, well nourished, no pain - Respiratory normal expansion, normal respiratory effort, clear to percussion, clear to auscultation - Cardiovascular Cardiovascular exam: Present: RRR, no murmurs/rubs/gallops - Abdomen Abdomen: Present: soft, non tender (No bowel sounds) - Incision Incision: Present: clean and dry - Psychiatric oriented to time, oriented to person, oriented to place, speech is normal, memory intact - Labs 07/17/16 06:00 07/17/16 06:00 Diabetes panel 07/17/16 Range/Units 06:00 Sodium 139 (136-145) mEq/L Potassium 3.6 (3.5-4.5) mEq/L Chloride 109 (98-109) mEq/L Carbon Dioxide 24 (19-29) mEq/L BUN 12 (7-20) mg/dL Creatinine 0.68 (0.57-1.11) mg/dL Glucose 137 H (70-99) mg/dL Calcium 7.7 L (8.6-10.8) mg/dL Calcium panel 07/17/16 Range/Units 06:00 Calcium 7.7 L (8.6-10.8) mg/dL Pituitary panel 07/17/16 Range/Units 06:00 Sodium 139 (136-145) mEq/L Potassium 3.6 (3.5-4.5) mEq/L Chloride 109 (98-109) mEq/L Carbon Dioxide 24 (19-29) mEq/L BUN 12 (7-20) mg/dL Creatinine 0.68 (0.57-1.11) mg/dL Glucose 137 H (70-99) mg/dL Calcium 7.7 L (8.6-10.8) mg/dL Adrenal panel 07/17/16 Range/Units 06:00 Sodium 139 (136-145) mEq/L Potassium 3.6 (3.5-4.5) mEq/L Chloride 109 (98-109) mEq/L Carbon Dioxide 24 (19-29) mEq/L BUN 12 (7-20) mg/dL Creatinine 0.68 (0.57-1.11) mg/dL Glucose 137 H (70-99) mg/dL Calcium 7.7 L (8.6-10.8) mg/dL - VTE Documentation of Mechanical Device: Intermittent pneumatic compression device Consult Discharge Plan - Plan [facility]errals: [facility] [Primary Care Provider[facility] -
[2016-07-17] MEDS: Pantoprazole 40 MG VIAL IVP SCH (08:21)
[2016-07-17] MEDS: Insulin LISPRO 300 UNITS/3 ML VIAL SQ SCH ×4 (08:23→22:44)
--- NOTE | 2016-07-17 13:57 | Internal Med Progress Note ---
Date of Encounter: 07/17/16 Time of Encounter: 13:54 - Assessment and plan (1) Cecum mass Current Visit: Yes Status: Acute Assessment and plan: Patient underwent surgery yesterday. Today is postoperative day 1. Bowel sounds absent. Denies nausea, vomiting or diarrhea. Surgery on the board. We will follow the recommendations. (2) Left-sided weakness Current Visit: Yes Status: Acute Assessment and plan: She was admitted with left-sided weakness (3) JAZZ (acute kidney injury) Current Visit: Yes Status: Resolved Assessment and plan: resolved - Subjective Interval history: Seen and examined. Chart reviewed. Patient is comfortably lying in bed. Denies any abdominal pain, nausea, vomiting or diarrhea. - Constitutional Vitals: Temp Pulse Resp BP Pulse Ox 97.6 F 62 16 182/81 96 07/17/16 12:11 07/17/16 12:11 07/17/16 12:11 07/17/16 12:11 07/17/16 12:11 General appearance: Present: A&O X 3, answers questions appropriately - Head Head exam: Present: atraumatic, normocephalic - Eye Eye exam: Present: PERRL, conjuntiva pink, sclera anicteric Pupils: Present: PERRL - Neck Neck exam general surgery: Present: supple, trachea midline. Absent: lymphadenopathy - Respiratory Respiratory exam: Present: CTAB. Absent: accessory muscle use, rales, rhonchi, wheezes - Cardiovascular Cardiovascular exam: Present: RRR, +S1, +S2. Absent: diastolic murmur, gallop, rubs, systolic murmur - GI/Abdominal GI/Abdominal exam: Present: normal bowel sounds, soft, no peritoneal signs. Absent: distended, tenderness - Extremities Exam Extremities exam: Present: warm, radial pulses palpable and symetrical. Absent : calf tenderness, cyanotic, pedal edema - Neurological Exam Neurological exam: Present: CN II-XII intact, oriented X3, no focal deficits. Absent: pronater drift, facial droop, speech deficit - Skin Skin exam: Present: dry, intact Internal Medicine: Result - Labs CBC & Chem 7: 07/17/16 06:00 07/17/16 06:00 Labs: Short CBC 07/17/16 Range/Units 06:00 WBC 11.2 H (4.3-11.1) K/mcL Hgb 8.5 L (11.5-15.4) g/dL Hct 28.4 L (35.3-44.9) % Plt Count 213 (140-400) K/mcL Neutrophils # 8.2 (1.6-8.9) K/mcL BMP 07/17/16 06:00 Sodium 139 Potassium 3.6 Chloride 109 Carbon Dioxide 24 BUN 12 Creatinine 0.68 Glucose 137 H Calcium 7.7 L - ABG Interpretation ABG results: PT/INR, D-dimer PT 14.4 Seconds (9.4-12.1) H 07/15/16 04:45 - Impressions Impressions Chest X-Ray 07/16/16 16:20 IMPRESSION: 1. Right subclavian central venous catheter terminates at the cavoatrial junction. 2. Unchanged chronic bilateral interstitial markings. D/ / Jose Adams MD / Jose Adams MD Interpreting Provider: Jose Adams MD - VTE Documentation of Mechanical Device: Intermittent pneumatic compression device Consult Discharge Plan - Plan [facility]errals: [facility] [Primary Care Provider] -
[2016-07-17] MEDS: APIXABAN 5 MG TABLET PO SCH (22:52)
[2016-07-18] MEDS: *HR* HYDROmorphone (PF) 1 MG/ML SYRINGE IVP PRN ×5 (02:04→21:27)
[2016-07-18] MEDS: *HR* Metoprolol 5 MG/5 ML VIAL IVP SCH ×4 (05:10→23:59)
[2016-07-18 05:29] LABS: Basophils % 0.1 %; Eosinophils # 0.1 K/mcL (0.0-0.6); Hematocrit 27.4 % (35.3-44.9); Hemoglobin 8.3 g/dL (11.5-15.4); Immature Granulocytes % 0.6 % (0-4); Lymphocytes # 2.2 K/mcL (0.6-4.6); Mean Corpuscular HGB Conc 30.3 g/dL (31.6-35.5); Mean Corpuscular Volume 72.7 fL (83.0-100.0); Monocytes % 9.6 %; Neutrophils # 7.4 K/mcL (1.6-8.9); Platelet Count 206 K/mcL (140-400); Red Blood Count 3.77 M/mcL (3.82-4.97); Red Cell Distribution Width 20.3 % (11.5-14.5); Segmented Neutrophils % 68.7 %
[2016-07-18 05:38] LABS: BUN/Creatinine Ratio 13 (6-26); Blood Urea Nitrogen 9 mg/dL (7-20); Calcium 8.7 mg/dL (8.6-10.8); Carbon Dioxide 26 mEq/L (19-29); Chloride 106 mEq/L (98-109); Glucose 127 mg/dL (70-99); Osmolality,Calculated 288 (280-300); Potassium 3.6 mEq/L (3.5-4.5); Sodium 139 mEq/L (136-145); eGFR For African Americans > 60 (> 60); eGFR For Non-African Americans > 60 (> 60)
[2016-07-18] MEDS: Ondansetron 4 MG/2 ML VIAL IVP PRN ×3 (07:05→21:26)
[2016-07-18] MEDS: Insulin LISPRO 300 UNITS/3 ML VIAL SQ SCH ×4 (08:28→20:41)
[2016-07-18] MEDS ORDERED: *HR* Promethazine 25 MG/ML VIAL IVP ONE (08:31)
[2016-07-18] MEDS: APIXABAN 5 MG TABLET PO SCH (09:25)
[2016-07-18] MEDS: Pantoprazole 40 MG VIAL IVP SCH (11:14)
--- NOTE | 2016-07-18 12:29 | Internal Med Progress Note ---
Date of Encounter: 07/18/16 Time of Encounter: 12:24 - Assessment and plan (1) Cecum mass Current Visit: Yes Status: Acute Assessment and plan: Patient underwent surgery yesterday. Today is postoperative day 1. Bowel sounds absent. Denies nausea, vomiting or diarrhea. Surgery on the board. We will follow the recommendations. 07/18/2016 Postoperative day 2. This morning patient was bradycardic/tachycardic and hypertensive. Noted that patient was in atrial fibrillation with rapid ventricular rate. For a few minutes patient was altered mental status. Cardizem drip started. Troponin negative. EKG: atrial fibrillation Cardiology consult CT scan of the head was done. CT scan of the head did not reveal any hemorrhagic infarct or worsening of the previous infarct. Pain medications and optimize. Patient responded to this treatment and currently she is asymptomatic Case discussed with the surgery and updated in Jaspreet. Per surgery: We can start anticoagulation (2) Left-sided weakness Current Visit: Yes Status: Acute Assessment and plan: She was admitted with left-sided weakness (3) JAZZ (acute kidney injury) Current Visit: Yes Status: Resolved Assessment and plan: resolved - Subjective Interval history: Seen and examined. Chart reviewed. Patient is comfortably lying in bed. Denies any abdominal pain, nausea, vomiting or diarrhea. 07/18/2016 Seen and examined. Chart reviewed. Patient is comfortably lying in the bed. She is in a propped up position. She denies any abdominal pain, nausea, vomiting or diarrhea. - Constitutional Vitals: Temp Pulse Resp BP Pulse Ox 98.2 F 86 17 146/114 94 07/18/16 11:20 07/18/16 11:20 07/18/16 11:20 07/18/16 11:20 07/18/16 11:20 General appearance: Present: A&O X 3, answers questions appropriately - Head Head exam: Present: atraumatic, normocephalic - Eye Eye exam: Present: PERRL, conjuntiva pink, sclera anicteric Pupils: Present: PERRL - Neck Neck exam general surgery: Present: supple, trachea midline. Absent: lymphadenopathy - Respiratory Respiratory exam: Present: CTAB. Absent: accessory muscle use, rales, rhonchi, wheezes - Cardiovascular Cardiovascular exam: Present: RRR, +S1, +S2. Absent: diastolic murmur, gallop, rubs, systolic murmur - GI/Abdominal GI/Abdominal exam: Present: normal bowel sounds, soft, no peritoneal signs. Absent: distended, tenderness - Extremities Exam Extremities exam: Present: warm, radial pulses palpable and symetrical. Absent : calf tenderness, cyanotic, pedal edema - Neurological Exam Neurological exam: Present: CN II-XII intact, oriented X3, no focal deficits. Absent: pronater drift, facial droop, speech deficit - Skin Skin exam: Present: dry, intact Internal Medicine: Result - Labs CBC & Chem 7: 07/18/16 05:15 07/18/16 05:15 Labs: Short CBC 07/18/16 Range/Units 05:15 WBC 10.7 (4.3-11.1) K/mcL Hgb 8.3 L (11.5-15.4) g/dL Hct 27.4 L (35.3-44.9) % Plt Count 206 (140-400) K/mcL Neutrophils # 7.4 (1.6-8.9) K/mcL BMP 07/18/16 05:15 Sodium 139 Potassium 3.6 Chloride 106 Carbon Dioxide 26 BUN 9 Creatinine 0.68 Glucose 127 H Calcium 8.7 Cardiac Enzymes 07/18/16 Range/Units 08:18 Troponin I 0.01 (0-0.03) ng/mL - ABG Interpretation ABG results: PT/INR, D-dimer PT 14.4 Seconds (9.4-12.1) H 07/15/16 04:45 - Impressions Impressions Head CT 07/18/16 08:43 IMPRESSION: 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 D/ / 07/18/2016 09:29:56 Rudolph Contreras MD / bcarter Interpreting Provider: Rudolph Contreras MD - VTE Documentation of Mechanical Device: Intermittent pneumatic compression device Consult Discharge Plan - Plan [facility]errals: [facility] [Primary Care Provider] -
--- NOTE | 2016-07-18 12:49 | General Surgery Progress Note ---
Date of Encounter: 07/18/16 Time of Encounter: 12:00 - Assessment and Plan (1) Anemia Current Visit: No Status: Chronic The patient has chronic anemia postoperative hematocrit is 28.4% consistent with acute blood loss anemia. Serial observation with no transfusion at this time. Qualifiers: Anemia type: other cause Other causes of anemia: acute posthemorrhagic Qualified Code(s): D62 - Acute posthemorrhagic anemia (2) Cecum mass Current Visit: Yes Status: Acute The patient underwent right hemicolectomy. She is doing well postoperatively but does not have bowel sounds yet. We will maintain current therapy. 07/18/2016. The patient had an episode of nausea last evening along with A. fib RVR. The hospitalist team is concerned that she is having a cardiac event and she is currently undergoing workup. Fortunately, she did have bowel movement and is now developed bowel sounds. Subjective Narrative: The patient looks very ill today. She had a severe episode of rapid ventricular response last evening. Fortunately she did have a bowel movement but she continues to be very nauseated area of the hospitalist group is quite concerned that she is having a cardiac event and she is currently undergoing workup. She has good bowel sounds today and the incisions are clean and dry Objective Vital Signs - Last 8 Hours Temp Pulse Resp BP Pulse Ox 07/18/16 11:20 98.2 F 86 17 146/114 94 07/18/16 08:23 94 07/18/16 07:20 98.9 F 91 17 194/76 94 07/18/16 05:14 98.9 F 88 18 194/94 97 Intake and Output 07/17/16 07/18/16 07/18/16 23:59 07:59 15:59 Intake Total 0 / 0 36.6 / 36.6 Output Total 0 / 0 Balance 0 / 0 36.6 / 36.6 Intake: IV Fluids 36.6 / 36.6 Cardizem 125 MG In 36.6 / 36.6 Dextrose 5% 100 ML @ 5 MG /HR 5 mls/hr IVC .Q24H MISAEL Rx#:[id number] Oral 0 / 0 0 / 0 Output: Urine 0 / 0 Other: Meal NPO for dinner NPO Stool Size Small Stool Consistency liquid Stool Characteristics Mucoid Stool Color Brown # Voids 1 # Urine Diapers 1 1 Weight 52.8 kg Blood Glucose* 137 167 212 Patient Weight 07/18/16 23:59 Weight 52.8 kg - General physical appearance chronically ill - Respiratory normal expansion, normal respiratory effort, clear to percussion, clear to auscultation - Cardiovascular Cardiovascular exam: Present: RRR, no murmurs/rubs/gallops - Abdomen Abdomen: Present: bowel sounds present, non tender - Incision Incision: Present: clean and dry - Labs 07/18/16 05:15 07/18/16 05:15 Diabetes panel 07/18/16 Range/Units 05:15 Sodium 139 (136-145) mEq/L Potassium 3.6 (3.5-4.5) mEq/L Chloride 106 (98-109) mEq/L Carbon Dioxide 26 (19-29) mEq/L BUN 9 (7-20) mg/dL Creatinine 0.68 (0.57-1.11) mg/dL Glucose 127 H (70-99) mg/dL Calcium 8.7 (8.6-10.8) mg/dL Calcium panel 07/18/16 Range/Units 05:15 Calcium 8.7 (8.6-10.8) mg/dL Pituitary panel 07/18/16 Range/Units 05:15 Sodium 139 (136-145) mEq/L Potassium 3.6 (3.5-4.5) mEq/L Chloride 106 (98-109) mEq/L Carbon Dioxide 26 (19-29) mEq/L BUN 9 (7-20) mg/dL Creatinine 0.68 (0.57-1.11) mg/dL Glucose 127 H (70-99) mg/dL Calcium 8.7 (8.6-10.8) mg/dL Adrenal panel 07/18/16 Range/Units 05:15 Sodium 139 (136-145) mEq/L Potassium 3.6 (3.5-4.5) mEq/L Chloride 106 (98-109) mEq/L Carbon Dioxide 26 (19-29) mEq/L BUN 9 (7-20) mg/dL Creatinine 0.68 (0.57-1.11) mg/dL Glucose 127 H (70-99) mg/dL Calcium 8.7 (8.6-10.8) mg/dL - VTE Documentation of Mechanical Device: Intermittent pneumatic compression device Consult Discharge Plan - Plan [facility]errals: [facility] [Primary Care Provider] -
[2016-07-18] MEDS: CloNIDine Patch 0.2 MG PATCH (WEEKLY) TD SCH (13:52)
--- NOTE | 2016-07-18 16:09 | Cardiology History & Physical ---
Date of Encounter: 07/18/16 Time of Encounter: 14:00 Assessment and Plan (1) Paroxysmal atrial fibrillation Current Visit: No Status: Chronic Ms. 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 She was on Eliquis at reduced dose presumably per weight/age. When patient is able to take PO, recommend an alternative anticoagulant such as xarelto 20mg daily. Her renal function is normal. Otherwise, she is back in NSR. Presumably went into AF RVR due to post-op inflammatory response. Agree with IV dosing of AVN jacqueline until patient is able to take PO. Once able, recommend resuming home dose of Toprol 50mg daily. (2) CAD (coronary artery disease) Current Visit: No Status: Chronic Patient has a history of CAD and remote PCI. Recommend continuing statin. Start low dose aspirin when able. Qualifiers: Coronary Disease-Associated Artery/Lesion type: [place] artery [place] vs. transplanted heart: [place] heart Associated angina: angina presence unspecified Qualified Code(s): I25.10 - Atherosclerotic heart disease of [place] coronary artery without angina pectoris History of Present Illness Chief complaint: Presented with CVA HPI: Ms. Barfield is a 89 year old female who we've been asked to see for AF RVR. She was initially admitted 07/08/2016 for a suspected stroke. She had a brain MRI demonstrating multiple acute infarcts without hemorrhage. She has a history of paroxysmal atrial fibrillation which was newly diagnosed in the Fall of 2016 and was on eliquis 2.5 mg daily presumably dosed per geriatric recommendations. During her course of stay, she was also worked up for anemia and underwent GI evaluation. 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 She is POD #1. She developed AF RVR overnight and was placed on a cardizem gtt. At the bedside, she is now in NSR. She is awake, alert and able to converse but has residual speech deficit. She denies palpitations or chest pain. She is concerned about nausea and vomiting. Past Med Surg Social Fam HX - Past Medical History Attestation: Yes The following information was validated with the patient. Medical history: arthritis, atrial fibrillation, cancer, COPD, coronary artery disease, diabetes, GERD, hyperlipidemia, hypertension, peripheral artery disease , valvular heart disease, other Psychiatric history: no psych history - Past Surgical History Surgical History: other (pain pump) - Social History Smoking Status: Current every day smoker Smokeless Tobacco Status: No Alcohol use: none Drug use: none - Family History Father Adopted: No Family Member Ethnicity: Non- Twin of Family Member: Yes, Fraternal Living Status: Hx Family Cardiac Disorders: Yes Hx Family Respiratory Disorders: Yes Medications and Allergies Acetaminophen [Tylenol] 650 mg PO TID PRN 10/10/15 [History] Calcium Carbonate [Tums] 500 mg PO BID PRN 10/10/15 [History] Cholecalciferol (D-3) [Vitamin D] 2,000 unit PO DAILY 10/10/15 [History] Ethacrynic Acid [Edecrin] 50 mg PO BID 10/10/15 [History] Gabapentin [Neurontin] 600 mg PO TID 10/10/15 [History] GuaiFENesin Liq [Robitussin Liq] 200 mg PO Q6HR PRN 10/10/15 [History] Ipratropium/Albuterol Neb [Duoneb] 3 ml IH Q4HR PRN 10/10/15 [History] Lidocaine 2 patch TP Q12H 10/10/15 [History] Mv-Mn/FA/Vit K1/Lycop/Lut/Zeax [Ocuvite Eye + Multi Tablet] 1 tab PO BID [History] Naphazoline HCl 1 drop OP DAILY PRN 10/10/15 [History] Omeprazole [PriLOSEC] 20 mg PO QAM 10/10/15 [History] Polyethylene Glycol 3350 [MiraLAX] 17 gm PO DAILY PRN 10/10/15 [History] Polyvinyl Alcohol [Artificial Tears] 1 drop OP QID PRN 10/10/15 [History] Tizanidine HCl 2 mg PO DAILY 10/10/15 [History] Isosorbide MONOnitrate (24 HR) [Imdur] 60 mg PO DAILY #30 tab.er.24h 10/13/15 [ Rx] Simvastatin [Zocor] 40 mg PO HS #30 tablet 10/13/15 [Rx] Meclizine HCl [Verticalm] 25 mg PO BID PRN 02/27/16 [History] Metoprolol XL (24 HR) Succ [Toprol Xl] 100 mg PO BID 02/27/16 [History] Sennosides/Docusate Sodium [Senna-Docusate Sodium Tablet] 1 tab PO BID PRN 02/26 [History] Apixaban [Eliquis] 2.5 mg PO BID 03/27/16 [History] Aspirin [Lo-Dose Aspirin EC] 81 mg PO DAILY 03/27/16 [History] Propylene Glycol/Peg 400 [Systane 0.3-0.4% Eye Drops] 1 drop BOTH EYES QID 03/27 [History] Kia [place] [Preparation H] 1 pad TP QID PRN 03/27/16 [History] Losartan [Cozaar] 25 mg PO DAILY #30 tablet 04/05/16 [Rx] Morphine Immed Rel [Morphine Sulfate] 15 mg PO BID #14 tablet 04/05/16 [Rx] Cyanocobalamin (B-12) [Vitamin B12] 1,000 mcg PO BID 07/08/16 [History] HydrALAZINE 25 mg PO BID 07/08/16 [History] Nitroglycerin [Nitrostat] 0.4 mg SL AD PRN 07/08/16 [History] Oxycodone HCl/Acetaminophen [Percocet 5-325 mg Tablet] 1 tab PO Q6H PRN [History] Potassium Chloride [K-Tab ER] 20 meq PO MOWEFR 07/08/16 [History] Selenium Sulfide [Anti-Dandruff] 1 appl TP AD PRN 07/08/16 [History] Allergies bacitracin [From Neosporin ([id number])] Allergy (Unknown, Verified 07/08/16 08:01) See Comments PATIENT UNSURE- REACTION NOT LISTED ON [facility] celecoxib Allergy (Unknown, Verified 07/08/16 08:01) See Comments pt cannot remember codeine Allergy (Unknown, Verified 07/08/16 08:01) See Comments pt does not remember Donepezil Allergy (Unknown, Verified 07/08/16 08:01) See Comments PATIENT UNSURE- REACTION NOT LISTED ON [facility] fenofibrate [From Tricor] Allergy (Unknown, Verified 07/08/16 08:01) See Comments pt does not remember Hydralazine Allergy (Unknown, Verified 07/08/16 08:01) See Comments PATIENT UNSURE- REACTION NOT LISTED ON [facility] naproxen Allergy (Unknown, Verified 07/08/16 08:01) See Comments PATIENT UNSURE- REACTION NOT LISTED ON [facility] Neomycin [From Neosporin ([id number])] Allergy (Unknown, Verified 07/08/16 08 :01) See Comments PATIENT UNSURE- REACTION NOT LISTED ON [facility] Opioids - Morphine Analogues Allergy (Unknown, Verified 07/08/16 08:01) See Comments PATIENT UNSURE- REACTION NOT LISTED ON [facility] polymyxin B [From Neosporin ([id number])] Allergy (Unknown, Verified 08:01) See Comments PATIENT UNSURE- REACTION NOT LISTED ON [facility] rofecoxib Allergy (Unknown, Verified 07/08/16 08:01) See Comments PATIENT UNSURE- REACTION NOT LISTED ON [facility] Sulfa (Sulfonamide Antibiotics) Allergy (Unknown, Verified 07/08/16 08:01) See Comments PATIENT UNSURE- REACTION NOT LISTED ON [facility] Tetanus Vaccines and Toxoid [Tetanus Vaccines & Toxoid] Allergy (Unknown, Verified 07/08/16 08:01) See Comments PATIENT UNSURE- REACTION NOT LISTED ON [facility] lisinopril Adverse Reaction (Verified 07/08/16 08:01) Cough nicotine Adverse Reaction (Verified 07/08/16 08:01) Vomiting All Systems Review: A 10-system review of systems was performed and is negative for pertinent findings except as documented above in the HPI. - Cardiovascular Cardiovascular: as per HPI Physical Examination Vital Signs reviewed General: Conversant, Other (Ill appearing) HEENT: Atraumatic, Normocephaly Neck: No JVD Cardiac: Reg Rate and Rhythm, Normal S1 and S2, Other (2/6 systolic murmur LSB) Lungs: Other (breath sounds are normal anteriorly) Neuro: Alert and responsive, Other (focal deficits appreciated) Abdomen: Other (tender, diminished bowel sounds) Extremities: No Edema (no significant LE edema) Results 07/18/16 05:15 07/18/16 05:15 Lab Results 07/18/16 07/18/16 07/18/16 05:15 05:15 08:18 WBC 10.7 Hgb 8.3 L Hct 27.4 L Plt Count 206 Sodium 139 Potassium 3.6 Chloride 106 Carbon Dioxide 26 BUN 9 Creatinine 0.68 Glucose 127 H Calcium 8.7 Troponin I 0.01 - Imaging and Cardiology Echo: report reviewed - EKG Interpretation EKG results cardiology: other (24h telemetry reviewed) - VTE Documentation of Mechanical Device: Intermittent pneumatic compression device
[2016-07-18] MEDS ORDERED: *HR* Rivaroxaban 10 MG TABLET PO SCH (17:00)
--- NOTE | 2016-07-18 17:51 | Event Note ---
Date of Encounter: 07/18/16 Time of Encounter: 17:50 - Cardiology Event Note Spoke with pharmacy. They would not recommend using xarelto with diltiazem. Also does would need to be decreased since creatinine clearance less than 50. Pradaxa was a recommended alternative which we will try.
[2016-07-18] MEDS: 0.9 % Sodium Chloride 1,000 ML IVC SCH ×2 (18:36→20:44)
[2016-07-18] MEDS ORDERED: Ondansetron 4 MG/2 ML VIAL IVP SCH (20:00)
[2016-07-18] MEDS: *HR* Dabigatran 150 MG CAPSULE PO SCH (20:48)
[2016-07-18] MEDS ORDERED: Aspirin 325 MG TABLET PO ONE (21:48)
[2016-07-19] MEDS: Ondansetron 4 MG/2 ML VIAL IVP PRN ×3 (02:30→20:54)
[2016-07-19] MEDS: *HR* HYDROmorphone (PF) 1 MG/ML SYRINGE IVP PRN ×6 (02:30→23:41)
[2016-07-19 02:59] LABS: Basophils % 0.1 %; Eosinophils % 0.1 %; Hematocrit 26.8 % (35.3-44.9); Hemoglobin 8.1 g/dL (11.5-15.4); Immature Granulocytes % 0.6 % (0-4); Lymphocytes # 2.3 K/mcL (0.6-4.6); Lymphocytes % 16.8 %; Mean Corpuscular HGB Conc 30.2 g/dL (31.6-35.5); Mean Corpuscular Volume 72.6 fL (83.0-100.0); Mean Platelet Volume 9.2 fL (9.4-12.4); Monocytes # 1.1 K/mcL (0.0-1.3); Monocytes % 8.4 %; Neutrophils # 10.1 K/mcL (1.6-8.9); Platelet Count 252 K/mcL (140-400); Red Blood Count 3.69 M/mcL (3.82-4.97); Red Cell Distribution Width 20.7 % (11.5-14.5)
[2016-07-19 03:13] LABS: BUN/Creatinine Ratio 20 (6-26); Blood Urea Nitrogen 15 mg/dL (7-20); Calcium 9.1 mg/dL (8.6-10.8); Carbon Dioxide 27 mEq/L (19-29); Chloride 105 mEq/L (98-109); Glucose 146 mg/dL (70-99); Osmolality,Calculated 293 (280-300); Potassium 3.4 mEq/L (3.5-4.5); Sodium 140 mEq/L (136-145); eGFR For African Americans > 60 (> 60); eGFR For Non-African Americans > 60 (> 60)
[2016-07-19] MEDS: *HR* Promethazine 25 MG/ML VIAL IVP PRN (04:13)
[2016-07-19] MEDS: *HR* Metoprolol 5 MG/5 ML VIAL IVP SCH ×4 (05:42→23:37)
[2016-07-19] MEDS: *HR* Morphine 2 MG/ML SYRINGE IVP PRN (05:42)
[2016-07-19] MEDS: Pantoprazole 40 MG VIAL IVP SCH (07:46)
[2016-07-19] MEDS: Insulin LISPRO 300 UNITS/3 ML VIAL SQ SCH ×4 (07:56→20:50)
--- NOTE | 2016-07-19 10:19 | General Surgery Progress Note ---
Date of Encounter: 07/20/16 Time of Encounter: : - Assessment and Plan (1) Cecum mass Current Visit: Yes Status: Acute POD #3 right hemicolectomy. Patient was evaluated by Cardiology yesterday after an episode of AFIB RVR. Patient has converted back to NSR. Most likely episode was secondary to post-op inflammatory response. Patient had a BM, bowel sounds present. She notes nausea and diffuse mild abdominal tenderness. She is able to tolerate ice chips. (2) Anemia Current Visit: Yes Status: Acute The patient has chronic anemia postoperative hematocrit is 26.8% consistent with acute blood loss anemia. H/H remains stable. Serial observation with no transfusion at this time. Qualifiers: Anemia type: iron deficiency Iron deficiency anemia type: chronic blood loss Qualified Code(s): D50.0 - Iron deficiency anemia secondary to blood loss (chronic) Subjective Patient reports: still having pain, flatus, nausea Narrative: The patient was seen and examined. She complains of neck pain, nausea, diffuse abdominal pain that is worse with palpation. She notes that she has had gas and a bowel movement. Her heart rate is tachycardic but is regular. Objective Vital Signs - Last 8 Hours Temp Pulse Resp BP Pulse Ox 07/19/16 06:58 98.8 F 101 24 203/81 93 07/19/16 05:42 98.9 F 87 16 168/64 96 07/19/16 05:38 98.9 F 87 16 168/64 96 Intake and Output 07/18/16 07/19/16 07/19/16 23:59 07:59 15:59 Intake Total 0 / 0 Output Total 250 / 250 125 / 125 Balance -250 / -250 -125 / -125 Intake: Oral 0 / 0 Output: Urine 200 / 200 100 / 100 Emesis 50 / 50 25 / 25 Other: # Voids 1 # Urine Diapers 1 1 Weight 57.4 kg Blood Glucose* 141 201 Patient Weight 07/19/16 23:59 Weight 57.4 kg - General physical appearance moderate distress, moderate pain, chronically ill - Cardiovascular Cardiovascular exam: Present: tachycardia, regular rhythm - Abdomen Abdomen: Present: bowel sounds present, soft, tender. Absent: distended, rigid Abdominal Tenderness: diffusely ( ) - Incision Incision: Present: clean and dry - Psychiatric speech is normal - Labs 07/21/16 03:15 07/21/16 03:15 Diabetes panel 07/19/16 Range/Units 02:50 Sodium 140 (136-145) mEq/L Potassium 3.4 L (3.5-4.5) mEq/L Chloride 105 (98-109) mEq/L Carbon Dioxide 27 (19-29) mEq/L BUN 15 (7-20) mg/dL Creatinine 0.75 (0.57-1.11) mg/dL Glucose 146 H (70-99) mg/dL Calcium 9.1 (8.6-10.8) mg/dL Calcium panel 07/19/16 Range/Units 02:50 Calcium 9.1 (8.6-10.8) mg/dL Pituitary panel 07/19/16 Range/Units 02:50 Sodium 140 (136-145) mEq/L Potassium 3.4 L (3.5-4.5) mEq/L Chloride 105 (98-109) mEq/L Carbon Dioxide 27 (19-29) mEq/L BUN 15 (7-20) mg/dL Creatinine 0.75 (0.57-1.11) mg/dL Glucose 146 H (70-99) mg/dL Calcium 9.1 (8.6-10.8) mg/dL Adrenal panel 07/19/16 Range/Units 02:50 Sodium 140 (136-145) mEq/L Potassium 3.4 L (3.5-4.5) mEq/L Chloride 105 (98-109) mEq/L Carbon Dioxide 27 (19-29) mEq/L BUN 15 (7-20) mg/dL Creatinine 0.75 (0.57-1.11) mg/dL Glucose 146 H (70-99) mg/dL Calcium 9.1 (8.6-10.8) mg/dL - VTE Documentation of Mechanical Device: Intermittent pneumatic compression device Consult Discharge Plan - Plan Referrals: [facility] [Primary Care Provider] - - Attending Attestation I examined this patient and my medical decision-making was reviewed with the TECHNICAL SALES CONSULTANT/PA/Advanced Practice Nurse/Resident Physician. I agree with the documented findings, disposition and treatment plan as described except to the extent set forth below. I reviewed the above assessment and physical examination. Patient has noted nausea and some abdominal distention on examination. Positive bowel sounds. Will continue to hold by mouth diet to current level. Await full return of bowel function. Of note patient did not have blood loss related anemia. Patient's anemia was chronic and prior to the surgical procedure and blood loss to her surgical course was approximately less than 50 mL. Agree with continue checking of the patient's CBC.
[2016-07-19] MEDS ORDERED: Potassium Chloride Elixir 20 MEQ/15 ML UDC PO ONE (11:21)
[2016-07-19] MEDS: *HR* Dabigatran 150 MG CAPSULE PO SCH ×3 (12:19→23:36)
--- NOTE | 2016-07-19 13:10 | Cardiology Progress Note ---
Date of Encounter: 07/19/16 Time of Encounter: 12:00 Assessment and Plan (1) Paroxysmal atrial fibrillation Current Visit: No Status: Chronic Ms. 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 She was on Eliquis at reduced dose presumably per weight/age. Recommended to change to pradaxa d/t eliquis failure. Discussed with patient who agrees with plan. Back to [facility]. Resume toprol XL once she is able to take oral. ALso start asa 81 mg daily for h/o CAD once able. Cardiology will sign off. Out pt f/u will be made in two weeks. (2) CAD (coronary artery disease) Current Visit: No Status: Chronic Patient has a history of CAD and remote PCI. Recommend continuing statin. Start low dose aspirin when able. Qualifiers: Coronary Disease-Associated Artery/Lesion type: [place] artery [place] vs. transplanted heart: [place] heart Associated angina: angina presence unspecified Qualified Code(s): I25.10 - Atherosclerotic heart disease of [place] coronary artery without angina pectoris Discussion w patient/family: The assessment and plan as outlined above was discussed with the patient and/or family members who expressed understanding and agreement. All questions were answered. Thank you for involving us in the care of your patient. Please call with any questions. Subjective Principal diagnosis: Left-sided weakness Interval history: Pt c/o incisional abdominal pain. Denies chest pain or palpitations. Continues to have left sided weakness. Objective Vital Signs, Last 4 Hours Temp Pulse Resp BP Pulse Ox 07/19/16 11:44 97.2 F L 118 18 126/86 94 07/19/16 10:00 169/68 General: Conversant, Other (Guarded) HEENT: Atraumatic, Normocephaly, Mucus Membranes Moist Neck: No JVD, Normal carotid pulses Cardiac: Reg Rate and Rhythm, Normal S1 and S2, No Murmur, Other (sinus tach on telemetry. ) Lungs: Normal Breath Sounds, No Wheeze, Rales, Rhonchi Neuro: Alert and responsive, No focal deficits noted Abdomen: Soft, Other (tender to palpation) Skin: No rashes noted on visualized skin Musculoskeletal: No Chest Wall Tenderness Extremities: No Clubbing, No Cyanosis, No Edema, Normal Pulses Results 07/19/16 02:50 07/19/16 02:50 Lab Results 0507/19/16 07/19/16 20:55 02:50 02:50 WBC 13.6 H Hgb 8.1 L Hct 26.8 L Plt Count 252 Sodium 140 Potassium 3.4 L Chloride 105 Carbon Dioxide 27 BUN 15 Creatinine 0.75 Glucose 146 H Calcium 9.1 Troponin I 2.52 H* 07/19/16 02:50 WBC Hgb Hct Plt Count Sodium Potassium Chloride Carbon Dioxide BUN Creatinine Glucose Calcium Troponin I 1.31 H* - EKG Interpretation EKG results cardiology: other (Telemetry review shows NSR to sinus tachycardia.) - VTE Documentation of Mechanical Device: Intermittent pneumatic compression device Consult Discharge Plan - Plan Referrals: [facility]P [Primary Care Provider] -
[2016-07-19] MEDS: 0.9 % Sodium Chloride 1,000 ML IVC SCH (14:38)
--- NOTE | 2016-07-19 17:08 | Electrocardiograph Report ---
[address] [place], [place] [address] Test Date: 2016-07-18 Pat Name: Catie Barfield Department: 111 Room: [facility] Gender: F Resident Services Supervisor: : [id number] Requested By: Raphael Soto Order Number: [id number] Reading MD: Mora Ruiz Measurements Intervals [place] Rate: 106 P: [place]: 0 QRS: 36 QRSD: 93 T: -21 QT: 295 QTc: 357 Interpretive Statements ATRIAL FIBRILLATION WITH RAPID VENTRICULAR RESPONSE MARKED ST DEPRESSION, CONSIDER SUBENDOCARDIAL INJURY Electronically Signed On 07-19-2016 17:06:43 EDT by Mora Ruiz
--- NOTE | 2016-07-19 18:04 | Internal Med Progress Note ---
Date of Encounter: 07/19/16 Time of Encounter: 18:01 - Assessment and plan (1) Cecum mass Current Visit: Yes Status: Acute Assessment and plan: Patient underwent surgery yesterday. Today is postoperative day 1. Bowel sounds absent. Denies nausea, vomiting or diarrhea. Surgery on the board. We will follow the recommendations. 07/18/2016 Postoperative day 2. This morning patient was bradycardic/tachycardic and hypertensive. Noted that patient was in atrial fibrillation with rapid ventricular rate. For a few minutes patient was altered mental status. Cardizem drip started. Troponin negative. EKG: atrial fibrillation Cardiology consult CT scan of the head was done. CT scan of the head did not reveal any hemorrhagic infarct or worsening of the previous infarct. Pain medications and optimize. Patient responded to this treatment and currently she is asymptomatic Case discussed with the surgery and updated in [facility]. Per surgery: We can start anticoagulation 07/19/2016 Postoperative day 3. Patient is doing much better as compared to yesterday. Heart rate is well controlled. Cardiology on the board. Per surgery: Patient can restart his anticoagulation. We will follow the recommendation from cardiology regarding anticoagulation Awaiting PT/OT evaluation for possible placement (2) Left-sided weakness Current Visit: Yes Status: Acute Assessment and plan: She was admitted with left-sided weakness (3) JAZZ (acute kidney injury) Current Visit: Yes Status: Resolved Assessment and plan: resolved - Subjective Interval history: Seen and examined. Chart reviewed. Patient is comfortably lying in bed. Denies any abdominal pain, nausea, vomiting or diarrhea. 07/18/2016 Seen and examined. Chart reviewed. Patient is comfortably lying in the bed. She is in a propped up position. She denies any abdominal pain, nausea, vomiting or diarrhea. 07/19/2016 Seen and examined. chart reviewed. Patient is comfortably lying in the bed. Denies any chest pain, shortness of breath. - Constitutional Vitals: Temp Pulse Resp BP Pulse Ox 97.8 F 100 18 181/69 95 07/19/16 15:50 07/19/16 15:50 07/19/16 15:50 07/19/16 15:50 07/19/16 15:50 General appearance: Present: A&O X 3, answers questions appropriately - Head Head exam: Present: atraumatic, normocephalic - Eye Eye exam: Present: PERRL, conjuntiva pink, sclera anicteric Pupils: Present: PERRL - Neck Neck exam general surgery: Present: supple, trachea midline. Absent: lymphadenopathy - Respiratory Respiratory exam: Present: CTAB. Absent: accessory muscle use, rales, rhonchi, wheezes - Cardiovascular Cardiovascular exam: Present: RRR, +S1, +S2. Absent: diastolic murmur, gallop, rubs, systolic murmur - GI/Abdominal GI/Abdominal exam: Present: normal bowel sounds, soft, no peritoneal signs. Absent: distended, tenderness - Extremities Exam Extremities exam: Present: warm, radial pulses palpable and symetrical. Absent : calf tenderness, cyanotic, pedal edema - Neurological Exam Neurological exam: Present: CN II-XII intact, oriented X3, no focal deficits. Absent: pronater drift, facial droop, speech deficit - Skin Skin exam: Present: dry, intact Internal Medicine: Result - Labs CBC & Chem 7: 07/19/16 02:50 07/19/16 02:50 Labs: Short CBC 07/19/16 Range/Units 02:50 WBC 13.6 H (4.3-11.1) K/mcL Hgb 8.1 L (11.5-15.4) g/dL Hct 26.8 L (35.3-44.9) % Plt Count 252 (140-400) K/mcL Neutrophils # 10.1 H (1.6-8.9) K/mcL BMP 07/19/16 02:50 Sodium 140 Potassium 3.4 L Chloride 105 Carbon Dioxide 27 BUN 15 Creatinine 0.75 Glucose 146 H Calcium 9.1 Cardiac Enzymes 07/18/16 07/19/16 Range/Units 20:55 02:50 Troponin I 2.52 H* 1.31 H* (0-0.03) ng/mL - ABG Interpretation ABG results: PT/INR, D-dimer PT 14.4 Seconds (9.4-12.1) H 07/15/16 04:45 - VTE Documentation of Mechanical Device: Intermittent pneumatic compression device Consult Discharge Plan - Plan Referrals: [facility] [Primary Care Provider] -
--- NOTE | 2016-07-20 01:15 | Event Note ---
Date of Encounter: 07/20/16 Time of Encounter: 01:13 I was paged by nursing staff due to elevated heart rate. Patient has a history of atrial fibrillation with rapid ventricular response and earlier in the evening her heart rate had been under good control in normal sinus rhythm however she converted to atrial fibrillation with a rate in the 130s to 150s. Patient was examined and appeared to be in no acute distress. Blood pressure is stable. Patient is receiving Lopressor IV every 6 hours and had previously been on a Cardizem drip. Given that the patient is unable to take oral medication we will restart the Cardizem drip.
[2016-07-20] MEDS: Ondansetron 4 MG/2 ML VIAL IVP PRN ×4 (01:40→18:33)
[2016-07-20] MEDS: *HR* Promethazine 25 MG/ML VIAL IVP PRN ×2 (02:22→15:25)
[2016-07-20] MEDS: *HR* HYDROmorphone (PF) 1 MG/ML SYRINGE IVP PRN ×2 (04:02→18:04)
[2016-07-20 05:01] LABS: Basophils % 0.2 %; Eosinophils % 0.2 %; Hematocrit 26.8 % (35.3-44.9); Hemoglobin 8.1 g/dL (11.5-15.4); Immature Granulocytes % 0.9 % (0-4); Lymphocytes # 2.1 K/mcL (0.6-4.6); Lymphocytes % 15.9 %; Mean Corpuscular HGB Conc 30.2 g/dL (31.6-35.5); Mean Corpuscular Hemoglobin 22.2 pg (28.0-33.3); Mean Corpuscular Volume 73.4 fL (83.0-100.0); Mean Platelet Volume 9.9 fL (9.4-12.4); Monocytes # 0.8 K/mcL (0.0-1.3); Monocytes % 6.4 %; Neutrophils # 10.1 K/mcL (1.6-8.9); Platelet Count 296 K/mcL (140-400); Red Blood Count 3.65 M/mcL (3.82-4.97); Red Cell Distribution Width 21.3 % (11.5-14.5); Segmented Neutrophils % 76.4 %
[2016-07-20] MEDS ORDERED: *HR* LORazepam 2 MG/ML VIAL IVP ONE (05:02)
[2016-07-20 05:20] LABS: Alanine Aminotransferase 11 Units/L (0-55); Albumin 2.8 g/dL (3.5-5.0); Albumin/Globulin Ratio 0.7 (1.1-2.2); Alkaline Phosphatase 61 Units/L (38-126); Aspartate Amino Transferase 21 Units/L (5-34); BUN/Creatinine Ratio 26 (6-26); Bilirubin,Total 1.1 mg/dL (0.2-1.2); Blood Urea Nitrogen 22 mg/dL (7-20); Calcium 9.1 mg/dL (8.6-10.8); Carbon Dioxide 23 mEq/L (19-29); Chloride 109 mEq/L (98-109); Globulin 3.9 g/dL (2.4-3.5); Glucose 174 mg/dL (70-99); Osmolality,Calculated 306 (280-300); Potassium 3.6 mEq/L (3.5-4.5); Sodium 144 mEq/L (136-145); Total Protein 6.7 g/dL (6.0-8.3); eGFR For African Americans > 60 (> 60); eGFR For Non-African Americans > 60 (> 60)
[2016-07-20 05:25] LABS: BUN/Creatinine Ratio 25 (6-26); Blood Urea Nitrogen 21 mg/dL (7-20); Calcium 9.1 mg/dL (8.6-10.8); Carbon Dioxide 24 mEq/L (19-29); Chloride 108 mEq/L (98-109); Glucose 176 mg/dL (70-99); Osmolality,Calculated 303 (280-300); Potassium 3.3 mEq/L (3.5-4.5); Sodium 143 mEq/L (136-145); eGFR For African Americans > 60 (> 60); eGFR For Non-African Americans > 60 (> 60)
--- NOTE | 2016-07-20 05:27 | Event Note ---
Date of Encounter: 07/20/16 Time of Encounter: 05:21 I was paged to the bedside by nursing staff due to patient complaining of nausea and arm pain. Patient had been given zofran and phenegren as well as dilaudid with no relief. EKG performed showed ST depression in leads V3, V4, V5 which is new. Patient had just converted from Afib with RVR so this could possibly be rate related. We will cycle troponins, give ativan for anticipatory nausea, and nitro for chest pain.
[2016-07-20] MEDS: Nitroglycerin 0.4 MG TAB.SUBL SL PRN (05:29)
[2016-07-20] MEDS: Pantoprazole 40 MG VIAL IVP SCH ×2 (09:05→18:13)
[2016-07-20] MEDS: Insulin LISPRO 300 UNITS/3 ML VIAL SQ SCH ×5 (09:05→22:12)
[2016-07-20] MEDS: *HR* Dabigatran 150 MG CAPSULE PO SCH ×2 (09:05→22:10)
[2016-07-20] MEDS: *HR* Metoprolol 5 MG/5 ML VIAL IVP SCH ×4 (09:05→23:51)
--- NOTE | 2016-07-20 09:48 | General Surgery Progress Note ---
Date of Encounter: 07/21/16 Time of Encounter: 09:00 - Assessment and Plan (1) Cecum mass Current Visit: Yes Status: Acute POD # 4 Laparoscopic right colectomy with Dr. Faulkner Continue with bowel rest while awaiting return of bowel function Acute Abdominal Series today IV fluids- 50ml/hour Consider TPN for nutritional support while awaiting return of bowel function Supportive care/pain control IS every 1 hour while awake Repeat am labs (2) GERD (gastroesophageal reflux disease) Current Visit: No Status: Chronic Increased PPI therapy to twice daily per hospitalist Qualifiers: Esophagitis presence: without esophagitis Qualified Code(s): K21.9 - Gastro -esophageal reflux disease without esophagitis (3) Hypertension Current Visit: No Status: Chronic Metoprolol IV scheduled Clonidine patch scheduled Hydralazine IV prn Managment per hospitalist service Qualifiers: Hypertension type: essential hypertension Qualified Code(s): I10 - Essential (primary) hypertension (4) Atrial fibrillation with RVR Current Visit: No Status: Acute Currently on cardizem gtt with HR in low 100's Currently on Pradaxa Management per hospitalist and cardiology (5) Chronic diastolic CHF (congestive heart failure) Current Visit: No Status: Chronic (6) CAD (coronary artery disease) Current Visit: No Status: Chronic Qualifiers: Coronary Disease-Associated Artery/Lesion type: [place] artery [place] vs. 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 Code(s): J43.2 - Centrilobular emphysema (8) CVA (cerebral vascular accident) Current Visit: Yes Status: Acute Management per medicine service Qualifiers: CVA mechanism: embolism Precerebral and cerebral artery: middle cerebral artery Laterality of affected vessel: right Qualified Code(s): I63.411 - Cerebral infarction due to embolism of right middle cerebral artery (9) DVT prophylaxis Current Visit: Yes Status: Acute Patient on Pradaxa (10) DM type 2 (diabetes mellitus, type 2) Current Visit: No Status: Chronic Patient with low sliding scale insulin coverage Will change to every 4 hours while NPO Continue to monitor and adjust as necessary Qualifiers: Diabetes mellitus complication status: with circulatory complication Diabetes mellitus complication detail: with other circulatory complications Diabetes mellitus longterm insulin use: with long term care administrator use Qualified Code(s) : E11.59 - Type 2 diabetes mellitus with other circulatory complications; Z79.4 - prison (current) use of insulin Subjective Patient reports: still having pain, voiding w/o difficulty, no flatus, no bowel movement, nausea (and poor appetite), vomiting (small amount of emesis noted 07/19 ), afebrile, other (Patient with complaints of chest discomfort and reflux. Events noted from last night- Atrial Fibrillation with RVR and restarted on cardizem gtt.) Objective Vital Signs - Last 8 Hours Temp Pulse Resp BP Pulse Ox 07/20/16 07:27 97.4 F L 97 18 161/66 99 07/20/16 04:18 97.9 F 95 18 159/72 94 07/20/16 02:17 168 149/99 Intake and Output 07/19/16 07/20/16 07/20/16 23:59 07:59 15:59 Intake Total 50 / 50 Output Total 100 / 100 Balance -100 / -100 50 / 50 Intake: IV Fluids 50 / 50 Cardizem 125 MG In 50 / 50 Dextrose 5% 100 ML @ 5 MG /HR 5 mls/hr IVC .Q24H MISAEL Rx#:[id number] Output: Urine 100 / 100 Other: Meal NPO at this time # Voids 1 # Urine Diapers 1 Weight 50.1 kg Blood Glucose* 150 150 Patient Weight 07/20/16 23:59 Weight 50.1 kg - General physical appearance well developed, moderate distress, moderate pain - Eyes normal ocular movement - ENT dry mucosa, atraumatic, normocephalic - Neck Neck exam: trachea midline - Respiratory normal respiratory effort, clear to auscultation, other (diminished bibasilar bases) - Cardiovascular Cardiovascular exam: Present: irregular rhythm (Atrial fibrillation with elevated HR) - Abdomen Abdomen: Present: soft, tender (Expected post-operative tenderness noted) - Incision Incision: Present: clean and dry, intact - Neurologic CN 2-12 grossly intact - Musculoskeletal other (deconditioning noted) - Psychiatric oriented to time, oriented to person, oriented to place, speech is normal, memory intact, other (patient appear anxious) - Labs 07/21/16 03:15 07/21/16 03:15 Diabetes panel 07/20/16 07/20/16 Range/Units 04:10 04:10 Sodium 143 144 (136-145) mEq/L Potassium 3.3 L 3.6 (3.5-4.5) mEq/L Chloride 108 109 (98-109) mEq/L Carbon Dioxide 24 23 (19-29) mEq/L BUN 21 H 22 H (7-20) mg/dL Creatinine 0.84 0.84 (0.57-1.11) mg/dL Glucose 176 H 174 H (70-99) mg/dL Calcium 9.1 9.1 (8.6-10.8) mg/dL AST 21 (5-34) Units/L ALT 11 (0-55) Units/L Alkaline Phosphatase 61 (38-126) Units/L Albumin 2.8 L (3.5-5.0) g/dL Calcium panel 07/20/16 07/20/16 Range/Units 04:10 04:10 Calcium 9.1 9.1 (8.6-10.8) mg/dL Albumin 2.8 L (3.5-5.0) g/dL Pituitary panel 07/20/16 07/20/16 Range/Units 04:10 04:10 Sodium 143 144 (136-145) mEq/L Potassium 3.3 L 3.6 (3.5-4.5) mEq/L Chloride 108 109 (98-109) mEq/L Carbon Dioxide 24 23 (19-29) mEq/L BUN 21 H 22 H (7-20) mg/dL Creatinine 0.84 0.84 (0.57-1.11) mg/dL Glucose 176 H 174 H (70-99) mg/dL Calcium 9.1 9.1 (8.6-10.8) mg/dL Adrenal panel 07/20/16 07/20/16 Range/Units 04:10 04:10 Sodium 143 144 (136-145) mEq/L Potassium 3.3 L 3.6 (3.5-4.5) mEq/L Chloride 108 109 (98-109) mEq/L Carbon Dioxide 24 23 (19-29) mEq/L BUN 21 H 22 H (7-20) mg/dL Creatinine 0.84 0.84 (0.57-1.11) mg/dL Glucose 176 H 174 H (70-99) mg/dL Calcium 9.1 9.1 (8.6-10.8) mg/dL Total Bilirubin 1.1 (0.2-1.2) mg/dL AST 21 (5-34) Units/L ALT 11 (0-55) Units/L Alkaline Phosphatase 61 (38-126) Units/L Albumin 2.8 L (3.5-5.0) g/dL - VTE Documentation of Mechanical Device: Intermittent pneumatic compression device Consult Discharge Plan - Plan Referrals: [facility]P [Primary Care Provider] - - Attending Attestation I examined this patient and my medical decision-making was reviewed with the BATTERY RECHARGER/PA/Advanced Practice Nurse/Resident Physician. I agree with the documented findings, disposition and treatment plan as described except to the extent set forth below. I reviewed the above with the nurse practitioner present and agree with the assessment and plan.
[2016-07-20] MEDS: *HR* Morphine 2 MG/ML SYRINGE IVP PRN (11:16)
[2016-07-20] MEDS: 0.9 % Sodium Chloride 1,000 ML IVC SCH (11:17)
--- NOTE | 2016-07-20 11:34 | Event Note ---
Date of Encounter: 07/20/16 Time of Encounter: 09:15 - Cardiology Event Note Laboratory Tests 07/08/16 07/08/16 07/18/16 07:39 16:27 08:18 Troponin I 0.00 0.00 0.01 07/18/16 07/19/16 07/20/16 20:55 02:50 04:10 Troponin I 2.52 H* 1.31 H* 0.96 H* Initial troponins is noted to be negative 3. Subsequent troponins 2.52, 1.31, 0.96. Patient reports persistent bilateral arm pain. She denies any chest pain. Patient's reviewed and discussed with Dr. Daniel Ruiz with recommendations for medical management. In setting of acute CVA no further ischemic evaluation warranted to this time. Non-STEMI versus demand ischemia. No cardiac rehabilitation warranted at this juncture. I lengthy discussion with patient regarding test results at this point she is agreeable to medical management. Recommend addition of by mouth long-acting nitrate when able to take pills. Cardiology has signed off with pending follow-up scheduled. Further evaluation in outpatient setting. Please re-consult as needed. All questions answered.
[2016-07-20] MEDS ORDERED: Lidocaine -MPF 1% 5 ML AMPUL INFILT ONE (11:47)
[2016-07-20] MEDS ORDERED: D10% in Water 500 ML IVC PRN (12:05)
[2016-07-20 12:55] LABS: Magnesium 1.8 mg/dL (1.6-2.6); Phosphorous 2.4 mg/dL (2.3-4.7)
[2016-07-20] MEDS ORDERED: Nitroglycerin 0.2 MG PATCH.TD24 TD SCH (13:44)
[2016-07-20] MEDS ORDERED: CloNIDine Patch 0.3 MG PATCH (WEEKLY) TD SCH (13:45)
[2016-07-20] MEDS: Metoclopramide 10 MG/2 ML VIAL IVP SCH ×3 (13:45→23:52)
[2016-07-20] MEDS ORDERED: Clinimix E 5%-15% SOLUTION 2,000 ML with MVI, adult with vitamin K 10 ML IVC SCH (17:00)
--- NOTE | 2016-07-20 17:03 | Electrocardiograph Report ---
[address] [place], [place] [address] Test Date: 2016-07-20 Pat Name: Catie Barfield Department: 111 Room: 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
--- NOTE | 2016-07-20 17:07 | Electrocardiograph Report ---
[address] [place], [place] [address] Test Date: 2016-07-20 Pat Name: Catie Barfield Department: 111 Room: [facility] Gender: F Preservationist: : 1925 Requested By: Raghu Zelaya Order Number: [id number] Reading MD: Mora Ruiz Measurements Intervals [place] Rate: 97 P: 219 CT: 217 QRS: 45 QRSD: 89 T: 49 QT: 361 QTc: 415 Interpretive Statements SINUS RHYTHM [address] DEPRESSION, CONSIDER SUBENDOCARDIAL INJURY Electronically Signed On 07-20-2016 17:05:48 EDT by Mora Ruiz
--- NOTE | 2016-07-20 19:31 | Internal Med Progress Note ---
Date of Encounter: 07/20/16 Time of Encounter: 09:15 - Assessment and plan (1) Paroxysmal atrial fibrillation Current Visit: Yes Status: Acute Assessment and plan: Currently on Cardizem drip. Will continue this as she is not taking PO at this time. (2) Adynamic ileus Current Visit: Yes Status: Acute Assessment and plan: Pt now on TPN. Reglan started. Continue supportive care. 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 Had post op ileus at this time. Continue supportive care. TPN started. (4) Renovascular hypertension Current Visit: No Status: Chronic Assessment and plan: Continue current meds and PRN management. (5) COPD (chronic obstructive pulmonary disease) Current Visit: No Status: Acute Assessment and plan: Continue current respiratory care. Qualifiers: COPD type: emphysema Emphysema type: centrilobular Qualified Code(s): J43.2 - Centrilobular emphysema (6) CVA (cerebral vascular accident) Current Visit: Yes Status: Acute Assessment and plan: Per neurology, cause is likely embolic or thromboembolic Continue medical and supportive care -Pradaxa and aspirin -Physical therapy -risk factor modification Pt currently refusing meds due to nausea. Qualifiers: CVA mechanism: embolism Precerebral and cerebral artery: middle cerebral artery Laterality of affected vessel: right Qualified Code(s): I63.411 - Cerebral infarction due to embolism of right middle cerebral artery (7) Anemia Current Visit: Yes Status: Acute Assessment and plan: Related to chronic blood loss. Qualifiers: Anemia type: iron deficiency Iron deficiency anemia type: chronic blood loss Qualified Code(s): D50.0 - Iron deficiency anemia secondary to blood loss (chronic) (8) Tobacco abuse Current Visit: Yes Status: Acute Assessment and plan: Cessation counselling. (9) On total parenteral nutrition (TPN) Current Visit: Yes Status: Acute Assessment and plan: TPN started today - Subjective Interval history: Ms. Barfield is currently admitted for acute CVA with subsequent finding of cecal mass s/p resection. She is high risk today due to need for nutritional intervention and ileus. Ms. Barfield is having continued nausea and will not take her meds. She does not know if she had a BM. Had episode of CP and rapid a fib last night and continues on Cardizem drip. No fever or chills. Feels hungry and feels like she has heartburn from not eating. - Constitutional Vitals: Temp Pulse Resp BP Pulse Ox 98.2 F 135 19 157/73 93 07/20/16 18:32 07/20/16 18:32 07/20/16 18:32 07/20/16 18:32 07/20/16 18:32 General appearance: Present: mild distress, A&O X 3, answers questions appropriately - Head Head exam: Present: normocephalic - Eye Eye exam: Present: conjuntiva pink - ENT ENT exam: Present: mucous membranes dry - Respiratory Respiratory exam: Present: decreased breath sounds, CTAB. Absent: rhonchi, wheezes - Cardiovascular Cardiovascular exam: Present: irregular rhythm. Absent: systolic murmur, tachycardia - GI/Abdominal GI/Abdominal exam: Present: hypoactive bowel sounds, soft Additional comments: R renal bruit heard. - Extremities Exam Extremities exam: Present: warm. Absent: pedal edema - Neurological Exam Neurological exam: Present: alert, oriented X3 - Psychiatric Psychiatric exam: Present: normal affect, normal mood - Skin Skin exam: Present: warm. Absent: rash Internal Medicine: Result - Labs CBC & Chem 7: 07/20/16 04:10 07/20/16 04:10 Labs: Short CBC 07/20/16 Range/Units 04:10 WBC 13.2 H (4.3-11.1) K/mcL Hgb 8.1 L (11.5-15.4) g/dL Hct 26.8 L (35.3-44.9) % Plt Count 296 (140-400) K/mcL Neutrophils # 10.1 H (1.6-8.9) K/mcL BMP 07/20/16 07/20/16 04:10 04:10 Sodium 143 144 Potassium 3.3 L 3.6 Chloride 108 109 Carbon Dioxide 24 23 BUN 21 H 22 H Creatinine 0.84 0.84 Glucose 176 H 174 H Calcium 9.1 9.1 Cardiac Enzymes 07/20/16 07/20/16 Range/Units 04:10 16:03 Troponin I 0.96 H* 1.03 H* (0-0.03) ng/mL Liver Function 07/20/16 Range/Units 04:10 Total Bilirubin 1.1 (0.2-1.2) mg/dL AST 21 (5-34) Units/L ALT 11 (0-55) Units/L Alkaline Phosphatase 61 (38-126) Units/L Albumin 2.8 L (3.5-5.0) g/dL - ABG Interpretation ABG results: PT/INR, D-dimer PT 14.4 Seconds (9.4-12.1) H 07/15/16 04:45 - Impressions Impressions Chest/Abdomen X-ray 07/20/16 09:27 IMPRESSION: 1. Slightly increased interstitial markings bilaterally suggestive of mild interstitial edema with small right pleural effusion. 2. No free air. 3. Mildly dilated loop of small bowel in the left lower quadrant which is nonspecific and likely related to postoperative ileus. D/ / 07/20/2016 10:41:12 Nguyen Breaux MD / alex Interpreting Provider: Nguyen Breaux MD - VTE Documentation of Mechanical Device: Intermittent pneumatic compression device Consult Discharge Plan - Plan [facility]errals: [facility] [Primary Care Provider] -
[2016-07-20] MEDS ORDERED: *HR* Metoprolol 5 MG/5 ML VIAL IVP ONE (20:09)
[2016-07-20] MEDS ORDERED: *HR* Digoxin 0.5 MG/2 ML AMPUL IVP ONE (20:10)
[2016-07-21] MEDS: *HR* Promethazine 25 MG/ML VIAL IVP PRN ×2 (00:02→05:39)
[2016-07-21] MEDS: *HR* Morphine 2 MG/ML SYRINGE IVP PRN ×5 (00:03→12:19)
[2016-07-21] MEDS: *HR* Digoxin 0.5 MG/2 ML AMPUL IVP SCH ×2 (02:54→13:28)
[2016-07-21] MEDS: Ondansetron 4 MG/2 ML VIAL IVP PRN ×3 (03:21→20:57)
[2016-07-21] MEDS: Insulin LISPRO 300 UNITS/3 ML VIAL SQ SCH ×6 (03:30→20:58)
[2016-07-21 03:50] LABS: Basophils % 0.2 %; Eosinophils # 0.1 K/mcL (0.0-0.6); Hematocrit 24.9 % (35.3-44.9); Hemoglobin 7.4 g/dL (11.5-15.4); Immature Granulocytes % 0.5 % (0-4); Lymphocytes # 2.7 K/mcL (0.6-4.6); Lymphocytes % 23.6 %; Mean Corpuscular HGB Conc 29.7 g/dL (31.6-35.5); Mean Corpuscular Volume 74.1 fL (83.0-100.0); Mean Platelet Volume 9.6 fL (9.4-12.4); Monocytes % 9.1 %; Neutrophils # 7.6 K/mcL (1.6-8.9); Platelet Count 271 K/mcL (140-400); Red Blood Count 3.36 M/mcL (3.82-4.97); Red Cell Distribution Width 21.3 % (11.5-14.5); Segmented Neutrophils % 65.6 %
[2016-07-21 04:04] LABS: BUN/Creatinine Ratio 30 (6-26); Blood Urea Nitrogen 24 mg/dL (7-20); Calcium 8.8 mg/dL (8.6-10.8); Carbon Dioxide 26 mEq/L (19-29); Chloride 113 mEq/L (98-109); Glucose 157 mg/dL (70-99); Magnesium 1.7 mg/dL (1.6-2.6); Osmolality,Calculated 311 (280-300); Phosphorous 1.6 mg/dL (2.3-4.7); Potassium 3.2 mEq/L (3.5-4.5); Sodium 147 mEq/L (136-145); eGFR For African Americans > 60 (> 60); eGFR For Non-African Americans > 60 (> 60)
[2016-07-21] MEDS: *HR* Metoprolol 5 MG/5 ML VIAL IVP SCH ×3 (05:36→16:39)
[2016-07-21] MEDS: Pantoprazole 40 MG VIAL IVP SCH ×2 (05:38→16:39)
[2016-07-21] MEDS: Metoclopramide 10 MG/2 ML VIAL IVP SCH ×3 (05:38→16:39)
--- NOTE | 2016-07-21 07:59 | General Surgery Progress Note ---
Date of Encounter: 07/22/16 Time of Encounter: 07:57 - Assessment and Plan (1) Cecum mass Current Visit: Yes Status: Acute POD #5 Laparoscopic right colectomy with Dr. Faulkner She had an episode of AFIB RVR yesterday evening and is now rate controlled. Bowel sounds are present, no BM yet but patient states she is passing gas. She states she had nausea last night and this morning, but is asking about eating. She is able to tolerate ice chips. She notes nausea and She has diffuse mild abdominal tenderness. Plan: Continue with bowel rest while awaiting return of bowel function IV fluids- 50ml/hour Consider TPN for nutritional support while awaiting return of bowel function Supportive care/pain control IS every 1 hour while awake Repeat am labs (2) GERD (gastroesophageal reflux disease) Current Visit: No Status: Chronic Continue BID PPI therapy Qualifiers: Esophagitis presence: without esophagitis Qualified Code(s): K21.9 - Gastro -esophageal reflux disease without esophagitis (3) Hypertension Current Visit: No Status: Chronic Continue metoprolol, clonidine patch, hyralazine prn; Management per hospitalist service Qualifiers: Hypertension type: essential hypertension Qualified Code(s): I10 - Essential (primary) hypertension (4) Atrial fibrillation with RVR Current Visit: No Status: Acute Patient on cardizem drip, currently rate controlled Management per hospitalist service and cardiology (5) Chronic diastolic CHF (congestive heart failure) Current Visit: No Status: Chronic (6) CAD (coronary artery disease) Current Visit: No Status: Chronic Qualifiers: Coronary Disease-Associated Artery/Lesion type: [place] artery [place] vs. transplanted heart: [place] heart Associated angina: angina presence unspecified Qualified Code(s): I25.10 - Atherosclerotic heart disease of [place] coronary artery without angina pectoris (7) COPD (chronic obstructive pulmonary disease) Current Visit: No Status: Acute Continue Aerosols prn IS every 1 hour while awake Management per medicine service Qualifiers: COPD type: emphysema Emphysema type: centrilobular Qualified Code(s): J43.2 - Centrilobular emphysema (8) CVA (cerebral vascular accident) Current Visit: Yes Status: Acute Management per hospitalist service Qualifiers: CVA mechanism: embolism Precerebral and cerebral artery: middle cerebral artery Laterality of affected vessel: right Qualified Code(s): I63.411 - Cerebral infarction due to embolism of right middle cerebral artery (9) DVT prophylaxis Current Visit: Yes Status: Acute Patient is on pradaxa Subjective Patient reports: still having pain, flatus, no bowel movement, nausea Narrative: Patient seen and examined. She states that she was sick to her stomach last night and this morning, but is asking about when she can eat. She is tolerating ice chips. She states that she is passing gas, but has not had a BM. She has mild abdominal pain, but states that she has extreme pain in her legs and thinks her pain stimulator has stopped working. She did have an episode of Afib RVR yesterday evening while on cardizem drip. Rate is controlled currently. Objective Vital Signs - Last 8 Hours Pulse Resp BP Pulse Ox 07/21/16 05:35 88 185/82 07/21/16 03:00 94 18 169/85 94 Intake and Output 07/20/16 07/20/16 07/21/16 15:59 23:59 07:59 Intake Total 1000 / 1000 25 / 25 50 / 50 Balance 1000 / 1000 25 / 25 50 / 50 Intake: IV Fluids 1000 / 1000 25 / 25 50 / 50 0.9 % Sodium Chloride 1, 1000 / 1000 000 ML @ 50 mls/hr IVC . Q20H [facility] Rx#:[id number] Cardizem 125 MG In 25 / 25 50 / 50 Dextrose 5% 100 ML @ 5 MG /HR 5 mls/hr IVC .Q24H [facility] Rx#:[id number] Other: Meal NPO at this time NPO at this time # Voids 1 2 Weight 50.1 kg Blood Glucose* 159 183 Patient Weight 07/21/16 23:59 Weight 50.1 kg - General physical appearance well developed, moderate distress, moderate pain - ENT dry mucosa, atraumatic, normocephalic - Neck Neck exam: no masses, trachea midline - Respiratory normal expansion, normal respiratory effort, clear to percussion, clear to auscultation - Cardiovascular Cardiovascular exam: Present: RRR, murmurs - Abdomen Abdomen: Present: bowel sounds present, soft, tender (mild) Abdominal Tenderness: diffusely - Incision Incision: Present: clean and dry - Psychiatric oriented to time, oriented to person, oriented to place, speech is normal, memory intact - Labs 07/21/16 03:15 07/22/16 05:20 Diabetes panel 07/21/16 07/21/16 Range/Units 03:15 03:15 Sodium 147 H (136-145) mEq/L Potassium 3.2 L (3.5-4.5) mEq/L Chloride 113 H (98-109) mEq/L Carbon Dioxide 26 (19-29) mEq/L BUN 24 H (7-20) mg/dL Creatinine 0.79 (0.57-1.11) mg/dL Glucose 157 H (70-99) mg/dL Calcium 8.8 (8.6-10.8) mg/dL Triglycerides 148 (< 150) mg/dL Calcium panel 07/20/16 07/21/16 07/21/16 Range/Units 12:11 03:15 03:15 Calcium 8.8 (8.6-10.8) mg/dL Phosphorus 2.4 1.6 L (2.3-4.7) mg/dL Pituitary panel 07/21/16 Range/Units 03:15 Sodium 147 H (136-145) mEq/L Potassium 3.2 L (3.5-4.5) mEq/L Chloride 113 H (98-109) mEq/L Carbon Dioxide 26 (19-29) mEq/L BUN 24 H (7-20) mg/dL Creatinine 0.79 (0.57-1.11) mg/dL Glucose 157 H (70-99) mg/dL Calcium 8.8 (8.6-10.8) mg/dL Adrenal panel 07/21/16 Range/Units 03:15 Sodium 147 H (136-145) mEq/L Potassium 3.2 L (3.5-4.5) mEq/L Chloride 113 H (98-109) mEq/L Carbon Dioxide 26 (19-29) mEq/L BUN 24 H (7-20) mg/dL Creatinine 0.79 (0.57-1.11) mg/dL Glucose 157 H (70-99) mg/dL Calcium 8.8 (8.6-10.8) mg/dL - VTE Documentation of Mechanical Device: Intermittent pneumatic compression device Consult Discharge Plan - Plan [facility]errals: [facility] [Primary Care Provider] - - Attending Attestation I examined this patient and my medical decision-making was reviewed with the LIFE SCIENCE TECHNICIAN/PA/Advanced Practice Nurse/Resident Physician. I agree with the documented findings, disposition and treatment plan as described except to the extent set forth below. Noted abdominal distension with positive bowel sounds. Mild pain. Positive flatus and noted BMs. Patient has positive appetite. Will start clears; continue with TPN for now.
[2016-07-21] MEDS: *HR* Dabigatran 150 MG CAPSULE PO SCH ×3 (09:32→20:40)
[2016-07-21] MEDS: 0.9 % Sodium Chloride 1,000 ML IVC SCH (09:32)
[2016-07-21] MEDS ORDERED: 0.9 % Sodium Chloride 250 ML IVC SCH (10:15)
[2016-07-21] MEDS: Furosemide 20 MG/2 ML VIAL IVP ONE (12:19)
[2016-07-21] MEDS ORDERED: Clinimix E 5%-15% SOLUTION 2,000 ML with MVI, adult with vitamin K 10 ML IVC SCH (17:00)
--- NOTE | 2016-07-21 19:33 | Internal Med Progress Note ---
Date of Encounter: 07/21/16 Time of Encounter: 10:15 - Assessment and plan (1) Anemia Current Visit: Yes Status: Acute Assessment and plan: H/H lower today. No new acute bleeding noted. Transfuse 2 units PRBCs today. Qualifiers: Anemia type: iron deficiency Iron deficiency anemia type: chronic blood loss Qualified Code(s): D50.0 - Iron deficiency anemia secondary to blood loss (chronic) (2) Paroxysmal atrial fibrillation Current Visit: Yes Status: Acute Assessment and plan: Currently on Cardizem drip. Digoxin added. PRN Lopressor as well. Not taking PO meds at this time. (3) Adynamic ileus Current Visit: Yes Status: Acute Assessment and plan: Persists. Remains on TPN. (4) Cecum mass Current Visit: Yes Status: Acute Assessment and plan: S/P resection. Ileus persists. (5) Renovascular hypertension Current Visit: No Status: Chronic Assessment and plan: Continue current meds and PRN management. BP has been up and down. (6) COPD (chronic obstructive pulmonary disease) Current Visit: No Status: Acute Assessment and plan: Continue current respiratory care. Qualifiers: COPD type: emphysema Emphysema type: centrilobular Qualified Code(s): J43.2 - Centrilobular emphysema (7) CVA (cerebral vascular accident) Current Visit: Yes Status: Acute Assessment and plan: Per neurology, cause is likely embolic or thromboembolic Continue medical and supportive care -Pradaxa and aspirin -Physical therapy -risk factor modification Pt currently refusing meds due to nausea. Qualifiers: CVA mechanism: embolism Precerebral and cerebral artery: middle cerebral artery Laterality of affected vessel: right Qualified Code(s): I63.411 - Cerebral infarction due to embolism of right middle cerebral artery (8) Tobacco abuse Current Visit: Yes Status: Acute Assessment and plan: Cessation counselling. (9) On total parenteral nutrition (TPN) Current Visit: Yes Status: Acute Assessment and plan: TPN per emergency planner - Subjective Interval history: Ms. Barfield is currently admitted for acute CVA with subsequent finding of cecal mass s/p resection. She is high risk today due to need for nutritional intervention and ileus. Ms. Barfield has not had BM. She is passing gas. Her hemoglobin is lower today. No obvious bleeding noted. No fever or chills. Had issues with rapid a fib last night - responded to digoxin. No CP or SOB. Hungry. - Constitutional Vitals: Temp Pulse Resp BP Pulse Ox 98.8 F 108 17 156/96 94 07/21/16 16:41 07/21/16 16:41 07/21/16 16:41 07/21/16 16:41 07/21/16 16:41 General appearance: Present: A&O X 3, answers questions appropriately - Head Head exam: Present: normocephalic - Eye Eye exam: Present: conjuntiva pink, sclera anicteric - ENT ENT exam: Present: mucous membranes dry - Respiratory Respiratory exam: Present: decreased breath sounds, CTAB. Absent: rales, wheezes - Cardiovascular Cardiovascular exam: Present: irregular rhythm, tachycardia - GI/Abdominal GI/Abdominal exam: Present: distended, hypoactive bowel sounds, soft. Absent: tenderness - Extremities Exam Extremities exam: Present: pedal edema, warm - Neurological Exam Neurological exam: Present: alert, oriented X3 - Skin Skin exam: Present: warm. Absent: rash Internal Medicine: Result - Labs CBC & Chem 7: 07/21/16 03:15 07/21/16 03:15 Labs: Short CBC 07/21/16 Range/Units 03:15 WBC 11.5 H (4.3-11.1) K/mcL Hgb 7.4 L (11.5-15.4) g/dL Hct 24.9 L (35.3-44.9) % Plt Count 271 (140-400) K/mcL Neutrophils # 7.6 (1.6-8.9) K/mcL BMP 07/21/16 03:15 Sodium 147 H Potassium 3.2 L Chloride 113 H Carbon Dioxide 26 BUN 24 H Creatinine 0.79 Glucose 157 H Calcium 8.8 - ABG Interpretation ABG results: PT/INR, D-dimer PT 14.4 Seconds (9.4-12.1) H 07/15/16 04:45 - VTE Documentation of Mechanical Device: Intermittent pneumatic compression device Consult Discharge Plan - Plan Referrals: [facility] [Primary Care Provider] -
[2016-07-21] MEDS: *HR* HYDROmorphone (PF) 1 MG/ML SYRINGE IVP PRN (20:39)
[2016-07-21] MEDS ORDERED: 0.9 % Sodium Chloride 500 ML ONE (21:59)
[2016-07-22] MEDS: Insulin LISPRO 300 UNITS/3 ML VIAL SQ SCH ×6 (00:44→19:50)
[2016-07-22] MEDS: *HR* Metoprolol 5 MG/5 ML VIAL IVP SCH ×4 (00:51→16:46)
[2016-07-22] MEDS: Metoclopramide 10 MG/2 ML VIAL IVP SCH ×3 (00:51→12:04)
[2016-07-22] MEDS: Furosemide 20 MG/2 ML VIAL IVP ONE (00:54)
[2016-07-22] MEDS ORDERED: Furosemide 20 MG/2 ML VIAL IVP ONE (01:00)
[2016-07-22] MEDS ORDERED: 0.9 % Sodium Chloride 500 ML ONE (05:15)
[2016-07-22 05:49] LABS: Ionized Calcium 1.07 mmol/L (1.15-1.35)
[2016-07-22] MEDS: Pantoprazole 40 MG VIAL IVP SCH ×2 (05:54→16:46)
[2016-07-22 05:56] LABS: BUN/Creatinine Ratio 24 (6-26); Blood Urea Nitrogen 19 mg/dL (7-20); Calcium 8.4 mg/dL (8.6-10.8); Carbon Dioxide 31 mEq/L (19-29); Chloride 98 mEq/L (98-109); Glucose 193 mg/dL (70-99); Magnesium 1.3 mg/dL (1.6-2.6); Osmolality,Calculated 298 (280-300); Sodium 140 mEq/L (136-145); eGFR For African Americans > 60 (> 60); eGFR For Non-African Americans > 60 (> 60)
[2016-07-22 06:24] LABS: Potassium 2.4 mEq/L (3.5-4.5)
[2016-07-22] MEDS ORDERED: Magnesium Sulfate 4 GM in D5% in Water 100 ML IVPB ONE (06:33)
[2016-07-22] MEDS: *HR* Dabigatran 150 MG CAPSULE PO SCH ×2 (07:22→19:54)
[2016-07-22] MEDS: *HR* Promethazine 25 MG/ML VIAL IVP PRN (07:30)
[2016-07-22] MEDS: *HR* Morphine 2 MG/ML SYRINGE IVP PRN (07:30)
[2016-07-22] MEDS ORDERED: Potassium Chloride 40 MEQ, Lidocaine 1% 2 ML in D5% in Water 500 ML IVPB ONE (07:52)
--- NOTE | 2016-07-22 09:16 | General Surgery Progress Note ---
Date of Encounter: 07/22/16 Time of Encounter: 09:13 - Assessment and Plan (1) Cecum mass Current Visit: Yes Status: Acute POD #6 Laparoscopic right colectomy with Dr. Faulkner She is now rate controlled and Bowel sounds are present, no BM in the last 24hours, but patient states she is passing gas. She is able to tolerate clears, but still experiences nausea. Patient had 2 units PRBC yesterday after a drop in hemoglobin. Plan: Continue liquids as tolerated. In 24 hours will consider advancing to full liquid diet and can then back off of the TPN at that time. IV fluids- 50ml/hour Supportive care/pain control IS every 1 hour while awake Repeat am labs (2) Adynamic ileus Current Visit: Yes Status: Acute per above (3) GERD (gastroesophageal reflux disease) Current Visit: No Status: Chronic Continue BID PPI therapy Qualifiers: Esophagitis presence: without esophagitis Qualified Code(s): K21.9 - Gastro -esophageal reflux disease without esophagitis (4) Hypertension Current Visit: No Status: Chronic Continue metoprolol, clonidine patch, hyralazine prn; Management per hospitalist service Qualifiers: Hypertension type: essential hypertension Qualified Code(s): I10 - Essential (primary) hypertension (5) Atrial fibrillation with RVR Current Visit: No Status: Acute Patient is off cardizem drip, currently rate controlled Management per hospitalist service and cardiology (6) Chronic diastolic CHF (congestive heart failure) Current Visit: No Status: Chronic (7) CAD (coronary artery disease) Current Visit: No Status: Chronic Qualifiers: Coronary Disease-Associated Artery/Lesion type: [place] artery [place] vs. transplanted heart: [place] heart Associated angina: angina presence unspecified Qualified Code(s): I25.10 - Atherosclerotic heart disease of [place] coronary artery without angina pectoris (8) COPD (chronic obstructive pulmonary disease) Current Visit: No Status: Acute Continue Aerosols prn IS every 1 hour while awake Management per medicine service Qualifiers: COPD type: emphysema Emphysema type: centrilobular Qualified Code(s): J43.2 - Centrilobular emphysema (9) CVA (cerebral vascular accident) Current Visit: Yes Status: Acute Management per hospitalist service Qualifiers: CVA mechanism: embolism Precerebral and cerebral artery: middle cerebral artery Laterality of affected vessel: right Qualified Code(s): I63.411 - Cerebral infarction due to embolism of right middle cerebral artery (10) DVT prophylaxis Current Visit: Yes Status: Acute Patient is on pradaxa Subjective Patient reports: still having pain, no bowel movement, nausea Narrative: The patient was seen and examined. Per nursing staff patient has not had a bowel movement. She does state that she is passing gas. Patient remains on TPN. She has tolerated some liquids, but does still complain of nausea. Patient had 2 units PRBC yesterday after a drop in hemoglobin. Cardizem drip was stopped earlier this morning, rate is currently a stable in the 70s/80s. Objective Vital Signs - Last 8 Hours Temp Pulse Resp BP Pulse Ox 07/22/16 08:24 97.9 F 81 16 209/109 93 07/22/16 06:44 98.0 F 81 16 171/89 96 07/22/16 06:08 98.6 F 78 16 172/72 98 07/22/16 05:52 98.6 F 78 16 172/72 98 07/22/16 05:45 99.6 F 89 16 168/82 98 07/22/16 04:00 98.4 F 83 16 190/78 96 Intake and Output 07/21/16 07/22/16 07/22/16 23:59 07:59 15:59 Intake Total 160 / 160 380 / 380 300 / 300 Output Total 600 / 600 Balance -440 / -440 380 / 380 300 / 300 Intake: IV Fluids 40 / 40 0 / 0 Cardizem 125 MG In 40 / 40 0 / 0 Dextrose 5% 100 ML @ 5 MG /HR 5 mls/hr IVC .Q24H [facility] Rx#:[id number] Oral 120 / 120 100 / 100 Blood Product 0 / 0 280 / 280 300 / 300 Rbcs Leuko Poor As-1 0 / 0 280 / 280 Unit [id number] Rbcs Leuko Poor As-3 Ph 0 / 0 300 / 300 Unit [id number] Output: Urine 600 / 600 Other: # Voids 0 Weight 50 kg Blood Glucose* 88 151 Patient Weight 07/22/16 23:59 Weight 50 kg - General physical appearance moderate distress, moderate pain, chronically ill - ENT atraumatic, normocephalic - Neck Neck exam: no masses, trachea midline - Respiratory normal expansion, normal respiratory effort, clear to auscultation - Cardiovascular Cardiovascular exam: Present: RRR, murmurs - Abdomen Abdomen: Present: bowel sounds present, soft, non tender, distended - Incision Incision: Present: clean and dry - Integumentary no rash - Psychiatric oriented to time, oriented to person, oriented to place, speech is normal - Labs 07/21/16 03:15 07/22/16 05:20 Diabetes panel 07/22/16 Range/Units 05:20 Sodium 140 (136-145) mEq/L Potassium 2.4 L* (3.5-4.5) mEq/L Chloride 98 D (98-109) mEq/L Carbon Dioxide 31 H (19-29) mEq/L BUN 19 (7-20) mg/dL Creatinine 0.80 (0.57-1.11) mg/dL Glucose 193 H (70-99) mg/dL Calcium 8.4 L (8.6-10.8) mg/dL Calcium panel 07/22/16 Range/Units 05:20 Calcium 8.4 L (8.6-10.8) mg/dL Phosphorus 2.0 L (2.3-4.7) mg/dL Pituitary panel 07/22/16 Range/Units 05:20 Sodium 140 (136-145) mEq/L Potassium 2.4 L* (3.5-4.5) mEq/L Chloride 98 D (98-109) mEq/L Carbon Dioxide 31 H (19-29) mEq/L BUN 19 (7-20) mg/dL Creatinine 0.80 (0.57-1.11) mg/dL Glucose 193 H (70-99) mg/dL Calcium 8.4 L (8.6-10.8) mg/dL Adrenal panel 07/22/16 Range/Units 05:20 Sodium 140 (136-145) mEq/L Potassium 2.4 L* (3.5-4.5) mEq/L Chloride 98 D (98-109) mEq/L Carbon Dioxide 31 H (19-29) mEq/L BUN 19 (7-20) mg/dL Creatinine 0.80 (0.57-1.11) mg/dL Glucose 193 H (70-99) mg/dL Calcium 8.4 L (8.6-10.8) mg/dL - VTE Documentation of Mechanical Device: Intermittent pneumatic compression device Consult Discharge Plan - Plan Referrals: [facility] [Primary Care Provider] - - Attending Attestation I examined this patient and my medical decision-making was reviewed with the SOIL FERTILITY SPECIALIST/PA/Advanced Practice Nurse/Resident Physician. I agree with the documented findings, disposition and treatment plan as described except to the extent set forth below. Review the above assessment and physical examination. Patient currently states that she has no abdominal pain and has been having flatus. She denies any nausea and is able to tolerate liquids. She has positive bowel sounds examination and her incisions are clean dry and intact. I will go ahead and advance to full liquids today and monitor her by mouth intake.
[2016-07-22] MEDS: Magnesium Sulfate 2 GM in D5% in Water 100 ML IVPB SCH ×2 (09:17→10:44)
--- NOTE | 2016-07-22 12:59 | Internal Med Progress Note ---
Date of Encounter: 07/22/16 Time of Encounter: 09:00 - Assessment and plan (1) Hypokalemia Current Visit: Yes Status: Acute Assessment and plan: Replace today. (2) Hypomagnesemia Current Visit: Yes Status: Acute Assessment and plan: Replace today. (3) Hypophosphatemia Current Visit: Yes Status: Acute Assessment and plan: Replace today. (4) Anemia Current Visit: Yes Status: Acute Assessment and plan: Received 2 units PRBCS. Recheck H/H today. No obvious signs of bleeding. Qualifiers: Anemia type: iron deficiency Iron deficiency anemia type: chronic blood loss Qualified Code(s): D50.0 - Iron deficiency anemia secondary to blood loss (chronic) (5) Paroxysmal atrial fibrillation Current Visit: Yes Status: Acute Assessment and plan: Currently in NSR. (6) Adynamic ileus Current Visit: Yes Status: Acute Assessment and plan: Seems to be slowly improving. On full liquids now. TPN continues. (7) Cecum mass Current Visit: Yes Status: Acute Assessment and plan: S/P resection. 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 BP has been up and down. (9) COPD (chronic obstructive pulmonary disease) Current Visit: No Status: Acute Assessment and plan: Continue current respiratory care. Qualifiers: COPD type: emphysema Emphysema type: centrilobular Qualified Code(s): J43.2 - Centrilobular emphysema (10) CVA (cerebral vascular accident) Current Visit: Yes Status: Acute Assessment and plan: Per neurology, cause is likely embolic or thromboembolic Continue medical and supportive care -Pradaxa and aspirin -Physical therapy -risk factor modification Pt currently refusing meds due to nausea. Hopefully will be able to tolerate better now. Qualifiers: CVA mechanism: embolism Precerebral and cerebral artery: middle cerebral artery Laterality of affected vessel: right Qualified Code(s): I63.411 - Cerebral infarction due to embolism of right middle cerebral artery (11) On total parenteral nutrition (TPN) Current Visit: Yes Status: Acute Assessment and plan: TPN per evaluator (12) Tobacco abuse Current Visit: Yes Status: Acute Assessment and plan: Cessation counselling. - Subjective Interval history: Ms. Barfield is currently admitted for acute CVA with subsequent finding of cecal mass s/p resection. She is high risk today due to need for nutritional intervention and resolving ileus. Ms. Barfield is doing a little better today. She is currently on full liquid diet. Pain OK. Passing gas. Potassium low today. She has gotten up to chair as well. - Constitutional Vitals: Temp Pulse Resp BP Pulse Ox 97.2 F L 77 16 156/113 97 07/22/16 12:10 07/22/16 12:10 07/22/16 12:10 07/22/16 12:10 07/22/16 12:10 General appearance: Present: A&O X 3, answers questions appropriately - Head Head exam: Present: normocephalic - Eye Eye exam: Present: conjuntiva pink - ENT ENT exam: Present: mucous membranes dry - Respiratory Respiratory exam: Present: decreased breath sounds, CTAB. Absent: rales, rhonchi, wheezes - Cardiovascular Cardiovascular exam: Present: RRR. Absent: tachycardia - GI/Abdominal GI/Abdominal exam: Present: soft, tenderness (Minimal tenderness. ) Additional comments: Less distention today. - Extremities Exam Extremities exam: Present: warm. Absent: pedal edema, tenderness - Neurological Exam Neurological exam: Present: alert, oriented X3, facial droop - Skin Skin exam: Present: warm. Absent: rash Internal Medicine: Result - Labs CBC & Chem 7: 07/21/16 03:15 07/22/16 05:20 Labs: BMP 07/22/16 05:20 Sodium 140 Potassium 2.4 L* Chloride 98 D Carbon Dioxide 31 H BUN 19 Creatinine 0.80 Glucose 193 H Calcium 8.4 L - ABG Interpretation ABG results: PT/INR, D-dimer PT 14.4 Seconds (9.4-12.1) H 07/15/16 04:45 - VTE Documentation of Mechanical Device: Intermittent pneumatic compression device Consult Discharge Plan - Plan [facility]: [facility] Care Provider[facility] -
[2016-07-22 16:24] LABS: Hematocrit 34.1 % (35.3-44.9)
[2016-07-22 16:25] LABS: Hemoglobin 10.9 g/dL (11.5-15.4)
[2016-07-22] MEDS ORDERED: Clinimix E 5%-15% SOLUTION 2,000 ML with MVI, adult with vitamin K 10 ML IVC SCH (17:00)
[2016-07-22] MEDS: *HR* HYDROmorphone (PF) 1 MG/ML SYRINGE IVP PRN (19:44)
[2016-07-23] MEDS: *HR* Morphine 2 MG/ML SYRINGE IVP PRN ×5 (00:21→20:54)
[2016-07-23] MEDS: Ondansetron 4 MG/2 ML VIAL IVP PRN ×3 (00:21→19:28)
[2016-07-23] MEDS: *HR* Metoprolol 5 MG/5 ML VIAL IVP SCH ×5 (00:21→23:55)
[2016-07-23] MEDS: Insulin LISPRO 300 UNITS/3 ML VIAL SQ SCH ×7 (00:28→23:58)
[2016-07-23 04:52] LABS: Hematocrit 34.6 % (35.3-44.9); Mean Corpuscular HGB Conc 31.8 g/dL (31.6-35.5); Mean Corpuscular Hemoglobin 23.9 pg (28.0-33.3); Mean Corpuscular Volume 75.2 fL (83.0-100.0); Mean Platelet Volume 10.1 fL (9.4-12.4); Platelet Count 196 K/mcL (140-400); Red Cell Distribution Width 21.6 % (11.5-14.5)
[2016-07-23 05:14] LABS: BUN/Creatinine Ratio 28 (6-26); Blood Urea Nitrogen 19 mg/dL (7-20); Calcium 8.3 mg/dL (8.6-10.8); Carbon Dioxide 29 mEq/L (19-29); Chloride 98 mEq/L (98-109); Glucose 123 mg/dL (70-99); Magnesium 1.9 mg/dL (1.6-2.6); Osmolality,Calculated 286 (280-300); Phosphorous 2.6 mg/dL (2.3-4.7); Potassium 3.3 mEq/L (3.5-4.5); Sodium 136 mEq/L (136-145); eGFR For African Americans > 60 (> 60); eGFR For Non-African Americans > 60 (> 60)
[2016-07-23] MEDS: Pantoprazole 40 MG VIAL IVP SCH ×2 (05:25→17:30)
[2016-07-23] MEDS: *HR* Dabigatran 150 MG CAPSULE PO SCH ×2 (08:03→20:52)
[2016-07-23] MEDS: Metoprolol XL (24 HR) Succ 25 MG TAB.ER.24H PO SCH (08:59)
--- NOTE | 2016-07-23 10:14 | General Surgery Progress Note ---
Date of Encounter: 07/26/16 Time of Encounter: 10:12 - Assessment and Plan (1) Cecum mass Current Visit: Yes Status: Acute POD #7 Laparoscopic right colectomy with Dr. Faulkner Bowel sounds are present, no BM in the last 24hours, but patient states she is passing gas. She is able to tolerate a full liquid diet and has been on TPN. She has been up in the chair. Plan: Advance diet to soft mechanical IV fluids- 50ml/hour Supportive care/pain control IS every 1 hour while awake Repeat am labs (2) Adynamic ileus Current Visit: Yes Status: Resolved per above (3) GERD (gastroesophageal reflux disease) Current Visit: No Status: Chronic Continue BID PPI therapy Qualifiers: Esophagitis presence: without esophagitis Qualified Code(s): K21.9 - Gastro -esophageal reflux disease without esophagitis (4) Hypertension Current Visit: No Status: Chronic Management per hospitalist service Qualifiers: Hypertension type: essential hypertension Qualified Code(s): I10 - Essential (primary) hypertension (5) Atrial fibrillation with RVR Current Visit: No Status: Acute Management per hospitalist service and cardiology (6) Chronic diastolic CHF (congestive heart failure) Current Visit: No Status: Chronic (7) CAD (coronary artery disease) Current Visit: No Status: Chronic Qualifiers: Coronary Disease-Associated Artery/Lesion type: y[place]iatam artery Lime vs. transplanted heart: y[place]am heart Associated angina: angina presence unspecified Qualified Code(s): I25.10 - Atherosclerotic heart disease of [place] coronary artery without angina pectoris (8) COPD (chronic obstructive pulmonary disease) Current Visit: No Status: Acute Continue Aerosols prn IS every 1 hour while awake Management per medicine service Qualifiers: COPD type: emphysema Emphysema type: centrilobular Qualified Code(s): J43.2 - Centrilobular emphysema (9) CVA (cerebral vascular accident) Current Visit: Yes Status: Acute Management per hospitalist service Qualifiers: CVA mechanism: embolism Precerebral and cerebral artery: middle cerebral artery Laterality of affected vessel: right Qualified Code(s): I63.411 - Cerebral infarction due to embolism of right middle cerebral artery (10) DVT prophylaxis Current Visit: Yes Status: Acute Patient is on pradaxa Subjective Patient reports: feels better, still having pain, tolerating liquids well, flatus, bowel movement Narrative: Patient seen and examined. She states that she had a bowel movement yesterday. She is still passing gas. Her pain is mild but has improved. She states that she has tolerated a full liquid diet, however she has not tolerated dairy foods. Objective Vital Signs - Last 8 Hours Temp Pulse Resp BP Pulse Ox 07/23/16 08:00 97.8 F 123 18 107/76 94 07/23/16 03:39 98.3 F 94 16 176/86 93 Intake and Output 07/22/16 07/23/16 07/23/16 23:59 07:59 15:59 Intake Total 0 / 0 250 / 250 Output Total 400 / 400 Balance 0 / 0 -150 / -150 Intake: IV Fluids 250 / 250 Intralipid 20% 250 ML @ 250 / 250 21 mls/hr IVPB DAILY@1700 [facility] Rx#:[id number] Oral 0 / 0 0 / 0 Output: Urine 400 / 400 Other: Percent of Meal Consumed 0% # Voids 0 0 # Urine Diapers 1 Weight 49.4 kg Blood Glucose* 195 158 173 Patient Weight 07/23/16 23:59 Weight 49.4 kg - General physical appearance no distress, moderate pain, chronically ill - Eyes normal ocular movement - ENT atraumatic, normocephalic - Neck Neck exam: no masses, trachea midline - Respiratory normal expansion, normal respiratory effort, clear to auscultation - Cardiovascular Cardiovascular exam: Present: tachycardia, irregular rhythm - Abdomen Abdomen: Present: bowel sounds present, soft, non tender. Absent: distended - Incision Incision: Present: clean and dry - Integumentary no rash, no abnormal pigmentation - Psychiatric oriented to time, oriented to person, oriented to place, speech is normal, memory intact - Labs 07/26/16 04:30 07/26/16 04:30 Diabetes panel 07/22/16 07/23/16 Range/Units 16:10 04:25 Sodium 136 (136-145) mEq/L Potassium 3.3 L 3.3 L (3.5-4.5) mEq/L Chloride 98 (98-109) mEq/L Carbon Dioxide 29 (19-29) mEq/L BUN 19 (7-20) mg/dL Creatinine 0.67 (0.57-1.11) mg/dL Glucose 123 H (70-99) mg/dL Calcium 8.3 L (8.6-10.8) mg/dL Calcium panel 07/23/16 Range/Units 04:25 Calcium 8.3 L (8.6-10.8) mg/dL Phosphorus 2.6 (2.3-4.7) mg/dL Pituitary panel 07/22/16 07/23/16 Range/Units 16:10 04:25 Sodium 136 (136-145) mEq/L Potassium 3.3 L 3.3 L (3.5-4.5) mEq/L Chloride 98 (98-109) mEq/L Carbon Dioxide 29 (19-29) mEq/L BUN 19 (7-20) mg/dL Creatinine 0.67 (0.57-1.11) mg/dL Glucose 123 H (70-99) mg/dL Calcium 8.3 L (8.6-10.8) mg/dL Adrenal panel 07/22/16 07/23/16 Range/Units 16:10 04:25 Sodium 136 (136-145) mEq/L Potassium 3.3 L 3.3 L (3.5-4.5) mEq/L Chloride 98 (98-109) mEq/L Carbon Dioxide 29 (19-29) mEq/L BUN 19 (7-20) mg/dL Creatinine 0.67 (0.57-1.11) mg/dL Glucose 123 H (70-99) mg/dL Calcium 8.3 L (8.6-10.8) mg/dL - VTE Documentation of Mechanical Device: Intermittent pneumatic compression device Consult Discharge Plan - Plan Additional Instructions: Surgical Discharge Instructions: 1. May shower today. No tub bath for 2 weeks. 2. Wash incisions with soap and water and pat dry daily. 3. No lifting more than 20 lbs for [address] when off narcotics for over 24 hours and able to react safely in the car. 5. May climb stairs. Referrals: [facility] [Primary Care Provider[facility] - Marvin Faulkner MD [Partnered Physician] - 08/04/16 9:00 am - Attending Attestation I examined this patient and my medical decision-making was reviewed with the LABORER MINE/PA/Advanced Practice Nurse/Resident Physician. I agree with the documented findings, disposition and treatment plan as described except to the extent set forth below. The above history and physical examination. Patient tolerating full liquids and advance to soft foods. No new recommendations at this time.
[2016-07-23] MEDS ORDERED: D10% in Water 500 ML IVC PRN (11:00)
[2016-07-23] MEDS ORDERED: *HR* Digoxin 0.5 MG/2 ML AMPUL IVP STA (11:17)
[2016-07-23] MEDS ORDERED: *HR* Digoxin 0.5 MG/2 ML AMPUL ONE (11:19)
[2016-07-23] MEDS ORDERED: 0.9 % Sodium Chloride 1,000 ML ONE (11:28)
[2016-07-23] MEDS: Nitroglycerin 0.4 MG TAB.SUBL SL PRN (11:40)
[2016-07-23] MEDS ORDERED: 0.9 % Sodium Chloride 500 ML IVC ONE (11:40)
[2016-07-23] MEDS ORDERED: *HR* Metoprolol 5 MG/5 ML VIAL IVP ONE (11:42)
--- NOTE | 2016-07-23 11:55 | Cardiology Progress Note ---
Date of Encounter: 07/23/16 Time of Encounter: 11:30 Assessment and Plan (1) Paroxysmal atrial fibrillation Current Visit: Yes Status: Acute Presented with multiple acute cerebral infarcts without hemorrhage. She was on Eliquis at reduced dose presumably per weight/age; now on Pradaxa. Episode of afib with RVR this AM--Cardiology re-consulted. She was given IV digoxin and lopressor in addition to po betablocker this AM. Hypotensive during episode, BP now stable with SBP 110's-120's after IV fluid bolus. HR 80s-90's upon exam, recommend started short-acting cardizem with first dose to be given now. Will continue to follow and adjust medications accordingly. Continue betablocker. Anticoagulated on Pradaxa, H/H remains stable s/p colectomy for cecal mass. Keep K>4.0, Mag >2.0. Remains on TPN. TTE: EF 65%, mild cLVH, moderate LVDD, mild-moderate TR, moderately dilated LA, severe PH, normal wall motion. (2) Elevated troponin Current Visit: Yes Status: Chronic Please refer to Cardiology event noted. Peak troponin 2.52; felt to be secondary to demand ischemia in the setting of acute CVA, post-op colectomy. EF shows preserved LVEF, 65% with normal wall motion. She is chest pain free upon exam. Given acute CVA, she is not a candidate for invasive evaluation. Will follow in the outpatient setting. (3) CVA (cerebral vascular accident) Current Visit: Yes Status: Acute Management per hospitalist service On Pradaxa for AC. Qualifiers: CVA mechanism: embolism Precerebral and cerebral artery: middle cerebral artery Laterality of affected vessel: right Qualified Code(s): I63.411 - Cerebral infarction due to embolism of right middle cerebral artery (4) Cecum mass Current Visit: Yes Status: Acute POD #7 Laparoscopic right colectomy with Dr. Kaushik Myers per surgery. Discussion w patient/family: The assessment and plan as outlined above was discussed with the patient and/or family members who expressed understanding and agreement. All questions were answered. Thank you for involving us in the care of your patient. Please call with any questions. The patient will be discussed and reviewed with Dr. Daniel Ruiz; changes to be made accordingly. Subjective Principal diagnosis: Left-sided weakness; PAF; cecal mass Interval history: Reconsulted this AM due to Afib with RVR. Reported chest pressure when in RVR, now resolved. Complaints of incisional abdominal pain. Denies any other issues upon exam this morning. Discussed plan with Dr. Zelaya. Objective Vital Signs, Last 4 Hours Temp Pulse Resp BP Pulse Ox 07/23/16 11:45 103 22 157/83 95 07/23/16 11:44 116 160/79 07/23/16 11:11 97.7 F 120 24 135/85 94 07/23/16 08:00 97.8 F 123 18 107/76 94 General: Conversant, Other (thin, frail) HEENT: Atraumatic, Normocephaly Cardiac: Other (irregularly irregular) Neuro: Alert and responsive Abdomen: Soft, Other (tender, steri-strips to abdominal incision) Extremities: No Edema, Normal Pulses Results 07/23/16 04:25 07/23/16 04:25 Lab Results 07/22/16 07/22/16 07/22/16 16:10 16:10 16:10 WBC Hgb 10.9 L D Hct 34.1 L Plt Count Sodium Potassium 3.3 L Chloride Carbon Dioxide BUN Creatinine Glucose Calcium Magnesium Troponin I 0.96 H* 07/23/16 07/23/16 04:25 04:25 WBC 12.2 H Hgb 11.0 L Hct 34.6 L Plt Count 196 Sodium 136 Potassium 3.3 L Chloride 98 Carbon Dioxide 29 BUN 19 Creatinine 0.67 Glucose 123 H Calcium 8.3 L Magnesium 1.9 Troponin I Active Medications Albuterol/Ipratropium (Duoneb) 3 ml IH Q4HR PRN; Protocol PRN Reason: Wheezing Stop: 01/07/17 11:23 Clonidine HCl (Catapres-Tts) 0.2 mg TD QWEEK MISAEL Stop: 01/17/17 07:01 Last Admin: 07/18/16 13:52 Dose: 0.2 mg Dabigatran (Pradaxa) 150 mg PO BID MISAEL Stop: 01/17/17 21:01 Last Admin: 07/23/16 08:03 Dose: 150 mg Dextrose/Water (Dextrose 50% (Syg)) 25 ml IVP AD PRN PRN Reason: Hypoglycemia Stop: 01/07/17 11:05 Diltiazem HCl (Cardizem) 30 mg PO Q6HR MISAEL Stop: 01/22/17 12:01 Glucagon (Glucagen) 1 mg IM ONCE PRN PRN Reason: Hypoglycemia Stop: 01/07/17 11:05 Glucose (Gluctose) 15 gm PO ONCE PRN PRN Reason: Hypoglycemia Stop: 01/07/17 11:05 Glucose (Gluctose) 30 gm PO ONCE PRN PRN Reason: Hypoglycemia Stop: 01/07/17 11:05 Hydralazine HCl (Hydralazine) 20 mg IVP Q6HR PRN PRN Reason: Hypertension Stop: 01/17/17 06:49 Last Admin: 07/23/16 08:03 Dose: 20 mg Hydromorphone HCl (Dilaudid) 1 mg IVP Q2H PRN PRN Reason: Pain Stop: 01/17/17 02:01 Last Admin: 07/22/16 19:44 Dose: 1 mg Dextrose (Dextrose 5%) 1,000 mls @ 100 mls/hr IVC .Q10H PRN PRN Reason: HYPOGLYCEMIA Stop: 01/07/17 11:05 Dextrose (Dextrose 10% Water 500 Ml Ivbag) 500 mls @ 50 mls/hr IVC .Q10H PRN PRN Reason: TPN delayed or interrupted Stop: 01/19/17 12:06 Multivitamins 10 ml/ Amino (Acids/Electrolytes) 2,010 mls @ 60 mls/hr IVC .Q24H MISAEL PRN Reason: Protocol Stop: 07/23/16 16:59 Last Admin: 07/22/16 16:47 Dose: 60 ml/hr, 60 mls/hr Dextrose (Dextrose 10% Water 500 Ml Ivbag) 500 mls @ 50 mls/hr IVC .Q10H PRN PRN Reason: TPN delayed or interrupted Stop: 01/22/17 11:01 Multivitamins 10 ml/ Amino (Acids/Electrolytes) 2,010 mls @ 60 mls/hr IVC .Q24H MISAEL PRN Reason: Protocol Stop: 07/24/16 16:59 Multivitamins 10 ml/ Amino (Acids/Electrolytes) 2,010 mls @ 60 mls/hr IVC .Q24H MISAEL PRN Reason: Protocol Stop: 07/25/16 16:59 Multivitamins 10 ml/ Amino (Acids/Electrolytes) 2,010 mls @ 60 mls/hr IVC .Q24H MISAEL PRN Reason: Protocol Stop: 07/26/16 16:59 Insulin Human Lispro (Humalog) 0 units SQ Q4H MISAEL PRN Reason: Protocol Stop: 01/19/17 10:01 Last Admin: 07/23/16 08:30 Dose: 4 units Lidocaine HCl (Lidoderm 5% Patch) 2 each TP Q12H [facility] Stop: 01/07/17 11:31 Last Admin: 07/23/16 00:30 Dose: Not Given Metoprolol Succinate (Toprol Xl) 25 mg PO DAILY [facility] Stop: 01/22/17 09:01 Last Admin: 07/23/16 08:59 Dose: 25 mg Metoprolol Tartrate (Lopressor) 5 mg IVP Q6HR [facility] Stop: 01/15/17 19:09 Last Admin: 07/23/16 05:26 Dose: 5 mg Morphine Sulfate (Morphine Sulfate) 2 mg IVP Q2H PRN PRN Reason: Pain Stop: 01/15/17 19:09 Last Admin: 07/23/16 11:39 Dose: 2 mg Nitroglycerin (Nitroglycerin) 0.4 mg SL Q5MIN PRN PRN Reason: Chest Pain Stop: 01/19/17 05:17 Last Admin: 07/23/16 11:40 Dose: 0.4 mg Ondansetron HCl (Zofran) 4 mg IVP Q4HR PRN; Protocol PRN Reason: Nausea And Vomiting Stop: 01/17/17 20:01 Last Admin: 07/23/16 08:03 Dose: 4 mg Pantoprazole Sodium (Protonix) 40 mg IVP Q12HR [facility] Stop: 01/19/17 18:01 Last Admin: 07/23/16 05:25 Dose: 40 mg Promethazine HCl (Phenergan) 12.5 mg IVP Q6HR PRN PRN Reason: Nausea And Vomiting Stop: 01/18/17 04:01 Last Admin: 07/22/16 07:30 Dose: 12.5 mg - Imaging and Cardiology Echo: report reviewed Other Results: 12 hour tele: avg HR=97 PAF. RVR this AM. - EKG Interpretation EKG results cardiology: personally reviewed - VTE Documentation of Mechanical Device: Intermittent pneumatic compression device Consult Discharge Plan - Plan Additional Instructions: Surgical Discharge Instructions: 1. July shower today. No tub bath for 2 weeks. 2. Wash incisions with soap and water and pat dry daily. 3. No lifting more than 20 lbs for [address] when off narcotics for over 24 hours and able to react safely in the car. 5. May climb stairs. Referrals: Marvin Faulkner MD [Partnered Physician] - 08/04/16 9:00 am [facility] [Primary Care Provider[facility] -
[2016-07-23] MEDS ORDERED: Calcium Gluconate 1,000 MG in D5% in Water 100 ML IVPB ONE (13:51)
--- NOTE | 2016-07-23 16:26 | Electrocardiograph Report ---
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
[2016-07-23] MEDS ORDERED: Clinimix E 5%-15% SOLUTION 2,000 ML with MVI, adult with vitamin K 10 ML IVC SCH (17:00)
--- NOTE | 2016-07-23 17:12 | Internal Med Progress Note ---
Date of Encounter: 07/23/16 Time of Encounter: 11:30 - Assessment and plan (1) Paroxysmal atrial fibrillation Current Visit: Yes Status: Acute Assessment and plan: Pt with chest heaviness and tachycardic. She has been given IV Lopressor and digoxin. Cardiology eval - short acting Cardizem started. (2) Hypokalemia Current Visit: Yes Status: Acute Assessment and plan: Still low today. Replace again and recheck in morning. (3) Hypomagnesemia Current Visit: Yes Status: Acute Assessment and plan: Improved today. (4) Hypophosphatemia Current Visit: Yes Status: Acute Assessment and plan: Improved. (5) Anemia Current Visit: Yes Status: Acute Assessment and plan: Improved s/p transfusion. Following. Qualifiers: Anemia type: iron deficiency Iron deficiency anemia type: chronic blood loss Qualified Code(s): D50.0 - Iron deficiency anemia secondary to blood loss (chronic) (6) Adynamic ileus Current Visit: Yes Status: Acute Assessment and plan: Seems to be slowly improving. On full liquids now. TPN continues. (7) Cecum mass Current Visit: Yes Status: Acute Assessment and plan: S/P resection. Pathology with adenocarcinoma. Will consult oncology on Tuesday for recommendations. 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 BP has been up and down. (9) COPD (chronic obstructive pulmonary disease) Current Visit: No Status: Acute Assessment and plan: Continue current respiratory care. Qualifiers: COPD type: emphysema Emphysema type: centrilobular Qualified Code(s): J43.2 - Centrilobular emphysema (10) CVA (cerebral vascular accident) Current Visit: Yes Status: Acute Assessment and plan: Per neurology, cause is likely embolic or thromboembolic Continue medical and supportive care -Pradaxa and aspirin -Physical therapy -risk factor modification Control atrial fibrillation. Pt did take Pradaxa today. Qualifiers: CVA mechanism: embolism Precerebral and cerebral artery: middle cerebral artery Laterality of affected vessel: right Qualified Code(s): I63.411 - Cerebral infarction due to embolism of right middle cerebral artery (11) On total parenteral nutrition (TPN) Current Visit: Yes Status: Acute Assessment and plan: TPN per director of product marketing (12) Tobacco abuse Current Visit: Yes Status: Acute Assessment and plan: Cessation counselling. - Subjective Interval history: Ms. Barfield is currently admitted for acute CVA with subsequent finding of cecal mass s/p resection. She is high risk today due to need for nutritional intervention and rapid atrial fibrillation. Ms. Barfield has been advanced to full liquids but cannot tolerate dairy. She has again developed rapid atrial fibrillation and has chest heaviness with this. Denies dyspnea. Admits to nausea. Has had BM as well. Remains on TPN. - Constitutional Vitals: Temp Pulse Resp BP Pulse Ox 97.7 F 91 22 155/73 95 07/23/16 11:11 07/23/16 14:13 07/23/16 14:13 07/23/16 14:13 07/23/16 14:13 General appearance: Present: A&O X 3, severe distress, answers questions appropriately Exam: Pt in bed anxious and uncomfortable. Heart rate over 140 and a fib. - Head Head exam: Present: normocephalic - Eye Eye exam: Present: conjuntiva pink - ENT ENT exam: Present: mucous membranes moist - Respiratory Respiratory exam: Present: decreased breath sounds. Absent: rales, rhonchi, wheezes - Cardiovascular Cardiovascular exam: Present: irregular rhythm, tachycardia - GI/Abdominal GI/Abdominal exam: Present: soft. Absent: mass - Extremities Exam Extremities exam: Present: warm. Absent: tenderness - Neurological Exam Neurological exam: Present: alert, oriented X3, facial droop - Skin Skin exam: Present: warm. Absent: rash Internal Medicine: Result - Labs CBC & Chem 7: 07/23/16 04:25 07/23/16 04:25 Labs: Short CBC 07/23/16 Range/Units 04:25 WBC 12.2 H (4.3-11.1) K/mcL Hgb 11.0 L (11.5-15.4) g/dL Hct 34.6 L (35.3-44.9) % Plt Count 196 (140-400) K/mcL BMP 07/23/16 04:25 Sodium 136 Potassium 3.3 L Chloride 98 Carbon Dioxide 29 BUN 19 Creatinine 0.67 Glucose 123 H Calcium 8.3 L - ABG Interpretation ABG results: PT/INR, D-dimer PT 14.4 Seconds (9.4-12.1) H 07/15/16 04:45 - Impressions Impressions Chest/Abdomen X-ray 07/20/16 09:27 IMPRESSION: 1. Slightly increased interstitial markings bilaterally suggestive of mild interstitial edema with small right pleural effusion. 2. No free air. 3. Mildly dilated loop of small bowel in the left lower quadrant which is nonspecific and likely related to postoperative ileus. D/ / 07/20/2016 10:41:12 Nguyen Breaux MD / alex Interpreting Provider: Nguyen Breaux MD - VTE Documentation of Mechanical Device: Intermittent pneumatic compression device Consult Discharge Plan - Plan Additional Instructions: Surgical Discharge Instructions: 1. May shower today. No tub bath for 2 weeks. 2. Wash incisions with soap and water and pat dry daily. 3. No lifting more than 20 lbs for [address] when off narcotics for over 24 hours and able to react safely in the car. 5. May climb stairs. Referrals: Marvin Faulkner MD [Partnered Physician] - 08/04/16 9:00 am [place],PCP [Primary Care Provider] -
[2016-07-23] MEDS: Artificial Tears SOLN 15 ML BOTTLE BOTH EYES PRN (22:02)
[2016-07-24] MEDS: *HR* Morphine 2 MG/ML SYRINGE IVP PRN ×2 (02:52→09:30)
[2016-07-24] MEDS: Insulin LISPRO 300 UNITS/3 ML VIAL SQ SCH ×5 (04:10→19:52)
[2016-07-24 05:00] LABS: Hematocrit 35.4 % (35.3-44.9); Hemoglobin 10.9 g/dL (11.5-15.4); Mean Corpuscular HGB Conc 30.8 g/dL (31.6-35.5); Mean Corpuscular Hemoglobin 23.4 pg (28.0-33.3); Mean Corpuscular Volume 76.1 fL (83.0-100.0); Mean Platelet Volume 9.8 fL (9.4-12.4); Platelet Count 182 K/mcL (140-400); Red Blood Count 4.65 M/mcL (3.82-4.97); Red Cell Distribution Width 22.5 % (11.5-14.5)
[2016-07-24] MEDS: Pantoprazole 40 MG VIAL IVP SCH ×2 (06:06→18:05)
[2016-07-24] MEDS: *HR* Metoprolol 5 MG/5 ML VIAL IVP SCH ×3 (06:09→18:04)
[2016-07-24] MEDS ORDERED: Magnesium Sulfate 2 GM in D5% in Water 100 ML IVPB ONE (09:23)
[2016-07-24] MEDS: *HR* Dabigatran 150 MG CAPSULE PO SCH ×2 (09:30→19:47)
[2016-07-24] MEDS: Metoprolol XL (24 HR) Succ 25 MG TAB.ER.24H PO SCH (09:30)
[2016-07-24 10:21] LABS: BUN/Creatinine Ratio 28 (6-26); Blood Urea Nitrogen 20 mg/dL (7-20); Calcium 8.6 mg/dL (8.6-10.8); Carbon Dioxide 27 mEq/L (19-29); Chloride 97 mEq/L (98-109); Glucose 248 mg/dL (70-99); Osmolality,Calculated 285 (280-300); Potassium 3.7 mEq/L (3.5-4.5); Sodium 132 mEq/L (136-145); eGFR For African Americans > 60 (> 60); eGFR For Non-African Americans > 60 (> 60)
--- NOTE | 2016-07-24 11:13 | Internal Med Progress Note ---
<Bria Moon - Last Filed: 07/24/16 16:18> Date of Encounter: 07/24/16 Time of Encounter: 09:45 - Assessment and plan (1) Paroxysmal atrial fibrillation Current Visit: Yes Status: Acute Assessment and plan: Episode of A-fib RVR on 07/23/16. Currently sinus rhythm at rate of 80s Will switch to Cardizem CD 120 mg daily and continue metoprolol as recommended per cardiology. Continue anticoagulation with Pradaxa. Continue telemetry monitoring. (2) Hypomagnesemia Current Visit: Yes Status: Acute Assessment and plan: Mg 1.4 today. Will give 2 g of MgSO4. Continue to monitor. (3) Hypokalemia Current Visit: Yes Status: Acute Assessment and plan: K as low as 2.4 on 07/22/16 Improves as K at 3.7 today. Continue to monitor and give supplement accordingly. (4) Adynamic ileus Current Visit: Yes Status: Acute Assessment and plan: Seems to be slowly improving. Continue TPN and mechanically altered diet for now. Will have calorie count to better assess patient's oral food intake. (5) Anemia Current Visit: Yes Status: Acute Assessment and plan: S/p 3 units of pRBC transfusion throughout her hospital stay. Hgb stable at 10.9 today. Continue to monitor H&H. 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 Will consult oncology on Tuesday for recommendations. (7) Renovascular hypertension Current Visit: No Status: Chronic Assessment and plan: Continue current meds and PRN hypertensive management. BP has been up and down. (8) CVA (cerebral vascular accident) Current Visit: Yes Status: Acute Assessment and plan: Per neurology, likely embolic or thromboembolic Continue medical and supportive care including Pradaxa, aspirin, physical therapy and risk factor modification Continue rate control for atrial fibrillation. Qualifiers: CVA mechanism: embolism Precerebral and cerebral artery: middle cerebral artery Laterality of affected vessel: right Qualified Code(s): I63.411 - Cerebral infarction due to embolism of right middle cerebral artery (9) COPD (chronic obstructive pulmonary disease) Current Visit: No Status: Acute Assessment and plan: Continue Duoneb. Qualifiers: COPD type: emphysema Emphysema type: centrilobular Qualified Code(s): J43.2 - Centrilobular emphysema - Subjective Interval history: Ms. Barfield is currently admitted for acute CVA with subsequent finding of cecal mass s/p resection. Patient is high risk today due to need for nutritional intervention and rapid atrial fibrillation. No significant event noted overnight. Patient was seen and examined this morning. Patient reports everything including eating is about the same as yesterday. Patient denies fever, chest pain, shortness of breath, nausea, vomiting, diarrhea. Patient is noted to have sinus rhythm at rate of 80s on bedside cardiac monitoring. - Constitutional Vitals: Temp Pulse Resp BP Pulse Ox 98.8 F 82 16 191/87 92 07/24/16 06:53 07/24/16 06:53 07/24/16 06:53 07/24/16 06:53 07/24/16 06:53 General appearance: Present: A&O X 3, no acute distress, severe distress, answers questions appropriately - Head Head exam: Present: atraumatic, normocephalic - Eye Eye exam: Present: EOMI, PERRL, conjuntiva pink, sclera anicteric - Neck Neck exam general surgery: Present: supple, trachea midline. Absent: lymphadenopathy - Respiratory Respiratory exam: Present: CTAB. Absent: accessory muscle use, rales, rhonchi, wheezes - Cardiovascular Cardiovascular exam: Present: RRR, +S1, +S2. Absent: diastolic murmur, gallop, rubs, systolic murmur - GI/Abdominal GI/Abdominal exam: Present: normal bowel sounds, soft, no peritoneal signs. Absent: distended, tenderness - Extremities Exam Extremities exam: Present: warm, radial pulses palpable and symetrical. Absent : calf tenderness, cyanotic, pedal edema - Neurological Exam Neurological exam: Present: CN II-XII intact, oriented X3, no focal deficits. Absent: pronater drift, facial droop, speech deficit - Skin Skin exam: Present: dry, intact, warm Internal Medicine: Result - Labs CBC & Chem 7: 07/24/16 04:30 07/24/16 09:40 Labs: Short CBC 07/24/16 Range/Units 04:30 WBC 11.2 H (4.3-11.1) K/mcL Hgb 10.9 L (11.5-15.4) g/dL Hct 35.4 (35.3-44.9) % Plt Count 182 (140-400) K/mcL [facility] 07/24/16 09:40 Sodium 132 L Potassium 3.7 Chloride 97 L Carbon Dioxide 27 BUN 20 Creatinine 0.72 Glucose 248 H Calcium 8.6 - ABG Interpretation ABG results: PT/INR, D-dimer PT 14.4 Seconds (9.4-12.1) H 07/15/16 04:45 - VTE Documentation of Mechanical Device: Intermittent pneumatic compression device Consult Discharge Plan - Plan Additional Instructions: Surgical Discharge Instructions: 1. May shower today. No tub bath for 2 weeks. 2. Wash incisions with soap and water and pat dry daily. 3. No lifting more than 20 lbs for [address] when off narcotics for over 24 hours and able to react safely in the car. 5. May climb stairs. Referrals: Marvin Faulkner MD [Partnered Physician] - 08/04/16 9:00 am [place],PCP [Primary Care Provider] - <Raghu Zelaya - Last Filed: 07/25/16 15:11> Date of Encounter: 07/24/16 - Assessment and plan (1) Paroxysmal atrial fibrillation Current Visit: Yes Status: Acute (2) Hypokalemia Current Visit: Yes Status: Acute (3) Hypomagnesemia Current Visit: Yes Status: Acute (4) Hypophosphatemia Current Visit: Yes Status: Acute (5) Anemia Current Visit: Yes Status: Acute Qualifiers: Anemia type: iron deficiency Iron deficiency anemia type: chronic blood loss Qualified Code(s): D50.0 - Iron deficiency anemia secondary to blood loss (chronic) (6) Adynamic ileus Current Visit: Yes Status: Acute (7) Cecum mass Current Visit: Yes Status: Acute (8) Renovascular hypertension Current Visit: No Status: Chronic (9) COPD (chronic obstructive pulmonary disease) Current Visit: No Status: Acute Qualifiers: COPD type: emphysema Emphysema type: centrilobular Qualified Code(s): J43.2 - Centrilobular emphysema (10) CVA (cerebral vascular accident) Current Visit: Yes Status: Acute Qualifiers: CVA mechanism: embolism Precerebral and cerebral artery: middle cerebral artery Laterality of affected vessel: right Qualified Code(s): I63.411 - Cerebral infarction due to embolism of right middle cerebral artery (11) On total parenteral nutrition (TPN) Current Visit: Yes Status: Acute (12) Tobacco abuse Current Visit: Yes Status: Acute - Constitutional Vitals: Temp Pulse Resp BP Pulse Ox 98.1 F 86 18 179/78 93 07/25/16 12:06 07/25/16 12:06 07/25/16 12:06 07/25/16 12:06 07/25/16 12:06 Internal Medicine: Result - Labs CBC & Chem 7: 07/25/16 04:22 07/25/16 04:22 Labs: Short CBC 07/25/16 Range/Units 04:22 WBC 10.9 (4.3-11.1) K/mcL Hgb 9.9 L (11.5-15.4) g/dL Hct 31.7 L (35.3-44.9) % Plt Count 187 (140-400) K/mcL Neutrophils # 6.6 (1.6-8.9) K/mcL BMP 07/25/16 04:22 Sodium 133 L Potassium 3.9 Chloride 98 Carbon Dioxide 27 BUN 21 H Creatinine 0.71 Glucose 201 H Calcium 8.4 L - ABG Interpretation ABG results: PT/INR, D-dimer PT 14.4 Seconds (9.4-12.1) H 07/15/16 04:45 - Attending Attestation I examined this patient and my medical decision-making was reviewed with the Resident Physician on 07/24/16. I agree with the documented findings, disposition and treatment plan as described except to the extent set forth below. Ms. Barfield is currently admitted for acute CVA, colon adenocarcinoma with resection and a fib. She remains high risk due to potential for worsening cardiac status and need for TPN. Ms. Barfield is in sinus rhythm and feels somewhat better. She has more of an appetite. No CP or SOB now. Bowels OK. Diet increased. Exam Alert. Comfortable Heart reg - not tachy Lungs diminished but clear. Abd soft I/P 1. A fib 2. CVA 3. Colon cancer - outpatient follow up Further diagnoses and plan as above
[2016-07-24] MEDS ORDERED: *HR* Morphine 2 MG/ML SYRINGE IVP PRN (12:07)
--- NOTE | 2016-07-24 14:04 | Cardiology Progress Note ---
Date of Encounter: 07/24/16 Time of Encounter: 13:30 Assessment and Plan (1) Paroxysmal atrial fibrillation Current Visit: Yes Status: Acute Presented with multiple acute cerebral infarcts without hemorrhage. She was on Eliquis at reduced dose presumably per weight/age; now on Pradaxa. Episode of afib with RVR on 07/23/16. Started on po cardizem; patient now in SR and cardizem was changed to LA. Continue betablocker. Anticoagulated on Pradaxa, H/H remains stable s/p colectomy for cecal mass. Keep K>4.0, Mag >2.0. Remains on TPN. TTE: EF 65%, mild cLVH, moderate LVDD, mild-moderate TR, moderately dilated LA, severe PH, normal wall motion. Cardiology will sign-off; please call with questions. (2) Elevated troponin Current Visit: Yes Status: Chronic Please refer to Cardiology event noted. Peak troponin 2.52; felt to be secondary to demand ischemia in the setting of acute CVA, post-op colectomy. EF shows preserved LVEF, 65% with normal wall motion. She is chest pain free upon exam. Given acute CVA, she is not a candidate for invasive evaluation. Will follow in the outpatient setting. Of note, she declines any invasive evaluation. (3) CVA (cerebral vascular accident) Current Visit: Yes Status: Acute Management per hospitalist service Qualifiers: CVA mechanism: embolism Precerebral and cerebral artery: middle cerebral artery Laterality of affected vessel: right Qualified Code(s): I63.411 - Cerebral infarction due to embolism of right middle cerebral artery (4) Cecum mass Current Visit: Yes Status: Acute POD #8 Laparoscopic right colectomy with Dr. Kaushik Zepeda w patient/family: The assessment and plan as outlined above was discussed with the patient and/or family members who expressed understanding and agreement. All questions were answered. Thank you for involving us in the care of your patient. Please call with any questions. The patient was discussed and reviewed with Dr. Mora Ruiz; Cardiology will sign-off, please call with questions. Subjective Principal diagnosis: Left-sided weakness; PAF; cecal mass Interval history: Seen and examined. Reports feels much better today upon exam. SR noted per monitor. Objective Vital Signs, Last 4 Hours Temp Pulse Resp BP Pulse Ox 07/24/16 11:38 98 F 73 16 196/86 92 General: Conversant, No Apparent Distress HEENT: Atraumatic, Normocephaly Cardiac: Reg Rate and Rhythm, Normal S1 and S2 Neuro: Alert and responsive Abdomen: Soft Skin: No rashes noted on visualized skin Musculoskeletal: No Chest Wall Tenderness Extremities: No Edema, Normal Pulses Results 07/24/16 04:30 07/24/16 09:40 Lab Results 07/24/16 07/24/16 07/24/16 04:30 04:30 09:40 WBC 11.2 H Hgb 10.9 L Hct 35.4 Plt Count 182 Sodium 132 L Potassium 3.7 Chloride 97 L Carbon Dioxide 27 BUN 20 Creatinine 0.72 Glucose 248 H Calcium 8.6 Magnesium 1.4 L Active Medications Albuterol/Ipratropium (Duoneb) 3 ml IH Q4HR PRN; Protocol PRN Reason: Wheezing Stop: 01/07/17 11:23 Artificial Tears (Akwa Tears) 2 - 3 drop BOTH EYES Q3HR PRN; Protocol PRN Reason: Dry Eyes Stop: 01/22/17 21:24 Last Admin: 07/23/16 22:02 Dose: 2 drop Clonidine HCl (Catapres-Tts) 0.2 mg TD QWEEK [facility] Stop: 01/17/17 07:01 Last Admin: 07/18/16 13:52 Dose: 0.2 mg Dabigatran (Pradaxa) 150 mg PO BID [facility] Stop: 01/17/17 21:01 Last Admin: 07/24/16 09:30 Dose: 150 mg Dextrose/Water (Dextrose 50% (Syg)) 25 ml IVP AD PRN PRN Reason: Hypoglycemia Stop: 01/07/17 11:05 Diltiazem HCl (Cardizem Cd) 120 mg PO DAILY [facility] Stop: 01/23/17 17:01 Glucagon (Glucagen) 1 mg IM ONCE PRN PRN Reason: Hypoglycemia Stop: 01/07/17 11:05 Glucose (Gluctose) 15 gm PO ONCE PRN PRN Reason: Hypoglycemia Stop: 01/07/17 11:05 Glucose (Gluctose) 30 gm PO ONCE PRN PRN Reason: Hypoglycemia Stop: 01/07/17 11:05 Hydralazine HCl (Hydralazine) 20 mg IVP Q6HR PRN PRN Reason: Hypertension Stop: 01/17/17 06:49 Last Admin: 07/24/16 04:36 Dose: 20 mg Hydromorphone HCl (Dilaudid) 1 mg IVP Q2H PRN PRN Reason: Pain Stop: 01/17/17 02:01 Last Admin: 07/22/16 19:44 Dose: 1 mg Dextrose (Dextrose 5%) 1,000 mls @ 100 mls/hr IVC .Q10H PRN PRN Reason: HYPOGLYCEMIA Stop: 01/07/17 11:05 Dextrose (Dextrose 10% Water 500 Ml Ivbag) 500 mls @ 50 mls/hr IVC .Q10H PRN PRN Reason: TPN delayed or interrupted Stop: 01/19/17 12:06 Dextrose (Dextrose 10% Water 500 Ml Ivbag) 500 mls @ 50 mls/hr IVC .Q10H PRN PRN Reason: TPN delayed or interrupted Stop: 01/22/17 11:01 Multivitamins 10 ml/ Amino (Acids/Electrolytes) 2,010 mls @ 60 mls/hr IVC .Q24H [facility]ISAEL PRN Reason: Protocol Stop: 07/24/16 16:59 Last Admin: 07/23/16 17:29 Dose: 60 ml/hr, 60 mls/hr Multivitamins 10 ml/ Amino (Acids/Electrolytes) 2,010 mls @ 60 mls/hr IVC .Q24H MISAEL PRN Reason: Protocol Stop: 07/25/16 16:59 Multivitamins 10 ml/ Amino (Acids/Electrolytes) 2,010 mls @ 60 mls/hr IVC .Q24H MISAEL PRN Reason: Protocol Stop: 07/26/16 16:59 Insulin Human Lispro (Humalog) 0 units SQ Q4H [facility]ISA[facility] PRN Reason: Protocol Stop: 01/19/17 10:01 Last Admin: 07/24/16 11:59 Dose: 6 units Lidocaine HCl (Lidoderm 5% Patch) 2 each TP Q12H [facility] Stop: 01/07/17 11:31 Last Admin: 07/24/16 09:19 Dose: Not Given Metoprolol Succinate (Toprol Xl) 25 mg PO DAILY [facility] Stop: 01/22/17 09:01 Last Admin: 07/24/16 09:30 Dose: 25 mg Metoprolol Tartrate (Lopressor) 5 mg IVP Q6HR [facility] Stop: 01/15/17 19:09 Last Admin: 07/24/16 11:19 Dose: 5 mg Morphine Sulfate (Morphine Sulfate) 15 mg PO BID [facility] Stop: 01/23/17 21:01 Morphine Sulfate (Morphine Sulfate) 2 mg IVP Q4H PRN PRN Reason: Breakthrough Pain Stop: 01/15/17 19:09 Nitroglycerin (Nitroglycerin) 0.4 mg SL Q5MIN PRN PRN Reason: Chest Pain Stop: 01/19/17 05:17 Last Admin: 07/23/16 11:40 Dose: 0.4 mg Ondansetron HCl (Zofran) 4 mg IVP Q4HR PRN; Protocol PRN Reason: Nausea And Vomiting Stop: 01/17/17 20:01 Last Admin: 07/23/16 19:28 Dose: 4 mg Pantoprazole Sodium (Protonix) 40 mg IVP Q12HR [facility] Stop: 01/19/17 18:01 Last Admin: 07/24/16 06:06 Dose: 40 mg Promethazine HCl (Phenergan) 12.5 mg IVP Q6HR PRN PRN Reason: Nausea And Vomiting Stop: 01/18/17 04:01 Last Admin: 07/22/16 07:30 Dose: 12.5 mg - Imaging and Cardiology Echo: report reviewed Other Results: 12 hour tele: avg HR=81 SR. No significant event. - EKG Interpretation EKG results cardiology: personally reviewed - VTE Documentation of Mechanical Device: Intermittent pneumatic compression device Consult Discharge Plan - Plan Additional Instructions: Surgical Discharge Instructions: 1. May shower today. No tub bath for 2 weeks. 2. Wash incisions with soap and water and pat dry daily. 3. No lifting more than 20 lbs for [address] when off narcotics for over 24 hours and able to react safely in the car. 5. May climb stairs. Referrals: Marvin Faulkner MD [Partnered Physician] - 08/04/16 9:00 am [facility],PCP [Primary Care Provider] -
[2016-07-24] MEDS ORDERED: Clinimix E 5%-15% SOLUTION 2,000 ML with MVI, adult with vitamin K 10 ML IVC SCH (17:00)
[2016-07-24] MEDS: Diltiazem CD (24hr) 120 MG CAPSULE PO SCH (18:04)
[2016-07-24] MEDS: Artificial Tears SOLN 15 ML BOTTLE BOTH EYES PRN (18:10)
[2016-07-24] MEDS: *HR* Morphine Immed Rel 30 MG TABLET PO SCH (19:47)
[2016-07-25] MEDS: Insulin LISPRO 300 UNITS/3 ML VIAL SQ SCH ×7 (02:34→23:35)
[2016-07-25] MEDS: *HR* Metoprolol 5 MG/5 ML VIAL IVP SCH ×4 (02:48→17:53)
[2016-07-25] MEDS: *HR* OxyCODONE/APAP 5/325 TABLET PO PRN ×2 (02:55→13:26)
[2016-07-25 04:37] LABS: Basophils % 0.3 %; Eosinophils # 0.4 K/mcL (0.0-0.6); Hematocrit 31.7 % (35.3-44.9); Hemoglobin 9.9 g/dL (11.5-15.4); Immature Granulocytes % 0.9 % (0-4); Immature Platelets 5.5 % (1.1-6.1); Lymphocytes # 2.7 K/mcL (0.6-4.6); Lymphocytes % 24.7 %; Mean Corpuscular HGB Conc 31.2 g/dL (31.6-35.5); Mean Corpuscular Hemoglobin 23.7 pg (28.0-33.3); Mean Platelet Volume 9.2 fL (9.4-12.4); Monocytes % 9.1 %; Neutrophils # 6.6 K/mcL (1.6-8.9); Platelet Count 187 K/mcL (140-400); Red Blood Count 4.17 M/mcL (3.82-4.97); Red Cell Distribution Width 22.6 % (11.5-14.5)
[2016-07-25 05:12] LABS: BUN/Creatinine Ratio 30 (6-26); Blood Urea Nitrogen 21 mg/dL (7-20); Calcium 8.4 mg/dL (8.6-10.8); Carbon Dioxide 27 mEq/L (19-29); Chloride 98 mEq/L (98-109); Glucose 201 mg/dL (70-99); Magnesium 1.3 mg/dL (1.6-2.6); Osmolality,Calculated 285 (280-300); eGFR For African Americans > 60 (> 60); eGFR For Non-African Americans > 60 (> 60)
[2016-07-25 05:15] LABS: Potassium 3.9 mEq/L (3.5-4.5); Sodium 133 mEq/L (136-145)
[2016-07-25] MEDS: Pantoprazole 40 MG VIAL IVP SCH ×2 (07:01→17:48)
[2016-07-25] MEDS ORDERED: Magnesium Sulfate 2 GM in D5% in Water 100 ML IVPB ONE (09:05)
[2016-07-25] MEDS: *HR* Morphine Immed Rel 30 MG TABLET PO SCH ×2 (09:49→20:36)
[2016-07-25] MEDS: *HR* Dabigatran 150 MG CAPSULE PO SCH ×2 (09:49→20:37)
[2016-07-25] MEDS: Metoprolol XL (24 HR) Succ 25 MG TAB.ER.24H PO SCH (09:50)
[2016-07-25] MEDS: CloNIDine Patch 0.2 MG PATCH (WEEKLY) TD SCH (09:50)
[2016-07-25] MEDS: Diltiazem CD (24hr) 120 MG CAPSULE PO SCH (09:50)
--- NOTE | 2016-07-25 10:47 | Internal Med Progress Note ---
<Bria Moon - Last Filed: 07/25/16 14:38> Date of Encounter: 07/25/16 Time of Encounter: 09:30 - Assessment and plan (1) Paroxysmal atrial fibrillation Current Visit: Yes Status: Acute Assessment and plan: Episode of A-fib RVR on 07/23/16. Currently sinus rhythm at rate of 70s Continue rate control with Cardizem CD 120 mg daily and metoprolol as recommended per cardiology. Continue anticoagulation with Pradaxa. Continue telemetry monitoring. Patient remains clinically stable and plan to discharge back to [place] on Tuesday. (2) Hypomagnesemia Current Visit: Yes Status: Acute Assessment and plan: Mg 1.3 today. Will give 2 g of MgSO4. Continue to monitor. (3) Hypokalemia Current Visit: Yes Status: Acute Assessment and plan: K as low as 2.4 on 07/22/16 Improves as K at 3.9 today. Continue to monitor and give supplement accordingly. (4) Adynamic ileus Current Visit: Yes Status: Acute Assessment and plan: Seems to be slowly improving. Continue TPN and mechanically altered diet for now. Will have calorie count to better assess patient's oral food intake. (5) Anemia Current Visit: Yes Status: Acute Assessment and plan: S/p 3 units of pRBC transfusion throughout her hospital stay. Hgb stable at 9.9 today. Continue to monitor H&H. 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 Patient does not want chemotherapy. Will have outpatient referral to [facility] after discharge. (7) Renovascular hypertension Current Visit: No Status: Chronic Assessment and plan: Continue current meds and PRN hypertensive management. BP has been noted to be up and down. (8) CVA (cerebral vascular accident) Current Visit: Yes Status: Acute Assessment and plan: Per neurology, likely embolic or thromboembolic Continue medical and supportive care including Pradaxa, aspirin, physical therapy and risk factor modification Continue rate control for atrial fibrillation. Qualifiers: CVA mechanism: embolism Precerebral and cerebral artery: middle cerebral artery Laterality of affected vessel: right Qualified Code(s): I63.411 - Cerebral infarction due to embolism of right middle cerebral artery (9) COPD (chronic obstructive pulmonary disease) Current Visit: No Status: Acute Assessment and plan: Continue Duoneb. Qualifiers: COPD type: emphysema Emphysema type: centrilobular Qualified Code(s): J43.2 - Centrilobular emphysema - Subjective Interval history: No significant event noted overnight. Patient was seen and examined this morning. Patient reports feels better and has good appetite today. Patient also states pain is better controlled. Patient still has some abdominal fullness sensation. Patient denies fever, chest pain, shortness of breath, nausea, vomiting, diarrhea. Patient is noted to have sinus rhythm at rate of 70s on bedside cardiac monitoring. - Constitutional Vitals: Temp Pulse Resp BP Pulse Ox 98.4 F 76 16 143/55 93 07/25/16 06:32 07/25/16 06:32 07/25/16 06:32 07/25/16 06:32 07/25/16 06:32 General appearance: Present: A&O X 3, no acute distress, severe distress, answers questions appropriately - Head Head exam: Present: atraumatic, normocephalic - Eye Eye exam: Present: PERRL, conjuntiva pink, sclera anicteric Pupils: Present: PERRL - Neck Neck exam general surgery: Present: supple, trachea midline. Absent: lymphadenopathy - Respiratory Respiratory exam: Present: CTAB. Absent: accessory muscle use, rales, rhonchi, wheezes - Cardiovascular Cardiovascular exam: Present: RRR, +S1, +S2. Absent: diastolic murmur, gallop, rubs, systolic murmur - GI/Abdominal GI/Abdominal exam: Present: normal bowel sounds, soft, no peritoneal signs. Absent: distended, tenderness - Extremities Exam Extremities exam: Present: warm, radial pulses palpable and symetrical. Absent : calf tenderness, cyanotic, pedal edema - Neurological Exam Neurological exam: Present: CN II-XII intact, oriented X3, no focal deficits. Absent: pronater drift, facial droop, speech deficit - Skin Skin exam: Present: dry, intact, warm Internal Medicine: Result - Labs CBC & Chem 7: 07/25/16 04:22 07/25/16 04:22 Labs: Short CBC 07/25/16 Range/Units 04:22 WBC 10.9 (4.3-11.1) K/mcL Hgb 9.9 L (11.5-15.4) g/dL Hct 31.7 L (35.3-44.9) % Plt Count 187 (140-400) K/mcL Neutrophils # 6.6 (1.6-8.9) K/mcL BMP 07/25/16 04:22 Sodium 133 L Potassium 3.9 Chloride 98 Carbon Dioxide 27 BUN 21 H Creatinine 0.71 Glucose 201 H Calcium 8.4 L - ABG Interpretation ABG results: PT/INR, D-dimer PT 14.4 Seconds (9.4-12.1) H 07/15/16 04:45 - VTE Documentation of Mechanical Device: Intermittent pneumatic compression device Consult Discharge Plan - Plan Additional Instructions: Surgical Discharge Instructions: 1. May shower today. No tub bath for 2 weeks. 2. Wash incisions with soap and water and pat dry daily. 3. No lifting more than 20 lbs for [address] when off narcotics for over 24 hours and able to react safely in the car. 5. May climb stairs. Referrals: Marvin Faulkner MD [Partnered Physician] - 08/04/16 9:00 am [place],PCP [Primary Care Provider] - <Raghu Zelaya - Last Filed: 07/25/16 16:47> Date of Encounter: 07/25/16 - Assessment and plan (1) Paroxysmal atrial fibrillation Current Visit: Yes Status: Acute (2) Hypokalemia Current Visit: Yes Status: Acute (3) Hypomagnesemia Current Visit: Yes Status: Acute (4) Hypophosphatemia Current Visit: Yes Status: Acute (5) Anemia Current Visit: Yes Status: Acute Qualifiers: Anemia type: iron deficiency Iron deficiency anemia type: chronic blood loss Qualified Code(s): D50.0 - Iron deficiency anemia secondary to blood loss (chronic) (6) Adynamic ileus Current Visit: Yes Status: Resolved (7) Cecum mass Current Visit: Yes Status: Acute (8) Renovascular hypertension Current Visit: No Status: Chronic (9) COPD (chronic obstructive pulmonary disease) Current Visit: No Status: Acute Qualifiers: COPD type: emphysema Emphysema type: centrilobular Qualified Code(s): J43.2 - Centrilobular emphysema (10) CVA (cerebral vascular accident) Current Visit: Yes Status: Acute Qualifiers: CVA mechanism: embolism Precerebral and cerebral artery: middle cerebral artery Laterality of affected vessel: right Qualified Code(s): I63.411 - Cerebral infarction due to embolism of right middle cerebral artery (11) On total parenteral nutrition (TPN) Current Visit: Yes Status: Acute (12) Tobacco abuse Current Visit: Yes Status: Acute (13) Adenocarcinoma, colon Current Visit: Yes Status: Chronic Assessment and plan: Outpatient follow up with oncology. - Constitutional Vitals: Temp Pulse Resp BP Pulse Ox 98.2 F 77 18 185/75 93 07/25/16 15:27 07/25/16 15:27 07/25/16 15:27 07/25/16 15:27 07/25/16 15:27 Internal Medicine: Result - Labs CBC & Chem 7: 07/25/16 04:22 07/25/16 04:22 Labs: Short CBC 07/25/16 Range/Units 04:22 WBC 10.9 (4.3-11.1) K/mcL Hgb 9.9 L (11.5-15.4) g/dL Hct 31.7 L (35.3-44.9) % Plt Count 187 (140-400) K/mcL Neutrophils # 6.6 (1.6-8.9) K/mcL BMP 07/25/16 04:22 Sodium 133 L Potassium 3.9 Chloride 98 Carbon Dioxide 27 BUN 21 H Creatinine 0.71 Glucose 201 H Calcium 8.4 L - ABG Interpretation ABG results: PT/INR, D-dimer PT 14.4 Seconds (9.4-12.1) H 07/15/16 04:45 - Attending Attestation I examined this patient and my medical decision-making was reviewed with the Resident Physician on 07/25/16. I agree with the documented findings, disposition and treatment plan as described except to the extent set forth below. Ms Barfield is currently admitted for acute CVA, a fib and adenoca of colon. She is high risk due to potential for worsening cardiac status and use of TPN. Ms Barfield is up in chair eating breakfast. She feels OK. No CP or SOB. Had some pain during night and BP was elevated but better now. Exam Alert. Comfortable Heart reg Lungs diminished but clear I/P 1. A fib 2. CVA Further diagnoses and plan as above. [facility]. Wean TPN as she is eating better.
[2016-07-25] MEDS ORDERED: Clinimix E 5%-15% SOLUTION 2,000 ML with MVI, adult with vitamin K 10 ML IVC SCH (17:00)
[2016-07-25] MEDS: Clinimix E 5%-15% SOLUTION 2,000 ML with MVI, adult with vitamin K 10 ML IVC SCH (17:49)
[2016-07-26] MEDS: Pantoprazole 40 MG VIAL IVP SCH (04:42)
[2016-07-26] MEDS: Insulin LISPRO 300 UNITS/3 ML VIAL SQ SCH ×5 (04:47→21:08)
[2016-07-26 04:58] LABS: Basophils # 0.1 K/mcL (0.0-0.2); Basophils % 0.4 %; Eosinophils # 0.4 K/mcL (0.0-0.6); Eosinophils % 3.6 %; Hematocrit 30.6 % (35.3-44.9); Hemoglobin 9.6 g/dL (11.5-15.4); Immature Granulocytes % 1.2 % (0-4); Lymphocytes # 2.9 K/mcL (0.6-4.6); Mean Corpuscular HGB Conc 31.4 g/dL (31.6-35.5); Mean Corpuscular Hemoglobin 23.9 pg (28.0-33.3); Mean Corpuscular Volume 76.1 fL (83.0-100.0); Mean Platelet Volume 9.7 fL (9.4-12.4); Monocytes # 1.2 K/mcL (0.0-1.3); Monocytes % 10.2 %; Neutrophils # 6.9 K/mcL (1.6-8.9); Platelet Count 174 K/mcL (140-400); Red Blood Count 4.02 M/mcL (3.82-4.97); Red Cell Distribution Width 22.8 % (11.5-14.5); Segmented Neutrophils % 59.6 %
[2016-07-26 05:13] LABS: Alanine Aminotransferase 13 Units/L (0-55); Albumin 2.4 g/dL (3.5-5.0); Albumin/Globulin Ratio 0.8 (1.1-2.2); Alkaline Phosphatase 67 Units/L (38-126); Aspartate Amino Transferase 11 Units/L (5-34); BUN/Creatinine Ratio 31 (6-26); Bilirubin,Total 0.7 mg/dL (0.2-1.2); Blood Urea Nitrogen 25 mg/dL (7-20); Calcium 8.4 mg/dL (8.6-10.8); Carbon Dioxide 28 mEq/L (19-29); Chloride 94 mEq/L (98-109); Globulin 3.1 g/dL (2.4-3.5); Glucose 145 mg/dL (70-99); Osmolality,Calculated 275 (280-300); Potassium 4.6 mEq/L (3.5-4.5); Sodium 129 mEq/L (136-145); Total Protein 5.5 g/dL (6.0-8.3); eGFR For African Americans > 60 (> 60); eGFR For Non-African Americans > 60 (> 60)
[2016-07-26] MEDS: Metoprolol XL (24 HR) Succ 25 MG TAB.ER.24H PO SCH (09:44)
[2016-07-26] MEDS: *HR* Morphine Immed Rel 30 MG TABLET PO SCH ×2 (09:45→20:03)
[2016-07-26] MEDS: Diltiazem CD (24hr) 120 MG CAPSULE PO SCH (09:45)
[2016-07-26] MEDS: *HR* Dabigatran 150 MG CAPSULE PO SCH ×2 (09:46→20:03)
[2016-07-26] MEDS ORDERED: Furosemide 20 MG/2 ML VIAL IVP ONE (10:03)
--- NOTE | 2016-07-26 10:16 | Internal Med Progress Note ---
<Bria Moon - Last Filed: 07/26/16 15:02> Date of Encounter: 07/26/16 Time of Encounter: 10:00 - Assessment and plan (1) Paroxysmal atrial fibrillation Current Visit: Yes Status: Acute Assessment and plan: Episode of A-fib RVR on 07/23/16. Currently sinus rhythm at rate of 70s Continue rate control with Cardizem CD 120 mg daily and metoprolol as recommended per cardiology. Continue anticoagulation with Pradaxa. Continue telemetry monitoring. Patient remains clinically stable and plan to discharge back to [place] tomorrow. (2) Hyponatremia Current Visit: Yes Status: Acute Assessment and plan: - Na 129 today with low calculated osm at 275. - Likely dilutional from IV fluid and TPN. - Will discontinue IV fluid and TPN. - Will give Lasix 20 mg IV x1. - Recheck electrolytes later this afternoon. (3) Adynamic ileus Current Visit: Yes Status: Resolved Assessment and plan: Seems to be improving and patient has been eating okay. Continue mechanically altered diet and will discontinue TPN. 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 Patient does not want chemotherapy. Patient will have outpatient follow-up with Dr. Faulkner of [facility] at 9 am on 08/04/16. Will also have outpatient referral to [facility] after discharge. (5) Renovascular hypertension Current Visit: No Status: Chronic Assessment and plan: Continue current meds and PRN hypertensive management. (6) CVA (cerebral vascular accident) Current Visit: Yes Status: Acute Assessment and plan: Per neurology, likely embolic or thromboembolic Continue medical and supportive care including Pradaxa, aspirin, physical therapy and risk factor modification Continue rate control for atrial fibrillation. Qualifiers: CVA mechanism: embolism Precerebral and cerebral artery: middle cerebral artery Laterality of affected vessel: right Qualified Code(s): I63.411 - Cerebral infarction due to embolism of right middle cerebral artery (7) COPD (chronic obstructive pulmonary disease) Current Visit: No Status: Acute Assessment and plan: Continue Duoneb. Qualifiers: COPD type: emphysema Emphysema type: centrilobular Qualified Code(s): J43.2 - Centrilobular emphysema (8) Hypokalemia Current Visit: Yes Status: Resolved Assessment and plan: K as low as 2.4 on 07/22/16 Improves as K at 4.6 today. Continue to monitor and give supplement accordingly. (9) Anemia Current Visit: Yes Status: Acute Assessment and plan: S/p 3 units of pRBC transfusion throughout her hospital stay. Hgb stable at 9.6 today. Continue to monitor H&H. Qualifiers: Anemia type: iron deficiency Iron deficiency anemia type: chronic blood loss Qualified Code(s): D50.0 - Iron deficiency anemia secondary to blood loss (chronic) - Subjective Interval history: No significant event noted overnight. Patient was seen and examined this morning. Patient complains of gas in stomach and urinary bladder fullness. Patinet has been eating okay. Patient continues to pass gas but still no bowel movement yet. Patient denies fever, chest pain, shortness of breath, nausea, vomiting, diarrhea. Patient is noted to have sinus rhythm at rate of 80s on bedside cardiac monitoring. - Constitutional Vitals: Temp Pulse Resp BP Pulse Ox 98.8 F 84 19 142/73 92 07/26/16 07:37 07/26/16 07:37 07/26/16 07:37 07/26/16 07:37 07/26/16 07:37 General appearance: Present: A&O X 3, no acute distress, severe distress, answers questions appropriately - Head Head exam: Present: atraumatic, normocephalic - Eye Eye exam: Present: EOMI, PERRL, conjuntiva pink, sclera anicteric - Neck Neck exam general surgery: Present: supple, trachea midline. Absent: lymphadenopathy - Respiratory Respiratory exam: Present: CTAB. Absent: accessory muscle use, rales, rhonchi, wheezes - Cardiovascular Cardiovascular exam: Present: RRR, +S1, +S2. Absent: diastolic murmur, gallop, rubs, systolic murmur - GI/Abdominal GI/Abdominal exam: Present: normal bowel sounds, soft, tenderness (Diffuse fullness), no peritoneal signs. Absent: distended - Extremities Exam Extremities exam: Present: warm, radial pulses palpable and symetrical. Absent : calf tenderness, cyanotic, pedal edema - Neurological Exam Neurological exam: Present: CN II-XII intact, oriented X3, no focal deficits. Absent: pronater drift, facial droop, speech deficit - Skin Skin exam: Present: dry, intact, warm Internal Medicine: Result - Labs CBC & Chem 7: 07/26/16 04:30 07/26/16 04:30 Labs: Short CBC 07/26/16 Range/Units 04:30 WBC 11.5 H (4.3-11.1) K/mcL Hgb 9.6 L (11.5-15.4) g/dL Hct 30.6 L (35.3-44.9) % Plt Count 174 (140-400) K/mcL Neutrophils # 6.9 (1.6-8.9) K/mcL BMP 07/26/16 04:30 Sodium 129 L Potassium 4.6 H Chloride 94 L Carbon Dioxide 28 BUN 25 H Creatinine 0.80 Glucose 145 H Calcium 8.4 L Liver Function 07/26/16 Range/Units 04:30 Total Bilirubin 0.7 (0.2-1.2) mg/dL AST 11 (5-34) Units/L ALT 13 (0-55) Units/L Alkaline Phosphatase 67 (38-126) Units/L Albumin 2.4 L (3.5-5.0) g/dL - ABG Interpretation ABG results: PT/INR, D-dimer PT 14.4 Seconds (9.4-12.1) H 07/15/16 04:45 - VTE Documentation of Mechanical Device: Intermittent pneumatic compression device Consult Discharge Plan - Plan Additional Instructions: Surgical Discharge Instructions: 1. May shower today. No tub bath for 2 weeks. 2. Wash incisions with soap and water and pat dry daily. 3. No lifting more than 20 lbs for [address] when off narcotics for over 24 hours and able to react safely in the car. 5. May climb stairs. Referrals: Marvin Faulkner MD [Partnered Physician] - 08/04/16 9:00 am [facility],PCP [Primary Care Provider] - <Raghu Zelaya - Last Filed: 07/26/16 16:16> Date of Encounter: 07/26/16 - Assessment and plan (1) Paroxysmal atrial fibrillation Current Visit: Yes Status: Acute (2) Hypokalemia Current Visit: Yes Status: Resolved (3) Hyponatremia Current Visit: Yes Status: Acute (4) Hypomagnesemia Current Visit: Yes Status: Acute (5) Anemia Current Visit: Yes Status: Acute Qualifiers: Anemia type: iron deficiency Iron deficiency anemia type: chronic blood loss Qualified Code(s): D50.0 - Iron deficiency anemia secondary to blood loss (chronic) (6) Adynamic ileus Current Visit: Yes Status: Resolved (7) Cecum mass Current Visit: Yes Status: Acute (8) Renovascular hypertension Current Visit: No Status: Chronic (9) COPD (chronic obstructive pulmonary disease) Current Visit: No Status: Acute Qualifiers: COPD type: emphysema Emphysema type: centrilobular Qualified Code(s): J43.2 - Centrilobular emphysema (10) CVA (cerebral vascular accident) Current Visit: Yes Status: Acute Qualifiers: CVA mechanism: embolism Precerebral and cerebral artery: middle cerebral artery Laterality of affected vessel: right Qualified Code(s): I63.411 - Cerebral infarction due to embolism of right middle cerebral artery (11) On total parenteral nutrition (TPN) Current Visit: Yes Status: Acute (12) Tobacco abuse Current Visit: Yes Status: Acute (13) Adenocarcinoma, colon Current Visit: Yes Status: Chronic - Constitutional Vitals: Temp Pulse Resp BP Pulse Ox 99.0 F 68 15 128/64 94 07/26/16 15:00 07/26/16 15:00 07/26/16 15:00 07/26/16 15:00 07/26/16 15:00 Internal Medicine: Result - Labs CBC & Chem 7: 07/26/16 04:30 07/26/16 04:30 Labs: Short CBC 07/26/16 Range/Units 04:30 WBC 11.5 H (4.3-11.1) K/mcL Hgb 9.6 L (11.5-15.4) g/dL Hct 30.6 L (35.3-44.9) % Plt Count 174 (140-400) K/mcL Neutrophils # 6.9 (1.6-8.9) K/mcL BMP 07/26/16 04:30 Sodium 129 L Potassium 4.6 H Chloride 94 L Carbon Dioxide 28 BUN 25 H Creatinine 0.80 Glucose 145 H Calcium 8.4 L Liver Function 07/26/16 Range/Units 04:30 Total Bilirubin 0.7 (0.2-1.2) mg/dL AST 11 (5-34) Units/L ALT 13 (0-55) Units/L Alkaline Phosphatase 67 (38-126) Units/L Albumin 2.4 L (3.5-5.0) g/dL - ABG Interpretation ABG results: PT/INR, D-dimer PT 14.4 Seconds (9.4-12.1) H 07/15/16 04:45 - Attending Attestation I examined this patient and my medical decision-making was reviewed with the Resident Physician on 07/26/16. I agree with the documented findings, disposition and treatment plan as described except to the extent set forth below. Ms. Barfield is currently admitted for acute CVA, parox a fib and resected colon cancer. She is moderate risk due to potential for worsening neurologic status. Ms. Barfield is resting comfortably. No new issues. TPN stopped today. Diet fair. Pain OK. Remains in NSR. Exam Alert. Comfortable Heart reg No wheeze I/P 1. CVA - on Pradaxa 2. HTN 3. Parox a fib 4. colon cancer Further diagnoses and plan as above.
--- NOTE | 2016-07-26 13:19 | General Surgery Progress Note ---
Date of Encounter: 07/26/16 Time of Encounter: 13:00 - Assessment and Plan (1) Cecum mass Current Visit: Yes Status: Acute POD # 10 Laparoscopic right colectomy with Dr. Faulkner Soft diet- advance to regular as tolerated Supportive care/pain control IS every 1 hour while awake Increase activity May discharge from a surgical standpoint when medically stable. F/U 08/04/16 @ 9: [address] Faulkner as scheduled (2) GERD (gastroesophageal reflux disease) Current Visit: No Status: Chronic PPI therapy Qualifiers: Esophagitis presence: without esophagitis Qualified Code(s): K21.9 - Gastro -esophageal reflux disease without esophagitis (3) Hypertension Current Visit: No Status: Chronic Managment per hospitalist service Qualifiers: Hypertension type: essential hypertension Qualified Code(s): I10 - Essential (primary) hypertension (4) Atrial fibrillation with RVR Current Visit: No Status: Acute Currently on Pradaxa Management per hospitalist and cardiology (5) Chronic diastolic CHF (congestive heart failure) Current Visit: No Status: Chronic (6) CAD (coronary artery disease) Current Visit: No Status: Chronic Qualifiers: Coronary Disease-Associated Artery/Lesion type: [place] artery [place] vs. transplanted heart: [place] heart Associated angina: angina presence unspecified Qualified Code(s): I25.10 - Atherosclerotic heart disease of [place] coronary artery without angina pectoris (7) COPD (chronic obstructive pulmonary disease) Current Visit: No Status: Acute Continue Aerosols prn IS every 1 hour while awake Management per medicine service Qualifiers: COPD type: emphysema Emphysema type: centrilobular Qualified Code(s): J43.2 - Centrilobular emphysema (8) CVA (cerebral vascular accident) Current Visit: Yes Status: Acute Management per medicine service Qualifiers: CVA mechanism: embolism Precerebral and cerebral artery: middle cerebral artery Laterality of affected vessel: right Qualified Code(s): I63.411 - Cerebral infarction due to embolism of right middle cerebral artery (9) DM type 2 (diabetes mellitus, type 2) Current Visit: No Status: Chronic Improved Management per medicine service Qualifiers: Diabetes mellitus complication status: with circulatory complication Diabetes mellitus complication detail: with other circulatory complications Diabetes mellitus detention insulin use: with detention use Qualified Code(s) : E11.59 - Type 2 diabetes mellitus with other circulatory complications; Z79.4 - care home (current) use of insulin (10) DVT prophylaxis Current Visit: Yes Status: Acute Patient on Pradaxa Subjective Patient reports: no new complaints, feels better, still having pain, pain is less, tolerating a regular diet (soft), flatus, no bowel movement, afebrile Objective Vital Signs - Last 8 Hours Temp Pulse Resp BP Pulse Ox 07/26/16 12:17 98.3 F 78 15 140/60 95 07/26/16 07:37 98.8 F 84 19 142/73 92 Intake and Output 07/25/16 07/26/16 07/26/16 23:59 07:59 15:59 Intake Total 1960 / 1960 0 / 0 120 / 120 Output Total 700 / 700 150 / 150 200 / 200 Balance 1260 / 1260 -150 / -150 -80 / -80 Intake: IV Fluids 1600 / 1600 Clinimix E 5%-15% 1400 / 1400 SOLUTION 2,000 ML @ 60 mls/hr IVC .Q24H MISAEL with M.v.i. Adult 10 ml Rx#: [id number] Magnesium Sulfate 2 GM In 100 / 100 Dextrose 5% 100 ML @ 100 mls/hr IVPB ONCE ONE Rx# :[id number] Oral 360 / 360 0 / 0 120 / 120 Output: Urine 700 / 700 150 / 150 200 / 200 Other: Meal Dinner Breakfast Percent of Meal Consumed 95% 50% # Urine Diapers 1 Weight 50.5 kg 50.5 kg Blood Glucose* 222 130 210 Patient Weight 07/26/16 23:59 Weight 50.5 kg - General physical appearance well developed, well nourished, no distress - Eyes normal ocular movement - ENT normal mucosa, atraumatic, normocephalic - Neck Neck exam: trachea midline - Respiratory normal respiratory effort, clear to auscultation - Cardiovascular Cardiovascular exam: Present: RRR - Abdomen Abdomen: Present: bowel sounds present, soft, tender (Minimal, expected postoperative tenderness) - Incision Incision: Present: clean and dry, intact - Neurologic CN 2-12 grossly intact - Psychiatric oriented to time, oriented to person, oriented to place, speech is normal, memory intact - Labs 07/26/16 04:30 07/26/16 04:30 Diabetes panel 07/26/16 Range/Units 04:30 Sodium 129 L (136-145) mEq/L Potassium 4.6 H (3.5-4.5) mEq/L Chloride 94 L (98-109) mEq/L Carbon Dioxide 28 (19-29) mEq/L BUN 25 H (7-20) mg/dL Creatinine 0.80 (0.57-1.11) mg/dL Glucose 145 H (70-99) mg/dL Calcium 8.4 L (8.6-10.8) mg/dL AST 11 (5-34) Units/L ALT 13 (0-55) Units/L Alkaline Phosphatase 67 (38-126) Units/L Albumin 2.4 L (3.5-5.0) g/dL Calcium panel 07/26/16 Range/Units 04:30 Calcium 8.4 L (8.6-10.8) mg/dL Albumin 2.4 L (3.5-5.0) g/dL Pituitary panel 07/26/16 Range/Units 04:30 Sodium 129 L (136-145) mEq/L Potassium 4.6 H (3.5-4.5) mEq/L Chloride 94 L (98-109) mEq/L Carbon Dioxide 28 (19-29) mEq/L BUN 25 H (7-20) mg/dL Creatinine 0.80 (0.57-1.11) mg/dL Glucose 145 H (70-99) mg/dL Calcium 8.4 L (8.6-10.8) mg/dL Adrenal panel 07/26/16 Range/Units 04:30 Sodium 129 L (136-145) mEq/L Potassium 4.6 H (3.5-4.5) mEq/L Chloride 94 L (98-109) mEq/L Carbon Dioxide 28 (19-29) mEq/L BUN 25 H (7-20) mg/dL Creatinine 0.80 (0.57-1.11) mg/dL Glucose 145 H (70-99) mg/dL Calcium 8.4 L (8.6-10.8) mg/dL Total Bilirubin 0.7 (0.2-1.2) mg/dL AST 11 (5-34) Units/L ALT 13 (0-55) Units/L Alkaline Phosphatase 67 (38-126) Units/L Albumin 2.4 L (3.5-5.0) g/dL - VTE Documentation of Mechanical Device: Intermittent pneumatic compression device Consult Discharge Plan - Plan Additional Instructions: Surgical Discharge Instructions: 1. May shower today. No tub bath for 2 weeks. 2. Wash incisions with soap and water and pat dry daily. 3. No lifting more than 20 lbs for [address] when off narcotics for over 24 hours and able to react safely in the car. 5. May climb stairs. Referrals: Marvin Faulkner MD [Partnered Physician] - 08/04/16 9:00 am [facility] [Primary Care Provider[facility] -
[2016-07-26] MEDS ORDERED: Artificial Tears SOLN 15 ML BOTTLE BOTH EYES PRN (14:15)
[2016-07-26 17:06] LABS: BUN/Creatinine Ratio 34 (6-26); Blood Urea Nitrogen 27 mg/dL (7-20); Calcium 8.2 mg/dL (8.6-10.8); Carbon Dioxide 27 mEq/L (19-29); Chloride 94 mEq/L (98-109); Glucose 130 mg/dL (70-99); Magnesium 1.7 mg/dL (1.6-2.6); Osmolality,Calculated 273 (280-300); Phosphorous 3.7 mg/dL (2.3-4.7); Potassium 4.2 mEq/L (3.5-4.5); Sodium 128 mEq/L (136-145); eGFR For African Americans > 60 (> 60); eGFR For Non-African Americans > 60 (> 60)
[2016-07-26] MEDS: Clinimix E 5%-15% SOLUTION 2,000 ML with MVI, adult with vitamin K 10 ML IVC SCH (19:49)
[2016-07-26] MEDS: *HR* OxyCODONE/APAP 5/325 TABLET PO PRN (21:43)
[2016-07-27] MEDS: Insulin LISPRO 300 UNITS/3 ML VIAL SQ SCH ×3 (00:24→08:59)
[2016-07-27 08:46] VITALS: BP 160/76
[2016-07-27] MEDS: *HR* Dabigatran 150 MG CAPSULE PO SCH (09:01)
[2016-07-27] MEDS: Diltiazem CD (24hr) 120 MG CAPSULE PO SCH (09:01)
[2016-07-27] MEDS: Metoprolol XL (24 HR) Succ 25 MG TAB.ER.24H PO SCH (09:01)
[2016-07-27] MEDS: *HR* Morphine Immed Rel 30 MG TABLET PO SCH (09:01)
[2016-07-27 09:30] LABS: Basophils % 0.4 %; Eosinophils # 0.3 K/mcL (0.0-0.6); Eosinophils % 2.9 %; Hematocrit 33.1 % (35.3-44.9); Hemoglobin 10.2 g/dL (11.5-15.4); Immature Granulocytes % 1.5 % (0-4); Immature Platelets 5.6 % (1.1-6.1); Lymphocytes # 3.2 K/mcL (0.6-4.6); Lymphocytes % 29.5 %; Mean Corpuscular HGB Conc 30.8 g/dL (31.6-35.5); Mean Corpuscular Hemoglobin 23.6 pg (28.0-33.3); Mean Corpuscular Volume 76.4 fL (83.0-100.0); Mean Platelet Volume 9.9 fL (9.4-12.4); Monocytes # 1.1 K/mcL (0.0-1.3); Monocytes % 10.6 %; Platelet Count 215 K/mcL (140-400); Red Blood Count 4.33 M/mcL (3.82-4.97); Segmented Neutrophils % 55.1 %
[2016-07-27 09:48] LABS: BUN/Creatinine Ratio 29 (6-26); Blood Urea Nitrogen 26 mg/dL (7-20); Calcium 8.6 mg/dL (8.6-10.8); Carbon Dioxide 25 mEq/L (19-29); Chloride 96 mEq/L (98-109); Glucose 216 mg/dL (70-99); Magnesium 1.3 mg/dL (1.6-2.6); Osmolality,Calculated 281 (280-300); Potassium 4.2 mEq/L (3.5-4.5); Sodium 130 mEq/L (136-145); eGFR For African Americans > 60 (> 60); eGFR For Non-African Americans 59 (> 60)
--- NOTE | 2016-07-27 09:50 | Discharge Summary ---
<Bria Moon - Last Filed: 07/27/16 09:40> Date of Encounter: 07/27/16 Time of Encounter: 09:10 - Discharge Diagnosis (1) CVA (cerebral vascular accident) Priority: Primary Status: Acute Qualifiers: CVA mechanism: embolism Precerebral and cerebral artery: middle cerebral artery Laterality of affected vessel: right Qualified Code(s): I63.411 - Cerebral infarction due to embolism of right middle cerebral artery (2) Cecum mass Priority: Primary Status: Acute (3) Paroxysmal atrial fibrillation Priority: Primary Status: Acute (4) Hyponatremia Priority: Secondary Status: Acute (5) Adynamic ileus Priority: Secondary Status: Resolved (6) Renovascular hypertension Priority: Secondary Status: Chronic (7) COPD (chronic obstructive pulmonary disease) Priority: Secondary Status: Acute Qualifiers: COPD type: emphysema Emphysema type: centrilobular Qualified Code(s): J43.2 - Centrilobular emphysema (8) Hypokalemia Priority: Secondary Status: Resolved (9) Anemia Priority: Secondary Status: Acute Qualifiers: Anemia type: iron deficiency Iron deficiency anemia type: chronic blood loss Qualified Code(s): D50.0 - Iron deficiency anemia secondary to blood loss (chronic) - Discharge Medications Prescriptions: Morphine Immed Rel [Morphine Sulfate] 15 mg PO BID #14 tablet Oxycodone HCl/Acetaminophen [Percocet 5-325 mg Tablet] 1 tab PO Q6H PRN #4 tablet PRN Reason: Pain Home Medications: Acetaminophen [Tylenol] 650 mg PO TID PRN 10/10/15 [History] Calcium Carbonate [Tums] 500 mg PO BID PRN 10/10/15 [History] Cholecalciferol (D-3) [Vitamin D] 2,000 unit PO DAILY 10/10/15 [History] Ethacrynic Acid [Edecrin] 50 mg PO BID 10/10/15 [History] Gabapentin [Neurontin] 600 mg PO TID 10/10/15 [History] GuaiFENesin Liq [Robitussin Liq] 200 mg PO Q6HR PRN 10/10/15 [History] Ipratropium/Albuterol Neb [Duoneb] 3 ml IH Q4HR PRN 10/10/15 [History] Lidocaine 2 patch TP Q12H 10/10/15 [History] Mv-Mn/FA/Vit K1/Lycop/Lut/Zeax [Ocuvite Eye + Multi Tablet] 1 tab PO BID [History] Naphazoline HCl 1 drop OP DAILY PRN 10/10/15 [History] Omeprazole [PriLOSEC] 20 mg PO QAM 10/10/15 [History] Polyethylene Glycol 3350 [MiraLAX] 17 gm PO DAILY PRN 10/10/15 [History] Polyvinyl Alcohol [Artificial Tears] 1 drop OP QID PRN 10/10/15 [History] Tizanidine HCl 2 mg PO DAILY 10/10/15 [History] Isosorbide MONOnitrate (24 HR) [Imdur] 60 mg PO DAILY #30 tab.er.24h 10/13/15 [ Rx] Simvastatin [Zocor] 40 mg PO HS #30 tablet 10/13/15 [Rx] Meclizine HCl [Verticalm] 25 mg PO BID PRN 02/27/16 [History] Sennosides/Docusate Sodium [Senna-Docusate Sodium Tablet] 1 tab PO BID PRN 02/26 [History] Aspirin [Lo-Dose Aspirin EC] 81 mg PO DAILY 03/27/16 [History] Propylene Glycol/Peg 400 [Systane 0.3-0.4% Eye Drops] 1 drop BOTH EYES QID 03/27 [History] Kia Herndon [Preparation H] 1 pad TP QID PRN 03/27/16 [History] Losartan [Cozaar] 25 mg PO DAILY #30 tablet 04/05/16 [Rx] Cyanocobalamin (B-12) [Vitamin B12] 1,000 mcg PO BID 07/08/16 [History] Nitroglycerin [Nitrostat] 0.4 mg SL AD PRN 07/08/16 [History] Potassium Chloride [K-Tab ER] 20 meq PO MOWEFR 07/08/16 [History] Selenium Sulfide [Anti-Dandruff] 1 appl TP AD PRN 07/08/16 [History] hydrALAZINE [HydrALAZINE] 25 mg PO BID 07/08/16 [History] CloNIDine Patch [Catapres-Tts] 0.2 mg TD QWEEK #0 patch.tdwk 07/27/16 [Rx] Dabigatran [Pradaxa] 150 mg PO BID #0 capsule 07/27/16 [Rx] Diltiazem CD (24hr) [Cardizem CD] 120 mg PO DAILY #0 cap.er.24h 07/27/16 [Rx] Metoprolol XL (24 HR) Succ [Toprol Xl] 25 mg PO DAILY tab.er.24h 07/27/16 [Rx] Morphine Immed Rel [Morphine Sulfate] 15 mg PO BID #14 tablet 07/27/16 [Rx] Omeprazole [PriLOSEC] 20 mg PO DAILY@0630 capsule.dr 07/27/16 [Rx] Ondansetron [Zofran] 4 mg IVP Q4HR PRN #0 vial 07/27/16 [Rx] Oxycodone HCl/Acetaminophen [Percocet 5-325 mg Tablet] 1 tab PO Q6H PRN #4 tablet 07/27/16 [Rx] hydrALAZINE [HydrALAZINE] 20 mg IVP Q6HR PRN #0 vial 07/27/16 [Rx] Allergies/Adverse Reactions: Allergies bacitracin [From Neosporin ([id number])] Allergy (Unknown, Verified 07/08/16 08:01) See Comments PATIENT UNSURE- REACTION NOT LISTED ON [facility] celecoxib Allergy (Unknown, Verified 07/08/16 08:01) See Comments pt cannot remember codeine Allergy (Unknown, Verified 07/08/16 08:01) See Comments pt does not remember Donepezil Allergy (Unknown, Verified 07/08/16 08:01) See Comments PATIENT UNSURE- REACTION NOT LISTED ON [facility] fenofibrate [From Tricor] Allergy (Unknown, Verified 07/08/16 08:01) See Comments pt does not remember Hydralazine Allergy (Unknown, Verified 07/08/16 08:01) See Comments PATIENT UNSURE- REACTION NOT LISTED ON [facility] L[facility] naproxen Allergy (Unknown, Verified 07/08/16 08:01) See Comments PATIENT UNSURE- REACTION NOT LISTED ON [facility] Neomycin [From Neosporin ([id number])] Allergy (Unknown, Verified 07/08/16 08 :01) See Comments PATIENT UNSURE- REACTION NOT LISTED ON [facility] L[facility] Opioids - Morphine Analogues Allergy (Unknown, Verified 07/08/16 08:01) See Comments PATIENT UNSURE- REACTION NOT LISTED ON [facility] LIST polymyxin B [From Neosporin ([id number])] Allergy (Unknown, Verified 08:01) See Comments PATIENT UNSURE- REACTION NOT LISTED ON [facility] LIST rofecoxib Allergy (Unknown, Verified 07/08/16 08:01) See Comments PATIENT UNSURE- REACTION NOT LISTED ON [facility] MED LIST Sulfa (Sulfonamide Antibiotics) Allergy (Unknown, Verified 07/08/16 08:01) See Comments PATIENT UNSURE- REACTION NOT LISTED ON [facility] MED LIST Tetanus Vaccines and Toxoid [Tetanus Vaccines & Toxoid] Allergy (Unknown, Verified 07/08/16 08:01) See Comments PATIENT UNSURE- REACTION NOT LISTED ON [facility] MED LIST lisinopril Adverse Reaction (Verified 07/08/16 08:01) Cough nicotine Adverse Reaction (Verified 07/08/16 08:01) Vomiting Date of admission: 07/08/16 11:10 Primary care physician: [facility]CP [facility] Consults: 07/08/16 11:30 Consult to Neurology [CONS] Routine Consulting Provider: Neurology [facility] Reason for Consult: TIA, possible CVA Time Notified: 11:30 Call Completed: Yes 07/08/16 11:54 Consult to Grain Combine Driver [CONS] Routine Reason for SW Consult: return to ECF 07/12/16 14:18 Consult to Gastroenterology [CONS] Routine Consulting Provider: [facility] Reason for Consult: 89yof afib, on asa and eliquis, presents with R MCA CVA. Has likely GI Bleed, appreciate recs Call Completed: Yes 07/14/16 13:55 Consult to Invasive Line Access Team [CONS] Routine Reason for Consult: Limited Vascular access Line Type: EPIV 07/14/16 15:32 Consult to Surgery [CONS] Routine Consulting Provider: [facility] Reason for Consult: Dr. Simental d/w Dr. Faulkner. Colorectal mass partially obstructing at hepatic flexure. Will obtain CT Abd/Pelvis with IV/oral contrast. Appreciate recs regarding mgt. Call Completed: Yes 07/20/16 11:15 Consult to Nutrition [CONS] Routine Comment: Consulting Provider: NUTRITION Reason for Dietary Consult: TPN Start and Manage 07/20/16 11:47 Consult to Invasive Line Access Team [CONS] Routine Reason for Consult: Picc Line Insertion Line Type: PICC Discharging clinician: Bria Moon Anticipated date of discharge: 07/27/16 - Patient Status Disposition: Transfer [facility] Condition: Fair Functional capacity at discharge: independent ambulation Overall status at discharge: patient is progressing back to baseline - Discharge Instructions Instructions: Oxycodone/Acetaminophen (By mouth), Morphine, Rapid Release (By mouth), Atrial Fibrillation (DC), Ischemic Stroke (DC) Follow Up With: Marvin Faulkner MD [Partnered Physician] - 08/04/16 9:00 am [facility]PCP [Primary Care Provider[facility] - [facility] [Provider Group] (Within 1-2 weeks.) Additional Instructions: Surgical Discharge Instructions: 1. May shower today. No tub bath for 2 weeks. 2. Wash incisions with soap and water and pat dry daily. 3. No lifting more than 20 lbs for [address] when off narcotics for over 24 hours and able to react safely in the car. 5. May climb stairs 6. Follow up with Dr. Faulkner of [facility] at 9 am on 08/04/16. Please also follow up with oncology as [facility] regarding adenocarcinoma of cecum. Regarding your atrial fibrillation, please continue Toprol XL 25 mg by mouth daily and Cardizem CD 120 mg by mouth daily for rate control and Pradaxa 150 mg by mouth twice a day. - Diet and Activity Activity: increase activity as tolerated Diet: low fat, low cholesterol, low salt diet Hospital course: Ms. Barfield is a 89 year old female with PMH of paroxysmal atrial fibrillation, uncontrolled hypertension, diabetes and CKD presented with complaints of left facial droop and slurred speech and admitted on 07/08/16 for CVA work-up. Brain MRI showed right MCA territory infarct causing left hemiparesis, likely embolic or thrombo-embolic. Patients neurological symptoms improves and neurology recommends conservative therapies with NOAC and aspirin. Patient was also noted to have anemia with Hgb dropped to 7.5. Patient received one unit of pRBC transfusion on 07/12. GI was consulted and EGD on 07/14 is normal but colonoscopy found likely malignant partially obstructing tumor with biopsy suggestive of adenocarcinoma. CT A/P showed a 3.3 cm apple core lesion of the cecum. General surgery was consulted and laparoscopic right colectomy was done on 07/16. 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 Patient developed A-fib RVR and elevated troponin on 07/18. Patient came back to normal sinus rhythm after starting Cardizem drip and troponin eventually trend down. Cardiology was consulted and switched to oral rate control medications and recommends medical management but no further ischemic evaluation in the setting of CVA. Patient later developed multiple episodes of A -fib RVR requiring Cardizem drip. Patients A-fib was eventually controlled with current regimen of Toprol XL 25 mg PO daily & Cardizem CD 120mg PO daily and patient remains NSR since 07/23. Patient is on Pradaxa for anticoagulation as recommended by cardiology (given patient developed stroke while on Eliquis). Patient also received 2 units of pRBC transfusion after Hgb dropped to 7.4 on and Hgb remains stable since with latest one at 10.2 on 07/27. Patients adynamic ileus continues to improve and TPN, which was started on 07/21 for nutritional support, was eventually discontinued on 07/26 as patient tolerates oral intake. Given patient improves clinically and remains hemodynamically stable, patient is fine to be transferred back to [place] for further care. Patient will have outpatient follow-up with Dr. Faulkner of [facility] at 9 am on . We will also put in outpatient referral to [facility] after discharge regarding her cecum cancer. - Time Spent with Patient Total time spent providing and/or coordinating discharge services: Greater than 30 minutes - Constitutional Vitals: Temp Pulse Resp BP Pulse Ox 97.9 F 76 15 160/76 96 07/27/16 08:44 07/27/16 08:44 07/27/16 08:44 07/27/16 08:44 07/27/16 08:44 General appearance: Present: cooperative, A&O X 3, no acute distress, answers questions appropriately - Head Head exam: Present: atraumatic, normocephalic - Eye Eye exam: Present: EOMI, PERRL, conjuntiva pink, sclera anicteric - Neck Neck exam general surgery: Present: supple, trachea midline. Absent: lymphadenopathy - Respiratory Respiratory exam: Present: CTAB. Absent: accessory muscle use, rales, rhonchi, wheezes - Cardiovascular Cardiovascular exam: Present: RRR, +S1, +S2. Absent: diastolic murmur, gallop, rubs, systolic murmur - GI/Abdominal GI/Abdominal exam: Present: normal bowel sounds, soft, no peritoneal signs. Absent: distended, tenderness - Extremities Exam Extremities exam: Present: warm, radial pulses palpable and symetrical. Absent : calf tenderness, cyanotic, pedal edema - Neurological Exam Neurological exam: Present: CN II-XII intact, oriented X3, no focal deficits. Absent: pronater drift, facial droop, speech deficit - Skin Skin exam: Present: dry, intact - VTE Documentation of Mechanical Device: Intermittent pneumatic compression device <Raghu Zelaya - Last Filed: 07/27/16 14:08> Date of Encounter: 07/27/16 - Discharge Diagnosis (1) Paroxysmal atrial fibrillation Status: Acute (2) Hypokalemia Status: Resolved (3) Hyponatremia Status: Acute (4) Hypomagnesemia Priority: Secondary Status: Acute (5) Anemia Status: Acute Qualifiers: Anemia type: iron deficiency Iron deficiency anemia type: chronic blood loss Qualified Code(s): D50.0 - Iron deficiency anemia secondary to blood loss (chronic) (6) Adynamic ileus Status: Resolved (7) Cecum mass Status: Acute (8) Renovascular hypertension Status: Chronic (9) COPD (chronic obstructive pulmonary disease) Status: Acute Qualifiers: COPD type: emphysema Emphysema type: centrilobular Qualified Code(s): J43.2 - Centrilobular emphysema (10) CVA (cerebral vascular accident) Status: Acute Qualifiers: CVA mechanism: embolism Precerebral and cerebral artery: middle cerebral artery Laterality of affected vessel: right Qualified Code(s): I63.411 - Cerebral infarction due to embolism of right middle cerebral artery (11) On total parenteral nutrition (TPN) Priority: Secondary Status: Resolved (12) Tobacco abuse Status: Resolved (13) Adenocarcinoma, colon Priority: Secondary Status: Chronic Date of admission: 07/08/16 11:10 Primary care physician: [facility]CP [facility] Consults: 07/08/16 11:30 Consult to Neurology [CONS] Routine Consulting Provider: [facility] Reason for Consult: TIA, possible CVA Time Notified: 11:30 Call Completed: Yes 07/08/16 11:54 Consult to Grain Combine Driver [CONS] Routine Reason for SW Consult: return to [facility] 07/12/16 14:18 Consult to Gastroenterology [CONS] Routine Consulting Provider: [facility] Reason for Consult: 89yof afib, on asa and eliquis, presents with R MCA CVA. Has likely GI Bleed, appreciate recs Call Completed: Yes 07/14/16 13:55 Consult to Invasive Line Access Team [CONS] Routine Reason for Consult: Limited Vascular access Line Type: EPIV 07/14/16 15:32 Consult to Surgery [CONS] Routine Consulting Provider: [facility] Reason for Consult: Dr. Simental d/w Dr. Faulkner. Colorectal mass partially obstructing at hepatic flexure. Will obtain CT Abd/Pelvis with IV/oral contrast. Appreciate recs regarding mgt. Call Completed: Yes 07/20/16 11:15 Consult to Nutrition [CONS] Routine Comment: Consulting Provider: NUTRITION Reason for Dietary Consult: TPN Start and Manage 07/20/16 11:47 Consult to Invasive Line Access Team [CONS] Routine Reason for Consult: Picc Line Insertion Line Type: PICC Hospital course: Ms. Barfield is a 89 year old female - Time Spent with Patient Total time spent providing and/or coordinating discharge services: 42min - Constitutional Vitals: Temp Pulse Resp BP Pulse Ox 97.9 F 76 15 160/76 96 07/27/16 08:44 07/27/16 08:44 07/27/16 08:44 07/27/16 08:44 07/27/16 08:44 - Attending Attestation I examined this patient and my medical decision-making was reviewed with the Resident Physician on 07/27/16. I agree with the documented findings, disposition and treatment plan as described except to the extent set forth below. Ms. Barfield feels well today. No new issues overnight. Cough stable. No fever or chills. Ready for return to ECF. Exam alert. Comfortable Heart reg Lungs diminished but clear No edema Abd soft I/P 1. CVA 2. Rapid a fib Further diagnoses and plan as above.
[2016-07-27] MEDS ORDERED: Magnesium Sulfate 2 GM in D5% in Water 100 ML IVPB ONE (09:52)
[2016-07-27] MEDS: *HR* OxyCODONE/APAP 5/325 TABLET PO PRN (12:56)
--- NOTE | 2016-07-27 14:11 | Physician Discharge Referral ---
ExtendedCare Referral Info Transfer To: [place] Provider in Charge: Raghu Zelaya DO Provider in Charge after Transfer: PCP Institutional Level of Care: Skilled - Diagnosis (1) Paroxysmal atrial fibrillation Priority: Primary Status: Acute (2) Hypokalemia Priority: Secondary Status: Resolved (3) Hyponatremia Priority: Secondary Status: Acute (4) Hypomagnesemia Priority: Secondary Status: Acute (5) Anemia Priority: Secondary Status: Acute (6) Adynamic ileus Priority: Secondary Status: Resolved (7) Cecum mass Priority: Secondary Status: Acute (8) Renovascular hypertension Priority: Secondary Status: Chronic (9) COPD (chronic obstructive pulmonary disease) Priority: Secondary Status: Acute (10) CVA (cerebral vascular accident) Priority: Primary Status: Acute (11) On total parenteral nutrition (TPN) Priority: Secondary Status: Resolved (12) Tobacco abuse Priority: Secondary Status: Resolved (13) Adenocarcinoma, colon Priority: Primary Status: Chronic Expected Duration of Placement: terminal clerk Prognosis: Fair Aware of Diagnosis: Patient Aware of Prognosis: Patient - Transfer Medications Prescriptions: Morphine Immed Rel [Morphine Sulfate] 15 mg PO BID #14 tablet Oxycodone HCl/Acetaminophen [Percocet 5-325 mg Tablet] 1 tab PO Q6H PRN #4 tablet PRN Reason: Pain Home Medications: Acetaminophen [Tylenol] 650 mg PO TID PRN 10/10/15 [History] Calcium Carbonate [Tums] 500 mg PO BID PRN 10/10/15 [History] Cholecalciferol (D-3) [Vitamin D] 2,000 unit PO DAILY 10/10/15 [History] Ethacrynic Acid [Edecrin] 50 mg PO BID 10/10/15 [History] Gabapentin [Neurontin] 600 mg PO TID 10/10/15 [History] GuaiFENesin Liq [Robitussin Liq] 200 mg PO Q6HR PRN 10/10/15 [History] Ipratropium/Albuterol Neb [Duoneb] 3 ml IH Q4HR PRN 10/10/15 [History] Lidocaine 2 patch TP Q12H 10/10/15 [History] Mv-Mn/FA/Vit K1/Lycop/Lut/Zeax [Ocuvite Eye + Multi Tablet] 1 tab PO BID [History] Naphazoline HCl 1 drop OP DAILY PRN 10/10/15 [History] Omeprazole [PriLOSEC] 20 mg PO QAM 10/10/15 [History] Polyethylene Glycol 3350 [MiraLAX] 17 gm PO DAILY PRN 10/10/15 [History] Polyvinyl Alcohol [Artificial Tears] 1 drop OP QID PRN 10/10/15 [History] Tizanidine HCl 2 mg PO DAILY 10/10/15 [History] Isosorbide MONOnitrate (24 HR) [Imdur] 60 mg PO DAILY #30 tab.er.24h 10/13/15 [ Rx] Simvastatin [Zocor] 40 mg PO HS #30 tablet 10/13/15 [Rx] Meclizine HCl [Verticalm] 25 mg PO BID PRN 02/27/16 [History] Sennosides/Docusate Sodium [Senna-Docusate Sodium Tablet] 1 tab PO BID PRN 02/26 [History] Aspirin [Lo-Dose Aspirin EC] 81 mg PO DAILY 03/27/16 [History] Propylene Glycol/Peg 400 [Systane 0.3-0.4% Eye Drops] 1 drop BOTH EYES QID 03/27 [History] Kia Herndon [Preparation H] 1 pad TP QID PRN 03/27/16 [History] Losartan [Cozaar] 25 mg PO DAILY #30 tablet 04/05/16 [Rx] Cyanocobalamin (B-12) [Vitamin B12] 1,000 mcg PO BID 07/08/16 [History] Nitroglycerin [Nitrostat] 0.4 mg SL AD PRN 07/08/16 [History] Potassium Chloride [K-Tab ER] 20 meq PO MOWEFR 07/08/16 [History] Selenium Sulfide [Anti-Dandruff] 1 appl TP AD PRN 07/08/16 [History] hydrALAZINE [HydrALAZINE] 25 mg PO BID 07/08/16 [History] CloNIDine Patch [Catapres-Tts] 0.2 mg TD QWEEK #0 patch.tdwk 07/27/16 [Rx] Dabigatran [Pradaxa] 150 mg PO BID #0 capsule 07/27/16 [Rx] Diltiazem CD (24hr) [Cardizem CD] 120 mg PO DAILY #0 cap.er.24h 07/27/16 [Rx] Metoprolol XL (24 HR) Succ [Toprol Xl] 25 mg PO DAILY tab.er.24h 07/27/16 [Rx] Morphine Immed Rel [Morphine Sulfate] 15 mg PO BID #14 tablet 07/27/16 [Rx] Omeprazole [PriLOSEC] 20 mg PO DAILY@0630 capsule. 07/27/16 [Rx] Ondansetron [Zofran] 4 mg IVP Q4HR PRN #0 vial 07/27/16 [Rx] Oxycodone HCl/Acetaminophen [Percocet 5-325 mg Tablet] 1 tab PO Q6H PRN #4 tablet 07/27/16 [Rx] hydrALAZINE [HydrALAZINE] 20 mg IVP Q6HR PRN #0 vial 07/27/16 [Rx] Allergies/Adverse Reactions: Allergies bacitracin [From Neosporin ([id number])] Allergy (Unknown, Verified 07/08/16 08:01) See Comments PATIENT UNSURE- REACTION NOT LISTED ON [facility] L[facility] celecoxib Allergy (Unknown, Verified 07/08/16 08:01) See Comments pt cannot remember codeine Allergy (Unknown, Verified 07/08/16 08:01) See Comments pt does not remember Donepezil Allergy (Unknown, Verified 07/08/16 08:01) See Comments PATIENT UNSURE- REACTION NOT LISTED ON [facility] MED LIST fenofibrate [From Tricor] Allergy (Unknown, Verified 07/08/16 08:01) See Comments pt does not remember Hydralazine Allergy (Unknown, Verified 07/08/16 08:01) See Comments PATIENT UNSURE- REACTION NOT LISTED ON [facility] MED LIST naproxen Allergy (Unknown, Verified 07/08/16 08:01) See Comments PATIENT UNSURE- REACTION NOT LISTED ON [facility] MED LIST Neomycin [From Neosporin ([id number])] Allergy (Unknown, Verified 07/08/16 08 :01) See Comments PATIENT UNSURE- REACTION NOT LISTED ON [facility] MED LIST Opioids - Morphine Analogues Allergy (Unknown, Verified 07/08/16 08:01) See Comments PATIENT UNSURE- REACTION NOT LISTED ON [facility] MED LIST polymyxin B [From Neosporin ([id number])] Allergy (Unknown, Verified 08:01) See Comments PATIENT UNSURE- REACTION NOT LISTED ON [facility] MED LIST rofecoxib Allergy (Unknown, Verified 07/08/16 08:01) See Comments PATIENT UNSURE- REACTION NOT LISTED ON [facility] MED LIST Sulfa (Sulfonamide Antibiotics) Allergy (Unknown, Verified 07/08/16 08:01) See Comments PATIENT UNSURE- REACTION NOT LISTED ON [facility] MED LIST Tetanus Vaccines and Toxoid [Tetanus Vaccines & Toxoid] Allergy (Unknown, Verified 07/08/16 08:01) See Comments PATIENT UNSURE- REACTION NOT LISTED ON [facility] MED LIST lisinopril Adverse Reaction (Verified 07/08/16 08:01) Cough nicotine Adverse Reaction (Verified 07/08/16 08:01) Vomiting - Respiratory Orders Oxygen / L per min (Maintain oxygen saturation greater than 90%) Smoking Cessation: Smoking cessation has been advised. For more information, call the [employer] Tobacco Quit Line at 9-739-NARI-NOW. - Lab Orders Lab Orders: 2 Step Mantoux Test per State regulation - Ancillary Orders May use pressure relief devices daily prn, May consult with Dentist, Materials Supervisor, Tobacco Sorter PRN - Advance Directives Code Status: Full Code - History and Physical History/Physical reviewed & approved w/add comments: Pt with controlled rate. - Mobility Orders Ambulate - Rehabiliation Orders Rehab Potential: Fair - Treatments Skin tear care topically daily PRN per policy, May check for fecal impaction rectally daily PRN, Fleet enema rectally every other day PRN cleansing purposes - Diet Orders No Added Salt (LI) CERTIFICATION: I certify that the transfer of the above named patient to an Extended Care Facility is necessary for the continuing treatment of the diagnosis listed. The above information is true and accurate reflection of patient's current condition. Confidential - Redisclosure prohibited without a patient's written consent.
== END 2016-07-27 13:30 | DRG 981 ==
LOC: EMEROO 07:03 → SUATTDRO 11:10 → 2NENU 11:10
PROVIDERS: ADMIT Internal Medicine; ATTEND Internal Medicine
PROC: ENDOCBX (2016-07-14 14:00)

== ENCOUNTER 2016-09-22 17:54 | Inpatient (IN) ==
--- NOTE | 2016-09-22 18:03 | Emergency Department Note ---
Disposition Clinical Impression: UTI (urinary tract infection) Qualifiers: Urinary tract infection type: acute cystitis Hematuria presence: without hematuria Qualified Code(s): N30.00 - Acute cystitis without hematuria Congestive heart failure Qualifiers: Congestive heart failure type: unspecified congestive heart failure type Congestive heart failure chronicity: acute Qualified Code(s): I50.9 - Heart failure, unspecified Disposition: Admitted As Inpatient Condition: Fair Forms: ED Satisfaction Letter Time of Disposition: 21:20 General Adult HPI - General Chief complaint: ED Fever Stated complaint: Fever Time Seen by Provider: 09/22/16 17:59 Source: patient Mode of arrival: ambulatory Limitations: no limitations Nursing Notes Reviewed: Yes Vital Signs Reviewed: Yes - History of Present Illness HPI Narrative: 89-year-old who presents emergency department from the [facility] due to the fact she had some increasing shortness of breath. They were concerned she had a fever and that she had congestive changes on her chest x- ray. The lab work was done. He evaluated at this point in time. Pt Subjective Complaint: The temperature shortness of breath increased fatigue Onset (ago): Just [employer] Associated symptoms: Reports: cough, fever/chills - Related Data Home Medications Medication Instructions Recorded Confirmed Acetaminophen [Tylenol] 650 mg PO TID PRN 10/10/15 09/17/16 Calcium Carbonate [Tums] 500 mg PO BID PRN 10/10/15 09/17/16 Cholecalciferol (D-3) [Vitamin D] 2,000 unit PO DAILY 10/10/15 09/17/16 Ethacrynic Acid [Edecrin] 50 mg PO BID 10/10/15 09/17/16 Gabapentin [Neurontin] 600 mg PO TID 10/10/15 09/17/16 GuaiFENesin Liq [Robitussin Liq] 200 mg PO Q6HR PRN 10/10/15 09/17/16 Ipratropium/Albuterol Neb [Duoneb] 3 ml IH Q4HR PRN 10/10/15 09/17/16 Mv-Mn/FA/Vit K1/Lycop/Lut/Zeax 1 tab PO BID 10/10/15 09/17/16 [Ocuvite Eye + Multi Tablet] Naphazoline HCl 1 drop OP DAILY PRN 10/10/15 09/17/16 Omeprazole [PriLOSEC] 20 mg PO QAM 10/10/15 09/17/16 Polyethylene Glycol 3350 [MiraLAX] 17 gm PO DAILY PRN 10/10/15 09/17/16 Polyvinyl Alcohol [Artificial 1 drop OP QID PRN 10/10/15 09/17/16 Tears] Tizanidine HCl 2 mg PO DAILY 10/10/15 09/17/16 Meclizine HCl [Verticalm] 25 mg PO BID PRN 02/27/16 09/17/16 Sennosides/Docusate Sodium 1 tab PO BID PRN 02/27/16 09/17/16 [Senna-Docusate Sodium Tablet] Aspirin [Lo-Dose Aspirin EC] 81 mg PO DAILY 03/27/16 09/17/16 Propylene Glycol/Peg 400 [Systane 1 drop BOTH EYES QID 03/27/16 09/17/16 0.3-0.4% Eye Drops] Kia Herndon [Preparation H] 1 pad TP QID PRN 03/27/16 09/17/16 Cyanocobalamin (B-12) [Vitamin B12] 1,000 mcg PO BID 07/08/16 09/17/16 Nitroglycerin [Nitrostat] 0.4 mg SL AD PRN 07/08/16 09/17/16 Potassium Chloride [K-Tab ER] 20 meq PO MOWEFR 07/08/16 09/17/16 Selenium Sulfide [Anti-Dandruff] 1 appl TP AD PRN 07/08/16 09/17/16 hydrALAZINE [HydrALAZINE] 25 mg PO BID 07/08/16 09/17/16 Previous Rx's Medication Instructions Recorded Isosorbide MONOnitrate (24 HR) 60 mg PO DAILY #30 tab.er.24h 10/13/15 [Imdur] Dabigatran [Pradaxa] 150 mg PO BID #0 capsule 07/27/16 Diltiazem CD (24hr) [Cardizem CD] 120 mg PO DAILY #0 cap.er.24h 07/27/16 Metoprolol XL (24 HR) Succ [Toprol 25 mg PO DAILY tab.er.24h 07/27/16 Xl] Morphine Immed Rel [Morphine 15 mg PO BID #14 tablet 07/27/16 Sulfate] Omeprazole [PriLOSEC] 20 mg PO DAILY@0630 capsule. 07/27/16 Ondansetron [Zofran] 4 mg IVP Q4HR PRN #0 vial 07/27/16 Oxycodone HCl/Acetaminophen 1 tab PO Q6H PRN #4 tablet 07/27/16 [Percocet 5-325 mg Tablet] Ferrous Sulfate 325 mg PO BIDWM #60 tablet 08/20/16 Allergies Allergy/AdvReac Type Severity Reaction Status Date / Time bacitracin Allergy Unknown See Verified 09/17/16 15:28 [From Neosporin Comments ([id number])] celecoxib Allergy Unknown See Verified 09/17/16 15:28 Comments codeine Allergy Unknown See Verified 09/17/16 15:28 Comments Donepezil Allergy Unknown See Verified 09/17/16 15:28 Comments fenofibrate [From Tricor] Allergy Unknown See Verified 09/17/16 15:28 Comments Hydralazine Allergy Unknown See Verified 09/17/16 15:28 Comments naproxen Allergy Unknown See Verified 09/17/16 15:28 Comments Neomycin Allergy Unknown See Verified 09/17/16 15:28 [From Neosporin Comments ([id number])] Opioids - Morphine Analogues Allergy Unknown See Verified 09/17/16 15:28 Comments polymyxin B Allergy Unknown See Verified 09/17/16 15:28 [From Neosporin Comments ([id number])] rofecoxib Allergy Unknown See Verified 09/17/16 15:28 Comments Sulfa (Sulfonamide Allergy Unknown See Verified 09/17/16 15:28 Antibiotics) Comments Tetanus Vaccines and Toxoid Allergy Unknown See Verified 09/17/16 15:28 [Tetanus Vaccines & Toxoid] Comments lisinopril AdvReac Cough Verified 09/17/16 15:28 nicotine AdvReac Vomiting Verified 09/17/16 15:28 Constitutional: Reports: fever. Denies: chills, weakness, weight change Eyes: Denies: eye pain, eye discharge, vision change ENT ED: Denies: ear pain, throat pain, dental pain, hearing loss, epistaxis, congestion, dysphagia Cardiovascular: Denies: chest pain, palpitations, dyspnea on exertion, edema, syncope Respiratory: Denies: cough, dyspnea, wheezes, hemoptysis, stridor Gastrointestinal: Denies: abdominal pain, nausea, vomiting, diarrhea, constipation, hematemesis, melena, hematochezia Genitourinary: Denies: dysuria, frequency, hematuria, discharge Musculoskeletal: Denies: back pain, neck pain, arthralgia, myalgia Integumentary: Denies: rash, abrasion, lesions Neurological: Reports: weakness. Denies: headache, numbness, paresthesias, confusion, abnormal gait, vertigo Psychiatric: Denies: anxiety, depression, suicidal thoughts, homicidal thoughts , auditory hallucinations, visual hallucinations Endocrine: Denies: fatigue Hematological/Lymphatic: Denies: easy bleeding, easy bruising Allergic/Immunologic: Denies: facial swelling, urticaria Past Medical History - Past Medical History Medical history: Reports: arthritis, atrial fibrillation, cancer, COPD, coronary artery disease, diabetes, GERD, hyperlipidemia, hypertension, peripheral artery disease, valvular heart disease, other Surgical history: Reports: other (pain pump) Psychiatric history: Reports: no psych history 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 PROFESSOR history: Reports: no 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 PROFESSOR history - Social History Smoking Status: Current every day smoker Smokeless Tobacco Status: No Alcohol use: Reports: none Drug use: Reports: none Physical Exam - General Limitations: no limitations - Head Head exam: atraumatic, normocephalic, normal inspection - Eye Eye exam: Present: normal appearance, PERRL, EOMI - ENT ENT exam: normal exam, normal oropharynx, mucous membranes moist - Neck Neck exam: Present: normal inspection, full ROM, trachea midline - Chest Chest inspection: Present: normal inspection, symmetric chest wall rise - Respiratory Respiratory exam: Present: other (Some rales) - Cardiovascular Cardiovascular exam: Present: regular rate, normal rhythm, normal heart sounds - Abdominal Exam Abdominal exam: Present: soft, Non-Tender. Absent: tenderness, distention, guarding, rebound, rigidity - Extremities Exam Extremities exam: Present: normal inspection, full ROM. Absent: tenderness, pedal edema - Expanded Lower Extremity Exam Neurovascular/Tendon exam: Absent: motor deficit, sensory deficit, tendon deficit Gait: not tested/not observed - Back Exam Back exam: Present: normal inspection, full ROM. Absent: tenderness - Neurological Exam Neurological exam: Present: alert, oriented X3 - Psychiatric Psychiatric exam: Present: normal affect, normal mood - Skin Skin exam: Present: warm, dry, intact, normal color Course - Reevaluation(s) Reevaluation #1: Patient is a 89-year-old sent from the snf at the [facility] patient has had a fever and was found to have CHF on chest x-ray. 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 Time: 21:19 - Consultations Consultation #1: Discussed with , admit. Time: 21:19 Vital Signs Temperature 98.9 F 09/22/16 17:56 Pulse Rate 115 09/22/16 17:56 Respiratory Rate 20 09/22/16 17:56 Blood Pressure 139/89 09/22/16 17:56 O2 Sat by Pulse Oximetry 94 09/22/16 17:56 Temperature 98.9 F 09/22/16 17:56 Pulse Rate 115 09/22/16 17:56 Respiratory Rate 20 09/22/16 17:56 Blood Pressure 139/89 09/22/16 17:56 O2 Sat by Pulse Oximetry 95 09/22/16 18:37 Oxygen Delivery Oxygen Delivery Room Air Medical Decision Making - Lab Data Result diagrams: 09/22/16 18:31 09/22/16 18:31 Lab Results 09/22/16 09/22/16 09/22/16 Range/Units 18:31 18:31 18:31 WBC 9.0 (4.3-11.1) K/mcL RBC 3.68 L (3.82-4.97) M/mcL Hgb 8.7 L (11.5-15.4) g/dL Hct 28.4 L (35.3-44.9) % MCV 77.2 L (83.0-100.0) fL MCH 23.6 L (28.0-33.3) pg MCHC 30.6 L (31.6-35.5) g/dL RDW 20.9 H (11.5-14.5) % Plt Count 275 (140-400) K/mcL MPV 8.9 L (9.4-12.4) fL Immature Gran % 0.3 (0-4) % Seg Neutrophils % 61.0 % Lymphocytes % 28.2 % Monocytes % 9.3 % Eosinophils % 1.0 % Basophils % 0.2 % Neutrophils # 5.5 (1.6-8.9) K/mcL Lymphocytes # 2.6 (0.6-4.6) K/mcL Monocytes # 0.8 (0.0-1.3) K/mcL Eosinophils # 0.1 (0.0-0.6) K/mcL Basophils # 0.0 (0.0-0.2) K/mcL Sodium 136 (136-145) mEq/L Potassium 3.8 (3.5-4.5) mEq/L Chloride 97 L (98-109) mEq/L Carbon Dioxide 31 H (19-29) mEq/L BUN 13 (7-20) mg/dL Creatinine 0.92 (0.57-1.11) mg/dL Est GFR ( Amer) > 60 (> 60) Est GFR (Non-Af Amer) 57 L (> 60) BUN/Creatinine Ratio 14 (6-26) Glucose 178 H (70-99) mg/dL Calculated Osmolality 287 (280-300) Lactic Acid 2.7 H (0.5-2.2) mmol/L Calcium 9.2 (8.6-10.8) mg/dL Total Bilirubin 0.7 (0.2-1.2) mg/dL Direct Bilirubin 0.4 (0.0-0.5) mg/dL Indirect Bilirubin 0.3 (0.0-1.2) mg/dL AST 9 (5-34) Units/L ALT 8 (0-55) Units/L Alkaline Phosphatase 92 (38-126) Units/L B-Natriuretic Peptide (0-100) pg/mL Serum Total Protein 6.8 (6.0-8.3) g/dL Albumin 2.6 L (3.5-5.0) g/dL Globulin 4.2 H (2.4-3.5) g/dL Albumin/Globulin Ratio 0.6 L (1.1-2.2) Urine Color (Yellow) Urine Clarity (Clear) Urine pH (5.0-8.0) pH Units Ur Specific [place] (1.010-1.025) Urine Protein (Neg-Trace) mg/dL Urine Glucose (UA) (Normal) mg/dL Urine Ketones (Negative) mg/dL Urine Blood (Negative) Urine Nitrite (Negative) Urine Bilirubin (Negative) Urine Urobilinogen (Normal) mg/dL Ur Leukocyte Esterase (Negative) Urine Microscopic RBC (0-3) per hpf Urine Microscopic WBC (0-3) per hpf Ur Squamous Epith Cells (None-Few) per lpf Urine Bacteria (None-Few) per hpf Hyaline Casts (None-Few) per lpf Ur Culture Indicated? (NO) 09/22/16 09/22/16 Range/Units 18:31 19:54 WBC (4.3-11.1) K/mcL RBC (3.82-4.97) M/mcL Hgb (11.5-15.4) g/dL Hct (35.3-44.9) % MCV (83.0-100.0) fL MCH (28.0-33.3) pg MCHC (31.6-35.5) g/dL RDW (11.5-14.5) % Plt Count (140-400) K/mcL MPV (9.4-12.4) fL Immature Gran % (0-4) % Seg Neutrophils % % Lymphocytes % % Monocytes % % Eosinophils % % Basophils % % Neutrophils # (1.6-8.9) K/mcL Lymphocytes # (0.6-4.6) K/mcL Monocytes # (0.0-1.3) K/mcL Eosinophils # (0.0-0.6) K/mcL Basophils # (0.0-0.2) K/mcL Sodium (136-145) mEq/L Potassium (3.5-4.5) mEq/L Chloride (98-109) mEq/L Carbon Dioxide (19-29) mEq/L BUN (7-20) mg/dL Creatinine (0.57-1.11) mg/dL Est GFR ( Amer) (> 60) Est GFR (Non-Af Amer) (> 60) BUN/Creatinine Ratio (6-26) Glucose (70-99) mg/dL Calculated Osmolality (280-300) Lactic Acid (0.5-2.2) mmol/L Calcium (8.6-10.8) mg/dL Total Bilirubin (0.2-1.2) mg/dL Direct Bilirubin (0.0-0.5) mg/dL Indirect Bilirubin (0.0-1.2) mg/dL AST (5-34) Units/L ALT (0-55) Units/L Alkaline Phosphatase (38-126) Units/L B-Natriuretic Peptide 835 H (0-100) pg/mL Serum Total Protein (6.0-8.3) g/dL Albumin (3.5-5.0) g/dL Globulin (2.4-3.5) g/dL Albumin/Globulin Ratio (1.1-2.2) Urine Color Yellow (Yellow) Urine Clarity Cloudy A (Clear) Urine pH 6.0 (5.0-8.0) pH Units Ur Specific [place] 1.011 (1.010-1.025) Urine Protein Negative (Neg-Trace) mg/dL Urine Glucose (UA) Normal (Normal) mg/dL Urine Ketones Negative (Negative) mg/dL Urine Blood Negative (Negative) Urine Nitrite Positive A (Negative) Urine Bilirubin Negative (Negative) Urine Urobilinogen Normal (Normal) mg/dL Ur Leukocyte Esterase Large H (Negative) Urine Microscopic RBC 0-3 (0-3) per hpf Urine Microscopic WBC TNTC H (0-3) per hpf Ur Squamous Epith Cells Few (None-Few) per lpf Urine Bacteria Many H (None-Few) per hpf Hyaline Casts None Seen (None-Few) per lpf Ur Culture Indicated? YES A (NO)
[2016-09-22 18:50] LABS: Basophils % 0.2 %; Eosinophils # 0.1 K/mcL (0.0-0.6); Hematocrit 28.4 % (35.3-44.9); Hemoglobin 8.7 g/dL (11.5-15.4); Immature Granulocytes % 0.3 % (0-4); Lymphocytes # 2.6 K/mcL (0.6-4.6); Lymphocytes % 28.2 %; Mean Corpuscular HGB Conc 30.6 g/dL (31.6-35.5); Mean Corpuscular Hemoglobin 23.6 pg (28.0-33.3); Mean Corpuscular Volume 77.2 fL (83.0-100.0); Mean Platelet Volume 8.9 fL (9.4-12.4); Monocytes # 0.8 K/mcL (0.0-1.3); Monocytes % 9.3 %; Neutrophils # 5.5 K/mcL (1.6-8.9); Platelet Count 275 K/mcL (140-400); Red Blood Count 3.68 M/mcL (3.82-4.97); Red Cell Distribution Width 20.9 % (11.5-14.5)
[2016-09-22 19:05] LABS: Alanine Aminotransferase 8 Units/L (0-55); Albumin 2.6 g/dL (3.5-5.0); Albumin/Globulin Ratio 0.6 (1.1-2.2); Alkaline Phosphatase 92 Units/L (38-126); Aspartate Amino Transferase 9 Units/L (5-34); BUN/Creatinine Ratio 14 (6-26); Bilirubin,Direct 0.4 mg/dL (0.0-0.5); Bilirubin,Indirect 0.3 mg/dL (0.0-1.2); Bilirubin,Total 0.7 mg/dL (0.2-1.2); Blood Urea Nitrogen 13 mg/dL (7-20); Calcium 9.2 mg/dL (8.6-10.8); Carbon Dioxide 31 mEq/L (19-29); Chloride 97 mEq/L (98-109); Globulin 4.2 g/dL (2.4-3.5); Glucose 178 mg/dL (70-99); Osmolality,Calculated 287 (280-300); Potassium 3.8 mEq/L (3.5-4.5); Sodium 136 mEq/L (136-145); Total Protein 6.8 g/dL (6.0-8.3); eGFR For African Americans > 60 (> 60); eGFR For Non-African Americans 57 (> 60)
[2016-09-22] MEDS ORDERED: Bumetanide 1 MG/4 ML VIAL IVP ONE (19:44)
[2016-09-22 20:03] LABS: Bilirubin,Urine Negative (Negative); Blood,Urine Negative (Negative); Clarity,Urine Cloudy (Clear); Color,Urine Yellow (Yellow); Glucose,Urine (UA) Normal (Normal); Ketones,Urine Negative (Negative); Leukocyte Esterase,Urine Large (Negative); Nitrite,Urine Positive (Negative); Protein,Urine Negative (Neg-Trace); Specific Gravity,Urine 1.011 (1.010-1.025); Urobilinogen,Urine Normal (Normal)
[2016-09-22 20:06] LABS: Bacteria,Urine Many per hpf (None-Few); Hyaline Casts,Urine None Seen per lpf (None-Few); RBC,Urine 0-3 per hpf (0-3); Squamous Epithelial Cell,Urine Few per lpf (None-Few); WBC,Urine TNTC per hpf (0-3)
[2016-09-22] MEDS ORDERED: *HR* Morphine 2 MG/ML SYRINGE IVP ONE (21:39)
[2016-09-22] MEDS ORDERED: Ondansetron 4 MG/2 ML VIAL IVP ONE (21:39)
[2016-09-22] MEDS ORDERED: *HR* OxyCODONE Immed Rel 5 MG TABLET PO PRN (23:39)
[2016-09-22] MEDS ORDERED: Acetaminophen 325 MG TABLET PO PRN (23:39)
[2016-09-22] MEDS ORDERED: traZODone 50 MG TABLET PO PRN (23:39)
[2016-09-22] MEDS ORDERED: Naloxone 0.4 MG/ML INJ IVP PRN (23:46)
[2016-09-22] MEDS ORDERED: Ondansetron 4 MG/2 ML VIAL IVP PRN (23:46)
--- NOTE | 2016-09-22 23:57 | Internal Med History&Physical ---
Date of Encounter: 09/22/16 Time of Encounter: 23:51 Assessment and Plan (1) Acute on chronic congestive heart failure Current visit: Yes Status: Acute Patient with increased shortness of breath, palpitations. CXR consistent with congestive heart failure. Most recent echo 07/08/16 showed LVEF of 65%, moderate Left ventricular diastolic dysfunction, severe pulmonary hypertension. Patient takes Edecrin 50mg daily at home. Given 1mg IVP of bumex in ED. Continue home dose of Edicrin. 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 Daily weights strict I/Os cardiac diet with 1.5L fluid restriction Qualifiers: Congestive heart failure type: unspecified congestive heart failure type Qualified Code(s): I50.9 - Heart failure, unspecified (2) Atrial fibrillation with RVR Current visit: Yes Status: Acute Patient with known afib, on metoprolol, diltiazem for rate and rhythm control and on pradaxa for anti-coagulation. Patient reports palpitations on and off over the last few days. EKG showed afib/aflutter with RVR HR of 108, exacerbation likely secondary to UTI. Continuous cardiac monitor technician Will tolerate HR in low 100s. Continue home dose of metoprolol, diltiazem and PRadaxa. (3) UTI (urinary tract infection) Current visit: Yes Status: Acute Patient does not report any dysuria, however reporting fever, chills and she has exacerbation of CHF and afib. UA consistent with UTI. Rocephin IVPB daily. Awaiting culture results. Qualifiers: Urinary tract infection type: acute cystitis Hematuria presence: without hematuria Qualified Code(s): N30.00 - Acute cystitis without hematuria (4) Type 2 diabetes mellitus Current visit: Yes Status: Acute check blood sugar ACHS sliding scale correction dose hypoglycemic protocol. Qualifiers: Diabetes mellitus complication status: with unspecified complications Diabetes mellitus lobsterman insulin use: without jail use Qualified Code( s): E11.8 - Type 2 diabetes mellitus with unspecified complications (5) DVT prophylaxis Current visit: Yes Status: Acute anti-embolic stockings Patient on Pradaxa for afib, additional pharmacologic prophylaxis not warranted. Internal Medicine - H&P: HPI Chief complaint: shortness of breath Admitted From: Emergency Dept Plans for Post Hospital Care: Home History of present illness: Ms. Barfield is a 89 year old female with COPD, HTN, HLD, PVD, afib on pradaxa, CHF, CVA with left sided residual, colon cancer s/p hemicolectomy was sent to the ED from the [facility] where she resides with complaints of shortness of breath and fever. Patient reports palpitations, shortness of breath on and off for the last couple days which has been worsening. She reports fever and chills. She denies any chest pain, lightheadedness, nausea, vomiting, abdominal pain. Evaluation in the ED included a CXR which was consistent with CHF with interstitial edema. BNP was elevated to 835. WBC was normal at 9.0. EKG showed Afib with RVR with HR 108. UA was consistent with UTI. Lactate mildly elevated to 2.7. Patient was given 1mg of bumex for CHF exacerbation and Rocephin for her UTI. On exam, patient alert and oriented, in no distress. Heart had irregular rhythm with mild tachycardia. Lungs with mild crackles in the bases. BLE with +2 pitting edema, which patient states seems to be at baseline. Past Med Surg Social Fam HX - Past Medical History Medical history: arthritis, atrial fibrillation, cancer, COPD, coronary artery disease, diabetes, GERD, hyperlipidemia, hypertension, peripheral artery disease , valvular heart disease, other Psychiatric history: no psych history - Past Surgical History Surgical History: cancer surgery (colon resection), orthopedic, other (spinal surgery, foot surgery), other, vascular surgery - Social History Smoking Status: Former smoker (70 pack year history) Smokeless Tobacco Status: No Alcohol use: none Drug use: none - Family History Father Adopted: No Family Member Ethnicity: Non- Twin of Family Member: Yes, Fraternal Living Status: Hx Family Cardiac Disorders: Yes Hx Family Respiratory Disorders: Yes Mother Living Status: Internal Medicine - H&P: Meds Acetaminophen [Tylenol] 650 mg PO QID PRN 10/10/15 [History] Ethacrynic Acid [Edecrin] 50 mg PO QAM 10/10/15 [History] Gabapentin [Neurontin] 1,200 mg PO QPM 10/10/15 [History] Ipratropium/Albuterol Neb [Duoneb] 3 ml IH Q4HR PRN 10/10/15 [History] Mv-Mn/FA/Vit K1/Lycop/Lut/Zeax [Ocuvite Eye + Multi Tablet] 1 tab PO BIDWM 10/09 [History] Polyethylene Glycol 3350 [MiraLAX] 17 gm PO DAILY PRN 10/10/15 [History] Tizanidine HCl 2 mg PO DAILY 10/10/15 [History] Aspirin [Lo-Dose Aspirin EC] 81 mg PO QPM 03/27/16 [History] Propylene Glycol/Peg 400 [Systane 0.3-0.4% Eye Drops] 1 drop BOTH EYES QID PRN 03/27/16 [History] Cyanocobalamin (B-12) [Vitamin B12] 1,000 mcg PO DAILY 07/08/16 [History] hydrALAZINE [HydrALAZINE] 50 mg PO Q4H PRN 07/08/16 [History] Dabigatran [Pradaxa] 150 mg PO BID #0 capsule 07/27/16 [Rx] Diltiazem CD (24hr) [Cardizem CD] 120 mg PO DAILY #0 cap.er.24h 07/27/16 [Rx] Morphine Immed Rel [Morphine Sulfate] 15 mg PO BID #14 tablet 07/27/16 [Rx] Atorvastatin [Lipitor] 40 mg PO HS 09/22/16 [History] Ethacrynic Acid 50 mg PO DAILY PRN 09/22/16 [History] Ferrous Gluconate 324 mg PO BIDWM 09/22/16 [History] GuaiFENesin/Dextromethorphan [Tussin Dm Syrup] 10 ml PO Q6H PRN 09/22/16 [ History] Hydrophilic Cream [Basle] 1 appl TP QPM 09/22/16 [History] Isosorbide MONOnitrate (24 HR) [Imdur] 15 mg PO QPM 09/22/16 [History] Ketotifen Fumarate 1 drop OP DAILY PRN 09/22/16 [History] Mag Hydrox/Al Hydrox/Simeth [Almacone Chewable Tablet] 1 each PO BID PRN [History] Magnesium Hydroxide [Milk of Magnesia] 2,400 mg PO DAILY PRN 09/22/16 [History] Metoprolol XL (24 HR) Succ [Toprol Xl] 25 mg PO QPM 09/22/16 [History] Omeprazole [PriLOSEC] 40 mg PO BID 09/22/16 [History] OxyCODONE Immed Rel [Roxicodone 5 MG] 5 mg PO TID PRN 09/22/16 [History] Saliva Substitute Combo No.3 [Aquoral] 3 - 5 spray MM Q2H PRN 09/22/16 [History] Sucralfate [Carafate] 1 gm PO TID PRN 09/22/16 [History] Tamsulosin [Flomax] 0.4 mg PO DAILY 09/22/16 [History] Trazodone HCl 100 mg PO BID PRN 09/22/16 [History] Allergies bacitracin [From Neosporin ([id number])] Allergy (Unknown, Verified 09/17/16 15:28) See Comments PATIENT UNSURE- REACTION NOT LISTED [facility] celecoxib Allergy (Unknown, Verified 09/17/16 15:28) See Comments pt cannot remember codeine Allergy (Unknown, Verified 09/17/16 15:28) See Comments pt does not remember Donepezil Allergy (Unknown, Verified 09/17/16 15:28) See Comments PATIENT UNSURE- REACTION NOT LISTED [facility] fenofibrate [From Tricor] Allergy (Unknown, Verified 09/17/16 15:28) See Comments pt does not remember Hydralazine Allergy (Unknown, Verified 09/17/16 15:28) See Comments PATIENT UNSURE- REACTION NOT LISTED ON [facility] naproxen Allergy (Unknown, Verified 09/17/16 15:28) See Comments PATIENT UNSURE- REACTION NOT LISTED ON [facility] Neomycin [From Neosporin ([id number])] Allergy (Unknown, Verified 09/17/16 15 :28) See Comments PATIENT UNSURE- REACTION NOT LISTED ON [facility] Opioids - Morphine Analogues Allergy (Unknown, Verified 09/17/16 15:28) See Comments PATIENT UNSURE- REACTION NOT LISTED ON [facility] polymyxin B [From Neosporin ([id number])] Allergy (Unknown, Verified 15:28) See Comments PATIENT UNSURE- REACTION NOT LISTED ON [facility] rofecoxib Allergy (Unknown, Verified 09/17/16 15:28) See Comments PATIENT UNSURE- REACTION NOT LISTED ON [facility] Sulfa (Sulfonamide Antibiotics) Allergy (Unknown, Verified 09/17/16 15:28) See Comments PATIENT UNSURE- REACTION NOT LISTED ON [facility] Tetanus Vaccines and Toxoid [Tetanus Vaccines & Toxoid] Allergy (Unknown, Verified 09/17/16 15:28) See Comments PATIENT UNSURE- REACTION NOT LISTED ON [facility] lisinopril Adverse Reaction (Verified 09/17/16 15:28) Cough nicotine Adverse Reaction (Verified 09/17/16 15:28) Vomiting All Systems PM: A 10-system review of systems was performed and is negative for pertinent findings except as documented above in the HPI. - Constitutional Constitutional: chills, fever(s), no night sweats - EENT Eyes: no change in vision, no discharge, no pain, no photophobia Ears: no ear discharge, no ear pain, no tinnitus Nose, mouth and throat: no dysphagia, no nasal discharge, no neck pain, no sore throat - Cardiovascular Cardiovascular ROS IM: dyspnea, dyspnea on exertion, edema, palpitations, no chest pain, no diaphoresis, no lightheadedness, no syncope - Respiratory Respiratory: dyspnea, dyspnea on exertion, no cough, no wheezing, no excessive phlegm production - Gastrointestinal Gastrointestinal: no abdominal pain, no diarrhea, no hematemesis, no hematochezia, no melena, no nausea, no vomiting - Genitourinary Genitourinary: no change in urinary stream, no dysuria, no flank pain, no hematuria - Musculoskeletal Musculoskeletal ROS IM: no numbness, no tingling - Integumentary Integumentary IM: no rash, no unusual bruising - Neurological Neurological ROS: no confusion, no convulsions, no focal weakness, no numbness, no tingling, no tremor(s) - Hematologic/Lymphatic Hematologic/Lymphatic: no easy bruising - Constitutional Vitals: Temp Pulse Resp BP Pulse Ox 98.9 F 115 26 112/80 95 09/22/16 17:56 09/22/16 17:56 09/22/16 22:12 09/22/16 22:12 09/22/16 18:37 General appearance: Present: A&O X 3, pleasant, no acute distress - Head Head exam: Present: atraumatic, normocephalic - Eye Eye exam: Present: PERRL, conjuntiva pink, sclera anicteric Pupils: Present: PERRL - Neck Neck exam general surgery: Present: supple, trachea midline. Absent: lymphadenopathy - Respiratory Respiratory exam: Present: rales (mild bilateral bases). Absent: accessory muscle use, rhonchi, wheezes - Cardiovascular Cardiovascular exam: Present: irregular rhythm, +S1, +S2, tachycardia. Absent: diastolic murmur, gallop, rubs, systolic murmur - GI/Abdominal GI/Abdominal exam: Present: normal bowel sounds, soft, no peritoneal signs. Absent: distended, tenderness - Extremities Exam Extremities exam: Present: pedal edema (BLE +2 ), warm, radial pulses palpable and symetrical. Absent: calf tenderness, cyanotic - Neurological Exam Neurological exam: Present: CN II-XII intact, oriented X3. Absent: facial droop , speech deficit - Skin Skin exam: Present: dry, intact Internal Med - H&P Results - Labs CBC & Chem 7: 09/22/16 18:31 09/22/16 18:31 Labs: All Lab Results (24 Hours) 09/22/16 09/22/16 09/22/16 Range/Units 18:31 18:31 18:31 WBC 9.0 (4.3-11.1) K/mcL RBC 3.68 L (3.82-4.97) M/mcL Hgb 8.7 L (11.5-15.4) g/dL Hct 28.4 L (35.3-44.9) % MCV 77.2 L (83.0-100.0) fL MCH 23.6 L (28.0-33.3) pg MCHC 30.6 L (31.6-35.5) g/dL RDW 20.9 H (11.5-14.5) % Plt Count 275 (140-400) K/mcL MPV 8.9 L (9.4-12.4) fL Immature Gran % 0.3 (0-4) % Seg Neutrophils % 61.0 % Lymphocytes % 28.2 % Monocytes % 9.3 % Eosinophils % 1.0 % Basophils % 0.2 % Neutrophils # 5.5 (1.6-8.9) K/mcL Lymphocytes # 2.6 (0.6-4.6) K/mcL Monocytes # 0.8 (0.0-1.3) K/mcL Eosinophils # 0.1 (0.0-0.6) K/mcL Basophils # 0.0 (0.0-0.2) K/mcL Sodium 136 (136-145) mEq/L Potassium 3.8 (3.5-4.5) mEq/L Chloride 97 L (98-109) mEq/L Carbon Dioxide 31 H (19-29) mEq/L BUN 13 (7-20) mg/dL Creatinine 0.92 (0.57-1.11) mg/dL Est GFR ( Amer) > 60 (> 60) Est GFR (Non-Af Amer) 57 L (> 60) BUN/Creatinine Ratio 14 (6-26) Glucose 178 H (70-99) mg/dL Calculated Osmolality 287 (280-300) Lactic Acid 2.7 H (0.5-2.2) mmol/L Calcium 9.2 (8.6-10.8) mg/dL Total Bilirubin 0.7 (0.2-1.2) mg/dL Direct Bilirubin 0.4 (0.0-0.5) mg/dL Indirect Bilirubin 0.3 (0.0-1.2) mg/dL AST 9 (5-34) Units/L ALT 8 (0-55) Units/L Alkaline Phosphatase 92 (38-126) Units/L B-Natriuretic Peptide (0-100) pg/mL Serum Total Protein 6.8 (6.0-8.3) g/dL Albumin 2.6 L (3.5-5.0) g/dL Globulin 4.2 H (2.4-3.5) g/dL Albumin/Globulin Ratio 0.6 L (1.1-2.2) Urine Color (Yellow) Urine Clarity (Clear) Urine pH (5.0-8.0) pH Units Ur Specific [place] (1.010-1.025) Urine Protein (Neg-Trace) mg/dL Urine Glucose (UA) (Normal) mg/dL Urine Ketones (Negative) mg/dL Urine Blood (Negative) Urine Nitrite (Negative) Urine Bilirubin (Negative) Urine Urobilinogen (Normal) mg/dL Ur Leukocyte Esterase (Negative) Urine Microscopic RBC (0-3) per hpf Urine Microscopic WBC (0-3) per hpf Ur Squamous Epith Cells (None-Few) per lpf Urine Bacteria (None-Few) per hpf Hyaline Casts (None-Few) per lpf Ur Culture Indicated? (NO) 09/22/16 09/22/16 Range/Units 18:31 19:54 WBC (4.3-11.1) K/mcL RBC (3.82-4.97) M/mcL Hgb (11.5-15.4) g/dL Hct (35.3-44.9) % MCV (83.0-100.0) fL MCH (28.0-33.3) pg MCHC (31.6-35.5) g/dL RDW (11.5-14.5) % Plt Count (140-400) K/mcL MPV (9.4-12.4) fL Immature Gran % (0-4) % Seg Neutrophils % % Lymphocytes % % Monocytes % % Eosinophils % % Basophils % % Neutrophils # (1.6-8.9) K/mcL Lymphocytes # (0.6-4.6) K/mcL Monocytes # (0.0-1.3) K/mcL Eosinophils # (0.0-0.6) K/mcL Basophils # (0.0-0.2) K/mcL Sodium (136-145) mEq/L Potassium (3.5-4.5) mEq/L Chloride (98-109) mEq/L Carbon Dioxide (19-29) mEq/L BUN (7-20) mg/dL Creatinine (0.57-1.11) mg/dL Est GFR ( Amer) (> 60) Est GFR (Non-Af Amer) (> 60) BUN/Creatinine Ratio (6-26) Glucose (70-99) mg/dL Calculated Osmolality (280-300) Lactic Acid (0.5-2.2) mmol/L Calcium (8.6-10.8) mg/dL Total Bilirubin (0.2-1.2) mg/dL Direct Bilirubin (0.0-0.5) mg/dL Indirect Bilirubin (0.0-1.2) mg/dL AST (5-34) Units/L ALT (0-55) Units/L Alkaline Phosphatase (38-126) Units/L B-Natriuretic Peptide 835 H (0-100) pg/mL Serum Total Protein (6.0-8.3) g/dL Albumin (3.5-5.0) g/dL Globulin (2.4-3.5) g/dL Albumin/Globulin Ratio (1.1-2.2) Urine Color Yellow (Yellow) Urine Clarity Cloudy A (Clear) Urine pH 6.0 (5.0-8.0) pH Units Ur Specific [place] 1.011 (1.010-1.025) Urine Protein Negative (Neg-Trace) mg/dL Urine Glucose (UA) Normal (Normal) mg/dL Urine Ketones Negative (Negative) mg/dL Urine Blood Negative (Negative) Urine Nitrite Positive A (Negative) Urine Bilirubin Negative (Negative) Urine Urobilinogen Normal (Normal) mg/dL Ur Leukocyte Esterase Large H (Negative) Urine Microscopic RBC 0-3 (0-3) per hpf Urine Microscopic WBC TNTC H (0-3) per hpf Ur Squamous Epith Cells Few (None-Few) per lpf Urine Bacteria Many H (None-Few) per hpf Hyaline Casts None Seen (None-Few) per lpf Ur Culture Indicated? YES A (NO) - Diagnostic Studies Chest x-ray Additional comments: Chest X-Ray 09/22/16 18:00 IMPRESSION: Findings suggest congestive heart failure D/ / Ari Machuca MD / Ari Machuca MD Interpreting Provider: Ari Machuca MD
[2016-09-22] MEDS ORDERED: *HR* Dextrose 50 % in Water (Syg) 50 ML SYRINGE IVP PRN (23:59)
[2016-09-22] MEDS ORDERED: D5% in Water 1,000 ML IVC PRN (23:59)
[2016-09-22] MEDS ORDERED: Dextrose Gel 15 GM PO PRN ×2 (23:59)
[2016-09-23] MEDS: *HR* Dabigatran 150 MG CAPSULE PO SCH ×2 (00:43→09:12)
[2016-09-23] MEDS: *HR* Morphine Immed Rel 30 MG TABLET PO SCH ×3 (00:44→21:42)
[2016-09-23] MEDS: Metoprolol XL (24 HR) Succ 25 MG TAB.ER.24H PO SCH ×2 (00:44→17:17)
[2016-09-23] MEDS: Isosorbide MONOnitrate (24 HR) 30 MG TAB.ER.24H PO SCH ×2 (00:48→17:17)
[2016-09-23 07:07] LABS: Basophils % 0.5 %; Eosinophils # 0.2 K/mcL (0.0-0.6); Eosinophils % 2.5 %; Hematocrit 31.7 % (35.3-44.9); Hemoglobin 9.5 g/dL (11.5-15.4); Immature Granulocytes % 0.6 % (0-4); Lymphocytes # 3.1 K/mcL (0.6-4.6); Lymphocytes % 35.7 %; Mean Corpuscular Hemoglobin 23.6 pg (28.0-33.3); Mean Corpuscular Volume 78.7 fL (83.0-100.0); Mean Platelet Volume 9.1 fL (9.4-12.4); Monocytes # 0.8 K/mcL (0.0-1.3); Monocytes % 9.7 %; Neutrophils # 4.4 K/mcL (1.6-8.9); Platelet Count 258 K/mcL (140-400); Red Blood Count 4.03 M/mcL (3.82-4.97); Red Cell Distribution Width 21.1 % (11.5-14.5)
[2016-09-23 07:20] LABS: BUN/Creatinine Ratio 15 (6-26); Blood Urea Nitrogen 15 mg/dL (7-20); Calcium 9.1 mg/dL (8.6-10.8); Carbon Dioxide 32 mEq/L (19-29); Chloride 98 mEq/L (98-109); Glucose 144 mg/dL (70-99); Osmolality,Calculated 287 (280-300); Sodium 137 mEq/L (136-145); eGFR For African Americans > 60 (> 60); eGFR For Non-African Americans 50 (> 60)
[2016-09-23] MEDS: Ethacrynic Acid [Edecrin] 50 MG PO SCH (09:08)
[2016-09-23] MEDS: Diltiazem CD (24hr) 120 MG CAPSULE PO SCH (09:12)
[2016-09-23] MEDS: tiZANidine 4 MG TABLET PO SCH (09:13)
[2016-09-23] MEDS: Insulin LISPRO 300 UNITS/3 ML VIAL SQ SCH ×3 (09:23→17:16)
[2016-09-23] MEDS ORDERED: *HR* Metoprolol 5 MG/5 ML VIAL IVP SCH (11:15)
[2016-09-23] MEDS ORDERED: *HR* Metoprolol 5 MG/5 ML VIAL IVP PRN (11:15)
--- NOTE | 2016-09-23 11:30 | Internal Med Progress Note ---
<Erum Arias - Last Filed: 09/23/16 11:28> Date of Encounter: 09/23/16 Time of Encounter: 09:00 - Assessment and plan (1) Acute on chronic congestive heart failure Current Visit: Yes Status: Acute Assessment and plan: Patient has a history of CHF. Chest x-ray demonstrated CHF. RALES and lower lobes of lungs bilaterally. Patient states dyspnea has improved. Patient being treated with bumetanide. Patient takes Edecrin at home. Patient is requesting cardiology consult. She believes her PCP has been in contact with cardiology. Strict I/O, fluid restriction, and daily weights. Qualifiers: Congestive heart failure type: unspecified congestive heart failure type Qualified Code(s): I50.9 - Heart failure, unspecified (2) Atrial fibrillation with RVR Current Visit: Yes Status: Acute Assessment and plan: Patient has known a fib. Heart rate has been 85-111. Treated with Topolol and Cardizem for rate and rhythm control and Pradaxa for anticoagulation. Lopressor added PRN. (3) UTI (urinary tract infection) Current Visit: Yes Status: Acute Assessment and plan: UA analysis positive for urinary tract infection- asymptomatic Patient being treated with Rocephin. Waiting on cultures. Qualifiers: Urinary tract infection type: acute cystitis Hematuria presence: without hematuria Qualified Code(s): N30.00 - Acute cystitis without hematuria (4) DM type 2 (diabetes mellitus, type 2) Current Visit: No Status: Chronic Assessment and plan: Patient on sliding scale correction dose. We will keep monitoring. 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 She states she no longer has dyspnea and feels that her palpitations are improving. She is requesting a stool softener due to constipation for the past few days. - Constitutional Vitals: Temp Pulse Resp BP Pulse Ox 97.9 F 119 17 110/73 94 09/23/16 11:06 09/23/16 11:06 09/23/16 11:06 09/23/16 11:06 09/23/16 11:06 General appearance: Present: A&O X 3, pleasant, no acute distress - Head Head exam: Present: atraumatic, normocephalic - Eye Eye exam: Present: conjuntiva pink. Absent: scleral icterus - Respiratory Respiratory exam: Present: CTAB (Upper lobes of lungs bilaterally), rales ( Lower lobes of lungs bilaterally). Absent: respiratory distress, stridor, wheezes - Cardiovascular Cardiovascular exam: Present: irregular rhythm. Absent: clicks, gallop - GI/Abdominal GI/Abdominal exam: Present: normal bowel sounds. Absent: firm, guarding, tenderness (Right and left lower quadrant) - Extremities Exam Extremities exam: Present: pedal edema, tenderness (Lower extremities bilaterally due to edema). Absent: joint swelling, mottling - Back Exam Back exam: Present: normal inspection. Absent: rash noted - Skin Skin exam: Present: dry, intact Internal Medicine: Result - Labs CBC & Chem 7: 09/23/16 06:43 09/23/16 06:43 Labs: Short CBC 09/23/16 Range/Units 06:43 WBC 8.6 (4.3-11.1) K/mcL Hgb 9.5 L (11.5-15.4) g/dL Hct 31.7 L (35.3-44.9) % Plt Count 258 (140-400) K/mcL Neutrophils # 4.4 (1.6-8.9) K/mcL BMP 09/23/16 06:43 Sodium 137 Potassium 4.0 Chloride 98 Carbon Dioxide 32 H BUN 15 Creatinine 1.03 Glucose 144 H Calcium 9.1 Consult Discharge Plan - Plan [facility]errals: [facility] Care Provider[facility] - <Jose Flor H - Last Filed: 09/23/16 12:44> Date of Encounter: 09/23/16 - Constitutional Vitals: Temp Pulse Resp BP Pulse Ox 97.9 F 119 17 110/73 94 09/23/16 11:06 09/23/16 11:06 09/23/16 11:06 09/23/16 11:06 09/23/16 11:06 Internal Medicine: Result - Labs CBC & Chem 7: 09/23/16 06:43 09/23/16 06:43 Labs: Short CBC 09/23/16 Range/Units 06:43 WBC 8.6 (4.3-11.1) K/mcL Hgb 9.5 L (11.5-15.4) g/dL Hct 31.7 L (35.3-44.9) % Plt Count 258 (140-400) K/mcL Neutrophils # 4.4 (1.6-8.9) K/mcL BMP 09/23/16 06:43 Sodium 137 Potassium 4.0 Chloride 98 Carbon Dioxide 32 H BUN 15 Creatinine 1.03 Glucose 144 H Calcium 9.1 - Attending Attestation Acute diastolic CHF exacerbation likely triggered by atrial fibrillation with rapid ventricular response Continue Cardizem and metoprolol, use IV metoprolol as needed, the patient requested to have a cardiology consult Use IV Bumex(tolerating it without a problem), the patient uses ethacrynic acid at home Urinary tract infection, prior history of UTI growing pansensitive Proteus Continue Rocephin I examined this patient and my medical decision-making was reviewed with the COUNTY COURT JUDGE/PA/Advanced Practice Nurse/Resident Physician. I agree with the documented findings, disposition and treatment plan as described except to the extent set forth below.
[2016-09-23] MEDS: Bumetanide 1 MG/4 ML VIAL IVP SCH ×2 (12:04→17:17)
--- NOTE | 2016-09-23 14:08 | Electrocardiograph Report ---
[place] [id number] Test Date: 2016-09-22 Pat Name: Catie Barfield Department: 102 Room: 3B12 Gender: F Manager Surgery: : 1925 Requested By: Scot Felder Order Number: [id number] Reading MD: Daniel Ruiz Measurements Intervals [place] Rate: 108 P: IN: 0 QRS: 41 QRSD: 82 T: 59 QT: 350 QTc: 413 Interpretive Statements ATRIAL FIBRILLATION WITH RAPID VENTRICULAR RESPONSE Electronically Signed On 09-23-2016 14:07:15 EDT by Daniel Ruiz
--- NOTE | 2016-09-23 16:12 | Cardiology History & Physical ---
Date of Encounter: 09/23/16 Time of Encounter: 16:08 History of Present Illness HPI: Ms. Barfield is a 89 year old female Past Med Surg Social Fam HX - Past Medical History Medical history: arthritis, atrial fibrillation, cancer, COPD, coronary artery disease, diabetes, GERD, hyperlipidemia, hypertension, peripheral artery disease , valvular heart disease, other Psychiatric history: no psych history - Past Surgical History Surgical History: cancer surgery (colon resection), orthopedic, other (spinal surgery, foot surgery), other, vascular surgery - Social History Smoking Status: Former smoker (70 pack year history) Smokeless Tobacco Status: No Alcohol use: none Drug use: none - Family History Mother Living Status: Father Adopted: No Family Member Ethnicity: Non- Twin of Family Member: Yes, Fraternal Living Status: Hx Family Cardiac Disorders: Yes Hx Family Respiratory Disorders: Yes Medications and Allergies Acetaminophen [Tylenol] 650 mg PO QID PRN 10/10/15 [History] Ethacrynic Acid [Edecrin] 50 mg PO QAM 10/10/15 [History] Gabapentin [Neurontin] 1,200 mg PO QPM 10/10/15 [History] Ipratropium/Albuterol Neb [Duoneb] 3 ml IH Q4HR PRN 10/10/15 [History] Mv-Mn/FA/Vit K1/Lycop/Lut/Zeax [Ocuvite Eye + Multi Tablet] 1 tab PO BIDWM 10/09 [History] Polyethylene Glycol 3350 [MiraLAX] 17 gm PO DAILY PRN 10/10/15 [History] Tizanidine HCl 2 mg PO DAILY 10/10/15 [History] Aspirin [Lo-Dose Aspirin EC] 81 mg PO QPM 03/27/16 [History] Propylene Glycol/Peg 400 [Systane 0.3-0.4% Eye Drops] 1 drop BOTH EYES QID PRN 03/27/16 [History] Cyanocobalamin (B-12) [Vitamin B12] 1,000 mcg PO DAILY 07/08/16 [History] hydrALAZINE [HydrALAZINE] 50 mg PO Q4H PRN 07/08/16 [History] Dabigatran [Pradaxa] 150 mg PO BID #0 capsule 07/27/16 [Rx] Diltiazem CD (24hr) [Cardizem CD] 120 mg PO DAILY #0 cap.er.24h 07/27/16 [Rx] Morphine Immed Rel [Morphine Sulfate] 15 mg PO BID #14 tablet 07/27/16 [Rx] Atorvastatin [Lipitor] 40 mg PO HS 09/22/16 [History] Ethacrynic Acid 50 mg PO DAILY PRN 09/22/16 [History] Ferrous Gluconate 324 mg PO BIDWM 09/22/16 [History] GuaiFENesin/Dextromethorphan [Tussin Dm Syrup] 10 ml PO Q6H PRN 09/22/16 [ History] Hydrophilic Cream [Basle] 1 appl TP QPM 09/22/16 [History] Isosorbide MONOnitrate (24 HR) [Imdur] 15 mg PO QPM 09/22/16 [History] Ketotifen Fumarate 1 drop OP DAILY PRN 09/22/16 [History] Mag Hydrox/Al Hydrox/Simeth [Almacone Chewable Tablet] 1 each PO BID PRN [History] Magnesium Hydroxide [Milk of Magnesia] 2,400 mg PO DAILY PRN 09/22/16 [History] Metoprolol XL (24 HR) Succ [Toprol Xl] 25 mg PO QPM 09/22/16 [History] Omeprazole [PriLOSEC] 40 mg PO BID 09/22/16 [History] OxyCODONE Immed Rel [Roxicodone 5 MG] 5 mg PO TID PRN 09/22/16 [History] Saliva Substitute Combo No.3 [Aquoral] 3 - 5 spray MM Q2H PRN 09/22/16 [History] Sucralfate [Carafate] 1 gm PO TID PRN 09/22/16 [History] Tamsulosin [Flomax] 0.4 mg PO DAILY 09/22/16 [History] Trazodone HCl 100 mg PO BID PRN 09/22/16 [History] Allergies bacitracin [From Neosporin ([id number])] Allergy (Unknown, Verified 09/17/16 15:28) See Comments PATIENT UNSURE- REACTION NOT LISTED ON [facility] celecoxib Allergy (Unknown, Verified 09/17/16 15:28) See Comments pt cannot remember codeine Allergy (Unknown, Verified 09/17/16 15:28) See Comments pt does not remember Donepezil Allergy (Unknown, Verified 09/17/16 15:28) See Comments PATIENT UNSURE- REACTION NOT LISTED ON [facility] fenofibrate [From Tricor] Allergy (Unknown, Verified 09/17/16 15:28) See Comments pt does not remember Hydralazine Allergy (Unknown, Verified 09/17/16 15:28) See Comments PATIENT UNSURE- REACTION NOT LISTED ON [facility] naproxen Allergy (Unknown, Verified 09/17/16 15:28) See Comments PATIENT UNSURE- REACTION NOT LISTED ON [facility] Neomycin [From Neosporin ([id number])] Allergy (Unknown, Verified 09/17/16 15 :28) See Comments PATIENT UNSURE- REACTION NOT LISTED ON [facility] Opioids - Morphine Analogues Allergy (Unknown, Verified 09/17/16 15:28) See Comments PATIENT UNSURE- REACTION NOT LISTED ON [facility] polymyxin B [From Neosporin ([id number])] Allergy (Unknown, Verified 15:28) See Comments PATIENT UNSURE- REACTION NOT LISTED ON [facility] rofecoxib Allergy (Unknown, Verified 09/17/16 15:28) See Comments PATIENT UNSURE- REACTION NOT LISTED ON [facility] Sulfa (Sulfonamide Antibiotics) Allergy (Unknown, Verified 09/17/16 15:28) See Comments PATIENT UNSURE- REACTION NOT LISTED ON [facility] Tetanus Vaccines and Toxoid [Tetanus Vaccines & Toxoid] Allergy (Unknown, Verified 09/17/16 15:28) See Comments PATIENT UNSURE- REACTION NOT LISTED ON [facility] lisinopril Adverse Reaction (Verified 09/17/16 15:28) Cough nicotine Adverse Reaction (Verified 09/17/16 15:28) Vomiting All Systems Review: A 10-system review of systems was performed and is negative for pertinent findings except as documented above in the HPI. Physical Examination Vital Signs, Last 4 Hours Temp Pulse Resp BP Pulse Ox 09/23/16 15:19 97.7 F 82 17 116/62 98 Results 09/23/16 06:43 09/23/16 06:43 Lab Results 09/23/16 09/23/16 09/23/16 06:43 06:43 06:43 WBC 8.6 Hgb 9.5 L Hct 31.7 L Plt Count 258 Sodium 137 Potassium 4.0 Chloride 98 Carbon Dioxide 32 H BUN 15 Creatinine 1.03 Glucose 144 H Calcium 9.1 Troponin I 0.03
--- NOTE | 2016-09-23 16:16 | Cardiology Consult Note ---
Date of Encounter: 09/23/16 Time of Encounter: 16:12 Assessment and Plan (1) Atrial fib/flutter, transient Current Visit: Yes Status: Chronic Known hx of paroxysmal A-Fib, on Pradaxa. Presented in A-Flutter HR 108 in setting of UTI. Pt spontaneously converted back to SR. Reports sometimes she can tell when she is in A-Fib/Flutter--experiences worsening dyspnea, palpitations. Continue BB and CCB. Continue Pradaxa for anticoagulation. Unclear why she is on reduced dose, as age is not a reason per dosing guidelines and her renal function is normal. Given recent CVA on reduced dose of Eliquis, will increase Pradaxa to the full dose of 150mg BID. Echo 07/2016 EF 65%. No significant valvular dysfunction. (2) Acute on chronic diastolic (congestive) heart failure Current Visit: Yes Status: Acute Echo 07/2016 EF 65%, moderate LVDD. Hypoalbuminemia could also be contributing to her LE edema--albumin 2.6. CXR shows edema and congestion. Elevated BNP 835. 2+ BLE edema on exam, mild bibasilar rales. Agree with IV diuresis--Bumex 1 mg BID. Recommend strict I/Os, Na and fluid restriction, daily weights. CHF education given. Recheck limited echo. Discussion w patient/family: The assessment and plan as outlined above was discussed with the patient and/or family members who expressed understanding and agreement. All questions were answered. Thank you for involving us in the care of your patient. Please call with any questions. I will discuss all the above with Dr. Lyons and make changes as necessary. History of Present Illness Consult date: 09/23/16 Requesting physician: Jose Flor Consult reason: A-Fib/Flutter Chief complaint: Dyspnea, edema, palpitations History of present illness: Ms. 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 PCP was concerned at [place] due to "5 flutter waves between QRS complexes". Patient reports palpitations, shortness of breath on and off for the last couple days which has been worsening. She reports fever and chills. She denies any chest pain, lightheadedness, nausea, vomiting, abdominal pain. Evaluation in the ED included a CXR which was consistent with CHF with interstitial edema. BNP was elevated to 835. WBC was normal at 9.0. EKG showed A-Flutter with RVR with HR 108. UA was consistent with UTI. Lactate mildly elevated to 2.7. Patient was given 1mg of bumex for CHF exacerbation and Rocephin for her UTI. Pt reports she is currently feeling better, breathing has improved. She self converted back to sinus rhythm. Troponin negative x 1. Echo 07/2016 EF 65%, mild cLVH, moderate LVDD, mild-moderate TR, moderately dilated LA, severe pHTN, normal wall motion. Past Med Surg Social Fam HX - Past Medical History Medical history: arthritis, atrial fibrillation, cancer, COPD, coronary artery disease, diabetes, GERD, hyperlipidemia, hypertension, peripheral artery disease , valvular heart disease, other Psychiatric history: no psych history - Past Surgical History Surgical History: cancer surgery (colon resection), orthopedic, other (spinal surgery, foot surgery), other, vascular surgery - Social History Smoking Status: Former smoker (70 pack year history) Smokeless Tobacco Status: No Alcohol use: none Drug use: none - Family History Mother Living Status: Father Adopted: No Family Member Ethnicity: Non- Twin of Family Member: Yes, Fraternal Living Status: Hx Family Cardiac Disorders: Yes Hx Family Respiratory Disorders: Yes Medications and Allergies Acetaminophen [Tylenol] 650 mg PO QID PRN 10/10/15 [History] Ethacrynic Acid [Edecrin] 50 mg PO QAM 10/10/15 [History] Gabapentin [Neurontin] 1,200 mg PO QPM 10/10/15 [History] Ipratropium/Albuterol Neb [Duoneb] 3 ml IH Q4HR PRN 10/10/15 [History] Mv-Mn/FA/Vit K1/Lycop/Lut/Zeax [Ocuvite Eye + Multi Tablet] 1 tab PO BIDWM 10/09 [History] Polyethylene Glycol 3350 [MiraLAX] 17 gm PO DAILY PRN 10/10/15 [History] Tizanidine HCl 2 mg PO DAILY 10/10/15 [History] Aspirin [Lo-Dose Aspirin EC] 81 mg PO QPM 03/27/16 [History] Propylene Glycol/Peg 400 [Systane 0.3-0.4% Eye Drops] 1 drop BOTH EYES QID PRN 03/27/16 [History] Cyanocobalamin (B-12) [Vitamin B12] 1,000 mcg PO DAILY 07/08/16 [History] hydrALAZINE [HydrALAZINE] 50 mg PO Q4H PRN 07/08/16 [History] Dabigatran [Pradaxa] 150 mg PO BID #0 capsule 07/27/16 [Rx] Diltiazem CD (24hr) [Cardizem CD] 120 mg PO DAILY #0 cap.er.24h 07/27/16 [Rx] Morphine Immed Rel [Morphine Sulfate] 15 mg PO BID #14 tablet 07/27/16 [Rx] Atorvastatin [Lipitor] 40 mg PO HS 09/22/16 [History] Ethacrynic Acid 50 mg PO DAILY PRN 09/22/16 [History] Ferrous Gluconate 324 mg PO BIDWM 09/22/16 [History] GuaiFENesin/Dextromethorphan [Tussin Dm Syrup] 10 ml PO Q6H PRN 09/22/16 [ History] Hydrophilic Cream [Basle] 1 appl TP QPM 09/22/16 [History] Isosorbide MONOnitrate (24 HR) [Imdur] 15 mg PO QPM 09/22/16 [History] Ketotifen Fumarate 1 drop OP DAILY PRN 09/22/16 [History] Mag Hydrox/Al Hydrox/Simeth [Almacone Chewable Tablet] 1 each PO BID PRN [History] Magnesium Hydroxide [Milk of Magnesia] 2,400 mg PO DAILY PRN 09/22/16 [History] Metoprolol XL (24 HR) Succ [Toprol Xl] 25 mg PO QPM 09/22/16 [History] Omeprazole [PriLOSEC] 40 mg PO BID 09/22/16 [History] OxyCODONE Immed Rel [Roxicodone 5 MG] 5 mg PO TID PRN 09/22/16 [History] Saliva Substitute Combo No.3 [Aquoral] 3 - 5 spray MM Q2H PRN 09/22/16 [History] Sucralfate [Carafate] 1 gm PO TID PRN 09/22/16 [History] Tamsulosin [Flomax] 0.4 mg PO DAILY 09/22/16 [History] Trazodone HCl 100 mg PO BID PRN 09/22/16 [History] Allergies bacitracin [From Neosporin ([id number])] Allergy (Unknown, Verified 09/17/16 15:28) See Comments PATIENT UNSURE- REACTION NOT LISTED ON [facility] celecoxib Allergy (Unknown, Verified 09/17/16 15:28) See Comments pt cannot remember codeine Allergy (Unknown, Verified 09/17/16 15:28) See Comments pt does not remember Donepezil Allergy (Unknown, Verified 09/17/16 15:28) See Comments PATIENT UNSURE- REACTION NOT LISTED ON [facility] fenofibrate [From Tricor] Allergy (Unknown, Verified 09/17/16 15:28) See Comments pt does not remember Hydralazine Allergy (Unknown, Verified 09/17/16 15:28) See Comments PATIENT UNSURE- REACTION NOT LISTED ON [facility] naproxen Allergy (Unknown, Verified 09/17/16 15:28) See Comments PATIENT UNSURE- REACTION NOT LISTED ON [facility] Neomycin [From Neosporin ([id number]-[id number])] Allergy (Unknown, Verified 09/17/16 15 :28) See Comments PATIENT UNSURE- REACTION NOT LISTED ON [facility] L[facility] Opioids - Morphine Analogues Allergy (Unknown, Verified 09/17/16 15:28) See Comments PATIENT UNSURE- REACTION NOT LISTED ON [facility] polymyxin B [From Neosporin ([id number]-[id number])] Allergy (Unknown, Verified 15:28) See Comments PATIENT UNSURE- REACTION NOT LISTED ON [facility] rofecoxib Allergy (Unknown, Verified 09/17/16 15:28) See Comments PATIENT UNSURE- REACTION NOT LISTED ON [facility] L[facility] Sulfa (Sulfonamide Antibiotics) Allergy (Unknown, Verified 09/17/16 15:28) See Comments PATIENT UNSURE- REACTION NOT LISTED ON [facility] LIST Tetanus Vaccines and Toxoid [Tetanus Vaccines & Toxoid] Allergy (Unknown, Verified 09/17/16 15:28) See Comments PATIENT UNSURE- REACTION NOT LISTED ON [facility] lisinopril Adverse Reaction (Verified 09/17/16 15:28) Cough nicotine Adverse Reaction (Verified 09/17/16 15:28) Vomiting All Systems Review: A 10-system review of systems was performed and is negative for pertinent findings except as documented above in the HPI. - Cardiovascular Cardiovascular: as per HPI, dyspnea at rest, dyspnea on exertion, leg edema, palpitations - Respiratory Respiratory: dyspnea Physical Examination Vital Signs, Last 4 Hours Temp Pulse Resp BP Pulse Ox 09/23/16 15:19 97.7 F 82 17 116/62 98 Vital Signs Temp Pulse Resp BP Pulse Ox 09/23/16 15:19 97.7 F 82 17 116/62 98 09/23/16 11:06 97.9 F 119 17 110/73 94 09/23/16 09:10 94 09/23/16 07:22 98.0 F 111 16 107/61 94 09/22/16 23:46 98.0 F 118 18 121/72 97 09/22/16 22:12 26 112/80 09/22/16 18:37 95 09/22/16 17:56 98.9 F 115 20 139/89 94 Intake and Output 09/23/16 09/23/16 09/23/16 07:59 15:59 23:59 Intake Total 100 / 100 Balance 100 / 100 Intake: IV Fluids 100 / 100 Rocephin 1,000 MG In 100 / 100 Dextrose 5% (Minibag+) 100 ML 100 ML @ 200 mls/ hr IVPB DAILY [facility] Rx#: [id number] Other: Blood Glucose* 179 211 General: Conversant, No Apparent Distress HEENT: Atraumatic, Normocephaly, Mucus Membranes Moist Neck: Normal carotid pulses Cardiac: Reg Rate and Rhythm, Normal S1 and S2, No Murmur Lungs: Other (mild bibasilar rales) Neuro: Alert and responsive, No focal deficits noted Abdomen: Soft, Non-Tender Skin: No rashes noted on visualized skin Musculoskeletal: No Chest Wall Tenderness Extremities: Other (2+ BLE edema) Results 09/23/16 06:43 09/23/16 06:43 Lab Results 09/23/16 09/23/16 09/23/16 06:43 06:43 06:43 WBC 8.6 Hgb 9.5 L Hct 31.7 L Plt Count 258 Sodium 137 Potassium 4.0 Chloride 98 Carbon Dioxide 32 H BUN 15 Creatinine 1.03 Glucose 144 H Calcium 9.1 Troponin I 0.03 Short CBC 09/23/16 09/22/16 Range/Units 06:43 18:31 WBC 8.6 9.0 (4.3-11.1) K/mcL Hgb 9.5 L 8.7 L (11.5-15.4) g/dL Hct 31.7 L 28.4 L (35.3-44.9) % Plt Count 258 275 (140-400) K/mcL Neutrophils # 4.4 5.5 (1.6-8.9) K/mcL BMP 09/23/16 09/22/16 Range/Units 06:43 18:31 Sodium 137 136 (136-145) mEq/L Potassium 4.0 3.8 (3.5-4.5) mEq/L Chloride 98 97 L (98-109) mEq/L Carbon Dioxide 32 H 31 H (19-29) mEq/L BUN 15 13 (7-20) mg/dL Creatinine 1.03 0.92 (0.57-1.11) mg/dL Glucose 144 H 178 H (70-99) mg/dL Calcium 9.1 9.2 (8.6-10.8) mg/dL Cardiac Enzymes 09/23/16 Range/Units 06:43 Troponin I 0.03 (0-0.03) ng/mL Liver Function 09/22/16 Range/Units 18:31 Total Bilirubin 0.7 (0.2-1.2) mg/dL Direct Bilirubin 0.4 (0.0-0.5) mg/dL AST 9 (5-34) Units/L ALT 8 (0-55) Units/L Alkaline Phosphatase 92 (38-126) Units/L Albumin 2.6 L (3.5-5.0) g/dL Urine 09/22/16 Range/Units 19:54 Urine Color Yellow (Yellow) Urine Clarity Cloudy A (Clear) Urine pH 6.0 (5.0-8.0) pH Units Ur Specific [place] 1.011 (1.010-1.025) Urine Protein Negative (Neg-Trace) mg/dL Urine Glucose (UA) Normal (Normal) mg/dL Impressions Chest X-Ray 09/22/16 18:00 IMPRESSION: Findings suggest congestive heart failure D/ / Ari Machuca MD / Ari Machuca MD Interpreting Provider: Ari Machuca MD Active Medications Acetaminophen (Tylenol) 650 mg PO QID PRN PRN Reason: Pain/Fever Stop: 03/24/17 23:40 Aspirin (Aspirin Ec) 81 mg PO QPM [facility]ISAEL Stop: 03/25/17 18:01 Atorvastatin Calcium (Lipitor) 40 mg PO HS MISAEL Stop: 03/24/17 23:46 Last Admin: 09/23/16 00:43 Dose: 40 mg Bumetanide (Bumex) 1 mg IVP BIDDIURETIC MISAEL Stop: 03/25/17 11:16 Last Admin: 09/23/16 12:04 Dose: 1 mg Dabigatran (Pradaxa) 75 mg PO BID [facility]ISAEL Stop: 03/25/17 21:01 Dextrose/Water (Dextrose 50% (Syg)) 25 ml IVP AD PRN PRN Reason: Hypoglycemia Stop: 03/24/17 23:59 Diltiazem HCl (Cardizem Cd) 120 mg PO DAILY [facility]ISAEL Stop: 03/25/17 09:01 Last Admin: 09/23/16 09:12 Dose: 120 mg Docusate Sodium (Colace) 100 mg PO DAILY PRN; Protocol PRN Reason: Constipation Stop: 03/25/17 11:13 Gabapentin (Neurontin) 1,200 mg PO QPM MISAEL Stop: 03/25/17 18:01 Glucagon (Glucagen) 1 mg IM ONCE PRN PRN Reason: Hypoglycemia Stop: 03/24/17 23:59 Glucose (Gluctose) 15 gm PO ONCE PRN PRN Reason: Hypoglycemia Stop: 03/24/17 23:59 Glucose (Gluctose) 30 gm PO ONCE PRN PRN Reason: Hypoglycemia Stop: 03/24/17 23:59 Ceftriaxone Sodium 1,000 mg/ (Dextrose) 100 mls @ 200 mls/hr IVPB DAILY MISAEL Stop: 03/25/17 09:01 Last Infusion: 09/23/16 13:47 Dose: Infused Dextrose (Dextrose 5%) 1,000 mls @ 100 mls/hr IVC .Q10H PRN PRN Reason: HYPOGLYCEMIA Stop: 03/24/17 23:59 Insulin Human Lispro (Humalog) 0 units SQ TIDAC [facility] PRN Reason: Protocol Stop: 03/25/17 07:31 Last Admin: 09/23/16 12:05 Dose: 4 units Insulin Human Lispro (Humalog) 0 units SQ HS [facility] PRN Reason: Protocol Stop: 03/25/17 21:01 Isosorbide Mononitrate (Imdur) 15 mg PO QPM [facility] Stop: 03/24/17 23:46 Last Admin: 09/23/16 00:48 Dose: 15 mg Metoprolol Succinate (Toprol Xl) 25 mg PO QPM [facility] Stop: 03/24/17 23:46 Last Admin: 09/23/16 00:44 Dose: 25 mg Metoprolol Tartrate (Lopressor) 5 mg IVP Q5MIN PRN PRN Reason: Tachyarrhythmias Stop: 09/25/16 11:16 Last Admin: 09/23/16 12:04 Dose: 5 mg Morphine Sulfate (Morphine Sulfate) 15 mg PO BID [facility] Stop: 03/24/17 23:46 Last Admin: 09/23/16 09:12 Dose: 15 mg Naloxone HCl (Narcan) 0.4 mg IVP Q2MIN PRN PRN Reason: Opioid Reversal Stop: 03/24/17 23:47 Omeprazole (Prilosec) 40 mg PO BIDAC [facility] PRN Reason: Protocol Stop: 03/25/17 07:31 Last Admin: 09/23/16 09:12 Dose: 40 mg Ondansetron HCl (Zofran) 4 mg IVP Q8HR PRN PRN Reason: Nausea And Vomiting Stop: 03/24/17 23:47 Oxycodone HCl (Roxicodone) 5 mg PO TID PRN PRN Reason: Breakthrough Pain Stop: 03/24/17 23:40 Pharmacy Profile Note (Patient Taking Own Medication) 1 each PO QAM [facility] Stop: 03/25/17 09:01 Last Admin: 09/23/16 09:08 Dose: Not Given Polyethylene Glycol (Miralax) 17 gm PO DAILY PRN PRN Reason: Constipation Stop: 03/24/17 23:40 Sucralfate (Carafate) 1 gm PO TID PRN PRN Reason: Dyspepsia Stop: 03/24/17 23:40 Tamsulosin HCl (Flomax) 0.4 mg PO HS [facility] PRN Reason: Protocol Stop: 03/25/17 21:01 Tizanidine HCl (Zanaflex) 2 mg PO DAILY [facility] Stop: 03/25/17 09:01 Last Admin: 09/23/16 09:13 Dose: 2 mg Trazodone HCl (Trazodone) 100 mg PO BID PRN PRN Reason: Insomnia - Imaging and Cardiology Echo: report reviewed - EKG Interpretation EKG results cardiology: personally reviewed ([place] RVR rate 108.), other ( 12 hr tele AVG HR 102, [place], now SR.) Consult Discharge Plan - Plan Referrals: [facility]Primary Care Provider[facility] -
[2016-09-23] MEDS ORDERED: Gabapentin 400 MG CAPSULE PO SCH (18:00)
[2016-09-23] MEDS ORDERED: Aspirin Enteric Coated 81 MG Tablet PO SCH (18:00)
[2016-09-23] MEDS ORDERED: *HR* Dabigatran 75 MG CAPSULE PO SCH (21:00)
[2016-09-23] MEDS ORDERED: Insulin LISPRO 300 UNITS/3 ML VIAL SQ SCH (21:00)
[2016-09-23] MEDS: *HR* Dabigatran 75 MG CAPSULE PO SCH (21:43)
[2016-09-24 05:13] LABS: Basophils % 0.2 %; Eosinophils # 0.3 K/mcL (0.0-0.6); Eosinophils % 3.2 %; Hematocrit 23.7 % (35.3-44.9); Immature Granulocytes % 0.4 % (0-4); Lymphocytes % 36.6 %; Mean Corpuscular HGB Conc 30.4 g/dL (31.6-35.5); Mean Corpuscular Hemoglobin 23.7 pg (28.0-33.3); Mean Platelet Volume 9.3 fL (9.4-12.4); Monocytes # 0.8 K/mcL (0.0-1.3); Platelet Count 242 K/mcL (140-400); Red Blood Count 3.04 M/mcL (3.82-4.97); Red Cell Distribution Width 20.8 % (11.5-14.5); Segmented Neutrophils % 49.6 %
[2016-09-24 05:21] LABS: BUN/Creatinine Ratio 20 (6-26); Blood Urea Nitrogen 19 mg/dL (7-20); Calcium 8.2 mg/dL (8.6-10.8); Carbon Dioxide 33 mEq/L (19-29); Chloride 97 mEq/L (98-109); Glucose 179 mg/dL (70-99); Osmolality,Calculated 289 (280-300); Potassium 3.9 mEq/L (3.5-4.5); Sodium 136 mEq/L (136-145); eGFR For African Americans > 60 (> 60); eGFR For Non-African Americans 55 (> 60)
[2016-09-24 05:23] LABS: Hemoglobin 7.2 g/dL (11.5-15.4)
[2016-09-24] MEDS: Insulin LISPRO 300 UNITS/3 ML VIAL SQ SCH ×2 (07:58→12:28)
[2016-09-24] MEDS: *HR* Dabigatran 75 MG CAPSULE PO SCH (08:05)
[2016-09-24] MEDS: Ethacrynic Acid [Edecrin] 50 MG PO SCH (08:05)
[2016-09-24] MEDS: tiZANidine 4 MG TABLET PO SCH (08:05)
[2016-09-24] MEDS: Bumetanide 1 MG/4 ML VIAL IVP SCH (08:05)
[2016-09-24] MEDS: *HR* Morphine Immed Rel 30 MG TABLET PO SCH (08:05)
[2016-09-24] MEDS: Diltiazem CD (24hr) 120 MG CAPSULE PO SCH (08:05)
[2016-09-24 08:28] LABS: Hematocrit 29.5 % (35.3-44.9)
--- NOTE | 2016-09-24 08:56 | Discharge Summary ---
Date of Encounter: 09/24/16 Time of Encounter: 08:54 - Discharge Diagnosis (1) Acute on chronic diastolic (congestive) heart failure Priority: Primary Status: Acute (2) Afib Priority: Primary Status: Chronic Qualifiers: Atrial fibrillation type: paroxysmal Qualified Code(s): I48.0 - Paroxysmal atrial fibrillation (3) UTI (urinary tract infection) Priority: Primary Status: Acute Qualifiers: Urinary tract infection type: acute cystitis Hematuria presence: without hematuria Qualified Code(s): N30.00 - Acute cystitis without hematuria (4) Renovascular hypertension Priority: Secondary Status: Chronic (5) Adenocarcinoma, colon Priority: Secondary Status: Chronic (6) Type 2 diabetes mellitus Priority: Secondary Status: Acute Qualifiers: Diabetes mellitus complication status: with circulatory complication Diabetes mellitus complication detail: with other circulatory complications Diabetes mellitus detention insulin use: without remote computer terminal operator use Qualified Code( s): 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, old, facial weakness Priority: Secondary Status: Chronic Comments: Left (8) Anemia Priority: Secondary Status: Acute Qualifiers: Anemia type: other cause Other causes of anemia: chronic disease, other Qualified Code(s): D63.8 - Anemia in other chronic diseases classified elsewhere (9) GERD (gastroesophageal reflux disease) Priority: Secondary Status: Chronic Qualifiers: Esophagitis presence: without esophagitis Qualified Code(s): K21.9 - Gastro -esophageal reflux disease without esophagitis - Discharge Medications Prescriptions: Bumetanide [Bumex] 0.5 mg PO BIDDIURETIC #60 tablet cephALEXin [Keflex] 500 mg PO BID #6 capsule Ipratropium/Albuterol Sulfate [Combivent Respimat Inhal [place]] 4 gm IH QID PRN # 1 aer.w.adap PRN Reason: Dyspnea Morphine Immed Rel [Morphine Sulfate] 15 mg PO BID #10 tablet OxyCODONE Immed Rel [Roxicodone 5 MG] 5 mg PO TID PRN #10 PRN Reason: Breakthrough Pain Home Medications: Acetaminophen [Tylenol] 650 mg PO QID PRN 10/10/15 [History] Gabapentin [Neurontin] 1,200 mg PO QPM 10/10/15 [History] Ipratropium/Albuterol Neb [Duoneb] 3 ml IH Q4HR PRN 10/10/15 [History] Mv-Mn/FA/Vit K1/Lycop/Lut/Zeax [Ocuvite Eye + Multi Tablet] 1 tab PO BIDWM 10/09 [History] Polyethylene Glycol 3350 [MiraLAX] 17 gm PO DAILY PRN 10/10/15 [History] Tizanidine HCl 2 mg PO DAILY 10/10/15 [History] Aspirin [Lo-Dose Aspirin EC] 81 mg PO QPM 03/27/16 [History] Propylene Glycol/Peg 400 [Systane 0.3-0.4% Eye Drops] 1 drop BOTH EYES QID PRN 03/27/16 [History] Cyanocobalamin (B-12) [Vitamin B12] 1,000 mcg PO DAILY 07/08/16 [History] hydrALAZINE [HydrALAZINE] 50 mg PO Q4H PRN 07/08/16 [History] Dabigatran [Pradaxa] 150 mg PO BID #0 capsule 07/27/16 [Rx] Diltiazem CD (24hr) [Cardizem CD] 120 mg PO DAILY #0 cap.er.24h 07/27/16 [Rx] Atorvastatin [Lipitor] 40 mg PO HS 09/22/16 [History] Ferrous Gluconate 324 mg PO BIDWM 09/22/16 [History] GuaiFENesin/Dextromethorphan [Tussin Dm Syrup] 10 ml PO Q6H PRN 09/22/16 [ History] Hydrophilic Cream [[place]] 1 appl TP QPM 09/22/16 [History] Isosorbide MONOnitrate (24 HR) [Imdur] 15 mg PO QPM 09/22/16 [History] Ketotifen Fumarate 1 drop OP DAILY PRN 09/22/16 [History] Mag Hydrox/Al Hydrox/Simeth [Almacone Chewable Tablet] 1 each PO BID PRN [History] Magnesium Hydroxide [Milk of Magnesia] 2,400 mg PO DAILY PRN 09/22/16 [History] Metoprolol XL (24 HR) Succ [Toprol Xl] 25 mg PO QPM 09/22/16 [History] Omeprazole [PriLOSEC] 40 mg PO BID 09/22/16 [History] Saliva Substitute Combo No.3 [Aquoral] 3 - 5 spray MM Q2H PRN 09/22/16 [History] Sucralfate [Carafate] 1 gm PO TID PRN 09/22/16 [History] Tamsulosin [Flomax] 0.4 mg PO DAILY 09/22/16 [History] Trazodone HCl 100 mg PO BID PRN 09/22/16 [History] Bumetanide [Bumex] 0.5 mg PO BIDDIURETIC #60 tablet 09/24/16 [Rx] Dabigatran [Pradaxa] 150 mg PO BID 09/24/16 [Rx] Docusate [Colace] 100 mg PO DAILY PRN 09/24/16 [Rx] Ipratropium/Albuterol Sulfate [Combivent Respimat Inhal [place]] 4 gm IH QID PRN # 1 aer.w.adap 09/24/16 [Rx] Morphine Immed Rel [Morphine Sulfate] 15 mg PO BID #10 tablet 09/24/16 [Rx] OxyCODONE Immed Rel [Roxicodone 5 MG] 5 mg PO TID PRN #10 09/24/16 [Rx] cephALEXin [Keflex] 500 mg PO BID #6 capsule 09/24/16 [Rx] Allergies/Adverse Reactions: Allergies bacitracin [From Neosporin ([id number])] Allergy (Unknown, Verified 09/17/16 15:28) See Comments PATIENT UNSURE- REACTION NOT LISTED ON [facility] celecoxib Allergy (Unknown, Verified 09/17/16 15:28) See Comments pt cannot remember codeine Allergy (Unknown, Verified 09/17/16 15:28) See Comments pt does not remember Donepezil Allergy (Unknown, Verified 09/17/16 15:28) See Comments PATIENT UNSURE- REACTION NOT LISTED ON [facility] fenofibrate [From Tricor] Allergy (Unknown, Verified 09/17/16 15:28) See Comments pt does not remember Hydralazine Allergy (Unknown, Verified 09/17/16 15:28) See Comments PATIENT UNSURE- REACTION NOT LISTED ON [facility] naproxen Allergy (Unknown, Verified 09/17/16 15:28) See Comments PATIENT UNSURE- REACTION NOT LISTED ON [facility] Neomycin [From Neosporin ([id number])] Allergy (Unknown, Verified 09/17/16 15 :28) See Comments PATIENT UNSURE- REACTION NOT LISTED ON [facility] Opioids - Morphine Analogues Allergy (Unknown, Verified 09/17/16 15:28) See Comments PATIENT UNSURE- REACTION NOT LISTED ON [facility] polymyxin B [From Neosporin ([id number])] Allergy (Unknown, Verified 15:28) See Comments PATIENT UNSURE- REACTION NOT LISTED ON [facility] rofecoxib Allergy (Unknown, Verified 09/17/16 15:28) See Comments PATIENT UNSURE- REACTION NOT LISTED ON [facility] Sulfa (Sulfonamide Antibiotics) Allergy (Unknown, Verified 09/17/16 15:28) See Comments PATIENT UNSURE- REACTION NOT LISTED ON [facility] MED LIST Tetanus Vaccines and Toxoid [Tetanus Vaccines & Toxoid] Allergy (Unknown, Verified 09/17/16 15:28) See Comments PATIENT UNSURE- REACTION NOT LISTED ON [facility] lisinopril Adverse Reaction (Verified 09/17/16 15:28) Cough nicotine Adverse Reaction (Verified 09/17/16 15:28) Vomiting Procedures/tests Complete & Pending: Procedures Performed prior 72 hours Category Date Time Status EV limited echocardiogram Routine Y 09/23/16 16:28 Completed Date of admission: 09/22/16 21:40 Primary care physician: PCP JULIAN Consults: 09/23/16 11:06 Consult to Cardiology [CONS] Routine Comment: Consulting Provider: Cardiology Becca Reason for Consult: patient requested. Call Completed: No Discharging clinician: Raghu Zelaya Anticipated date of discharge: 09/24/16 - Patient Status Disposition: Transfer LTC Condition: Fair Functional capacity at discharge: independent ambulation Overall status at discharge: patient is progressing back to baseline - Discharge Instructions Follow Up With: [facility] [Primary Care Provider] - - Diet and Activity Activity: increase activity as tolerated Diet: advance to your usual diet Hospital course: Ms. Barfield is a 89 year old female with hx of atrial fibrillation, CVA (07/28) and colon cancer resected 07/28 brought to ED due to increased dyspnea and rapid atrial fibrillation. She had been noticing increased symptoms which had been progressively worse. CXR on admit showed CHF and urine was positive. She was admitted. Ms. Barfield was admitted to [facility] [place] [facility]. She was started on IV Bumex which she tolerated. Her hemoglobin remained stable as well. She did have an episode of rapid a fib which is now rate controlled. She was seen by cardiology and meds were continued the same at this time. She was placed on IV abx for gram neg UTI (Klebsiella pneumoniae). On 09/24 she was feeling well. She was off oxygen and afebrile. Repeat CXR was improved. At that time she was felt stable for discharge back to the [facility]. She will continue abx for UTI. - Time Spent with Patient Total time spent providing and/or coordinating discharge services: 41min - Constitutional Vitals: Temp Pulse Resp BP Pulse Ox 98.0 F 77 19 145/68 95 09/24/16 07:04 09/24/16 07:04 09/24/16 07:04 09/24/16 07:04 09/24/16 08:18 General appearance: Present: A&O X 3, pleasant, answers questions appropriately - Head Head exam: Present: normocephalic - Eye Eye exam: Present: EOMI, conjuntiva pink - ENT ENT exam: Present: mucous membranes moist - Respiratory Additional comments: Scant end exp wheeze on L - Cardiovascular Cardiovascular exam: Present: irregular rhythm. Absent: tachycardia - GI/Abdominal GI/Abdominal exam: Present: soft. Absent: tenderness - Extremities Exam Extremities exam: Present: pedal edema, warm. Absent: tenderness - Neurological Exam Neurological exam: Present: alert, oriented X3, facial droop (Left) - Psychiatric Psychiatric exam: Present: normal affect, normal mood - Skin Skin exam: Present: warm. Absent: erythema, rash - VTE Documentation of Mechanical Device: Graduated compression elastic hosiery
--- NOTE | 2016-09-24 09:19 | Physician Discharge Referral ---
ExtendedCare Referral Info Transfer To: [place] Provider in Charge after Transfer: PCP Institutional Level of Care: Intermediate - Diagnosis (1) Acute on chronic diastolic (congestive) heart failure Priority: Primary Status: Acute (2) Afib Priority: Primary Status: Chronic (3) UTI (urinary tract infection) Priority: Primary Status: Acute (4) Renovascular hypertension Priority: Secondary Status: Chronic (5) Adenocarcinoma, colon Priority: Secondary Status: Chronic (6) Type 2 diabetes mellitus Priority: Secondary Status: Acute (7) CVA, old, facial weakness Priority: Secondary Status: Chronic (8) Anemia Priority: Secondary Status: Acute (9) GERD (gastroesophageal reflux disease) Priority: Secondary Status: Chronic Expected Duration of Placement: [facility]DC Prognosis: Fair Aware of Diagnosis: Patient Aware of Prognosis: Patient - Transfer Medications Prescriptions: Bumetanide [Bumex] 0.5 mg PO BIDDIURETIC #60 tablet cephALEXin [Keflex] 500 mg PO BID #6 capsule Ipratropium/Albuterol Sulfate [Combivent Respimat Inhal [place]] 4 gm IH QID PRN # 1 aer.w.adap PRN Reason: Dyspnea Morphine Immed Rel [Morphine Sulfate] 15 mg PO BID #10 tablet OxyCODONE Immed Rel [Roxicodone 5 MG] 5 mg PO TID PRN #10 PRN Reason: Breakthrough Pain Home Medications: Acetaminophen [Tylenol] 650 mg PO QID PRN 10/10/15 [History] Gabapentin [Neurontin] 1,200 mg PO QPM 10/10/15 [History] Ipratropium/Albuterol Neb [Duoneb] 3 ml IH Q4HR PRN 10/10/15 [History] Mv-Mn/FA/Vit K1/Lycop/Lut/Zeax [Ocuvite Eye + Multi Tablet] 1 tab PO BIDWM 10/09 [History] Polyethylene Glycol 3350 [MiraLAX] 17 gm PO DAILY PRN 10/10/15 [History] Tizanidine HCl 2 mg PO DAILY 10/10/15 [History] Aspirin [Lo-Dose Aspirin EC] 81 mg PO QPM 03/27/16 [History] Propylene Glycol/Peg 400 [Systane 0.3-0.4% Eye Drops] 1 drop BOTH EYES QID PRN 03/27/16 [History] Cyanocobalamin (B-12) [Vitamin B12] 1,000 mcg PO DAILY 07/08/16 [History] hydrALAZINE [HydrALAZINE] 50 mg PO Q4H PRN 07/08/16 [History] Dabigatran [Pradaxa] 150 mg PO BID #0 capsule 07/27/16 [Rx] Diltiazem CD (24hr) [Cardizem CD] 120 mg PO DAILY #0 cap.er.24h 07/27/16 [Rx] Atorvastatin [Lipitor] 40 mg PO HS 09/22/16 [History] Ferrous Gluconate 324 mg PO BIDWM 09/22/16 [History] GuaiFENesin/Dextromethorphan [Tussin Dm Syrup] 10 ml PO Q6H PRN 09/22/16 [ History] Hydrophilic Cream [[place]] 1 appl TP QPM 09/22/16 [History] Isosorbide MONOnitrate (24 HR) [Imdur] 15 mg PO QPM 09/22/16 [History] Ketotifen Fumarate 1 drop OP DAILY PRN 09/22/16 [History] Mag Hydrox/Al Hydrox/Simeth [Almacone Chewable Tablet] 1 each PO BID PRN [History] Magnesium Hydroxide [Milk of Magnesia] 2,400 mg PO DAILY PRN 09/22/16 [History] Metoprolol XL (24 HR) Succ [Toprol Xl] 25 mg PO QPM 09/22/16 [History] Omeprazole [PriLOSEC] 40 mg PO BID 09/22/16 [History] Saliva Substitute Combo No.3 [Aquoral] 3 - 5 spray MM Q2H PRN 09/22/16 [History] Sucralfate [Carafate] 1 gm PO TID PRN 09/22/16 [History] Tamsulosin [Flomax] 0.4 mg PO DAILY 09/22/16 [History] Trazodone HCl 100 mg PO BID PRN 09/22/16 [History] Bumetanide [Bumex] 0.5 mg PO BIDDIURETIC #60 tablet 09/24/16 [Rx] Dabigatran [Pradaxa] 150 mg PO BID 09/24/16 [Rx] Docusate [Colace] 100 mg PO DAILY PRN 09/24/16 [Rx] Ipratropium/Albuterol Sulfate [Combivent Respimat Inhal [place]] 4 gm IH QID PRN # 1 aer.w.adap 09/24/16 [Rx] Morphine Immed Rel [Morphine Sulfate] 15 mg PO BID #10 tablet 09/24/16 [Rx] OxyCODONE Immed Rel [Roxicodone 5 MG] 5 mg PO TID PRN #10 09/24/16 [Rx] cephALEXin [Keflex] 500 mg PO BID #6 capsule 09/24/16 [Rx] Allergies/Adverse Reactions: Allergies bacitracin [From Neosporin ([id number])] Allergy (Unknown, Verified 09/17/16 15:28) See Comments PATIENT UNSURE- REACTION NOT LISTED ON [facility] celecoxib Allergy (Unknown, Verified 09/17/16 15:28) See Comments pt cannot remember codeine Allergy (Unknown, Verified 09/17/16 15:28) See Comments pt does not remember Donepezil Allergy (Unknown, Verified 09/17/16 15:28) See Comments PATIENT UNSURE- REACTION NOT LISTED ON [facility] L[facility] fenofibrate [From Tricor] Allergy (Unknown, Verified 09/17/16 15:28) See Comments pt does not remember Hydralazine Allergy (Unknown, Verified 09/17/16 15:28) See Comments PATIENT UNSURE- REACTION NOT LISTED ON [facility] naproxen Allergy (Unknown, Verified 09/17/16 15:28) See Comments PATIENT UNSURE- REACTION NOT LISTED ON [facility] L[facility] Neomycin [From Neosporin ([id number])] Allergy (Unknown, Verified 09/17/16 15 :28) See Comments PATIENT UNSURE- REACTION NOT LISTED ON [facility] L[facility] Opioids - Morphine Analogues Allergy (Unknown, Verified 09/17/16 15:28) See Comments PATIENT UNSURE- REACTION NOT LISTED ON [facility] L[facility] polymyxin B [From Neosporin ([id number])] Allergy (Unknown, Verified 15:28) See Comments PATIENT UNSURE- REACTION NOT LISTED ON [facility] L[facility] rofecoxib Allergy (Unknown, Verified 09/17/16 15:28) See Comments PATIENT UNSURE- REACTION NOT LISTED ON [facility] LIST Sulfa (Sulfonamide Antibiotics) Allergy (Unknown, Verified 09/17/16 15:28) See Comments PATIENT UNSURE- REACTION NOT LISTED ON [facility] LIST Tetanus Vaccines and Toxoid [Tetanus Vaccines & Toxoid] Allergy (Unknown, Verified 09/17/16 15:28) See Comments PATIENT UNSURE- REACTION NOT LISTED ON [facility] LIST lisinopril Adverse Reaction (Verified 09/17/16 15:28) Cough nicotine Adverse Reaction (Verified 09/17/16 15:28) Vomiting - Respiratory Orders Oxygen / L per min (Maintain saturation greater than 90%) Smoking Cessation: Smoking cessation has been advised. For more information, call the [employer] Quit Line at 7-277-LHFN-NOW. - Ancillary Orders May use pressure relief devices daily prn, May go on FLORES w/family/respon republican w /meds at nurse discretion PRN, May consult with Dentist, Dry Clipper Tender, Formula Checker PRN - Advance Directives Code Status: DNR-Arrest - History and Physical History/Physical reviewed & approved w/add comments: No significant change - Mobility Orders Ambulate - Rehabiliation Orders Rehab Potential: Fair - Treatments Skin tear care topically daily PRN per policy, May check for fecal impaction rectally daily PRN, Fleet enema rectally every other day PRN cleansing purposes - Diet Orders No Concentrated Sweets, Cardiac CERTIFICATION: I certify that the transfer of the above named patient to an Extended Care Facility is necessary for the continuing treatment of the diagnosis listed. The above information is true and accurate reflection of patient's current condition. Confidential - Redisclosure prohibited without a patient's written consent.
[2016-09-24 11:26] VITALS: BP 159/67
[2016-09-24 23:09] LABS: Acinetobacter baumannii by PCR Not Detected (Not Detect); Candida albicans by PCR Not Detected (Not Detect); Candida glabrata by PCR Not Detected (Not Detect); Candida krusei by PCR Not Detected (Not Detect); Candida parapsilosis by PCR Not Detected (Not Detect); Candida tropicalis by PCR Not Detected (Not Detect); Enterococcus by PCR Not Detected (Not Detect); Escherichia coli by PCR Not Detected (Not Detect); Klebsiella oxytoca by PCR Not Detected (Not Detect); Klebsiella pneumoniae by PCR Not Detected (Not Detect); Pseudomonas aeruginosa by PCR Not Detected (Not Detect); Serratia marcescens by PCR Not Detected (Not Detect); Staphylococcus aureus by PCR Not Detected (Not Detect); Streptococcus agalactiae(B)PCR Not Detected (Not Detect); Streptococcus by PCR ***DETECTED*** (Not Detect); Streptococcus pneumoniae PCR Not Detected (Not Detect); Streptococcus pyogenes (A) PCR Not Detected (Not Detect)
== END 2016-09-24 14:27 | DRG 292 ==
LOC: EMEROO 17:54 → 3BNU 21:40 → SUATTDRO 21:40 → 3BNU 22:20
PROVIDERS: ADMIT Internal Medicine; ATTEND Internal Medicine

== ENCOUNTER 2016-09-25 20:59 | Inpatient (IN) ==
[2016-09-25] MEDS ORDERED: *HR* OxyCODONE Immed Rel 5 MG TABLET PO PRN (23:18)
[2016-09-25] MEDS ORDERED: Naloxone 0.4 MG/ML INJ IVP PRN (23:18)
[2016-09-25] MEDS ORDERED: Acetaminophen 325 MG TABLET PO PRN (23:18)
[2016-09-25] MEDS ORDERED: *HR* Metoprolol 5 MG/5 ML VIAL IVP PRN (23:21)
[2016-09-25] MEDS ORDERED: Ipratropium/Albuterol Neb 3 ML IH PRN (23:23)
--- NOTE | 2016-09-25 23:36 | Internal Med History&Physical ---
Addendum entered and electronically signed by Renee Munoz CNP 09/26/16 22: 37: correction to date of encounter: 09/25/16. Addendum entered and electronically signed by Renee Munoz CNP 09/26/16 12: 31: History of present illness: Ms. 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 Patient reports she has been experiencing shortness of breath, worse on exertion, and palpitations. She denies any chest pain or discomfort, nausea , vomiting. She reports chills but denies fever or sweats. She was admitted earlier this week with atrial flutter with RVR, diastolic CHF, and UTI. Evaluation at the [facility] showed troponin of 0.5, EKG showed Afib with RVR HR of 101. On my exam, Patient was alert and oriented, in no acute distress. Heart had irregular, tachycardic rhythm. Patient's heartrate ranged from 120s-150s on my exam and seemed to be worse while she was speaking. Lungs were clear to auscultation bilaterally. She had +2 BLE edema. Original Note: Date of Encounter: 09/26/16 Time of Encounter: 23:36 Assessment and Plan (1) Atrial fibrillation with RVR Current visit: Yes Status: Acute Patient with Afib/RVR with HR 100s-150s. Patient reporting intermittent shortness of breath and palpitations. She was given digoxin and cardizem at the [facility]. Metoprolol IVP 5mg PRN for HR > 120s, if HR still elevated, will give one dose of Cardizem 15mg IVP. If HR still elevated, will add cardizem drip. Continue home doses of metoprolol, diltiazem and Pradaxa. Continuous conveyor monitor Cardiology consult ordered (will need to be called in the morning). (2) Elevated troponin Current visit: Yes Status: Acute Troponin of 0.561. Patient complaining of shortness of breath, worse with exertion and she associates with her afib. She denies any chest pain or discomfort. Elevated troponin likely secondary to demand ischemia from her AFIB with RVR. Continuous conveyor monitor serial troponins Cardiology consulted, will need to be called in the morning. (3) Bacteremia Current visit: Yes Status: Acute Blood cultures from previous hospitalization came back positive for gram + cocci , strep species, sensitivity still pending. Patient was started on vancomycin and rocephin at [facility]. Rocephin will cover both her UTI and the strep species in her blood. Will continue with IV Rocephin. Unclear source of bacteremia as Urine culture does not match blood culture. Consider Infectious disease consult. (4) Anticoagulated Current visit: Yes Status: Acute Patient on PRadaxa for Afib. No evidence or concern for bleeding at this time. Continue home dose of Pradaxa. (5) Chronic diastolic CHF (congestive heart failure) Current visit: Yes Status: Chronic Continue home dose of bumex. Daily weights and I/Os. Cardiac diet with 1.5L fluid restriction. (6) DVT prophylaxis Current visit: Yes Status: Acute anti-embolic stockings Patient on Pradaxa for afib, additional pharmacologic prophylaxis not warranted. Internal Medicine - H&P: HPI Chief complaint: tachycardia Admitted From: Hospital to Hospital Transfer Plans for Post Hospital Care: Home History of present illness: Ms. Barfield is a 89 year old female Past Med Surg Social Fam HX - Past Medical History Medical history: arthritis, atrial fibrillation, cancer, COPD, coronary artery disease, diabetes, GERD, hyperlipidemia, hypertension, peripheral artery disease , valvular heart disease, other Psychiatric history: no psych history - Past Surgical History Surgical History: cancer surgery (colon resection), orthopedic, other (spinal surgery, foot surgery), other, vascular surgery - Social History Smoking Status: Former smoker (70 pack year history) Smokeless Tobacco Status: No Alcohol use: none Drug use: none - Family History Mother Living Status: Father Adopted: No Family Member Ethnicity: Non- Twin of Family Member: Yes, Fraternal Living Status: Hx Family Cardiac Disorders: Yes Hx Family Respiratory Disorders: Yes Internal Medicine - H&P: Meds Acetaminophen [Tylenol] 650 mg PO QID PRN 10/10/15 [History] Gabapentin [Neurontin] 1,200 mg PO QPM 10/10/15 [History] Ipratropium/Albuterol Neb [Duoneb] 3 ml IH Q4HR PRN 10/10/15 [History] Mv-Mn/FA/Vit K1/Lycop/Lut/Zeax [Ocuvite Eye + Multi Tablet] 1 tab PO BIDWM 10/09 [History] Polyethylene Glycol 3350 [MiraLAX] 17 gm PO DAILY PRN 10/10/15 [History] Tizanidine HCl 2 mg PO DAILY 10/10/15 [History] Aspirin [Lo-Dose Aspirin EC] 81 mg PO QPM 03/27/16 [History] Propylene Glycol/Peg 400 [Systane 0.3-0.4% Eye Drops] 1 drop BOTH EYES QID PRN 03/27/16 [History] Cyanocobalamin (B-12) [Vitamin B12] 1,000 mcg PO DAILY 07/08/16 [History] hydrALAZINE [HydrALAZINE] 50 mg PO Q4H PRN 07/08/16 [History] Dabigatran [Pradaxa] 150 mg PO BID #0 capsule 07/27/16 [Rx] Diltiazem CD (24hr) [Cardizem CD] 120 mg PO DAILY #0 cap.er.24h 07/27/16 [Rx] Atorvastatin [Lipitor] 40 mg PO HS 09/22/16 [History] Ferrous Gluconate 324 mg PO BIDWM 09/22/16 [History] GuaiFENesin/Dextromethorphan [Tussin Dm Syrup] 10 ml PO Q6H PRN 09/22/16 [ History] Hydrophilic Cream [Basle] 1 appl TP QPM 09/22/16 [History] Isosorbide MONOnitrate (24 HR) [Imdur] 15 mg PO QPM 09/22/16 [History] Ketotifen Fumarate 1 drop OP DAILY PRN 09/22/16 [History] Mag Hydrox/Al Hydrox/Simeth [Almacone Chewable Tablet] 1 each PO BID PRN [History] Magnesium Hydroxide [Milk of Magnesia] 2,400 mg PO DAILY PRN 09/22/16 [History] Metoprolol XL (24 HR) Succ [Toprol Xl] 25 mg PO QPM 09/22/16 [History] Omeprazole [PriLOSEC] 40 mg PO BID 09/22/16 [History] Saliva Substitute Combo No.3 [Aquoral] 3 - 5 spray MM Q2H PRN 09/22/16 [History] Sucralfate [Carafate] 1 gm PO TID PRN 09/22/16 [History] Tamsulosin [Flomax] 0.4 mg PO DAILY 09/22/16 [History] Trazodone HCl 100 mg PO BID PRN 09/22/16 [History] Bumetanide [Bumex] 0.5 mg PO BIDDIURETIC #60 tablet 09/24/16 [Rx] Dabigatran [Pradaxa] 150 mg PO BID 09/24/16 [Rx] Docusate [Colace] 100 mg PO DAILY PRN 09/24/16 [Rx] Ipratropium/Albuterol Sulfate [Combivent Respimat Inhal [place]] 4 gm IH QID PRN # 1 aer.w.adap 09/24/16 [Rx] Morphine Immed Rel [Morphine Sulfate] 15 mg PO BID #10 tablet 09/24/16 [Rx] OxyCODONE Immed Rel [Roxicodone 5 MG] 5 mg PO TID PRN #10 09/24/16 [Rx] cephALEXin [Keflex] 500 mg PO BID #6 capsule 09/24/16 [Rx] Allergies bacitracin [From Neosporin ([id number])] Allergy (Unknown, Verified 09/17/16 15:28) See Comments PATIENT UNSURE- REACTION NOT LISTED ON [facility] celecoxib Allergy (Unknown, Verified 09/17/16 15:28) See Comments pt cannot remember codeine Allergy (Unknown, Verified 09/17/16 15:28) See Comments pt does not remember Donepezil Allergy (Unknown, Verified 09/17/16 15:28) See Comments PATIENT UNSURE- REACTION NOT LISTED ON [facility] fenofibrate [From Tricor] Allergy (Unknown, Verified 09/17/16 15:28) See Comments pt does not remember Hydralazine Allergy (Unknown, Verified 09/17/16 15:28) See Comments PATIENT UNSURE- REACTION NOT LISTED ON [facility] naproxen Allergy (Unknown, Verified 09/17/16 15:28) See Comments PATIENT UNSURE- REACTION NOT LISTED ON [facility] Neomycin [From Neosporin ([id number])] Allergy (Unknown, Verified 09/17/16 15 :28) See Comments PATIENT UNSURE- REACTION NOT LISTED ON [facility] Opioids - Morphine Analogues Allergy (Unknown, Verified 09/17/16 15:28) See Comments PATIENT UNSURE- REACTION NOT LISTED ON [facility] polymyxin B [From Neosporin ([id number])] Allergy (Unknown, Verified 15:28) See Comments PATIENT UNSURE- REACTION NOT LISTED ON [facility] rofecoxib Allergy (Unknown, Verified 09/17/16 15:28) See Comments PATIENT UNSURE- REACTION NOT LISTED ON [facility] Sulfa (Sulfonamide Antibiotics) Allergy (Unknown, Verified 09/17/16 15:28) See Comments PATIENT UNSURE- REACTION NOT LISTED ON [facility] Tetanus Vaccines and Toxoid [Tetanus Vaccines & Toxoid] Allergy (Unknown, Verified 09/17/16 15:28) See Comments PATIENT UNSURE- REACTION NOT LISTED ON [facility] lisinopril Adverse Reaction (Verified 09/17/16 15:28) Cough nicotine Adverse Reaction (Verified 09/17/16 15:28) Vomiting All Systems PM: A 10-system review of systems was performed and is negative for pertinent findings except as documented above in the HPI. - Constitutional Constitutional: no chills, no fever(s), no night sweats - EENT Eyes: no change in vision, no discharge, no pain, no photophobia Ears: no ear discharge, no ear pain, no tinnitus Nose, mouth and throat: no dysphagia, no nasal discharge, no neck pain, no sore throat - Cardiovascular Cardiovascular ROS IM: dyspnea, dyspnea on exertion, lightheadedness, palpitations, no chest pain, no diaphoresis, no syncope - Respiratory Respiratory: no cough, no dyspnea, no wheezing, no excessive phlegm production - Gastrointestinal Gastrointestinal: no abdominal pain, no diarrhea, no hematemesis, no hematochezia, no melena, no nausea, no vomiting - Genitourinary Genitourinary: no change in urinary stream, no dysuria, no flank pain, no hematuria - Musculoskeletal Musculoskeletal ROS IM: no numbness, no tingling - Integumentary Integumentary IM: no rash, no unusual bruising - Neurological Neurological ROS: no confusion, no convulsions, no focal weakness, no numbness, no tingling, no tremor(s) - Hematologic/Lymphatic Hematologic/Lymphatic: no easy bruising - Constitutional Vitals: Temp Pulse Resp BP Pulse Ox 98.0 F 110 18 131/87 87 09/25/16 22:45 09/25/16 22:45 09/25/16 22:45 09/25/16 22:45 09/25/16 22:45 General appearance: Present: A&O X 3, pleasant, no acute distress - Head Head exam: Present: atraumatic, normocephalic - Eye Eye exam: Present: PERRL, conjuntiva pink, sclera anicteric Pupils: Present: PERRL - Neck Neck exam general surgery: Present: supple, trachea midline. Absent: lymphadenopathy - Respiratory Respiratory exam: Present: CTAB. Absent: accessory muscle use, rales, rhonchi, wheezes - Cardiovascular Cardiovascular exam: Present: irregular rhythm, +S1, +S2, tachycardia. Absent: diastolic murmur, gallop, rubs, systolic murmur - GI/Abdominal GI/Abdominal exam: Present: normal bowel sounds, soft, no peritoneal signs. Absent: distended, tenderness - Extremities Exam Extremities exam: Present: pedal edema, warm, radial pulses palpable and symetrical. Absent: calf tenderness, cyanotic - Neurological Exam Neurological exam: Present: CN II-XII intact, oriented X3, facial droop (chronic ). Absent: speech deficit - Skin Skin exam: Present: dry, intact Internal Med - H&P Results - Labs Labs: Labs from [facility]: WBC 8.0 Hgb 9.3 Hct 30.9 Plt 325 Na 139 K 3.8 Cl 97 CO2 31 BUN 18 Cr 0.88 Glu 152 Mg 2.4 - Diagnostic Studies Chest x-ray Additional comments: CXR report from [facility]: mild interval decrease in pulmonary edema, a component of atypical infection is not excluded.
[2016-09-25] MEDS ORDERED: Dextrose Gel 15 GM PO PRN ×2 (23:50)
[2016-09-25] MEDS ORDERED: *HR* Dextrose 50 % in Water (Syg) 50 ML SYRINGE IVP PRN (23:50)
[2016-09-25] MEDS ORDERED: D5% in Water 1,000 ML IVC PRN (23:50)
[2016-09-25] MEDS: Isosorbide MONOnitrate (24 HR) 30 MG TAB.ER.24H PO SCH (23:57)
[2016-09-25] MEDS: Aspirin Enteric Coated 81 MG Tablet PO SCH (23:57)
[2016-09-26] MEDS ORDERED: Vancomycin 1,000 MG in D5% in Water 250 ML IVPB SCH
[2016-09-26] MEDS: *HR* Dabigatran 75 MG CAPSULE PO SCH ×3 (00:03→21:54)
[2016-09-26] MEDS: Gabapentin 400 MG CAPSULE PO SCH ×2 (00:03→16:49)
[2016-09-26] MEDS: tiZANidine 4 MG TABLET PO SCH ×2 (00:04→09:35)
[2016-09-26] MEDS: *HR* Morphine Immed Rel 30 MG TABLET PO SCH ×3 (00:25→21:55)
[2016-09-26] MEDS: Insulin LISPRO 300 UNITS/3 ML VIAL SQ SCH ×5 (00:38→21:55)
[2016-09-26 01:47] LABS: Basophils % 0.4 %; Eosinophils # 0.2 K/mcL (0.0-0.6); Eosinophils % 1.8 %; Hematocrit 27.1 % (35.3-44.9); Hemoglobin 8.3 g/dL (11.5-15.4); Immature Granulocytes % 0.5 % (0-4); Lymphocytes # 2.7 K/mcL (0.6-4.6); Lymphocytes % 31.3 %; Mean Corpuscular HGB Conc 30.6 g/dL (31.6-35.5); Mean Corpuscular Hemoglobin 23.6 pg (28.0-33.3); Mean Platelet Volume 9.1 fL (9.4-12.4); Monocytes # 0.7 K/mcL (0.0-1.3); Monocytes % 8.6 %; Neutrophils # 4.9 K/mcL (1.6-8.9); Platelet Count 332 K/mcL (140-400); Red Blood Count 3.52 M/mcL (3.82-4.97); Segmented Neutrophils % 57.4 %
[2016-09-26 03:36] LABS: BUN/Creatinine Ratio 19 (6-26); Blood Urea Nitrogen 17 mg/dL (7-20); Carbon Dioxide 33 mEq/L (19-29); Chloride 94 mEq/L (98-109); Glucose 178 mg/dL (70-99); Osmolality,Calculated 290 (280-300); Potassium 3.6 mEq/L (3.5-4.5); Sodium 137 mEq/L (136-145); eGFR For African Americans > 60 (> 60); eGFR For Non-African Americans > 60 (> 60)
[2016-09-26] MEDS ORDERED: Vancomycin 750 MG in D5% in Water 250 ML IVPB SCH (09:00)
[2016-09-26] MEDS ORDERED: Metoprolol XL (24 HR) Succ 25 MG TAB.ER.24H PO SCH ×2 (09:00→18:00)
[2016-09-26] MEDS ORDERED: Diltiazem CD (24hr) 120 MG CAPSULE PO SCH (09:00)
--- NOTE | 2016-09-26 09:06 | Cardiology Consult Note ---
Date of Encounter: 09/26/16 Time of Encounter: 09:03 Assessment and Plan (1) Atrial fibrillation with RVR Current Visit: Yes Status: Acute Atrial fibrillation with RVR. HR seen to be up to 150 bpm. Converted to NSR after receiving IV lopressor and cardizem. 3rd hospital admission since July with afib with RVR. TTE 08/24/16: EF 60-65%, mild LVH. Limited study. TSH 08/18/16 1.07. Antiarrhythmic therapy discussed last time and she declined. I discussed again today and she reports she would be agreeable. I will discuss further with Dr. Lyons. Continue pradaxa 150 mg BID for AC. As of note she received pradaxa last night at 0001 after already receiving two doses yesterday. Next dose will be this evening. (2) Elevated troponin Current Visit: Yes Status: Acute Troponin elevated at 0.33, 0.34. Likely demand ischemia in the setting of atrial fibrillation with RVR. Continue to trend troponin. EKG Shows atrial fibrillation with RVR HR 101. TTE 08/24/16: EF 60-65%, Mild LVH. (3) Chronic diastolic CHF (congestive heart failure) Current Visit: Yes Status: Chronic HFpEF, mild acute on chronic. Mild fluid overload on exam. Reports improvement from admission earlier this week. CXR 09/24/16: Mild interstitial edema. Bilateral pleural effusions. Give an extra dose IV bumex today. Strict I&O and daily weights. Low sodium diet. Discussion w patient/family: The assessment and plan as outlined above was discussed with the patient and/or family members who expressed understanding and agreement. All questions were answered. Thank you for involving us in the care of your patient. Please call with any questions. History of Present Illness Consult date: 09/26/16 Requesting physician: Jose Antonio Blackman Consult reason: Afib with RVR Chief complaint: Elevated heart rate History of present illness: Ms. 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 She c/o mild SOB. She was admitted earlier this week with atrial flutter with RVR, diastolic CHF, and UTI. She reports her SOB and BLE has improved since that time. She denies chest pain or palpitations. She was given IV lopressor and cardizem and converted back to NSR. EKG showed atrial fibrillation HR 101. No acute ST changes. Troponin was found to be elevated at 0.33, 0.34. Echo 07/2016 EF 65%, mild cLVH, moderate LVDD, mild-moderate TR, moderately dilated LA, severe pHTN, normal wall motion. Echo 08/24/16; Limited study, EF 65%, mild LVH. Past Med Surg Social Fam HX - Past Medical History Medical history: arthritis, atrial fibrillation, cancer, COPD, diabetes, GERD, hyperlipidemia, hypertension, peripheral artery disease, valvular heart disease , other Psychiatric history: no psych history - Past Surgical History Surgical History: cancer surgery, orthopedic, other, other, vascular surgery - Social History Smoking Status: Former smoker Smokeless Tobacco Status: No Alcohol use: none Drug use: none - Family History Mother Living Status: Age at : 38 Cause of : Spinal meningitis Father Adopted: No Family Member Ethnicity: Non- Twin of Family Member: Yes, Fraternal Living Status: Age at : 100 Cause of : Gangrene Hx Family Cardiac Disorders: Yes Hx Family Respiratory Disorders: Yes Medications and Allergies Acetaminophen [Tylenol] 650 mg PO QID PRN 10/10/15 [History] Gabapentin [Neurontin] 1,200 mg PO QPM 10/10/15 [History] Ipratropium/Albuterol Neb [Duoneb] 3 ml IH Q4HR PRN 10/10/15 [History] Mv-Mn/FA/Vit K1/Lycop/Lut/Zeax [Ocuvite Eye + Multi Tablet] 1 tab PO BIDWM 10/09 [History] Polyethylene Glycol 3350 [MiraLAX] 17 gm PO DAILY PRN 10/10/15 [History] Tizanidine HCl 2 mg PO DAILY 10/10/15 [History] Aspirin [Lo-Dose Aspirin EC] 81 mg PO QPM 03/27/16 [History] Propylene Glycol/Peg 400 [Systane 0.3-0.4% Eye Drops] 1 drop BOTH EYES QID PRN 03/27/16 [History] Cyanocobalamin (B-12) [Vitamin B12] 1,000 mcg PO DAILY 07/08/16 [History] hydrALAZINE [HydrALAZINE] 50 mg PO Q4H PRN 07/08/16 [History] Dabigatran [Pradaxa] 150 mg PO BID #0 capsule 07/27/16 [Rx] Diltiazem CD (24hr) [Cardizem CD] 120 mg PO DAILY #0 cap.er.24h 07/27/16 [Rx] Atorvastatin [Lipitor] 40 mg PO HS 09/22/16 [History] Ferrous Gluconate 324 mg PO BIDWM 09/22/16 [History] GuaiFENesin/Dextromethorphan [Tussin Dm Syrup] 10 ml PO Q6H PRN 09/22/16 [ History] Hydrophilic Cream [Basle] 1 appl TP QPM 09/22/16 [History] Isosorbide MONOnitrate (24 HR) [Imdur] 15 mg PO QPM 09/22/16 [History] Ketotifen Fumarate 1 drop OP DAILY PRN 09/22/16 [History] Mag Hydrox/Al Hydrox/Simeth [Almacone Chewable Tablet] 1 each PO BID PRN [History] Magnesium Hydroxide [Milk of Magnesia] 2,400 mg PO DAILY PRN 09/22/16 [History] Metoprolol XL (24 HR) Succ [Toprol Xl] 25 mg PO QPM 09/22/16 [History] Omeprazole [PriLOSEC] 40 mg PO BID 09/22/16 [History] Saliva Substitute Combo No.3 [Aquoral] 3 - 5 spray MM Q2H PRN 09/22/16 [History] Sucralfate [Carafate] 1 gm PO TID PRN 09/22/16 [History] Tamsulosin [Flomax] 0.4 mg PO DAILY 09/22/16 [History] Trazodone HCl 100 mg PO BID PRN 09/22/16 [History] Bumetanide [Bumex] 0.5 mg PO BIDDIURETIC #60 tablet 09/24/16 [Rx] Dabigatran [Pradaxa] 150 mg PO BID 09/24/16 [Rx] Docusate [Colace] 100 mg PO DAILY PRN 09/24/16 [Rx] Ipratropium/Albuterol Sulfate [Combivent Respimat Inhal [place]] 4 gm IH QID PRN # 1 aer.w.adap 09/24/16 [Rx] Morphine Immed Rel [Morphine Sulfate] 15 mg PO BID #10 tablet 09/24/16 [Rx] OxyCODONE Immed Rel [Roxicodone 5 MG] 5 mg PO TID PRN #10 09/24/16 [Rx] cephALEXin [Keflex] 500 mg PO BID #6 capsule 09/24/16 [Rx] Allergies bacitracin [From Neosporin ([id number])] Allergy (Unknown, Verified 09/17/16 15:28) See Comments PATIENT UNSURE- REACTION NOT LISTED ON [facility] celecoxib Allergy (Unknown, Verified 09/17/16 15:28) See Comments pt cannot remember codeine Allergy (Unknown, Verified 09/17/16 15:28) See Comments pt does not remember Donepezil Allergy (Unknown, Verified 09/17/16 15:28) See Comments PATIENT UNSURE- REACTION NOT LISTED ON [facility] fenofibrate [From Tricor] Allergy (Unknown, Verified 09/17/16 15:28) See Comments pt does not remember Hydralazine Allergy (Unknown, Verified 09/17/16 15:28) See Comments PATIENT UNSURE- REACTION NOT LISTED ON [facility] naproxen Allergy (Unknown, Verified 09/17/16 15:28) See Comments PATIENT UNSURE- REACTION NOT LISTED ON [facility] Neomycin [From Neosporin ([id number])] Allergy (Unknown, Verified 09/17/16 15 :28) See Comments PATIENT UNSURE- REACTION NOT LISTED ON [facility] Opioids - Morphine Analogues Allergy (Unknown, Verified 09/17/16 15:28) See Comments PATIENT UNSURE- REACTION NOT LISTED ON [facility] polymyxin B [From Neosporin ([id number])] Allergy (Unknown, Verified 15:28) See Comments PATIENT UNSURE- REACTION NOT LISTED ON [facility] rofecoxib Allergy (Unknown, Verified 09/17/16 15:28) See Comments PATIENT UNSURE- REACTION NOT LISTED ON [facility] Sulfa (Sulfonamide Antibiotics) Allergy (Unknown, Verified 09/17/16 15:28) See Comments PATIENT UNSURE- REACTION NOT LISTED ON [facility] Tetanus Vaccines and Toxoid [Tetanus Vaccines & Toxoid] Allergy (Unknown, Verified 09/17/16 15:28) See Comments PATIENT UNSURE- REACTION NOT LISTED ON [facility] lisinopril Adverse Reaction (Verified 09/17/16 15:28) Cough nicotine Adverse Reaction (Verified 09/17/16 15:28) Vomiting All Systems Review: A 10-system review of systems was performed and is negative for pertinent findings except as documented above in the HPI. Physical Examination Vital Signs, Last 4 Hours Pulse Resp BP Pulse Ox 09/26/16 07:00 80 18 149/74 94 General: Conversant, No Apparent Distress HEENT: Atraumatic, Normocephaly, Mucus Membranes Moist Neck: No JVD, Normal carotid pulses Cardiac: Reg Rate and Rhythm, Normal S1 and S2, No Murmur Lungs: Normal Breath Sounds, No Wheeze, Rales, Rhonchi Neuro: Alert and responsive Abdomen: Soft, Non-Tender Skin: No rashes noted on visualized skin Musculoskeletal: No Chest Wall Tenderness Extremities: No Clubbing, No Cyanosis, Normal Pulses, Other (2+ pitting ankle edema) Results 09/26/16 01:30 09/26/16 01:30 Lab Results 09/26/16 09/26/16 09/26/16 01:26 01:30 01:30 WBC 8.6 Hgb 8.3 L Hct 27.1 L Plt Count 332 Sodium 137 Potassium 3.6 Chloride 94 L Carbon Dioxide 33 H BUN 17 Creatinine 0.88 Glucose 178 H Calcium 9.0 Troponin I 0.33 H* 09/26/16 05:33 WBC Hgb Hct Plt Count Sodium Potassium Chloride Carbon Dioxide BUN Creatinine Glucose Calcium Troponin I 0.34 H* Consult Discharge Plan - Plan Referrals: [facility] Care Provider[facility] -
[2016-09-26] MEDS ORDERED: Bumetanide 1 MG/4 ML VIAL IVP ONE (09:23)
[2016-09-26] MEDS: Bumetanide 1 MG TABLET PO SCH ×2 (09:27→17:11)
--- NOTE | 2016-09-26 10:22 | Discharge Summary ---
Date of Encounter: 09/26/16 Time of Encounter: 08:15 - Discharge Diagnosis (1) Paroxysmal atrial fibrillation Priority: Primary Status: Chronic (2) Chronic diastolic CHF (congestive heart failure) Priority: Secondary Status: Chronic (3) Hypertension Priority: Secondary Status: Chronic Qualifiers: Hypertension type: essential hypertension Qualified Code(s): I10 - Essential (primary) hypertension (4) PVD (peripheral vascular disease) Priority: Secondary Status: Chronic - Discharge Medications Home Medications: Acetaminophen [Tylenol] 650 mg PO QID PRN 10/10/15 [History] Gabapentin [Neurontin] 1,200 mg PO QPM 10/10/15 [History] Ipratropium/Albuterol Neb [Duoneb] 3 ml IH Q4HR PRN 10/10/15 [History] Mv-Mn/FA/Vit K1/Lycop/Lut/Zeax [Ocuvite Eye + Multi Tablet] 1 tab PO BIDWM 10/09 [History] Polyethylene Glycol 3350 [MiraLAX] 17 gm PO DAILY PRN 10/10/15 [History] Tizanidine HCl 2 mg PO DAILY 10/10/15 [History] Aspirin [Lo-Dose Aspirin EC] 81 mg PO QPM 03/27/16 [History] Propylene Glycol/Peg 400 [Systane 0.3-0.4% Eye Drops] 1 drop BOTH EYES QID PRN 03/27/16 [History] Cyanocobalamin (B-12) [Vitamin B12] 1,000 mcg PO DAILY 07/08/16 [History] hydrALAZINE [HydrALAZINE] 50 mg PO Q4H PRN 07/08/16 [History] Dabigatran [Pradaxa] 150 mg PO BID #0 capsule 07/27/16 [Rx] Diltiazem CD (24hr) [Cardizem CD] 120 mg PO DAILY #0 cap.er.24h 07/27/16 [Rx] Atorvastatin [Lipitor] 40 mg PO HS 09/22/16 [History] Ferrous Gluconate 324 mg PO BIDWM 09/22/16 [History] GuaiFENesin/Dextromethorphan [Tussin Dm Syrup] 10 ml PO Q6H PRN 09/22/16 [ History] Hydrophilic Cream [Basle] 1 appl TP QPM 09/22/16 [History] Isosorbide MONOnitrate (24 HR) [Imdur] 15 mg PO QPM 09/22/16 [History] Ketotifen Fumarate 1 drop OP DAILY PRN 09/22/16 [History] Mag Hydrox/Al Hydrox/Simeth [Almacone Chewable Tablet] 1 each PO BID PRN [History] Magnesium Hydroxide [Milk of Magnesia] 2,400 mg PO DAILY PRN 09/22/16 [History] Metoprolol XL (24 HR) Succ [Toprol Xl] 25 mg PO QPM 09/22/16 [History] Omeprazole [PriLOSEC] 40 mg PO BID 09/22/16 [History] Saliva Substitute Combo No.3 [Aquoral] 3 - 5 spray MM Q2H PRN 09/22/16 [History] Sucralfate [Carafate] 1 gm PO TID PRN 09/22/16 [History] Tamsulosin [Flomax] 0.4 mg PO DAILY 09/22/16 [History] Trazodone HCl 100 mg PO BID PRN 09/22/16 [History] Bumetanide [Bumex] 0.5 mg PO BIDDIURETIC #60 tablet 09/24/16 [Rx] Dabigatran [Pradaxa] 150 mg PO BID 09/24/16 [Rx] Docusate [Colace] 100 mg PO DAILY PRN 09/24/16 [Rx] Ipratropium/Albuterol Sulfate [Combivent Respimat Inhal [place]] 4 gm IH QID PRN # 1 aer.w.adap 09/24/16 [Rx] Morphine Immed Rel [Morphine Sulfate] 15 mg PO BID #10 tablet 09/24/16 [Rx] OxyCODONE Immed Rel [Roxicodone 5 MG] 5 mg PO TID PRN #10 09/24/16 [Rx] cephALEXin [Keflex] 500 mg PO BID #6 capsule 09/24/16 [Rx] Allergies/Adverse Reactions: Allergies bacitracin [From Neosporin ([id number])] Allergy (Unknown, Verified 09/17/16 15:28) See Comments PATIENT UNSURE- REACTION NOT LISTED ON [facility] celecoxib Allergy (Unknown, Verified 09/17/16 15:28) See Comments pt cannot remember codeine Allergy (Unknown, Verified 09/17/16 15:28) See Comments pt does not remember Donepezil Allergy (Unknown, Verified 09/17/16 15:28) See Comments PATIENT UNSURE- REACTION NOT LISTED ON [facility] fenofibrate [From Tricor] Allergy (Unknown, Verified 09/17/16 15:28) See Comments pt does not remember Hydralazine Allergy (Unknown, Verified 09/17/16 15:28) See Comments PATIENT UNSURE- REACTION NOT LISTED ON [facility] naproxen Allergy (Unknown, Verified 09/17/16 15:28) See Comments PATIENT UNSURE- REACTION NOT LISTED ON [facility] Neomycin [From Neosporin ([id number])] Allergy (Unknown, Verified 09/17/16 15 :28) See Comments PATIENT UNSURE- REACTION NOT LISTED ON [facility] Opioids - Morphine Analogues Allergy (Unknown, Verified 09/17/16 15:28) See Comments PATIENT UNSURE- REACTION NOT LISTED ON [facility] polymyxin B [From Neosporin ([id number])] Allergy (Unknown, Verified 15:28) See Comments PATIENT UNSURE- REACTION NOT LISTED ON [facility] rofecoxib Allergy (Unknown, Verified 09/17/16 15:28) See Comments PATIENT UNSURE- REACTION NOT LISTED ON [facility] Sulfa (Sulfonamide Antibiotics) Allergy (Unknown, Verified 09/17/16 15:28) See Comments PATIENT UNSURE- REACTION NOT LISTED ON [facility] Tetanus Vaccines and Toxoid [Tetanus Vaccines & Toxoid] Allergy (Unknown, Verified 09/17/16 15:28) See Comments PATIENT UNSURE- REACTION NOT LISTED ON [facility] lisinopril Adverse Reaction (Verified 09/17/16 15:28) Cough nicotine Adverse Reaction (Verified 09/17/16 15:28) Vomiting Date of admission: 09/25/16 22:22 Primary care physician: [facility] Consults: 09/25/16 23:59 Consult to Cardiology [CONS] Routine Comment: Consulting Provider: [facility] [place] Reason for Consult: Afib with RVR, elevated troponin Call Completed: No Discharging clinician: Jose Antonio Blackman Anticipated date of discharge: 09/26/16 - Discharge Instructions Follow Up With: [facility] [Primary Care Provider] - Hospital course: Ms. Barfield is a 89 year old female - Time Spent with Patient Total time spent providing and/or coordinating discharge services: - Constitutional Vitals: Temp Pulse Resp BP Pulse Ox 98.1 F 75 18 126/61 94 09/26/16 04:00 09/26/16 09:24 09/26/16 07:00 09/26/16 09:24 09/26/16 07:00 General appearance: Present: A&O X 3, pleasant, no acute distress - VTE Documentation of Mechanical Device: Graduated compression elastic hosiery
--- NOTE | 2016-09-26 10:25 | Internal Med Progress Note ---
Date of Encounter: 09/26/16 Time of Encounter: 08:15 - Assessment and plan (1) Paroxysmal atrial fibrillation Current Visit: Yes Status: Chronic Assessment and plan: Patient is currently in sinus rhythm. Case discussed with cardiology. Patient to be begun on amiodarone 400 by mouth twice a day for 1 week, 400 by mouth daily for 1 week and then 200 mg by mouth daily thereafter. Cardiology has signed off the case and cleared the patient for discharge. Patient will be continued pradaxa for anticoagulation. Patient is high risk due to streptococcal bacteremia and the need for treatment of infection and clearance of bacteremia. (2) Bacteremia due to Streptococcus Current Visit: Yes Status: Acute Assessment and plan: Patient's blood cultures-/2 are positive for gram-positive cocci in chain likely Streptococcus. We will await final culture sensitivities. Patient will be continued on intravenous Rocephin. Will repeat blood cultures for determining clearance of bacteremia. Duration of antibiotics and choice of antibiotics to depend on final culture sensitivities. (3) Chronic diastolic CHF (congestive heart failure) Current Visit: Yes Status: Chronic Assessment and plan: Stable. No need for diuretics. (4) Hypertension Current Visit: Yes Status: Chronic Assessment and plan: Controlled. Continue home medications. Qualifiers: Hypertension type: essential hypertension Qualified Code(s): I10 - Essential (primary) hypertension (5) PVD (peripheral vascular disease) Current Visit: No Status: Chronic - Subjective Interval history: Patient states that she is feeling well. She denies any burning or pain during urination. She states that her breathing has gotten better now that her heart rate is better controlled. She denies any nausea or vomiting. She denies feeling lightheaded or having chest pain. - Constitutional Vitals: Temp Pulse Resp BP Pulse Ox 98.1 F 75 18 126/61 94 09/26/16 04:00 09/26/16 09:24 09/26/16 07:00 09/26/16 09:24 09/26/16 07:00 General appearance: Present: A&O X 3, pleasant, no acute distress Exam: Gen.: Sitting in a chair. No acute distress. Chest: Clear to auscultation bilaterally. No adventitious sounds present. CVS: First and second heart sounds present. No murmurs, rubs or gallops. Abdomen: Soft, nontender, nondistended. Bowel sounds present. Internal Medicine: Result - Labs CBC & Chem 7: 09/26/16 01:30 09/26/16 01:30 Labs: Short CBC 09/26/16 Range/Units 01:30 WBC 8.6 (4.3-11.1) K/mcL Hgb 8.3 L (11.5-15.4) g/dL Hct 27.1 L (35.3-44.9) % Plt Count 332 (140-400) K/mcL Neutrophils # 4.9 (1.6-8.9) K/mcL BMP 09/26/16 01:30 Sodium 137 Potassium 3.6 Chloride 94 L Carbon Dioxide 33 H BUN 17 Creatinine 0.88 Glucose 178 H Calcium 9.0 Cardiac Enzymes 09/26/16 09/26/16 Range/Units 01:26 05:33 Troponin I 0.33 H* 0.34 H* (0-0.03) ng/mL - Impressions Case discussed with cardiology - VTE Documentation of Mechanical Device: Graduated compression elastic hosiery Consult Discharge Plan - Plan [facility]errals: [facility] [Primary Care Provider] -
[2016-09-26] MEDS: Isosorbide MONOnitrate (24 HR) 30 MG TAB.ER.24H PO SCH (17:12)
[2016-09-26] MEDS: Aspirin Enteric Coated 81 MG Tablet PO SCH (17:12)
[2016-09-26] MEDS: Metoprolol XL (24 HR) Succ 50 MG TAB.ER.24H PO SCH (17:15)
[2016-09-26] MEDS: *HR* Amiodarone 200 MG TABLET PO SCH (21:54)
[2016-09-26] MEDS: *HR* OxyCODONE Immed Rel 5 MG TABLET PO PRN (23:40)
[2016-09-27] MEDS: traZODone 50 MG TABLET PO PRN ×2 (01:58→23:03)
[2016-09-27] MEDS: Insulin LISPRO 300 UNITS/3 ML VIAL SQ SCH ×4 (08:14→21:58)
[2016-09-27] MEDS: *HR* Morphine Immed Rel 30 MG TABLET PO SCH ×2 (08:53→22:57)
[2016-09-27] MEDS: Metoprolol XL (24 HR) Succ 50 MG TAB.ER.24H PO SCH (08:54)
[2016-09-27] MEDS: *HR* Amiodarone 200 MG TABLET PO SCH ×2 (08:54→20:03)
[2016-09-27] MEDS: Bumetanide 1 MG TABLET PO SCH ×2 (08:54→17:39)
[2016-09-27] MEDS: tiZANidine 4 MG TABLET PO SCH (08:55)
[2016-09-27] MEDS: *HR* Dabigatran 75 MG CAPSULE PO SCH ×2 (08:56→20:03)
--- NOTE | 2016-09-27 09:31 | Discharge Summary ---
Date of Encounter: 09/27/16 Time of Encounter: 08:30 - Discharge Diagnosis (1) Paroxysmal atrial fibrillation Priority: Primary Status: Chronic (2) Bacteremia due to Streptococcus Priority: Secondary Status: Acute (3) Chronic diastolic CHF (congestive heart failure) Priority: Secondary Status: Chronic (4) Hypertension Priority: Secondary Status: Chronic Qualifiers: Hypertension type: essential hypertension Qualified Code(s): I10 - Essential (primary) hypertension (5) PVD (peripheral vascular disease) Priority: Secondary Status: Chronic - Discharge Medications Prescriptions: Amiodarone [Cordarone] 400 mg PO BID #120 tab cephALEXin [Keflex] 500 mg PO BID #26 capsule Home Medications: Acetaminophen [Tylenol] 650 mg PO QID PRN 10/10/15 [History] Ipratropium/Albuterol Neb [Duoneb] 3 ml IH Q4HR PRN 10/10/15 [History] Mv-Mn/FA/Vit K1/Lycop/Lut/Zeax [Ocuvite Eye + Multi Tablet] 1 tab PO BIDWM 10/09 [History] Polyethylene Glycol 3350 [MiraLAX] 17 gm PO DAILY PRN 10/10/15 [History] Tizanidine HCl 2 mg PO DAILY 10/10/15 [History] Aspirin [Lo-Dose Aspirin EC] 81 mg PO QPM 03/27/16 [History] Propylene Glycol/Peg 400 [Systane 0.3-0.4% Eye Drops] 2 drop BOTH EYES QID PRN 03/27/16 [History] Cyanocobalamin (B-12) [Vitamin B12] 1,000 mcg PO DAILY 07/08/16 [History] hydrALAZINE [HydrALAZINE] 50 mg PO Q4H PRN 07/08/16 [History] Atorvastatin [Lipitor] 40 mg PO HS 09/22/16 [History] Ferrous Gluconate 325 mg PO BIDWM 09/22/16 [History] GuaiFENesin/Dextromethorphan [Tussin Dm Syrup] 10 ml PO Q6H PRN 09/22/16 [ History] Hydrophilic Cream [Basle] 1 appl TP QPM 09/22/16 [History] Isosorbide MONOnitrate (24 HR) [Imdur] 15 mg PO QPM 09/22/16 [History] Ketotifen Fumarate 1 drop OP DAILY PRN 09/22/16 [History] Mag Hydrox/Al Hydrox/Simeth [Almacone Chewable Tablet] 1 tab PO BID PRN [History] Magnesium Hydroxide [Milk of Magnesia] 30 ml PO DAILY PRN 09/22/16 [History] Omeprazole [PriLOSEC] 40 mg PO BID 09/22/16 [History] Saliva Substitute Combo No.3 [Aquoral] 3 - 5 spray MM Q2H PRN 09/22/16 [History] Sucralfate [Carafate] 1 gm PO TID PRN 09/22/16 [History] Tamsulosin [Flomax] 0.4 mg PO DAILY 09/22/16 [History] Trazodone HCl 100 mg PO BID PRN 09/22/16 [History] Bumetanide [Bumex] 0.5 mg PO BIDDIURETIC #60 tablet 09/24/16 [Rx] Dabigatran [Pradaxa] 150 mg PO BID 09/24/16 [Rx] Morphine Immed Rel [Morphine Sulfate] 15 mg PO BID #10 tablet 09/24/16 [Rx] OxyCODONE Immed Rel [Roxicodone 5 MG] 5 mg PO TID PRN #10 09/24/16 [Rx] Ipratropium/Albuterol Sulfate [Combivent Respimat Inhal [place]] 1 puff IH QID PRN 09/26/16 [History] Nitroglycerin [Nitrostat] 0.4 mg SL AD PRN 09/26/16 [History] Sennosides/Docusate Sodium [Senna-Docusate Sodium Tablet] 1 tab PO BID 09/26/16 [History] Amiodarone [Cordarone] 400 mg PO BID #120 tab 09/27/16 [Rx] Metoprolol XL (24 HR) Succ [Toprol Xl] 50 mg PO QPM #0 09/27/16 [Rx] cephALEXin [Keflex] 500 mg PO BID #26 capsule 09/27/16 [Rx] Allergies/Adverse Reactions: Allergies bacitracin [From Neosporin ([id number])] Allergy (Unknown, Verified 09/17/16 15:28) See Comments PATIENT UNSURE- REACTION NOT LISTED ON [facility] L[facility] celecoxib Allergy (Unknown, Verified 09/17/16 15:28) See Comments pt cannot remember codeine Allergy (Unknown, Verified 09/17/16 15:28) See Comments pt does not remember Donepezil Allergy (Unknown, Verified 09/17/16 15:28) See Comments PATIENT UNSURE- REACTION NOT LISTED ON [facility] fenofibrate [From Tricor] Allergy (Unknown, Verified 09/17/16 15:28) See Comments pt does not remember Hydralazine Allergy (Unknown, Verified 09/17/16 15:28) See Comments PATIENT UNSURE- REACTION NOT LISTED ON [facility] naproxen Allergy (Unknown, Verified 09/17/16 15:28) See Comments PATIENT UNSURE- REACTION NOT LISTED ON [facility] Neomycin [From Neosporin ([id number])] Allergy (Unknown, Verified 09/17/16 15 :28) See Comments PATIENT UNSURE- REACTION NOT LISTED ON [facility] Opioids - Morphine Analogues Allergy (Unknown, Verified 09/17/16 15:28) See Comments PATIENT UNSURE- REACTION NOT LISTED ON [facility] polymyxin B [From Neosporin ([id number])] Allergy (Unknown, Verified 15:28) See Comments PATIENT UNSURE- REACTION NOT LISTED ON [facility] rofecoxib Allergy (Unknown, Verified 09/17/16 15:28) See Comments PATIENT UNSURE- REACTION NOT LISTED ON [facility] Sulfa (Sulfonamide Antibiotics) Allergy (Unknown, Verified 09/17/16 15:28) See Comments PATIENT UNSURE- REACTION NOT LISTED ON [facility] Tetanus Vaccines and Toxoid [Tetanus Vaccines & Toxoid] Allergy (Unknown, Verified 09/17/16 15:28) See Comments PATIENT UNSURE- REACTION NOT LISTED ON [facility] lisinopril Adverse Reaction (Verified 09/17/16 15:28) Cough nicotine Adverse Reaction (Verified 09/17/16 15:28) Vomiting Date of admission: 09/25/16 22:22 Primary care physician: [facility]CP [facility] Consults: 09/25/16 23:59 Consult to Cardiology [CONS] Routine Comment: Consulting Provider: Card[facility] [place] Reason for Consult: Afib with RVR, elevated troponin Call Completed: No 09/27/16 08:30 Consult to Afternoon [facility] [CONS] Routine Reason for SW Consult: [facility] Discharging clinician: Jose Antonio Blackman Anticipated date of discharge: 09/27/16 - Patient Status Disposition: Transfer SNF Condition: Fair Functional capacity at discharge: uses cane/walker Overall status at discharge: patient is back to baseline - Discharge Instructions Follow Up With: [facility] [Primary Care Provider] - - Diet and Activity Activity: as per physical therapy, increase activity as tolerated Diet: low fat, low cholesterol, low salt diet Hospital course: Ms. Barfield is a 89 year old female with a history of COPD, hypertension, atrial fibrillation on anticoagulation, CHF was sent from the extended care facility due to her blood cultures from prior admission being positive and due to atrial fibrillation with rapid ventricular response and elevated troponin. The patient was admitted to the hospital. Cardiology was consulted. After discussion with cartilage, the patient was agreeable to antiarrhythmic therapy. Hence, she has been started on amiodarone 400 mg by mouth twice a day. The patient is to take amiodarone 400 mg by mouth twice a day for 1 week, then 400 mg by mouth daily for 1 week then 200 mg by mouth daily. She has been provided scripts for the same. Her Cardizem was discontinued and her Toprol-XL has been increased from 25 mg by mouth daily to 50 mg by mouth daily. Cardiology has signed off and stated that the patient does cleared from their standpoint for discharge. The patient's blood cultures obtained on 09/22/2016 were positive for gram- positive cocci in chains. The patient had a echo cardiac rhythm performed on which did not reveal any vegetations. The patient had repeat blood cultures performed on 09/26/2016 after she was admitted to the hospital. She was continued on intravenous ceftriaxone. The blood cultures are positive for Streptococcus mitis which is an alpha hemolytic streptococcus. This is sensitive to penicillin, cephalosporins and vancomycin. The patient is being discharged on 2 more weeks of by mouth Keflex. - Time Spent with Patient Total time spent providing and/or coordinating discharge services: Greater than 30 minutes (40) - Constitutional Vitals: Temp Pulse Resp BP Pulse Ox 97.5 F L 77 18 154/73 92 09/27/16 08:02 09/27/16 08:02 09/27/16 08:02 09/27/16 08:02 09/27/16 08:02 General appearance: Present: A&O X 3, pleasant, no acute distress Exam: Gen.: Lying in bed. No acute distress. Chest: Clear to auscultation bilaterally. No adventitious sounds present. CVS: First and second heart sounds present. No murmurs, rubs or gallops. Abdomen: Soft, nontender, nondistended. Bowel sounds present. - VTE Documentation of Mechanical Device: Graduated compression elastic hosiery
[2016-09-27] MEDS: *HR* OxyCODONE Immed Rel 5 MG TABLET PO PRN (11:37)
--- NOTE | 2016-09-27 16:10 | Infectious Disease Consult ---
Date of Encounter: 09/27/16 Time of Encounter: 16:08 Assessment and Plan (1) Bacteremia due to Streptococcus Status: Acute Assessment and plan: The patient had blood cultures drawn during her most recent hospitalization that grew out S. mitis 1/2 sets. The patient was asymptomatic - no fevers, chills, rigors, focal symptoms to indicate infection, etc. She did have A-fib with onset of RVR. Repeat blood cultures drawn 09/26/16 are pending x 2 sets. Await repeat blood cultures. Continue Rocephin, but increase dose to 2 grams IV daily. Duration of treatment depends on the clinical picture, but if repeat blood cultures are negative, would switch to oral Keflex to complete a 14 day course. (2) Atrial fibrillation with RVR Status: Acute Assessment and plan: Etiology unclear. Cardiology consulted and following. Rate controlled at this time. Management per the cardiology and primary teams. (3) CKD (chronic kidney disease), stage III Status: Chronic Assessment and plan: Serum creatinine normal this admission. Continue to trend. No dose-adjustment of the Rocephin required. (4) Chronic diastolic CHF (congestive heart failure) Status: Chronic Infectious Disease HPI - Data of Consult Patient: new to practice Consult date: 09/27/16 Requesting Physician: Jose Antonio Blackman MD [facility] - Consult Narrative Reason for consult: S. mitis bacteremia History of present illness: Ms. Barfield is a 89 year old female past medical history COPD, hypertension, A. fib, CHF, CVA with residual left-sided weakness, colon cancer status post hemicolectomy in July 2016, and arthritis. The patient was admitted to the hospital September 25 for A. fib RVR and bacteremia. We're consulted September 27 for further evaluation and treatment recommendations regarding bacteremia. 89-year-old female with past medical history as stated above. The patient was recently hospitalized back on September 22 after she was admitted for A. fib RVR and UTI. She was seen by cardiology at that time medications were adjusted. At that time, blood cultures were drawn and came back +1 out of 2 sets after the patient had been discharged. She was contacted at the [facility] where she resides and was admitted to the intensive care unit at the [facility]. She became tachycardic and went into A. fib RVR and was subsequently transferred here for further evaluation. Upon arrival, the patient was afebrile , but she was tachycardic. She was otherwise hemodynamically stable. Laboratory studies revealed a normal white blood cell count. The patient has remained afebrile and hemodynamically stable. Her tachycardia has resolved. Cardiology was consulted and made recommendations to adjust the patient's medications for her A. fib. Since then, her rapid ventricular rate has been controlled. Repeat blood cultures were drawn September 26 are currently pending. The patient has been on Rocephin 1 g daily since admission. We've been asked to evaluate make further recommendations. During my exam today, patient endorses a history as stated above. She states that prior to her last hospitalization she was not having any fevers or chills or rigors and had no indication of any sort of infection at that time. She denies any headache or neck pain. She denies any weakness or dizziness. She denies any congestion, earache, or sore throat. She denies any chest pain, shortness of breath, or cough. She denies any nausea, vomiting, diarrhea, constipation. She denies abdominal pain and states that her colectomy wound has healed well. She does have a spinal cord stimulator to the left flank that she states she doesn't feel is working anymore because she has increased pain in her back in her legs that she was having prior to the insertion of the stimulator. She denies any redness or swelling or warmth at the site of the spinal cord stimulator. She denies any oral thrush or skin lesions. She denies any urinary complaints. She denies any recent dental issues. The patient has no chronic indwelling lines or catheters. She resides at the [facility] facility. CC: Jose Antonio Blackman MD Past Med Surg Social Fam HX - Past Medical History Attestation: Yes The following information was validated with the patient. Source: patient, old records reviewed, nursing notes reviewed Medical history: arthritis, atrial fibrillation, cancer (colon cancer s/p hemicolectomy 07/2016), COPD, diabetes, GERD, hyperlipidemia, hypertension, peripheral artery disease, valvular heart disease, other Psychiatric history: no psych history - Past Surgical History Surgical History: cancer surgery (hemicolectomy), orthopedic, other, other, vascular surgery - Social History Smoking Status: Former smoker Smokeless Tobacco Status: No Alcohol use: none Drug use: none Occupational status: retired Current living situation: [facility] Activity Level: Independent ambulation Recent Out of Country Travel Within the Last 8 Weeks: No Exposure or Possible Exposure to Illness During Travel: No - Family History Mother Living Status: Age at : 38 Cause of : Spinal meningitis Father Adopted: No Family Member Ethnicity: Non- Twin of Family Member: Yes, Fraternal Living Status: Age at : 100 Cause of : Gangrene Hx Family Cardiac Disorders: Yes Hx Family Respiratory Disorders: Yes Infectious Disease-CN:Meds Acetaminophen [Tylenol] 650 mg PO QID PRN 10/10/15 [History] Ipratropium/Albuterol Neb [Duoneb] 3 ml IH Q4HR PRN 10/10/15 [History] Mv-Mn/FA/Vit K1/Lycop/Lut/Zeax [Ocuvite Eye + Multi Tablet] 1 tab PO BIDWM 10/09 [History] Polyethylene Glycol 3350 [MiraLAX] 17 gm PO DAILY PRN 10/10/15 [History] Tizanidine HCl 2 mg PO DAILY 10/10/15 [History] Aspirin [Lo-Dose Aspirin EC] 81 mg PO QPM 03/27/16 [History] Propylene Glycol/Peg 400 [Systane 0.3-0.4% Eye Drops] 2 drop BOTH EYES QID PRN 03/27/16 [History] Cyanocobalamin (B-12) [Vitamin B12] 1,000 mcg PO DAILY 07/08/16 [History] hydrALAZINE [HydrALAZINE] 50 mg PO Q4H PRN 07/08/16 [History] Atorvastatin [Lipitor] 40 mg PO HS 09/22/16 [History] Ferrous Gluconate 325 mg PO BIDWM 09/22/16 [History] GuaiFENesin/Dextromethorphan [Tussin Dm Syrup] 10 ml PO Q6H PRN 09/22/16 [ History] Hydrophilic Cream [Basle] 1 appl TP QPM 09/22/16 [History] Isosorbide MONOnitrate (24 HR) [Imdur] 15 mg PO QPM 09/22/16 [History] Ketotifen Fumarate 1 drop OP DAILY PRN 09/22/16 [History] Mag Hydrox/Al Hydrox/Simeth [Almacone Chewable Tablet] 1 tab PO BID PRN [History] Magnesium Hydroxide [Milk of Magnesia] 30 ml PO DAILY PRN 09/22/16 [History] Omeprazole [PriLOSEC] 40 mg PO BID 09/22/16 [History] Saliva Substitute Combo No.3 [Aquoral] 3 - 5 spray MM Q2H PRN 09/22/16 [History] Sucralfate [Carafate] 1 gm PO TID PRN 09/22/16 [History] Tamsulosin [Flomax] 0.4 mg PO DAILY 09/22/16 [History] Trazodone HCl 100 mg PO BID PRN 09/22/16 [History] Bumetanide [Bumex] 0.5 mg PO BIDDIURETIC #60 tablet 09/24/16 [Rx] Dabigatran [Pradaxa] 150 mg PO BID 09/24/16 [Rx] Morphine Immed Rel [Morphine Sulfate] 15 mg PO BID #10 tablet 09/24/16 [Rx] OxyCODONE Immed Rel [Roxicodone 5 MG] 5 mg PO TID PRN #10 09/24/16 [Rx] Ipratropium/Albuterol Sulfate [Combivent Respimat Inhal [place]] 1 puff IH QID PRN 09/26/16 [History] Nitroglycerin [Nitrostat] 0.4 mg SL AD PRN 09/26/16 [History] Sennosides/Docusate Sodium [Senna-Docusate Sodium Tablet] 1 tab PO BID 09/26/16 [History] Amiodarone [Cordarone] 400 mg PO BID #120 tab 09/27/16 [Rx] Metoprolol XL (24 HR) Succ [Toprol Xl] 50 mg PO QPM #0 09/27/16 [Rx] cephALEXin [Keflex] 500 mg PO BID #26 capsule 09/27/16 [Rx] Allergies bacitracin [From Neosporin ([id number])] Allergy (Unknown, Verified 09/17/16 15:28) See Comments PATIENT UNSURE- REACTION NOT LISTED ON [facility] celecoxib Allergy (Unknown, Verified 09/17/16 15:28) See Comments pt cannot remember codeine Allergy (Unknown, Verified 09/17/16 15:28) See Comments pt does not remember Donepezil Allergy (Unknown, Verified 09/17/16 15:28) See Comments PATIENT UNSURE- REACTION NOT LISTED ON [facility] fenofibrate [From Tricor] Allergy (Unknown, Verified 09/17/16 15:28) See Comments pt does not remember Hydralazine Allergy (Unknown, Verified 09/17/16 15:28) See Comments PATIENT UNSURE- REACTION NOT LISTED ON [facility] naproxen Allergy (Unknown, Verified 09/17/16 15:28) See Comments PATIENT UNSURE- REACTION NOT LISTED ON [facility] Neomycin [From Neosporin ([id number])] Allergy (Unknown, Verified 09/17/16 15 :28) See Comments PATIENT UNSURE- REACTION NOT LISTED ON [facility] Opioids - Morphine Analogues Allergy (Unknown, Verified 09/17/16 15:28) See Comments PATIENT UNSURE- REACTION NOT LISTED ON [facility] L[facility] polymyxin B [From Neosporin ([id number])] Allergy (Unknown, Verified 15:28) See Comments PATIENT UNSURE- REACTION NOT LISTED ON [facility] rofecoxib Allergy (Unknown, Verified 09/17/16 15:28) See Comments PATIENT UNSURE- REACTION NOT LISTED ON [facility] LIST Sulfa (Sulfonamide Antibiotics) Allergy (Unknown, Verified 09/17/16 15:28) See Comments PATIENT UNSURE- REACTION NOT LISTED ON [facility] LIST Tetanus Vaccines and Toxoid [Tetanus Vaccines & Toxoid] Allergy (Unknown, Verified 09/17/16 15:28) See Comments PATIENT UNSURE- REACTION NOT LISTED ON [facility] L[facility] lisinopril Adverse Reaction (Verified 09/17/16 15:28) Cough nicotine Adverse Reaction (Verified 09/17/16 15:28) Vomiting All systems: reviewed and no additional remarkable complaints except as stated Exam - Constitutional Vitals: Temp Pulse Resp BP Pulse Ox 97.5 F L 77 18 154/73 92 09/27/16 08:02 09/27/16 08:02 09/27/16 08:02 09/27/16 08:02 09/27/16 08:02 General appearance: cooperative, no acute distress, thin - Head Head exam: Present: atraumatic, normal inspection, normocephalic - Eye Eye exam: Present: EOMI, normal appearance, PERRL Pupils: Present: normal accommodation Additional comments: No subconjunctival hemorrhage noted. - ENT ENT exam: Present: mucous membranes moist - Neck Neck exam: Present: normal inspection - Respiratory Respiratory exam: Present: CTAB. Absent: rales, respiratory distress, rhonchi, wheezes - Cardiovascular Cardiovascular exam: Present: irregular rhythm. Absent: tachycardia - GI/Abdominal GI/Abdominal exam: Present: normal bowel sounds, soft. Absent: distended, tenderness - Extremities Exam Extremities exam: Present: normal inspection. Absent: joint swelling, pedal edema, tenderness - Back Exam Additional comments: Spinal cord stimulator noted to the left flank without erythema, warmth, or drainage. Mild tenderness noted with palpation. - Neurological Exam Neurological exam: Present: alert, oriented X3, no focal deficits - Psychiatric Psychiatric exam: Present: normal affect, normal mood - Skin Skin exam: Present: dry, intact, normal color, warm Additional comments: No endocarditis stigmata noted. Infectious Disease CN: Results - Labs CBC & Chem 7: 09/28/16 06:50 09/26/16 01:30 - VTE Documentation of Mechanical Device: Graduated compression elastic hosiery Consult Discharge Plan - Plan Instructions: Cephalexin (By mouth), Amiodarone (By mouth), Heart Failure (DC) , Atrial Fibrillation (DC), Chest Pain (DC), Viral Pneumonia (DC), Viral Pneumonia (GEN), Urinary Tract Infection in Women (DC), Diabetes Mellitus Type 2 in Adults (DC), Chronic Obstructive Pulmonary Disease (DC), Sepsis (DC), Sepsis (GEN), Chronic Hypertension (DC), Cigarette Smoking and Your Health, Instrument Setter (GEN) [facility]errals: [facility] [Primary Care Provider] - Prescriptions: Amiodarone [Cordarone] 400 mg PO BID #120 tab cephALEXin [Keflex] 500 mg PO BID #26 capsule - Attending Attestation I examined this patient and my medical decision-making was reviewed with the Resident Physician. I agree with the documented findings, disposition and treatment plan as described except to the extent set forth below. This is an addendum to original report dictated by Lilo Cole CNP, please refer to Bean ramirez for full details. Patient is an 89-year-old woman with recent history of colorectal cancer status post colectomy by Dr. Faulkner who was having A. fib with RVR. On routine blood culture patient 1 out of 2 sets grew Streptococcus mitis. Patient had ulcers criteria and was otherwise feeling okay. Patient was started on Rocephin 1 g IV every 24 hours. Were asked to evaluate the patients make further recommendations. Today patient appears very comfortable sitting up in chair eating dinner very pleasant does not appear toxic or ill. At this point repeat cultures were done if the patients cultures are negative I think its okay to switch her to oral antibiotics like amoxicillin or Keflex to finish a ten-day to 14 day course. Patient really looks clinically well and no acute distress. Await cultures to finalize.
[2016-09-27] MEDS: Isosorbide MONOnitrate (24 HR) 30 MG TAB.ER.24H PO SCH (17:38)
[2016-09-27] MEDS: Aspirin Enteric Coated 81 MG Tablet PO SCH (17:38)
[2016-09-28] MEDS: *HR* OxyCODONE Immed Rel 5 MG TABLET PO PRN ×3 (01:08→22:57)
[2016-09-28 07:10] LABS: Basophils % 0.4 %; Eosinophils # 0.3 K/mcL (0.0-0.6); Eosinophils % 3.9 %; Hematocrit 26.8 % (35.3-44.9); Hemoglobin 8.2 g/dL (11.5-15.4); Immature Granulocytes % 0.4 % (0-4); Lymphocytes # 2.9 K/mcL (0.6-4.6); Lymphocytes % 40.9 %; Mean Corpuscular HGB Conc 30.6 g/dL (31.6-35.5); Mean Corpuscular Hemoglobin 23.8 pg (28.0-33.3); Mean Corpuscular Volume 77.9 fL (83.0-100.0); Mean Platelet Volume 8.8 fL (9.4-12.4); Monocytes # 0.8 K/mcL (0.0-1.3); Monocytes % 10.7 %; Neutrophils # 3.1 K/mcL (1.6-8.9); Platelet Count 240 K/mcL (140-400); Red Blood Count 3.44 M/mcL (3.82-4.97); Red Cell Distribution Width 20.5 % (11.5-14.5); Segmented Neutrophils % 43.7 %
[2016-09-28] MEDS: Insulin LISPRO 300 UNITS/3 ML VIAL SQ SCH ×4 (07:14→20:54)
[2016-09-28] MEDS: Bumetanide 1 MG TABLET PO SCH ×2 (07:22→16:48)
[2016-09-28] MEDS: *HR* Amiodarone 200 MG TABLET PO SCH ×2 (09:34→20:50)
[2016-09-28] MEDS: *HR* Morphine Immed Rel 30 MG TABLET PO SCH ×2 (09:34→20:50)
[2016-09-28] MEDS: tiZANidine 4 MG TABLET PO SCH (09:36)
[2016-09-28] MEDS: Metoprolol XL (24 HR) Succ 50 MG TAB.ER.24H PO SCH (09:36)
[2016-09-28] MEDS: *HR* Dabigatran 75 MG CAPSULE PO SCH ×2 (09:37→20:49)
--- NOTE | 2016-09-28 10:40 | Infectious Disease Progress No ---
Date of Encounter: 09/28/16 Time of Encounter: 10:36 - Assessment and Plan (1) Bacteremia due to Streptococcus Current Visit: Yes Status: Acute The patient had blood cultures 1 of 2 positive for strep mitis from her most recent hospitalization. Patient remains asymptomatic and afebrile. Repeat blood cultures from 09/26/16 are negative 2 out of 2. I spoke with microbiology at 10:40 AM and confirmed that they are indeed still negative. recommendations: Discontinue IV rocephin Start keflex 500 mg PO BID and will need to complete a two week course. Day one will begin from date of first set of negative cultures. (2) Atrial fibrillation with RVR Current Visit: No Status: Acute Rate controlled. On Pradaxa. Management per primary and cardiology. (3) Chronic diastolic CHF (congestive heart failure) Current Visit: Yes Status: Chronic stable. near euvolemic on exam. management per primary team. (4) History of colon cancer Current Visit: Yes Status: Acute patient diagnosed with right sided colon cancer and had right sided hemicolectomy 07/16/16. Currently she is not on any chemotherapeutics. She will need to follow up with oncology. - Subjective Interval history: No major events overnight. PAtient states that she is feeling much better today and feels like her heart is under much better. she denies any fever, chills malaise, rash, diarrhea. She admits to a cough but states it is non productive. She denies any increased dyspnea. Infect Dis PN-Objective Data - Labs CBC & Chem 7: 09/28/16 06:50 09/26/16 01:30 Labs: Laboratory Results - last 24 hr 09/28/16 06:50 WBC 7.0 RBC 3.44 L Hgb 8.2 L Hct 26.8 L MCV 77.9 L MCH 23.8 L MCHC 30.6 L RDW 20.5 H Plt Count 240 MPV 8.8 L Immature Gran % 0.4 Seg Neutrophils % 43.7 Lymphocytes % 40.9 Monocytes % 10.7 Eosinophils % 3.9 Basophils % 0.4 Neutrophils # 3.1 Lymphocytes # 2.9 Monocytes # 0.8 Eosinophils # 0.3 Basophils # 0.0 Cultures: Cultures 09/26/16 11:17 Blood Culture - Preliminary Peripheral Venipuncture No growth. 09/26/16 11:17 Blood Culture - Preliminary Peripheral Venipuncture No growth. Exam - Constitutional Vitals: Temp Pulse Resp BP Pulse Ox 97.7 F 61 15 138/64 96 09/28/16 07:04 09/28/16 07:04 09/28/16 07:04 09/28/16 07:04 09/28/16 10:22 General appearance: no acute distress, thin - Head Head exam: Present: atraumatic, normal inspection, normocephalic - ENT ENT exam: Present: mucous membranes moist - Neck Neck exam: Present: normal inspection. Absent: tenderness - Respiratory Additional comments: Mild course breath sounds in the right lower lung field. - GI/Abdominal GI/Abdominal exam: Present: normal bowel sounds, soft. Absent: tenderness - Extremities Exam Extremities exam: Present: pedal edema (mild 1+ bilaterally. ) - Skin Skin exam: Absent: erythema, rash - VTE Documentation of Mechanical Device: Graduated compression elastic hosiery Consult Discharge Plan - Plan Instructions: Cephalexin (By mouth), Amiodarone (By mouth), Heart Failure (DC) , Atrial Fibrillation (DC), Chest Pain (DC), Viral Pneumonia (DC), Viral Pneumonia (GEN), Urinary Tract Infection in Women (DC), Diabetes Mellitus Type 2 in Adults (DC), Chronic Obstructive Pulmonary Disease (DC), Sepsis (DC), Sepsis (GEN), Chronic Hypertension (DC), Cigarette Smoking and Your Health, Twisting Frame Fixer (GEN) [facility]errals: [facility],PCP [Primary Care Provider] - Prescriptions: Amiodarone [Cordarone] 400 mg PO BID #120 tab cephALEXin [Keflex] 500 mg PO BID #26 capsule - Attending Attestation I examined this patient and my medical decision-making was reviewed with the Resident Physician. I agree with the documented findings, disposition and treatment plan as described except to the extent set forth below.
--- NOTE | 2016-09-28 12:13 | Internal Med Progress Note ---
Date of Encounter: 09/28/16 Time of Encounter: 12:13 - Subjective Interval history: Patient seen and examined at bedside. Resting comfortably in chair and reports of feeling well. Pt is TE-MOAK however AAO x 3. Denies any distress or discomfort at this time. No overnight issues were reported. Patient was discharged to the [facility] however d/c held due to positive blood cultures as per [facility] doctor's request. ID Input appreciated and patient can be switched to PO abx therapy. At this time she is hemodynamically stable for discharge pending acceptance by the [facility] physician. - Discharge Diagnosis (1) Paroxysmal atrial fibrillation Priority: Primary Status: Chronic (2) Bacteremia due to Streptococcus Priority: Secondary Status: Acute (3) Chronic diastolic CHF (congestive heart failure) Priority: Secondary Status: Chronic (4) Hypertension Priority: Secondary Status: Chronic Qualifiers: Hypertension type: essential hypertension Qualified Code(s): I10 - Essential (primary) hypertension (5) PVD (peripheral vascular disease) Priority: Secondary Status: Chronic - Constitutional Vitals: Temp Pulse Resp BP Pulse Ox 97.7 F 61 15 138/64 96 09/28/16 07:04 09/28/16 07:04 09/28/16 07:04 09/28/16 07:04 09/28/16 10:22 General appearance: Present: A&O X 3, pleasant, no acute distress - Head Head exam: Present: atraumatic, normocephalic - Eye Eye exam: Present: normal appearance, conjuntiva pink, sclera anicteric - Respiratory Respiratory exam: Absent: respiratory distress, wheezes - Cardiovascular Cardiovascular exam: Present: RRR, +S1, +S2 - GI/Abdominal GI/Abdominal exam: Present: normal bowel sounds, soft, no peritoneal signs. Absent: distended, tenderness - Extremities Exam Extremities exam: Present: warm, radial pulses palpable and symetrical (b/l chronic venous stasis ) - Neurological Exam Neurological exam: Present: alert, oriented X3 - Psychiatric Psychiatric exam: Present: normal affect, normal mood Internal Medicine: Result - Labs CBC & Chem 7: 09/28/16 06:50 09/26/16 01:30 Labs: Short CBC 09/28/16 Range/Units 06:50 WBC 7.0 (4.3-11.1) K/mcL Hgb 8.2 L (11.5-15.4) g/dL Hct 26.8 L (35.3-44.9) % Plt Count 240 (140-400) K/mcL Neutrophils # 3.1 (1.6-8.9) K/mcL - VTE Documentation of Mechanical Device: Graduated compression elastic hosiery Consult Discharge Plan - Plan [facility]errals: [facility] [Primary Care Provider] - Prescriptions: Amiodarone [Cordarone] 400 mg PO BID #120 tab cephALEXin [Keflex] 500 mg PO BID #26 capsule
[2016-09-28] MEDS: Aspirin Enteric Coated 81 MG Tablet PO SCH (16:49)
[2016-09-28] MEDS: Isosorbide MONOnitrate (24 HR) 30 MG TAB.ER.24H PO SCH (16:49)
[2016-09-28] MEDS: cephALEXin 500 MG CAPSULE PO SCH (20:48)
[2016-09-28] MEDS: traZODone 50 MG TABLET PO PRN (23:00)
[2016-09-29 07:28] VITALS: BP 124/64
[2016-09-29] MEDS: Insulin LISPRO 300 UNITS/3 ML VIAL SQ SCH (07:35)
[2016-09-29] MEDS: *HR* Morphine Immed Rel 30 MG TABLET PO SCH (07:36)
[2016-09-29] MEDS: cephALEXin 500 MG CAPSULE PO SCH (07:38)
[2016-09-29] MEDS: tiZANidine 4 MG TABLET PO SCH (07:38)
[2016-09-29] MEDS: Bumetanide 1 MG TABLET PO SCH (07:39)
[2016-09-29] MEDS: Metoprolol XL (24 HR) Succ 50 MG TAB.ER.24H PO SCH (07:40)
[2016-09-29] MEDS: *HR* Amiodarone 200 MG TABLET PO SCH (07:41)
[2016-09-29] MEDS: *HR* Dabigatran 75 MG CAPSULE PO SCH (07:41)
--- NOTE | 2016-09-29 09:38 | Internal Med Progress Note ---
Date of Encounter: 09/29/16 Time of Encounter: 09:36 - Subjective Interval history: Patient seen and examined at bedside. Resting comfortably in chair and reports of feeling well. Denies any discomfort at this time. No overnight issues were reported. Patient will be leaving to the [facility] today with oral antibiotics for a total of two weeks since the first negative blood culture Patient is hemodynamically stable and will be discharged to the [facility] today patient is to follow up with PCP after her discharge from the hospital. - Discharge Diagnosis (1) Paroxysmal atrial fibrillation Priority: Primary Status: Chronic (2) Bacteremia due to Streptococcus Priority: Secondary Status: Acute (3) Chronic diastolic CHF (congestive heart failure) Priority: Secondary Status: Chronic (4) Hypertension Priority: Secondary Status: Chronic Qualifiers: Hypertension type: essential hypertension Qualified Code(s): I10 - Essential (primary) hypertension (5) PVD (peripheral vascular disease) Priority: Secondary Status: Chronic - Constitutional Vitals: Temp Pulse Resp BP Pulse Ox 97.6 F 61 16 124/64 98 09/29/16 07:25 09/29/16 07:25 09/28/16 20:06 09/29/16 07:25 09/29/16 07:47 General appearance: Present: A&O X 3, pleasant, no acute distress, answers questions appropriately - Head Head exam: Present: atraumatic, normocephalic - Eye Eye exam: Present: conjuntiva pink, sclera anicteric - Respiratory Respiratory exam: Present: CTAB. Absent: accessory muscle use, rales, rhonchi, wheezes - Cardiovascular Cardiovascular exam: Present: RRR, +S1, +S2. Absent: diastolic murmur, gallop, rubs, systolic murmur - GI/Abdominal GI/Abdominal exam: Present: normal bowel sounds, soft, no peritoneal signs. Absent: distended, tenderness - Extremities Exam Extremities exam: Present: warm, radial pulses palpable and symetrical. Absent : calf tenderness, cyanotic, pedal edema - Neurological Exam Neurological exam: Present: alert, oriented X3, no focal deficits - Psychiatric Psychiatric exam: Present: normal affect, normal mood Internal Medicine: Result - Labs CBC & Chem 7: 09/28/16 06:50 09/26/16 01:30 - VTE Documentation of Mechanical Device: Graduated compression elastic hosiery Consult Discharge Plan - Plan Instructions: Cephalexin (By mouth), Amiodarone (By mouth), Heart Failure (DC) , Atrial Fibrillation (DC), Chest Pain (DC), Viral Pneumonia (DC), Viral Pneumonia (GEN), Urinary Tract Infection in Women (DC), Diabetes Mellitus Type 2 in Adults (DC), Chronic Obstructive Pulmonary Disease (DC), Sepsis (DC), Sepsis (GEN), Chronic Hypertension (DC), Cigarette Smoking and Your Health, Underwriting Support Manager (GEN) [facility]errals: [facility] [Primary Care Provider] - Prescriptions: Amiodarone [Cordarone] 400 mg PO BID #120 tab cephALEXin [Keflex] 500 mg PO BID #26 capsule
[2016-09-29 10:27] LABS: BUN/Creatinine Ratio 27 (6-26); Blood Urea Nitrogen 28 mg/dL (7-20); Calcium 7.9 mg/dL (8.6-10.8); Carbon Dioxide 33 mEq/L (19-29); Chloride 97 mEq/L (98-109); Glucose 195 mg/dL (70-99); Magnesium 1.4 mg/dL (1.6-2.6); Osmolality,Calculated 293 (280-300); Phosphorous 3.8 mg/dL (2.3-4.7); Potassium 4.2 mEq/L (3.5-4.5); Sodium 136 mEq/L (136-145); eGFR For African Americans > 60 (> 60); eGFR For Non-African Americans 50 (> 60)
[2016-09-29 10:58] LABS: Basophils % 0.6 %; Eosinophils # 0.2 K/mcL (0.0-0.6); Hemoglobin 9.1 g/dL (11.5-15.4); Immature Granulocytes % 0.4 % (0-4); Lymphocytes # 2.4 K/mcL (0.6-4.6); Lymphocytes % 35.5 %; Mean Corpuscular HGB Conc 30.3 g/dL (31.6-35.5); Mean Corpuscular Hemoglobin 24.1 pg (28.0-33.3); Mean Corpuscular Volume 79.4 fL (83.0-100.0); Mean Platelet Volume 8.9 fL (9.4-12.4); Monocytes # 0.6 K/mcL (0.0-1.3); Monocytes % 9.6 %; Neutrophils # 3.4 K/mcL (1.6-8.9); Platelet Count 302 K/mcL (140-400); Red Blood Count 3.78 M/mcL (3.82-4.97); Red Cell Distribution Width 20.4 % (11.5-14.5); Segmented Neutrophils % 50.9 %
== END 2016-09-29 11:17 | DRG 309 ==
LOC: SUATTDRO 22:22 → 2NENU 22:22
PROVIDERS: ADMIT Nurse Practitioner Family; ATTEND Internal Medicine